=== PATIENT | male | born 1945 | race Caucasian/White ===

== ENCOUNTER 2023-11-08 20:55 | Inpatient (IN) | payer OTHER, SELFPAY ==
[2023-11-08] VITALS (55 sets, daily range): BP systolic 66–135; BP diastolic 33–59; BMI 20.5
[2023-11-08 15:42] LABS: Glucose - Point of Care 278 mg/dl (70-99)
--- NOTE | 2023-11-08 16:16 | ED.GENMED ---
History of Present Illness
General
Chief Complaint: Weakness
Source: patient and family
Exam Limitations: none
Time Seen by Provider: 11/08/23 15:56
Travel History
Have you had any contact with someone who has COVID-19?: No
Do you have any symptoms of coronavirus? Fever > 100 degrees, chills, cough, shortness of breath, sore throat, loss of taste or smell, muscle aches, or headache?: No
History of Present Illness
History of Present Illness:
See MDM
Past History
Past History
ED Past Medical History: CHF and HTN
ED Past Surgical History: None
Social History
Tobacco: Non-smoker
Alcohol: None
Phy Exam
Physical Exam
Physical Exam:
See MDM
Course
Orders/Labs/Results
Orders:
Orders
11/08/23 15:47
Electrocardiogram (*1) Urgent
Reason for Study: Other
Other Reason for Exam: Possible Sepsis
EKG- Treatment ONCE
IV Insert/Care/Rem.- Treatment PRN
11/08/23 15:54
CR Chest Portable - 1 View Urgent
Comment:
Reason For Exam: sob
Reason Study Needs to be Portable: Patient Unstable
11/08/23 16:11
0.9% Sodium Chloride 500 ml [Nss] 500 ml IV BOLUS
Piperacillin/Tazo 3.375 Gram [Zosyn] 3.375 gram in 50 ml IV NOW
Vancomycin [Vancocin] 1,250 mg 0.9% Sodium Chloride 250 ml [Nss] 250 ml IV NOW
11/08/23 16:37
Complete Blood Count/With Diff Urgent
Lactic Acid Q4H
Comment: ON ICE, CANCEL 2ND ORDER IF FIRST LACTIC ACID LEVEL <2
Blood Culture Q30M
BELLA Source: Blood/Venous
Specimen Description:
Comment: FROM 2 SEPARATE SITES
11/08/23 16:38
Blood Culture Q30M
BELLA Source: Blood/Venous
Specimen Description:
Comment: FROM 2 SEPARATE SITES
11/08/23 17:38
0.9% Sodium Chloride 1000 ml [Nss] 1,000 ml IV BOLUS
11/08/23 18:11
Comprehensive Metabolic Panel Urgent
11/08/23 20:00
Lactic Acid Q4H
Comment: ON ICE, CANCEL 2ND ORDER IF FIRST LACTIC ACID LEVEL <2
Abnormal Lab Results
11/08/23 11/08/23 11/08/23
15:40 16:37 18:11
WBC 18.1 H 10^3/uL
(4.8-10.8)
RBC 3.70 L 10^6/uL
(4.70-6.10)
Hgb 10.8 L g/dL
(13.0-18.0)
Hct 31.5 L %
(39.0-52.0)
RDW 16.0 H %
(11.5-14.5)
Abs Immat Gran (auto) 0.3 H 10^3/uL
(0-0.05)
Absolute Neuts (auto) 17.0 H 10^3/uL
(1.4-6.5)
Absolute Lymphs (auto) 0.4 L 10^3/uL
(1.2-3.4)
Immature Gran % 1.4 H %
(0-0.5)
Neutrophils % 94.0 H %
(42.2-75.2)
Lymphocytes % 1.9 L %
(20.5-51.1)
Sodium 125 L mmol/L
(135-145)
Chloride 97 L mmol/L
(98-107)
Carbon Dioxide 18 L mmol/L
(22-30)
BUN 86 H mg/dl
(9-20)
Creatinine 1.9 H mg/dL
(0.7-1.3)
Glucose 231 H mg/dl
(70-99)
Lactic Acid 2.6 H mmol/L
(0.7-2.0)
Calcium 7.5 L mg/dl
(8.4-10.2)
Total Protein 4.7 L g/dl
(6.3-8.2)
Albumin 2.0 L g/dl
(3.5-5.0)
POC Glucose 278 H mg/dl
(70-99)
11/08/23 16:37
11/08/23 18:11
Vital Signs
Initial and Last Documented VS:
Initial Vital Signs
BP
84/49
11/08/23 15:31
Last Documented Vital Signs
Temp Pulse Resp BP Pulse Ox
97.7 F 68 20 66/50 97
11/08/23 15:35 11/08/23 19:00 11/08/23 19:00 11/08/23 18:45 11/08/23 18:15
MDM/Problems Addressed
Differential Diagnosis Includes:
HPI and MDM Narrative:
78-year-old male presenting for evaluation of shortness of breath and cough. Per daughter, patient had out patient x-ray showing multifocal pneumonia. Patient was placed on 2 L nasal cannula by EMS. Patient planes of shortness of breath and
cough. Daughter states that he was placed on Mucinex a few days ago and symptoms have since worsened
On exam, patient scattered rhonchi. He is weak and frail. Will repeat x-ray and start antibiotic
Physical exam
General: Weak and frail
HEENT: protecting airway. Dry mucous membranes
Neck: appears supple
CV: No evidence of cyanosis
Resp: No accessory muscle use. Scattered rhonchi
Abd: Non-distended
Extremities: No deformities. No leg edema
Neuro: alert
Psych: Normal affect
Skin: Pale
Problems Addressed including Acute and Chronic Conditions affecting care:
1. Multifocal pneumonia
Acuity: acute
Prognosis: unstable
Details: Given the mild hypoxia with multifocal pneumonia, will start antibiotics and admit
Updates
X-ray consistent with right middle lobe pneumonia
Patient started on vancomycin and Zosyn
Given the persistent hypohypotension despite IV fluids, patient started on Levophed
Differential Diagnosis (but not limited to): COVID, multifocal pneumonia, CHF
Testing considered: Troponin and BNP
Drug therapy (if applicable): OTC meds, please see d/c instruction regarding Rx drugs
Amount and/or Complexity of Data Reviewed
Clinical info obtained from: Patient and daughter
External data reviewed: N/A
Labs I independently reviewed (but not limited to): Leukocytosis, elevated lactic acid
Radiology: x-ray independently reviewed: Right middle lobe pneumonia
Pulse Ox: hypoxic
EKG independently reviewed: Normal sinus rhythm, normal axis, no STEMI
Can Dragger: Sinus rhythm
Critical Care: The high probability of a clinically significant, sudden or life threatening deterioration of the cardiac/pulmonary system(s) required my full and direct attention, intervention and personal management. The aggregate critical care
time was 33 minutes. This time is in addition to time spent performing reported procedures but includes the following:
[x] Data Review and interpretation
[x] Patient assessment and monitoring of vital signs
[x] Documentation
[x] Medication orders and management
Risk of Complication:
Social Determinants of health: Good social support
Discussed with other providers: Hospitalist
Escalation of Care includes Admit/Obs: Given the pneumonia with low blood pressure, will admit
Occasional wrong word or 'sound a like' substitutions may have occurred due to the inherent limitations of voice recognition software. Read the chart carefully and recognize, using context, where substitutions have occurred.
*Critical Care Note
Total Time (30-74mins, 75-104mins- exclusive of procedures): 33 min
ED Attending Note
-
Portions of this chart may have been created with voice recognition software.� Occasional wrong word or��sound alike� substitutions may have occurred due to the inherent limitations of voice recognition software.
Discharge Plan
Departure
Patient Disposition: Admit
Date of Disposition: 11/08/23
Time of Disposition: 19:06
Admit to: IMU
Presentation/result/management discussed w/ accepting MD/DO: Hospitalist
Discharge Problem:
PNA (pneumonia)
Prescriptions:
No Action
metformin 500 mg Tablet
500 mg PO DAILY
doxepin 50 mg Capsule
50 mg PO DAILY
atorvastatin 80 mg Tablet
80 mg PO DAILY
acetaminophen [Tylenol] 325 mg Tablet
650 mg PO Q6H MDD 3000 mg PRN (Reason: mild pain/temp>100)
Triple Antibiotic 3.5mg-400 unit- 5,000 unit/gram Ointment
1 applic TOPICAL DAILY
carvedilol 12.5 mg Tablet
12.5 mg PO BID
Rx Instructions:
11/08/2023, hold for BP<100 or HR<50.
ipratropium-albuterol 0.5 mg-3 mg(2.5 mg base)/3 mL Solution For Nebulization
3 ml INHALATION R Q4HPRN PRN (Reason: sob)
amiodarone 200 mg Tablet
200 mg PO DAILY
ondansetron HCl [Zofran] 4 mg Tablet
4 mg PO Q6H PRN (Reason: nausea/vomiting)
isosorbide mononitrate 30 mg Tablet Extended Release 24 Hr
30 mg PO DAILY
Rx Instructions:
11/08/2023, hold for BP<100.
clopidogrel 75 mg Tablet
75 mg PO DAILY
omeprazole 40 mg Capsule,Delayed Release(Dr/Ec)
40 mg PO BID
spironolactone 25 mg Tablet
12.5 mg PO DAILY
magnesium hydroxide [Milk of Magnesia] 400 mg/5 mL Suspension
30 ml PO HSPRN PRN (Reason: if no BM in 3 days)
bisacodyl 10 mg Suppository
10 mg MN DAILY PRN (Reason: if MOM ineffective)
losartan 25 mg Tablet
25 mg PO DAILY
Rx Instructions:
11/08/2023, hold for BP<100.
gabapentin 100 mg Capsule
100 mg PO DAILY PRN (Reason: nerve pain)
Santyl 250 unit/gram Ointment
1 applic TOPICAL DAILY
Santyl 250 unit/gram Ointment
1 applic TOPICAL DAILY PRN (Reason: soilage/dislodgement)
loratadine 10 mg Tablet
10 mg PO HS
Rx Instructions:
11/08/2023, start date: 10/25/2023; end date: 11/24/2023.
Dakin's Solution 0.25 % Solution
1 applic TOPICAL Q12H
Referrals:
Sixto Madison MD [Family Provider] -
Interventions
Interventions:
*Risk Screen - Suicide Last Done: 11/08/23 15:35
*General Assessment Last Done: 11/08/23 15:35
*Neglect/Abuse Screening Last Done: 11/08/23 15:35
ED- Fall Risk Assessment Last Done: 11/08/23 15:35
*ED COVID-19 Vaccine History Last Done: 11/08/23 15:35
ED- Cardiac Assessment Last Done: 11/08/23 15:35
ED- Neurological Assessment Last Done: 11/08/23 15:35
ED- Pulmonary Assessment Last Done: 11/08/23 15:35
Discharge Date and Time
Print Language: WELSH
[2023-11-08] MEDS: NSS 500 IV (16:43)
[2023-11-08 16:46] LABS: % Basophils 0.1 % (0-2); % Eosinophils 0.2 % (0-6); % Immature Granulocytes 1.4 % (0-0.5); % Lymphocytes 1.9 % (20.5-51.1); % Monocytes 2.4 % (1.7-9.3); Absolute Immature Granulocytes 0.3 10^3/uL (0-0.05); Absolute Lymphocytes 0.4 10^3/uL (1.2-3.4); Absolute Monocytes 0.4 10^3/uL (0.1-0.6); Hematocrit 31.5 % (39.0-52.0); Hemoglobin 10.8 g/dL (13.0-18.0); Mean Corp Hgb Conc. 34.3 g/dL (33.0-37.0); Mean Corpuscular Hgb 29.2 pg (27.0-31.0); Mean Corpuscular Volume 85.1 fL (80.0-94.0); Mean Platelet Volume 9.6 fL (7.4-10.4); Nucleated Red Blood Cells % 0 % (-); Platelet Count 319 10^3/uL (130-400); White Blood Cell Count 18.1 10^3/uL (4.8-10.8)
[2023-11-08 16:59] LABS: Lactic Acid 2.6 mmol/L (0.7-2.0)
[2023-11-08] MEDS: ZOSYN 50 IV ×2 (17:00→23:19)
[2023-11-08] MEDS: VANCOCIN 275 MG IV (17:01)
[2023-11-08] MEDS: NSS 1000 IV (18:07)
[2023-11-08 18:36] LABS: ALT (SGPT) 15 U/L (0-50); AST (SGOT) 37 U/L (17-59); Alkaline Phosphatase 113 U/L (38-126); Blood Urea Nitrogen 86 mg/dl (9-20); Calcium 7.5 mg/dl (8.4-10.2); Carbon Dioxide 18 mmol/L (22-30); Chloride 97 mmol/L (98-107); Glucose 231 mg/dl (70-99); Potassium 4.4 mmol/L (3.5-5.1); Sodium 125 mmol/L (135-145); Total Bilirubin 0.7 mg/dl (0.2-1.3); Total Protein 4.7 g/dl (6.3-8.2)
[2023-11-08 18:43] LABS: Estimated Creatinine Clearance 28 ml/min; eGFR 35.66
[2023-11-08] MEDS: LEVOPHED 250 IV ×2 (19:10→22:41)
--- NOTE | 2023-11-08 20:04 | HPS.HSE ---
Family Physician
-
Family Physician: Sixto Madison
Chief Complaint
-
Cough / Weakness
History of Present Illness
Patient is a 78y M with PMH significant for paraplegia s/p spinal cord injury, CHF and HTN who presents to ED complaining of cough and general weakness / fatigue for the past 2-3 days. Patient spoke with his physician and had outpatient testing
done including a CXR. He was started on Mucinex with no improvement in his symptoms. He reports a hacking cough minimally productive of clear mucus. No blood. Pos SOB - mostly with exertion. No N/V/D. No urinary complaints. No other
associated complaints.
Patient is a resident at [facility].
In the ED today, he is noted to be hypotensive - which persists despite IV fluid resuscitation.
Medical History
Past Medical History
Past Medical History: Reports Other
Additional Past Medical History:
Hypertension
Chronic HFpEF
CKD III
Atrial Fibrillation
Paraplegia (Traumatic SCI)
DM-II
GERD
BPH
Past Surgical History: Reports Other
Additional Past Surgical History:
Thoracic Spine Fusion / Stabilization (2021)
Social History
Tobacco: Former Smoker (Quit smoking 30 years ago. Approx 30 pack years total use.)
Alcohol: None
Drug: None
Living: Assisted Living
Family History
Family History: Not pertinent
Allergies / Home Medications
Allergies reflects when Allergies were last updated in [facility].
Home Medications with original date entered in [facility]
Allergy/Medication List:
Allergies
Allergy/AdvReac Type Severity Reaction Status Date / Time
No Known Allergies Allergy Verified 11/08/23 16:41
Home Medications
acetaminophen 325 mg tablet (Tylenol) 650 mg PO Q6H PRN mild pain/temp>100 11/08/23
amiodarone 200 mg tablet 200 mg PO DAILY 11/08/23
atorvastatin 80 mg tablet 80 mg PO DAILY 11/08/23
bisacodyl 10 mg rectal suppository 10 mg DE DAILY PRN if MOM ineffective 11/08/23
carvedilol 12.5 mg tablet 12.5 mg PO BID 11/08/23
clopidogrel 75 mg tablet 75 mg PO DAILY 11/08/23
collagenase clostridium histo. 250 unit/gram topical ointment (Santyl) 1 applic topical DAILY PRN soilage/dislodgement 11/08/23
collagenase clostridium histo. 250 unit/gram topical ointment (Santyl) 1 applic topical DAILY mid back wound 11/08/23
doxepin 50 mg capsule 50 mg PO DAILY 11/08/23
gabapentin 100 mg capsule 100 mg PO DAILY PRN nerve pain 11/08/23
ipratropium 0.5 mg-albuterol 3 mg (2.5 mg base)/3 mL nebulization soln 3 ml inhalation R Q4HPRN PRN sob 11/08/23
isosorbide mononitrate 30 mg tablet,extended release 24 hr 30 mg PO DAILY 11/08/23
loratadine 10 mg tablet 10 mg PO HS 11/08/23
losartan 25 mg tablet 25 mg PO DAILY 11/08/23
magnesium hydroxide 400 mg/5 mL oral suspension (Milk of Magnesia) 30 ml PO HSPRN PRN if no BM in 3 days 11/08/23
metformin 500 mg tablet 500 mg PO DAILY 11/08/23
neomycin-bacitracn Zn-polymyx 3.5 mg-400 unit-5,000 unit/gram top oint (Triple Antibiotic) 1 applic topical DAILY forehead 11/08/23
omeprazole 40 mg capsule,delayed release 40 mg PO BID 11/08/23
ondansetron HCl 4 mg tablet 4 mg PO Q6H PRN nausea/vomiting 11/08/23
sodium hypochlorite 0.25 % solution (Dakin's Solution) 1 applic topical Q12H mid back wound 11/08/23
spironolactone 25 mg tablet 12.5 mg PO DAILY 11/08/23
Review of Systems
-
History Source: Patient
A 12 point ROS was completed and negative except as noted: Yes
Constitutional: Reports Fatigue; Denies Fever or Chills
EENT: Denies Sore Throat
Respiratory: Reports Cough and Trouble Breathing; Denies Hemoptysis
Cardiac: Denies Chest Pain or Palpitations
Abdomen/GI: Reports Anorexia; Denies Abdominal Pain, Nausea, Vomiting or Diarrhea
: Denies Dysuria, Frequency or Flank Pain
Musculoskeletal: Denies Joint Pain or Edema
Neurological: Reports Weakness and Numbness; Denies Dizzy or Headache
Psych: Denies Depression or Anxiety
Physical Exam
Vital Signs
Vital Signs
Temp Pulse Resp BP Pulse Ox
97.7 F 69 17 81/43 85
11/08/23 15:35 11/08/23 19:45 11/08/23 19:45 11/08/23 19:45 11/08/23 19:45
Physical Exam
General: Other (78y M ill-appearing and lethargic in the ED. Wakes to answer questions / follow commands appropriately.)
HEENT: PERRLA and Other (Dry MM.)
Respiratory: Other (Coarse breath sounds anteriorly and posteriorly on the R. No noted rales / wheeze.)
Cardiac: S1/S2 and Regular Rhythm; No Murmur
GI: Soft, Non Tender, Non Distended and Normal Bowel Sounds
Musculoskeletal: No Clubbing, No Cyanosis and No Edema
Neuro: AO x 3 and Other (LE weakness / paraplegia which is chronic. No new focal deficits.)
Laboratory Results
-
11/08/23 16:37
11/08/23 18:11
Laboratory Results
Lactic Acid 2.6 mmol/L (0.7-2.0) H 11/08/23 16:37
Total Bilirubin 0.7 mg/dl (0.2-1.3) 11/08/23 18:11
AST 37 U/L (17-59) 11/08/23 18:11
ALT 15 U/L (0-50) 11/08/23 18:11
Alkaline Phosphatase 113 U/L (38-126) 11/08/23 18:11
Impression/Plan
-
A/P: Patient is a 78y M with PMH significant for HTN, DM-II and paraplegia who presents to ED complaining of cough, fatigue and weakness.
RML / RLL Pneumonia
Septic Shock secondary to the above
Acute Hypoxemic Respiratory Insufficiency secondary to the above
- Admit to ICU for further evaluation and treatment.
- Patient with evidence of R sided pneumonia on CXR and clinically.
- Patient presents with pneumonia and evidence for life-threatening organ dysfunction in the form of hypoxemia +/- MAXX.
- Hypotensive despite supplemental IVFs given in the ED and now requiring pressor support.
- Continue IV abx with Vanco / Zosyn for now and follow-up culture data.
- Narrow abx as appropriate.
- Check COVID / Flu.
- Continue supportive care including supplemental O2, IVFs +/- pressors, mucolytics, nebs, etc.
- Follow serial lactate for evidence of improvement.
- Follow for clinical improvement.
- Golf Course Keeper consult.
Hyponatremia
MAXX v CKD
- Na = 125 with no prior labs for baseline.
- Received several liters of IVF in the ED due to sepsis / hypotension.
- Check urine studies.
- Holding diuretic / Aldactone acutely.
- SCr = 1.9 with history of CKD but no documented baseline SCr.
- Follow for changes in labs with treatment of septic shock.
- Small boluses of fluid as needed for hypotension / sepsis, but will avoid 'maintenance' fluids.
Atrial Fibrillation - Suspect Paroxysmal
- Stable. Currently in sinus rhythm.
- Hold most medications acutely - including amio, antihypertensive meds, etc.
- Monitor on telemetry.
- Patient is not chronically on OAC. Takes Plavix daily which we will continue.
Chronic HFpEF
- Does not appear to volume overloaded at present by exam.
- Bolus fluids given per sepsis protocols in the ED. Continue fluids as small boluses if needed to maintain BP, etc.
- Hold outpatient medications acutely including spironolactone, Imdur, etc.
- Follow I/Os, daily weights, etc.
Benign Hypertension
- On multidrug regimen. Currently hypotensive / septic shock as noted above.
- Hold all BP medications acutely and gradually reintroduce these as appropriate.
DM-II
- Stable. Hold PO metformin.
- Follow glucose and cover with SSI as needed.
- Update A1C.
Paraplegia
Spinal Cord Injury (2021)
- Patient is non-ambulatory at baseline and uses wheelchair for locomotion.
- PT / OT evaluations.
GERD
- Stable. Continue PPI daily.
BPH
- Stable. Bladder scan protocol.
DVT Prophylaxis: Lovenox
Code Status: Full
[2023-11-08 21:10] LABS: INR 1.39; PT 16.9 Sec (11.4-14.6)
[2023-11-08 21:17] LABS: COVID-19 Antigen Negative (Negative)
[2023-11-08] MEDS: DUONEB INH (22:24)
[2023-11-08] MEDS: MUCINEX PO (22:25)
[2023-11-08 22:32] LABS: Osmolality Urine 484 mOsm/kg (300-900)
--- NOTE | 2023-11-08 22:34 | PHA.VAN.IN ---
Assessment
- Assessment
Renal Function: Unknown baseline
Concomitant Antimicrobials: ZOSYN
- Previous Dosing Experience
Previous Regimen: NONE
Plan
- Plan
Initial / Loading Dose: 1250MG
Maintenance Regimen: DOSING BY RANDOM LEVELS
Monitoring: RANDOM VANCOMYCIN LEVEL 11/09/23 AM
Pharmacokinetics Vancomycin I
- -
Patient Age: 78
Patient Sex: Male
Vancomycin Day #: 1
Indication: Pulmonary/Respiratory (SEPTIC SHOCK)
Requesting Provider: CICI
Height / Weight:
Height 5 ft 8 in
Actual Weight 61.1 kg
- Vital Signs / Lab Results
Temp Pulse Resp BP Pulse Ox
97.5 F 70 20 104/49 98
11/08/23 22:23 11/08/23 21:35 11/08/23 21:35 11/08/23 21:35 11/08/23 22:23
Lab Results - Hematology
11/08/23
16:37
WBC 18.1 H
Lab Results - Chemistry
11/08/23 11/08/23
16:37 18:11
BUN Cancelled 86 H
Creatinine Cancelled 1.9 H
Estimated Creat Clear Cancelled 28
Albumin Cancelled 2.0 L
11/08/23 11/08/23
16:37 20:49
Lactic Acid 2.6 H 1.0
Microbiology Results
11/08/23 20:50 Influenza Types A & B (VALENITN) - Final
Nasal Swab Negative for Influenza A & B, NAAT
Negative results must be combined with clinical observations
and patient history.
Nucleic Acid Amplification test (NAAT)performed on the
[employer] platform.
[2023-11-08 22:36] LABS: APTT 32.7 Sec (23.4-35.0)
[2023-11-08 22:47] LABS: Blood Urea Nitrogen 85 mg/dl (9-20); Calcium 7.7 mg/dl (8.4-10.2); Carbon Dioxide 21 mmol/L (22-30); Chloride 98 mmol/L (98-107); Estimated Creatinine Clearance 26 ml/min; Glucose 216 mg/dl (70-99); Iron 29 ug/dl (49-181); Magnesium 1.5 mg/dl (1.6-2.3); Phosphorus 4.4 mg/dl (2.5-4.5); Potassium 4.9 mmol/L (3.5-5.1); Sodium 126 mmol/L (135-145); Urine Sodium < 5 mmol/L (30-90); eGFR 33.53
[2023-11-08] MEDS: CALCIUM CHLORIDE 10% SYRINGE 60 MG IV (22:48)
[2023-11-08 22:56] LABS: Percent Saturation 19 % (20-50); Total Iron Binding Capacity 149 ug/dl (261-462)
[2023-11-08] MEDS: PITRESSIN 100 IV (23:19)
[2023-11-08] MEDS: NOVOLOG FLEXPEN-LOW RESISTANCE 2 UNITS SC (23:19)
[2023-11-08] MEDS: MAGNESIUM SULFATE 50 IV (23:19)
[2023-11-08 23:25] LABS: Glucose - Point of Care 235 mg/dl (70-99)
[2023-11-09] VITALS (63 sets, daily range): BP systolic 77–142; BP diastolic 35–73; BMI 21.1
--- NOTE | 2023-11-09 00:22 | PTCARENOTE ---
2139- received patient from ER. oriented x3. slightly drowsy, arouses to voice. LE paralysis. SR on monitor. afebrile. on 6L NC, denies SOB, satting high 90s. breath sounds extremely diminished throughout. NPO. speech consulted - pt admits to
swallowing difficulty. increased amount of oral secretions, oral care and sxn provided. BS for 298ml, straight cath for 220ml. brief placed. wounds to sacrum and spine, WOC consulted. protective foams placed. R DL PICC in place, placement confirmed
by CXR. levo gtt received at 12mcg. MAP goal >65. repeat labs sent. pt repositioned off sacrum, CHG bath done.
0000- vaso gtt initiated, levo gtt titrated per MAP goal. mag and calcium repleted. on 2L NC. care ongoing.
[2023-11-09 03:08] LABS: TSH Reflex To Free T4 3.78 uIU/ml (0.47-4.68)
[2023-11-09 03:27] LABS: Vitamin B12 715 pg/ml (239-931)
[2023-11-09] MEDS: LEVOPHED 250 IV ×5 (04:14→20:30)
--- NOTE | 2023-11-09 04:30 | PTCARENOTE ---
patient reassessed. AM labs sent. pt repositioned off sacrum with pillow. SR on monitor. on 2L NC. levo/vaso gtts continue. care ongoing.
[2023-11-09 04:39] LABS: Hematocrit 28.3 % (39.0-52.0); Hemoglobin 9.7 g/dL (13.0-18.0); Mean Corp Hgb Conc. 34.3 g/dL (33.0-37.0); Mean Corpuscular Hgb 29.3 pg (27.0-31.0); Mean Corpuscular Volume 85.5 fL (80.0-94.0); Mean Platelet Volume 9.6 fL (7.4-10.4); Platelet Count 356 10^3/uL (130-400); Red Blood Cell Count 3.31 10^6/uL (4.70-6.10); Red Cell Dist. Width 16.2 % (11.5-14.5); White Blood Cell Count 19.5 10^3/uL (4.8-10.8)
[2023-11-09 05:02] LABS: Vancomycin Random 13.2 ug/ml
[2023-11-09 05:06] LABS: Blood Urea Nitrogen 82 mg/dl (9-20); Calcium 8.2 mg/dl (8.4-10.2); Carbon Dioxide 21 mmol/L (22-30); Chloride 97 mmol/L (98-107); Estimated Creatinine Clearance 23 ml/min; Glucose 230 mg/dl (70-99); Magnesium 2.2 mg/dl (1.6-2.3); Potassium 4.7 mmol/L (3.5-5.1); Sodium 125 mmol/L (135-145); Troponin I 0.045 ng/ml; eGFR 28.35
[2023-11-09] MEDS: ZOSYN 50 IV (05:18)
[2023-11-09] MEDS: NOVOLOG FLEXPEN-LOW RESISTANCE 2 UNITS SC (05:19)
[2023-11-09 05:36] LABS: Cortisol, Random 38.3 ug/dl
[2023-11-09] MEDS: DUONEB 3 ML INH ×4 (07:24→19:46)
[2023-11-09] MEDS: PLAVIX PO (07:29)
[2023-11-09] MEDS: MUCINEX PO ×2 (07:29→21:12)
--- NOTE | 2023-11-09 07:53 | PTCARENOTE ---
pt received from previous rn- aox2-3, pt unaware of place but knows date and name. follows commands. see neuro flowsheet. able to move feet- weak. levo, vaso continue. nsr on monitor with 1st degree heart block. map >65. turned and repositioned.
oral care provided. pt with weak, moist cough. right double lumen picc- flushes, good blood return. site c/d/i. pt with sacral and spine wounds- generalized scabbing.all safety precautions in place, call harrison within reach.
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
[2023-11-09] MEDS: NSS (PRESERVATIVE FREE) 10 ML IV (08:23)
[2023-11-09] MEDS: PROTONIX IV 40 MG IV (08:23)
[2023-11-09] MEDS: PITRESSIN 100 IV (08:28)
[2023-11-09 08:44] LABS: Glycohemoglobin (HgbA1c) 7.7 % (4.0-5.6)
[2023-11-09] MEDS: MUCINEX 600 MG PO (08:49)
[2023-11-09] MEDS: PLAVIX 75 MG PO (08:49)
--- NOTE | 2023-11-09 08:56 | PTOTSP ---
Dysphagia Evaluation
Patient presents with signs concerning for oral/pharyngeal dysphagia and aspiration with thin liquids. Given admission with RIGHT sided PNA and risk factors for dysphagia (i.e. of paraplegia s/p spinal cord injury, GERD), objective assessment of
swallowing warranted via swallow study to which patient consented.
Recommend:
1. NPO
2. Medications - essential medications crushed in puree
3. Oral care 3x daily with suctioning
4. Aspiration Risk Hydration Protocol - sparing ice chips after oral care with nursing supervision
5. Video swallow study
[2023-11-09] MEDS: DILAUDID 0.25 MG IV (09:35)
[2023-11-09] MEDS: NSS 500 IV ×2 (09:36→12:22)
--- NOTE | 2023-11-09 09:51 | CON.ID ---
Consultation
-
Date/Time Consultation Requested: November 09, 202307
Date/Time Consultation Performed: November 09, 2023 0945
Requesting Provider: Dr. Adelso Bey
Performing Provider: Dr. Berna Arnold
Reason for Consultation: Sepsis, bacteremia
Chief Complaint / Past History
Chief Complaint
Cough
History of Present Illness
78-year-old male with hx of spinal cord injury resulting in paraplegia, diabetes mellitus type 2, atrial fibrillation, heart failure, CKD 3 who presented to the hospital on November 08, 2023 due to 2-day history of worsening cough. He reports cough
nonproductive. No shortness of breath. No fevers or chills at home. He felt extremely weak. No ill contacts. He is up-to-date with his pneumonia vaccines. In the ER his white count was 18.1, lactic acid 2.6, hypotensive with blood pressure in
66 systolic, and MAXX. Chest x-ray shows right middle lobe opacity. He is currently on vancomycin and Zosyn. Today he reports no improvement. Otherwise no urinary symptoms. No nausea vomiting or diarrhea.
Past History
Additional Past Medical History:
Diabetes mellitus type 2
History of spinal cord injury with paraplegia
Atrial fibrillation
Hypertension
Heart failure with preserved EF
CKD 3
BPH
Thoracic spine surgery 2021
Allergy History:
No Known Allergies Allergy (Verified 11/08/23 16:41)
Medications Reviewed: Yes
Current Antibiotics:
Vancomycin
Zosyn
Social History
Tobacco: Former Smoker
Alcohol: None
Drug: None
Living: Assisted Living
Family History
Family History: Not Pertinent
Review of Systems
Review of Systems
General: Change in Appetite; Negative Fever or Chills
HEENT: Negative Sinus Problems, Headache or Pharyngitis
Cardiovascular: Negative Chest Pain or Edema
Respiratory: Cough; Negative Sputum Production
Gasteroenterology: Negative Nausea or Vomiting
Genital / Urological: Negative Dysuria or Flank Pain
Skin / Hair / Nails: Negative Rash
Neurological: Negative Headache or Dizziness
All systems: All other systems were reviewed and were negative
Vital Signs
Temp Pulse Resp BP Pulse Ox
97.7 F 59 16 121/46 98
11/09/23 07:48 11/09/23 08:30 11/09/23 08:30 11/09/23 08:00 11/09/23 08:30
Physical Exam
Physical Exam
Constitutional: Acutely Ill
Eyes: No Conjunctival Hemorrhage and Sclera Anicteric
Cardiovascular: Regular Rate and S1/S2
Pulmonary: Rales (right crackles)
Gastrointestinal: Soft, Non Tender, Non Distended and Normal Bowel Sounds
Genito-Urinary: Negative CVA Tenderness
Extremities: Negative Edema
Neurological: AO x 3
Lines: PICC (RUE intact)
Lab / Diagnostic Study Results
11/09/23 04:12
11/09/23 04:12
Abs Immat Gran (auto) 0.3 10^3/uL (0-0.05) H 11/08/23 16:37
Absolute Neuts (auto) 17.0 10^3/uL (1.4-6.5) H 11/08/23 16:37
Absolute Lymphs (auto) 0.4 10^3/uL (1.2-3.4) L 11/08/23 16:37
Absolute Monos (auto) 0.4 10^3/uL (0.1-0.6) 11/08/23 16:37
Absolute Basos (auto) 0.0 10^3/uL (0-0.2) 11/08/23 16:37
Immature Gran % 1.4 % (0-0.5) H 11/08/23 16:37
Neutrophils % 94.0 % (42.2-75.2) H 11/08/23 16:37
Lymphocytes % 1.9 % (20.5-51.1) L 11/08/23 16:37
Monocytes % 2.4 % (1.7-9.3) 11/08/23 16:37
Eosinophils % 0.2 % (0-6) 11/08/23 16:37
Basophils % 0.1 % (0-2) 11/08/23 16:37
PT 16.9 Sec (11.4-14.6) H 11/08/23 20:49
INR 1.39 11/08/23 20:49
Lactic Acid Cancelled 11/09/23 04:04
Microbiology Results
Micro:
11/08/23 22:18 Nasal Screen MRSA (PCR) - Pending
Nose
11/08/23 16:37 Blood Culture - Preliminary
Blood/Venous Positive culture in progress
Gram Stain - Final
11/08/23 16:38 Blood Culture - Preliminary
Blood/Venous Positive culture in progress
Gram Stain - Final
11/08/23 20:50 Influenza Types A & B (VALENTIN) - Final
Nasal Swab Negative for Influenza A & B, NAAT
Negative results must be combined with clinical observations
and patient history.
Nucleic Acid Amplification test (NAAT)performed on the
[employer] platform.
11/08/23 CXR: Right midlung pneumonia.
Assessment / Plan
# RML CAP
# GPC chains/pairs bacteremia - suspect Strep pneumo from lung source
# Septic shock on 2 pressors
# MAXX on CKD
-Repeat blood cultures.
-Narrow Zosyn to ceftriaxone.
-Continue Vancomycin for now pending identification of GPC.
Follow Vanco levels closely.
-Follow WBC, vitals.
--- NOTE | 2023-11-09 10:15 | PTCARENOTE ---
plan of care discussed in rounds with Dr. Ibarra. turner placed- draining yellow urine- pt tolerated and understood procedure. scds on. one time diluadid given for severe buttock pain. ivf bolus infused. maintenance fluids running. vaso on hold per
md. labs and ekg completed. frequent turning and repositoning with oral care. update provided to daughter Stormy. assessment further unchanged.
--- NOTE | 2023-11-09 10:23 | PHA.VAN.FU ---
Vancomycin Assessment / Plan
- Assessment
Renal Function: SCR Increasing
WBC's are: Trending Down
In the past 24 hrs, patient has been: Afebrile
Concomitant Antimicrobials: ceftriaxone
- Assessment - Therapeutic Drug Monitoring
Random Level: 13.2 - drawn ~11H after initial dose of 1250mg
- Dosing Plan
Dosing by Level: Re-dose today (Vanc 750mg)
Dosing Comments: patient likely will require prolonged dosing interval
- Monitoring Plan
Random Level: 11/09 06
- Follow Up
Pharmacy will continue to follow.
Vancomycin Follow UP
- -
Patient Age: 78
Patient Sex: Male
Vancomycin Day #: 2
Indication: Pulmonary/Respiratory
Requesting Provider: Dr. Lozano / [place]
Pertinent Antimicrobial Allergies:
NKDA
Height / Weight:
Height 5 ft 8 in
Actual Weight 62.8 kg
Pertinent Past Medical History: Paraplegia, DM2, CKD
- Vital Signs / Lab Results
Temp Pulse Resp BP Pulse Ox
97.7 F 70 19 93/73 97
11/09/23 07:48 11/09/23 10:00 11/09/23 10:00 11/09/23 10:00 11/09/23 10:00
Lab Results - Hematology
11/08/23 11/09/23
16:37 04:12
WBC 18.1 H 19.5 H
Lab Results - Chemistry
11/08/23 11/08/23 11/08/23
16:37 18:11 22:18
BUN Cancelled 86 H 85 H
Creatinine Cancelled 1.9 H 2.0 H
Estimated Creat Clear Cancelled 28 26
Albumin Cancelled 2.0 L
11/09/23
04:12
BUN 82 H
Creatinine 2.3 H
Estimated Creat Clear 23
Albumin
11/08/23 11/08/23 11/08/23
16:37 20:49 22:04
Lactic Acid 2.6 H 1.0 Cancelled
11/09/23
04:04
Lactic Acid Cancelled
Microbiology Results
11/08/23 16:37 Blood Culture - Preliminary
Blood/Venous Positive culture in progress
Gram Stain - Final
11/08/23 16:38 Blood Culture - Preliminary
Blood/Venous Positive culture in progress
Gram Stain - Final
11/08/23 20:50 Influenza Types A & B (VALENTIN) - Final
Nasal Swab Negative for Influenza A & B, NAAT
Negative results must be combined with clinical observations
and patient history.
Nucleic Acid Amplification test (NAAT)performed on the
[employer] platform.
Therapeutic Drug Monitoring
Random Vancomycin 13.2 ug/ml 11/09/23 04:12
[2023-11-09 10:27] LABS: Troponin I 0.036 ng/ml
[2023-11-09 11:23] LABS: Glucose - Point of Care 269 mg/dl (70-99)
[2023-11-09] MEDS: STERILE WATER FOR INJECTION 20 ML IV (11:23)
[2023-11-09] MEDS: VANCOCIN 150 IV (11:23)
[2023-11-09] MEDS: ROCEPHIN 2000 MG IV (11:23)
[2023-11-09] MEDS: LANTUS 0.100000000000000006 UNITS SC (11:23)
[2023-11-09] MEDS: NOVOLOG FLEXPEN-LOW RESISTANCE 3 UNITS SC (11:24)
[2023-11-09] MEDS: NSS 1000 IV ×2 (12:22→18:22)
[2023-11-09] MEDS: DILAUDID 0.5 MG IV (12:23)
--- NOTE | 2023-11-09 12:51 | CM ---
CM following re: discharge planning.
Discussed in Rounds, reviewed pt' chart, met with pt and spoke to pt's daughter Stormy over the phone.
Pt is a 78 year old male, admitted with primary dx of Acute hypoxic respiratory insufficiency, right lower pneumonia.
Per daughter Stormy, pt has been at [facility] for a short term rehab for about a month, on working comp pay source, mostly uses a wheelchair and uses a walker with PT. Pt's daughter stated she is the only daughter and she works as a
teacher. Pt's daughter stated that pt supposed to be moved to [facility] tomorrow for a short term rehab and possibly a fci care.
CM spoke to [facility] director of pulmonary unit Katarzyna and she confirmed that a plan was to admit the pt tomorrow from [facility] and pt will be accepted from when pt is medically stable. Requested pt's clinical faxed to [facility].
D/C plan: [facility] for a short term and possibly a fci care.
CM will follow with discharge plan updates as hospitalization progresses
--- NOTE | 2023-11-09 13:18 | W.PN.HOSP.TC ---
Today's Communication/Plan
-
Monitor vital signs
see plan
Wean pressors as tolerated
Monitor creatinine
Monitor urine output
Continue with antibiotics
Follow cultures
Assessment / Plan
Assessment / Plan
General: Other (78y M ill-appearing and lethargic in the ED. Wakes to answer questions / follow commands appropriately.)
HEENT: PERRLA and Other (Dry MM.)
Respiratory: Other (Coarse breath sounds anteriorly and posteriorly on the R. No noted rales / wheeze.)
Cardiac: S1/S2 and Regular Rhythm; No Murmur
GI: Soft, Non Tender, Non Distended and Normal Bowel Sounds
Musculoskeletal: No Clubbing, No Cyanosis and No Edema
Neuro: AO x 3 and Other (LE weakness / paraplegia which is chronic. No new focal deficits.)
RML / RLL Pneumonia
Septic Shock secondary to the above
Acute Hypoxemic Respiratory Insufficiency secondary to the above
Currently on Levophed and vasopressin, wean pressors as tolerated
- Patient with evidence of R sided pneumonia on CXR and clinically.
- Patient presents with pneumonia and evidence for life-threatening organ dysfunction in the form of hypoxemia +/- MAXX.
Continue with antibiotics per infectious disease
Blood culture positive with gram-positive cocci, repeat blood cultures 11/09. Urine strep positive
Lactic acidosis on admission, now improved
Speech following, recommended n.p.o. Need VSE once stable
Hyponatremia
MAXX v CKD
- Na = 125 with no prior labs for baseline.
- Holding diuretic / Aldactone acutely.
- SCr = 1.9 with history of CKD but no documented baseline SCr. monitor
If symptoms do not improve then will get nephrology evaluation
Atrial Fibrillation - Suspect Paroxysmal
- Stable. Currently in sinus rhythm.
- Hold most medications acutely - including amio, antihypertensive meds, etc.
- Monitor on telemetry.
- Patient is not chronically on OAC. Takes Plavix daily which we will continue.
Troponin elevation, likely secondary to nonischemic myocardial injury
Monitor
Chronic HFpEF
- Does not appear to volume overloaded at present by exam.
- Hold outpatient medications acutely including spironolactone, Imdur, etc.
- Follow I/Os, daily weights, etc.
Benign Hypertension
- On multidrug regimen. Currently hypotensive / septic shock as noted above.
- Hold all BP medications acutely and gradually reintroduce these as appropriate.
DM-II
- Stable. Hold PO metformin.
- Follow glucose and cover with SSI as needed.
- A1C 7 point
Paraplegia
Spinal Cord Injury (2021)
- Patient is non-ambulatory at baseline and uses wheelchair for locomotion.
- PT / OT evaluations.
GERD
- Stable. Continue PPI daily.
BPH
- Stable. Bladder scan protocol.
DVT Prophylaxis: Lovenox
Code Status: Full
I spent a total of 54 minutes with the patient or on the floor. More than 50% of this time involved counseling and coordination of care.
Anticipated Discharge: > 48 hours
Subjective/Interval History
-
Date of Service: November 09, 2023
Denies pain
Objective Data
-
Labs:
Laboratory Results
11/09/23 11/09/23
04:12 14:00
WBC 19.5 H
Hgb 9.7 L
Hct 28.3 L
Plt Count 356
Sodium 125 L
Potassium 4.7 Cancelled
Chloride 97 L
Carbon Dioxide 21 L
BUN 82 H
Creatinine 2.3 H
Glucose 230 H
Calcium 8.2 L
Vital Signs:
Vital Signs
Temp Pulse Resp BP Pulse Ox
97.1 F 62 14 77/35 94
11/09/23 11:30 11/09/23 11:30 11/09/23 11:30 11/09/23 11:00 11/09/23 11:30
I&O
11/08/23 11/09/23 11/10/23
06:59 06:59 06:59
Intake Total 578 / 632 1471.0 / 1471.0
Output Total 220 / 220 145 / 145
Balance 358 / 412 1326.0 / 1326.0
--- NOTE | 2023-11-09 13:49 | WOUNDNOTE ---
SACRUM AND COCCYX
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
--- NOTE | 2023-11-09 14:24 | PTCARENOTE ---
wound care completed by nuno rn- see documentation. pressure boots applied.
[2023-11-09] MEDS: HEPARIN 5000 UNITS SC ×2 (15:59→23:20)
--- NOTE | 2023-11-09 16:30 | W.PN.UPDATE ---
Update Note
Progress Note Update
Provided daughter update at bedside
Reviewed clinical course. She states patient saw wound physician in [place] 2 weeks ago and was told wound was 'okay'
Patient also was started on antibiotic at [facility] for possible infection, details unclear over the past week or so
Patient also has substance abuse disorder.
Daughter would like to minimize any narcotic therapy
Daughter also confirmed patient is DNR. Daughter is power of workers compensation defense attorney. Patient confirmed DNR status at bedside with me
Reviewed with critical care nursing
[2023-11-09] MEDS: NOVOLOG FLEXPEN-MODERATE RESISTANCE 1 UNITS SC ×2 (17:48→23:23)
[2023-11-09 17:58] LABS: Glucose - Point of Care 166 mg/dl (70-99)
--- NOTE | 2023-11-09 22:21 | PTCARENOTE ---
pt alert and oriented x2. pleasant and cooperative. daughter and pts friend were at the bedside earlier. weaning levo as tolerated.
[2023-11-09 23:34] LABS: Glucose - Point of Care 152 mg/dl (70-99)
[2023-11-10] VITALS (51 sets, daily range): BP systolic 84–132; BP diastolic 44–74; PULSE 84; O2SAT 96; BMI 22.1
[2023-11-10] MEDS: LEVOPHED 250 IV ×2 (00:28→09:35)
[2023-11-10 04:46] LABS: Hematocrit 28.3 % (39.0-52.0); Hemoglobin 9.7 g/dL (13.0-18.0); Mean Corp Hgb Conc. 34.3 g/dL (33.0-37.0); Mean Corpuscular Volume 84.5 fL (80.0-94.0); Mean Platelet Volume 9.5 fL (7.4-10.4); Platelet Count 320 10^3/uL (130-400); Red Blood Cell Count 3.35 10^6/uL (4.70-6.10); Red Cell Dist. Width 16.3 % (11.5-14.5); White Blood Cell Count 18.6 10^3/uL (4.8-10.8)
[2023-11-10 05:10] LABS: Blood Urea Nitrogen 67 mg/dl (9-20); Calcium 7.8 mg/dl (8.4-10.2); Carbon Dioxide 18 mmol/L (22-30); Chloride 101 mmol/L (98-107); Estimated Creatinine Clearance 30 ml/min; Glucose 153 mg/dl (70-99); Magnesium 1.8 mg/dl (1.6-2.3); Potassium 4.1 mmol/L (3.5-5.1); Sodium 126 mmol/L (135-145); eGFR 38.05
[2023-11-10 05:14] LABS: Vancomycin Random 13.5 ug/ml
[2023-11-10] MEDS: NOVOLOG FLEXPEN-MODERATE RESISTANCE 1 UNITS SC ×4 (05:14→23:27)
[2023-11-10] MEDS: NSS 1000 IV ×3 (05:14→23:28)
[2023-11-10 05:27] LABS: Glucose - Point of Care 155 mg/dl (70-99)
[2023-11-10] MEDS: DILAUDID 0.5 MG IV ×2 (05:33→20:03)
--- NOTE | 2023-11-10 05:54 | PTCARENOTE ---
am care completed. pt c/o his pressure wounds hurting. repositioned with the wedge and pain medication given.
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
[2023-11-10] MEDS: MUCINEX PO ×2 (07:41→19:53)
[2023-11-10] MEDS: DUONEB 3 ML INH ×4 (07:48→20:35)
[2023-11-10] MEDS: PROTONIX IV 40 MG IV (08:40)
[2023-11-10] MEDS: NSS (PRESERVATIVE FREE) 10 ML IV (08:40)
[2023-11-10] MEDS: PLAVIX 75 MG PO (08:40)
[2023-11-10] MEDS: HEPARIN 5000 UNITS SC ×3 (08:40→23:18)
[2023-11-10] MEDS: ROCEPHIN 2000 MG IV (11:13)
[2023-11-10] MEDS: STERILE WATER FOR INJECTION 20 ML IV (11:14)
--- NOTE | 2023-11-10 11:41 | W.PN.HOSP.TC ---
Today's Communication/Plan
-
Monitor vital signs and see plan
Continue monitor sodium and creatinine
Monitor urine output
Wean pressors as tolerated
Remains NPO, VSE noted; GI to evaluate
follow blood cx
Assessment / Plan
Assessment / Plan
General: no acute distress
HEENT: PERRLA
Respiratory: Other (Coarse breath sounds anteriorly and posteriorly on the R. No noted rales / wheeze.)
Cardiac: S1/S2 and Regular Rhythm; No Murmur
GI: Soft, Non Tender, Non Distended and Normal Bowel Sounds
Musculoskeletal: No Clubbing, No Cyanosis and No Edema
Neuro: AO x 3 and Other (LE weakness / paraplegia which is chronic. No new focal deficits.)
RML / RLL Pneumonia
Septic Shock secondary to the above
Acute Hypoxemic Respiratory Insufficiency secondary to the above
Currently on Levophed; now off vaso, wean pressors as tolerated
- Patient with evidence of R sided pneumonia on CXR and clinically.
Continue with antibiotics per infectious disease
Blood culture positive with strep pneumo, repeat blood cultures 11/09. Urine strep positive
Lactic acidosis on admission, now improved
Speech following, recommended n.p.o.; VSE noted 11/09; Decreased opening of upper esophagus. Significant retention t/o esophagus which did not clear - high risk for bottom up aspiration. GI consulted. Per speech therapy pur�ed diet with thin liquids
once cleared by GI
Hyponatremia
MAXX v CKD
- Na now 126
- Holding diuretic / Aldactone acutely.
history of CKD but no documented baseline SCr. monitor
If symptoms do not improve then will get nephrology evaluation
Atrial Fibrillation - Suspect Paroxysmal
- Stable. Currently in sinus rhythm.
- Hold most medications acutely - including amio, antihypertensive meds, etc.
- Monitor on telemetry.
- Patient is not chronically on OAC. Takes Plavix daily which we will continue.
Troponin elevation, likely secondary to nonischemic myocardial injury
Monitor
Chronic HFpEF
- Does not appear to volume overloaded at present by exam.
- Hold outpatient medications acutely including spironolactone, Imdur, etc.
- Follow I/Os, daily weights, etc.
Benign Hypertension
- On multidrug regimen. Currently hypotensive / septic shock as noted above.
- Hold all BP medications acutely and gradually reintroduce these as appropriate.
DM-II
- Stable. Hold PO metformin.
- Follow glucose and cover with SSI as needed.
- A1C 7 point
Paraplegia
Spinal Cord Injury (2021)
- Patient is non-ambulatory at baseline and uses wheelchair for locomotion.
- PT / OT evaluations.
Stage III coccyx pressure injury
monitor
wound care
GERD
- Stable. Continue PPI daily.
BPH
- Stable. Bladder scan protocol.
DVT Prophylaxis: Lovenox
Code Status: DNR
I spent a total of 52 minutes with the patient or on the floor. More than 50% of this time involved counseling and coordination of care.
Anticipated Discharge: > 48 hours
Subjective/Interval History
-
Date of Service: November 10, 2023
denies nausea
Objective Data
-
Labs:
Laboratory Results
11/10/23
04:27
WBC 18.6 H
Hgb 9.7 L
Hct 28.3 L
Plt Count 320
Sodium 126 L
Potassium 4.1
Chloride 101
Carbon Dioxide 18 L
BUN 67 H
Creatinine 1.8 H
Glucose 153 H
Calcium 7.8 L
Vital Signs:
Vital Signs
Temp Pulse Resp BP Pulse Ox
98.4 F 72 16 91/53 97
11/10/23 11:08 11/10/23 11:08 11/10/23 11:08 11/10/23 09:00 11/10/23 11:08
I&O
11/09/23 11/10/23 11/11/23
06:59 06:59 06:59
Intake Total 578 / 632 4185.9 / 4308.4 590.0 / 590.0
Output Total 220 / 220 1085 / 1085 140 / 140
Balance 358 / 412 3100.9 / 3223.4 450.0 / 450.0
[2023-11-10 11:56] LABS: Glucose - Point of Care 194 mg/dl (70-99)
--- NOTE | 2023-11-10 12:27 | CM ---
Addendum entered by Chuck Hoyt 11/10/23 13:19:
CM met with caseworker protective services Sunil Benavides from [email or web address] (cell: [phone]; office: [phone]) that overseeing the pt for worker compensation benefits. CM Bill confirmed that pt will not return back to [facility] and pt will go to
[facility] and per Bill, pt has been approved for skilled services at [facility] and [facility] hospital admissions clerk is aware.
Requested pt's clinical faxed to [email or web address] for a review [phone] .
D/C plan: [facility] when medically stable.
Original Note:
CM following re: discharge planning.
Discussed in Rounds, reviewed pt's chart, met with p[t. Per Rounds meeting, video swallowing today, continue supportive care.
D/C plan: [facility] for a short term and possibly a fpc care. Per [facility] hospital admissions clerk, pt will be under working comp pay source.
CM will follow with discharge plan updates as hospitalization progresses
[2023-11-10] MEDS: LANTUS 0.100000000000000006 UNITS SC (12:35)
[2023-11-10] MEDS: NSS 500 IV (12:39)
--- NOTE | 2023-11-10 12:55 | W.PN.ID1 ---
Date of Service
Date of Service: November 10, 2023
Today's Communication
Continue ceftriaxone.
Assessment / Plan
# Invasive pneumococcal CAP with bacteremia
# Septic shock
# MAXX on CKD, improving
-Follow repeat blood cultures.
-Continue ceftriaxone.
-Discontinue Vancomycin .
-Follow WBC, vitals.
#Additional Past Medical History:
Diabetes mellitus type 2
History of spinal cord injury with paraplegia
Atrial fibrillation
Hypertension
Heart failure with preserved EF
CKD 3
BPH
Thoracic spine surgery 2021
Chief Complaint
-: Pneumonia and Bacteremia
Subjective / Review of Systems
+ cough, not better
Vital Signs / Physical Exam
Vital Signs
Vital Signs
Temp Pulse Resp BP Pulse Ox
98.4 F 85 18 96/55 96
11/10/23 11:08 11/10/23 11:30 11/10/23 11:30 11/10/23 11:30 11/10/23 11:30
Physical Exam
Constitutional: No Acute Distress
Cardiovascular: Regular Rate
Pulmonary: Rales (crackles bilateral bases)
Gastrointestinal: Soft, Non Tender and Non Distended
Extremities: Negative Edema
Neurological: AO x 3
Objective Data
Lab Data
Lab Results
11/10/23 04:27
11/10/23 04:27
PT 16.9 Sec (11.4-14.6) H 11/08/23 20:49
INR 1.39 11/08/23 20:49
APTT 32.7 Sec (23.4-35.0) 11/08/23 22:18
Estimated Creat Clear 30 ml/min 11/10/23 04:27
Lactic Acid Cancelled 11/09/23 04:04
Total Bilirubin 0.7 mg/dl (0.2-1.3) 11/08/23 18:11
AST 37 U/L (17-59) 11/08/23 18:11
ALT 15 U/L (0-50) 11/08/23 18:11
Alkaline Phosphatase 113 U/L (38-126) 11/08/23 18:11
Most recent labs reviewed.
Micro Results:
11/08/23 16:38 Blood Culture - Preliminary
Blood/Venous Streptococcus pneumoniae
Gram Stain - Final
11/08/23 16:37 Blood Culture - Preliminary
Blood/Venous Streptococcus pneumoniae
Gram Stain - Final
11/10/23 04:27 Blood Culture - Pending
Blood/Venous
11/08/23 22:18 Nasal Screen MRSA (PCR) - Final
Nose Staph aureus MRSA
11/08/23 22:18 Legionella Urinary Antigen - Final
Urine Negative for Legionella pneumophila Serogroup 1 antigen.
A negative result does not rule out the possiblity of
Legionella infection due to other serogroups or species of
Legionella. Clinical correlation is recommended.
Streptococcus pneumoniae Antigen (M - Final
Streptococcus pneumoniae
11/08/23 20:50 Influenza Types A & B (VALENTIN) - Final
Nasal Swab Negative for Influenza A & B, NAAT
Negative results must be combined with clinical observations
and patient history.
Nucleic Acid Amplification test (NAAT)performed on the
[employer] platform.
11/08/23 CXR: Right midlung pneumonia.
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
--- NOTE | 2023-11-10 13:56 | PTOTSP ---
Video Swallow Study
Summary: Patient presents with moderate oral and mild-moderate pharyngeal dysphagia. There was upper laryngeal penetration with thin liquids via straw (transient with chin tuck) and mildly thick liquids via straw. Cued cough is weak. PES
duration of opening was reduced resulting pharyngeal residue greatest in the pyriforms. Possible CP bar. Esophageal sweep revealed significant retention throughout the esophagus which did not clear with a liquid wash. Risk for bottom up
aspiration is high. Risk for complications from aspiration is high (i.e., paraplegic, weak cough strength, poor oral health). Please see patient care note for full details of penetration/aspiration and swallowing physiology.
Recommend the following diet IF cleared by GI:
1. IDDSI Level 4 Puree, IDDSI Level 0 Thin Liquids
2. FULL supervision and assistance
3. Strategies: PO only when awake/alert, single sips/bites, slow rate, TUCK CHIN when swallowing liquids, small frequent meals, remain upright for AT LEAST 30 minutes after intake as a reflux precaution
4. Oral care 3x daily
5. Dysphagia therapy for patient/family education, instruction in compensations, therapeutic trials of advanced solids, and dysphagia exercises as appropriate.
6. GI consult to assess esophageal stage of swallowing
[2023-11-10 17:15] LABS: Glucose - Point of Care 187 mg/dl (70-99)
--- NOTE | 2023-11-10 18:02 | PTCARENOTE ---
Pt ate 25% of dinner. Feed by RN. Ate very slowly. No coughing noted between bites. Stated he was not hungry after 3 bites but ate more with encouragement. All other assessments unchanged.
[2023-11-10 23:32] LABS: Glucose - Point of Care 154 mg/dl (70-99)
[2023-11-11] VITALS (20 sets, daily range): BP systolic 74–128; BP diastolic 42–87; BMI 23.0
[2023-11-11 04:37] LABS: Hematocrit 26.2 % (39.0-52.0); Hemoglobin 8.9 g/dL (13.0-18.0); Mean Corpuscular Hgb 28.6 pg (27.0-31.0); Mean Corpuscular Volume 84.2 fL (80.0-94.0); Mean Platelet Volume 9.6 fL (7.4-10.4); Platelet Count 269 10^3/uL (130-400); Red Blood Cell Count 3.11 10^6/uL (4.70-6.10); Red Cell Dist. Width 16.7 % (11.5-14.5); White Blood Cell Count 12.4 10^3/uL (4.8-10.8)
[2023-11-11 05:02] LABS: Blood Urea Nitrogen 55 mg/dl (9-20); Carbon Dioxide 16 mmol/L (22-30); Chloride 104 mmol/L (98-107); Estimated Creatinine Clearance 44 ml/min; Glucose 121 mg/dl (70-99); Potassium 3.7 mmol/L (3.5-5.1); Sodium 130 mmol/L (135-145); eGFR 56.23
[2023-11-11] MEDS: NOVOLOG FLEXPEN-MODERATE RESISTANCE SC ×2 (05:30→12:34)
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
[2023-11-11] MEDS: DUONEB 3 ML INH ×4 (07:31→20:50)
--- NOTE | 2023-11-11 07:43 | PTCARENOTE ---
0700 patient received in bed . Awake and alert, able to let his needs known. SR 81. BP via left upper arm 113/63 MAP 72; RR 19; 94%2L of oxygen. on levophed 2mcg. on 2L via nasal cannula. Denies pain. Denies nausea. levophed on hold. Oxygen off pt
on RA.
[2023-11-11 07:58] LABS: Glucose - Point of Care 134 mg/dl (70-99)
[2023-11-11] MEDS: MUCINEX 600 MG PO (08:18)
[2023-11-11] MEDS: PROTONIX IV 40 MG IV (08:18)
[2023-11-11] MEDS: NSS (PRESERVATIVE FREE) 10 ML IV (08:18)
[2023-11-11] MEDS: PLAVIX 75 MG PO (08:19)
[2023-11-11] MEDS: DILAUDID 0.5 MG IV (08:19)
[2023-11-11] MEDS: HEPARIN 5000 UNITS SC ×2 (08:20→17:38)
--- NOTE | 2023-11-11 09:12 | W.PN.ID1 ---
Date of Service
Date of Service: November 11, 2023
Today's Communication
Continue ceftriaxone.
Assessment / Plan
# Invasive pneumococcal CAP with bacteremia
# s/p Septic shock
# Leukocytosis trending down
# MAXX on CKD, improving
# Dysphagia
-repeat blood cultures neg to date.
-Continue ceftriaxone.
-Follow WBC, vitals.
-Aspiration precaution.
#Additional Past Medical History:
Diabetes mellitus type 2
History of spinal cord injury with paraplegia
Atrial fibrillation
Hypertension
Heart failure with preserved EF
CKD 3
BPH
Thoracic spine surgery 2021
Chief Complaint
-: Pneumonia and Bacteremia
Subjective / Review of Systems
Feels better. Now off oxygen.
Vital Signs / Physical Exam
Vital Signs
Vital Signs
Temp Pulse Resp BP Pulse Ox
98.4 F 81 18 125/87 94
11/11/23 08:08 11/11/23 07:33 11/11/23 07:33 11/11/23 06:00 11/11/23 07:33
Physical Exam
Constitutional: No Acute Distress and Comfortable
Cardiovascular: Regular Rate and S1/S2
Pulmonary: Rales (right crackles)
Gastrointestinal: Soft, Non Tender, Non Distended and Normal Bowel Sounds
Extremities: Negative Edema
Objective Data
Lab Data
Lab Results
11/11/23 04:15
11/11/23 04:15
PT 16.9 Sec (11.4-14.6) H 11/08/23 20:49
INR 1.39 11/08/23 20:49
APTT 32.7 Sec (23.4-35.0) 11/08/23 22:18
Estimated Creat Clear 44 ml/min 11/11/23 04:15
Lactic Acid Cancelled 11/09/23 04:04
Total Bilirubin 0.7 mg/dl (0.2-1.3) 11/08/23 18:11
AST 37 U/L (17-59) 11/08/23 18:11
ALT 15 U/L (0-50) 11/08/23 18:11
Alkaline Phosphatase 113 U/L (38-126) 11/08/23 18:11
Most recent labs reviewed.
Micro Results:
11/08/23 16:37 Blood Culture - Preliminary
Blood/Venous Streptococcus pneumoniae
Gram Stain - Final
11/11/23 04:15 Blood Culture - Pending
Blood/Venous
11/10/23 04:27 Blood Culture - Preliminary
Blood/Venous No Growth in 24 hours- Final report to follow
11/08/23 16:38 Blood Culture - Preliminary
Blood/Venous Streptococcus pneumoniae
Gram Stain - Final
11/08/23 22:18 Nasal Screen MRSA (PCR) - Final
Nose Staph aureus MRSA
11/08/23 22:18 Legionella Urinary Antigen - Final
Urine Negative for Legionella pneumophila Serogroup 1 antigen.
A negative result does not rule out the possiblity of
Legionella infection due to other serogroups or species of
Legionella. Clinical correlation is recommended.
Streptococcus pneumoniae Antigen (M - Final
Streptococcus pneumoniae
11/08/23 20:50 Influenza Types A & B (VALENTIN) - Final
Nasal Swab Negative for Influenza A & B, NAAT
Negative results must be combined with clinical observations
and patient history.
Nucleic Acid Amplification test (NAAT)performed on the
[email or web address] platform.
11/08/23 CXR: Right midlung pneumonia.
[2023-11-11] MEDS: NSS 1000 IV ×2 (09:18→19:07)
[2023-11-11] MEDS: ROCEPHIN 2000 MG IV (09:29)
[2023-11-11] MEDS: STERILE WATER FOR INJECTION 20 ML IV (09:30)
--- NOTE | 2023-11-11 11:41 | CM ---
CM following re: discharge planning.
Discussed in Rounds, reviewed pt's chart, met with pt. Per Rounds meeting, GOC discussion with daughter, continue supportive care.
D/C plan: [facility] for a short term and a custodial care.
CM will follow with discharge plan updates as hospitalization progresses
[2023-11-11 11:55] LABS: Glucose - Point of Care 133 mg/dl (70-99)
--- NOTE | 2023-11-11 12:51 | W.PN.HOSP.TC ---
Addendum entered and electronically signed by Adelso Bey MD 11/11/23 14:23:
Daughter updated over the phone
Now off pressors, will transfer out of ICU
Original Note:
Today's Communication/Plan
-
Monitor vital signs see plan
Still on levo, wean pressors as tolerated
Monitor renal function
Monitor sodium
Continue antibiotics
Assessment / Plan
Assessment / Plan
General: no acute distress
HEENT: PERRLA
Respiratory: Other (Coarse breath sounds anteriorly and posteriorly on the R. No noted rales / wheeze.)
Cardiac: S1/S2 and Regular Rhythm; No Murmur
GI: Soft, Non Tender, Non Distended and Normal Bowel Sounds
Musculoskeletal: No Clubbing, No Cyanosis and No Edema
Neuro: AO x 3 and Other (LE weakness / paraplegia which is chronic. No new focal deficits.)
RML / RLL Pneumonia
Septic Shock secondary to the above
Acute Hypoxemic Respiratory Insufficiency secondary to the above
Currently on Levophed; now off vaso, wean pressors as tolerated
- Patient with evidence of R sided pneumonia on CXR and clinically.
Continue with antibiotics per infectious disease
Blood culture positive with strep pneumo, repeat blood cultures 11/09 [facility]D. Urine strep positive
Lactic acidosis on admission, now improved
Speech following, recommended n.p.o.; VSE noted 11/09; Decreased opening of upper esophagus. Significant retention t/o esophagus which did not clear - high risk for bottom up aspiration. Seen by GI. Patient and POA both dont want any feeding tube.
Per speech therapy pur�ed diet with thin liquids
Hyponatremia
MAXX v CKD
- Na now 130
- Holding diuretic / Aldactone acutely.
history of CKD but no documented baseline SCr. monitor
If symptoms do not improve then will get nephrology evaluation
Atrial Fibrillation - Suspect Paroxysmal
- Stable. Currently in sinus rhythm.
- Hold most medications acutely - including amio, antihypertensive meds, etc.
- Monitor on telemetry.
- Patient is not chronically on OAC. Takes Plavix daily which we will continue.
Troponin elevation, likely secondary to nonischemic myocardial injury
Monitor
Chronic HFpEF
- Does not appear to volume overloaded at present by exam.
- Hold outpatient medications acutely including spironolactone, Imdur, etc.
- Follow I/Os, daily weights, etc.
Benign Hypertension
- On multidrug regimen. Currently hypotensive / septic shock as noted above.
- Hold all BP medications acutely and gradually reintroduce these as appropriate.
DM-II
- Stable. Hold PO metformin.
- Follow glucose and cover with SSI as needed.
Paraplegia
Spinal Cord Injury (2021)
- Patient is non-ambulatory at baseline and uses wheelchair for locomotion.
- PT / OT evaluations.
Stage III coccyx pressure injury
monitor
wound care
GERD
- Stable. Continue PPI daily.
BPH
- Stable. Bladder scan protocol.
DVT Prophylaxis: Lovenox
Code Status: DNR
I spent a total of 53 minutes with the patient or on the floor. More than 50% of this time involved counseling and coordination of care.
Anticipated Discharge: > 48 hours
Subjective/Interval History
-
Date of Service: November 11, 2023
denies pain
Objective Data
-
Labs:
Laboratory Results
11/11/23
04:15
WBC 12.4 H
Hgb 8.9 L
Hct 26.2 L
Plt Count 269
Sodium 130 L
Potassium 3.7
Chloride 104
Carbon Dioxide 16 L
BUN 55 H
Creatinine 1.3
Glucose 121 H
Calcium 8.0 L
Vital Signs:
Vital Signs
Temp Pulse Resp BP Pulse Ox
98.6 F 83 12 105/59 95
11/11/23 12:03 11/11/23 11:37 11/11/23 11:37 11/11/23 11:00 11/11/23 11:37
I&O
11/10/23 11/11/23 11/12/23
06:59 06:59 06:59
Intake Total 4185.9 / 4308.4 3366.8 / 3466.8 600 / 600
Output Total 1085 / 1085 835 / 895 210 / 210
Balance 3100.9 / 3223.4 2531.8 / 2571.8 390 / 390
--- NOTE | 2023-11-11 13:23 | PTCARENOTE ---
patient in bed. awake, alert, confused and forgetful ; BP 120/74 SR 86 ; RR 15; POX 95RA. Sacrum wound Stage III and DTI dressing changed per current order. Left heel DTI foam dressing changed heels in heel boots. Nayak removed. Condom catheter
applied and draining yellow clear dressing.
--- NOTE | 2023-11-11 16:23 | PN.CDI ---
CDI
- -
CDI:
Physician Documentation Request
Admit Date: 11/08/23 20:55
Dear Doctor Sotero,
Clinical Indicators:
Patient admitted with sepsis with stage 3 coccyx pressure injury; Additional pressure injuries documented:
11/08 [facility] RN skin/wound assessment: Left Lateral Heel Deep Tissue injury, POA
Spine Pressure Injury Stage 3, POA
Sacrum Deep Tissue Injury
Physician documentation of the type and location of wounds is required for compliant documentation. Based on the above clinical findings and your assessment, please provide the following in your progress note:
1. Location of the ulcer/wound, including laterality.
2. Type (etiology) of ulcer/wound:
- Pressure (decubitus) ulcer
- Other
- Unable to determine
3. If a pressure ulcer, please also include the stage* of the ulcer:
- Stage 1 - Skin intact, non-blanchable redness
- Stage 2 - Partial thickness loss of dermis, includes intact or open blister
- Stage 3 - Full thickness tissue not including bone, tendon or muscle
- Stage 4 - Full thickness tissue loss, including exposed bone, tendon or muscle
- Unstageable - Full thickness loss in which the base of the ulcer is covered by slough (yellow, fall, cheema, green or brown) and/or eschar (fall, brown or black) in the wound bed.
- Unable to determine
Use of terms such as suspected, likely, concern for, or probable (associated with a specific diagnosis that is being evaluated, monitored, or treated as if it exists) are acceptable and can be coded in the inpatient setting, when documented at the
time of discharge.
Thank you,
DENNY Banerjee RN
CDI Specialist
available via tiger text
Please use your independent medical judgment in providing your response.
*Source: National Pressure Ulcer Advisory Panel (NPUAP)
[2023-11-11] MEDS: COLACE LIQUID 100 MG PO (17:37)
[2023-11-11] MEDS: SENNA SYRUP 8.80000000000000071 MG PO (17:37)
[2023-11-11] MEDS: NOVOLOG FLEXPEN-MODERATE RESISTANCE 1 UNITS SC (17:43)
[2023-11-11] MEDS: ROBITUSSIN 200 MG PO (17:49)
--- NOTE | 2023-11-11 17:53 | PTCARENOTE ---
patient transfer to room 328 telemetry level of care. VSS. Condom catheter changed prior to transfer #30. pt on RA. transfer via bed. daughter Stormy made aware regarding transfer. Report given prior to transfer
[2023-11-11 18:03] LABS: Glucose - Point of Care 170 mg/dl (70-99)
[2023-11-11] MEDS: COLACE LIQUID PO (19:01)
[2023-11-11] MEDS: SENNA SYRUP PO (19:02)
[2023-11-11] MEDS: ROBITUSSIN PO (19:03)
[2023-11-11 21:32] LABS: Glucose - Point of Care 144 mg/dl (70-99)
[2023-11-11] MEDS: LANTUS 0.100000000000000006 UNITS SC (22:23)
[2023-11-12] MEDS: ROBITUSSIN 200 MG PO ×5 (01:32→22:14)
[2023-11-12] MEDS: HEPARIN 5000 UNITS SC ×4 (01:32→22:39)
[2023-11-12] MEDS: ROBITUSSIN PO ×2 (03:20→23:08)
[2023-11-12 03:37] VITALS: BP 126/66
[2023-11-12] MEDS: NSS 1000 IV (05:31)
[2023-11-12 06:00] VITALS: BMI 23.8
[2023-11-12] MEDS: DUONEB 3 ML INH ×4 (07:14→19:27)
[2023-11-12 07:44] LABS: Glucose - Point of Care 125 mg/dl (70-99)
[2023-11-12] MEDS: NSS (PRESERVATIVE FREE) 10 ML IV (07:45)
[2023-11-12] MEDS: PROTONIX IV 40 MG IV (07:46)
[2023-11-12] MEDS: PLAVIX 75 MG PO (07:46)
[2023-11-12] MEDS: SENNA SYRUP 8.80000000000000071 MG PO ×2 (07:47→22:14)
[2023-11-12] MEDS: COLACE LIQUID 100 MG PO ×2 (07:47→22:15)
[2023-11-12] MEDS: NOVOLOG FLEXPEN-MODERATE RESISTANCE SC ×3 (07:48→17:10)
[2023-11-12 09:38] LABS: % Basophils 0.4 % (0-2); % Eosinophils 0.4 % (0-6); % Immature Granulocytes 4.7 % (0-0.5); % Lymphocytes 4.5 % (20.5-51.1); % Monocytes 5.6 % (1.7-9.3); % Neutrophils 84.4 % (42.2-75.2); Absolute Immature Granulocytes 0.5 10^3/uL (0-0.05); Absolute Lymphocytes 0.4 10^3/uL (1.2-3.4); Absolute Monocytes 0.5 10^3/uL (0.1-0.6); Hematocrit 28.1 % (39.0-52.0); Hemoglobin 9.5 g/dL (13.0-18.0); Mean Corp Hgb Conc. 33.8 g/dL (33.0-37.0); Mean Corpuscular Hgb 28.9 pg (27.0-31.0); Mean Corpuscular Volume 85.4 fL (80.0-94.0); Mean Platelet Volume 9.6 fL (7.4-10.4); Nucleated Red Blood Cells % 0 % (-); Platelet Count 206 10^3/uL (130-400); Red Blood Cell Count 3.29 10^6/uL (4.70-6.10); Red Cell Dist. Width 16.9 % (11.5-14.5); White Blood Cell Count 9.5 10^3/uL (4.8-10.8)
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
[2023-11-12 11:00] VITALS: BP 126/67
[2023-11-12] MEDS: STERILE WATER FOR INJECTION 20 ML IV (11:01)
[2023-11-12] MEDS: ROCEPHIN 2000 MG IV (11:01)
--- NOTE | 2023-11-12 11:10 | W.PN.HOSP.TC ---
Today's Communication/Plan
-
Monitor vital signs and see plan
Follow blood cultures
Continue with antibiotics
PT/OT
Blood pressure not high and so we will hold medications
daughter updated over the phone
Assessment / Plan
Assessment / Plan
General: no acute distress
HEENT: PERRLA
Respiratory: Other (Coarse breath sounds anteriorly and posteriorly on the R. No noted rales / wheeze.)
Cardiac: S1/S2 and Regular Rhythm; No Murmur
GI: Soft, Non Tender, Non Distended and Normal Bowel Sounds
Musculoskeletal: No Clubbing, No Cyanosis and No Edema
Neuro: AO x 3 and Other (LE weakness / paraplegia which is chronic. No new focal deficits.)
RML / RLL Pneumonia
Septic Shock secondary to the above
Acute Hypoxemic Respiratory Insufficiency secondary to the above
Currently on Levophed; now off vaso, wean pressors as tolerated
- Patient with evidence of R sided pneumonia on CXR and clinically.
Continue with antibiotics per infectious disease
Blood culture positive with strep pneumo, repeat blood cultures 11/09 NGTD. Urine strep positive
Lactic acidosis on admission, now improved
Speech following, recommended n.p.o.; VSE noted 11/09; Decreased opening of upper esophagus. Significant retention t/o esophagus which did not clear - high risk for bottom up aspiration. Seen by GI. Patient and POA both dont want any feeding tube.
Per speech therapy pur�ed diet with thin liquids
Hyponatremia
MAXX v CKD
- Na now 130
- Holding diuretic / Aldactone acutely.
history of CKD but no documented baseline SCr. monitor
If symptoms do not improve then will get nephrology evaluation
Atrial Fibrillation - Suspect Paroxysmal
- Stable. Currently in sinus rhythm.
- Hold most medications acutely - including amio, antihypertensive meds, etc.
- Monitor on telemetry.
- Patient is not chronically on OAC. Takes Plavix daily which we will continue.
Troponin elevation, likely secondary to nonischemic myocardial injury
Monitor
Chronic HFpEF
- Does not appear to volume overloaded at present by exam.
- Hold outpatient medications acutely including spironolactone, Imdur, etc.
- Follow I/Os, daily weights, etc.
Benign Hypertension
- On multidrug regimen. Currently hypotensive / septic shock as noted above.
- Hold all BP medications acutely and gradually reintroduce these as appropriate.
DM-II
- Stable. Hold PO metformin.
- Follow glucose and cover with SSI as needed.
Paraplegia
Spinal Cord Injury (2021)
- Patient is non-ambulatory at baseline and uses wheelchair for locomotion.
- PT / OT evaluations.
Suspect cognitive impairment
Stage III coccyx pressure injury
monitor
wound care
GERD
- Stable. Continue PPI daily.
BPH
- Stable. Bladder scan protocol.
DVT Prophylaxis: Lovenox
Code Status: DNR
I spent a total of 52 minutes with the patient or on the floor. More than 50% of this time involved counseling and coordination of care.
Anticipated Discharge: 24 - 48 hours
Subjective/Interval History
-
Date of Service: November 12, 2023
denies pain
Objective Data
-
Labs:
Laboratory Results
11/12/23
09:02
WBC 9.5
Hgb 9.5 L
Hct 28.1 L
Plt Count 206 D
Vital Signs:
Vital Signs
Temp Pulse Resp BP Pulse Ox
98.5 F 85 16 126/66 99
11/12/23 03:37 11/12/23 07:15 11/12/23 07:15 11/12/23 03:37 11/12/23 07:15
I&O
11/11/23 11/12/23 11/13/23
06:59 06:59 06:59
Intake Total 3366.8 / 3466.8 700 / 700
Output Total 835 / 895 585 / 585
Balance 2531.8 / 2571.8 115 / 115
--- NOTE | 2023-11-12 12:05 | W.PN.ID1 ---
Date of Service
Date of Service: November 12, 2023
Today's Communication
Continue ceftriaxone.
Resume Vancomycin.
Assessment / Plan
# Staph aureus bacteremia
-MRSA nasal screen positive
-?contaminant. 1 of 4 bottles turned positive on day 4
-11/08 TTE no vegetation
- repeat blood cx neg to date
-Resume IV Vancomycin. pending susceptibility data.
# Invasive pneumococcal CAP with bacteremia
- s/p Septic shock
-repeat blood cultures neg to date.
-Continue ceftriaxone (d4), then po abx
#Additional Past Medical History:
Diabetes mellitus type 2
History of spinal cord injury with paraplegia
Atrial fibrillation
Hypertension
Heart failure with preserved EF
CKD 3
BPH
Thoracic spine surgery 2021
Chief Complaint
-: Pneumonia and Bacteremia
Subjective / Review of Systems
+ cough
Vital Signs / Physical Exam
Vital Signs
Vital Signs
Temp Pulse Resp BP Pulse Ox
98.5 F 84 16 126/66 99
11/12/23 03:37 11/12/23 11:24 11/12/23 11:24 11/12/23 03:37 11/12/23 07:15
Physical Exam
Constitutional: No Acute Distress
Cardiovascular: Regular Rate and S1/S2
Pulmonary: Rales (Right lung)
Gastrointestinal: Soft and Non Tender
Extremities: Edema (BLE, UE)
Lines: PICC (RUE)
Objective Data
Lab Data
Lab Results
11/12/23 09:02
11/11/23 04:15
PT 16.9 Sec (11.4-14.6) H 11/08/23 20:49
INR 1.39 11/08/23 20:49
APTT 32.7 Sec (23.4-35.0) 11/08/23 22:18
Estimated Creat Clear 44 ml/min 11/11/23 04:15
Lactic Acid Cancelled 11/09/23 04:04
Total Bilirubin 0.7 mg/dl (0.2-1.3) 11/08/23 18:11
AST 37 U/L (17-59) 11/08/23 18:11
ALT 15 U/L (0-50) 11/08/23 18:11
Alkaline Phosphatase 113 U/L (38-126) 11/08/23 18:11
Most recent labs reviewed.
Micro Results:
11/08/23 16:38 Blood Culture - Final
Blood/Venous Streptococcus pneumoniae
Gram Stain - Final
11/08/23 16:37 Blood Culture - Preliminary
Blood/Venous Streptococcus pneumoniae
Staphylococcus aureus
Gram Stain - Final
11/11/23 04:15 Blood Culture - Preliminary
Blood/Venous No Growth in 24 hours- Final report to follow
11/10/23 04:27 Blood Culture - Preliminary
Blood/Venous No Growth in 48 hours- Final report to follow
11/08/23 22:18 Nasal Screen MRSA (PCR) - Final
Nose Staph aureus MRSA
11/08/23 22:18 Legionella Urinary Antigen - Final
Urine Negative for Legionella pneumophila Serogroup 1 antigen.
A negative result does not rule out the possiblity of
Legionella infection due to other serogroups or species of
Legionella. Clinical correlation is recommended.
Streptococcus pneumoniae Antigen (M - Final
Streptococcus pneumoniae
11/08/23 20:50 Influenza Types A & B (VALENTIN) - Final
Nasal Swab Negative for Influenza A & B, NAAT
Negative results must be combined with clinical observations
and patient history.
Nucleic Acid Amplification test (NAAT)performed on the
[employer] platform.
11/08/23 CXR: Right midlung pneumonia.
[2023-11-12 12:13] LABS: Glucose - Point of Care 132 mg/dl (70-99)
--- NOTE | 2023-11-12 12:24 | PHA.VAN.FU ---
Vancomycin Assessment / Plan
- Assessment
Renal Function: SCR Decreasing (MAXX, trending down)
WBC's are: Trending Down
In the past 24 hrs, patient has been: Afebrile
Concomitant Antimicrobials: ceftriaxone
- Dosing Plan
Continue: to dose by level
Dosing by Level: Re-dose today (1250 mg 19 mg/kg)
- Monitoring Plan
Random Level: 11/12 am
- Follow Up
Pharmacy will continue to follow.
Vancomycin Follow UP
- -
Patient Age: 78
Patient Sex: Male
Vancomycin Day #: 1 (received doses 11/07-)
Indication: Pulmonary/Respiratory
Requesting Provider: Dr. Arnold
Pertinent Antimicrobial Allergies:
NKDA
Height / Weight:
Height 5 ft 8 in
Actual Weight 70.874 kg
Pertinent Past Medical History: Paraplegia, DM2, CKD
- Vital Signs / Lab Results
Temp Pulse Resp BP Pulse Ox
97.5 F 84 16 126/67 96
11/12/23 11:00 11/12/23 11:24 11/12/23 11:24 11/12/23 11:00 11/12/23 11:38
Lab Results - Hematology
11/10/23 11/11/23 11/12/23
04:27 04:15 09:02
WBC 18.6 H 12.4 H 9.5
Lab Results - Chemistry
11/10/23 11/11/23
04:27 04:15
BUN 67 H 55 H
Creatinine 1.8 H 1.3
Estimated Creat Clear 30 44
Microbiology Results
11/08/23 16:38 Blood Culture - Final
Blood/Venous Streptococcus pneumoniae
Gram Stain - Final
11/08/23 16:37 Blood Culture - Preliminary
Blood/Venous Streptococcus pneumoniae
Staphylococcus aureus
Gram Stain - Final
11/11/23 04:15 Blood Culture - Preliminary
Blood/Venous No Growth in 24 hours- Final report to follow
11/10/23 04:27 Blood Culture - Preliminary
Blood/Venous No Growth in 48 hours- Final report to follow
Therapeutic Drug Monitoring
Random Vancomycin 13.5 ug/ml 11/10/23 04:27
[2023-11-12] MEDS: VANCOCIN 275 MG IV (12:45)
--- NOTE | 2023-11-12 15:11 | CM ---
Case management following for d/c planning
Chart reviewed
Following blood cultures, remains on antibiotics antibiotics
Plan - [facility] for SNF/LTC when medically stable
--- NOTE | 2023-11-12 15:33 | WOUNDNOTE ---
[facility] RN note: Patient now on 3W. t/c spoke with RN Maru who will switch patient's bed to [facility] bed ([facility] or [facility] air, red sign bed). t/c Spoke with travel information center supervisor Sherif who will bring up a bed with red sign at
footboard (air bed).
[2023-11-12 15:44] VITALS: BP 138/63
[2023-11-12 17:04] LABS: Glucose - Point of Care 118 mg/dl (70-99)
[2023-11-12 19:15] VITALS: BP 120/60
[2023-11-12 21:28] LABS: Glucose - Point of Care 105 mg/dl (70-99)
[2023-11-12] MEDS: LANTUS 0.100000000000000006 UNITS SC (22:25)
[2023-11-12 23:45] VITALS: BP 128/62
[2023-11-13 03:30] VITALS: BP 113/63
[2023-11-13 04:46] LABS: % Basophils 0.2 % (0-2); % Eosinophils 0.8 % (0-6); % Immature Granulocytes 5.5 % (0-0.5); % Lymphocytes 6.9 % (20.5-51.1); % Monocytes 7.9 % (1.7-9.3); % Neutrophils 78.7 % (42.2-75.2); Absolute Eosinophils 0.1 10^3/uL (0-0.7); Absolute Immature Granulocytes 0.5 10^3/uL (0-0.05); Absolute Lymphocytes 0.6 10^3/uL (1.2-3.4); Absolute Monocytes 0.7 10^3/uL (0.1-0.6); Absolute Neutrophils 7.1 10^3/uL (1.4-6.5); Hematocrit 26.2 % (39.0-52.0); Mean Corp Hgb Conc. 34.4 g/dL (33.0-37.0); Mean Corpuscular Hgb 28.5 pg (27.0-31.0); Mean Corpuscular Volume 82.9 fL (80.0-94.0); Mean Platelet Volume 9.7 fL (7.4-10.4); Nucleated Red Blood Cells % 0 % (-); Platelet Count 199 10^3/uL (130-400); Red Blood Cell Count 3.16 10^6/uL (4.70-6.10); Red Cell Dist. Width 16.6 % (11.5-14.5); White Blood Cell Count 9.1 10^3/uL (4.8-10.8)
[2023-11-13] MEDS: ROBITUSSIN PO ×4 (05:14→21:22)
[2023-11-13 05:18] LABS: Vancomycin Random 13.3 ug/ml
[2023-11-13 05:31] LABS: Blood Urea Nitrogen 32 mg/dl (9-20); Calcium 7.8 mg/dl (8.4-10.2); Carbon Dioxide 17 mmol/L (22-30); Chloride 112 mmol/L (98-107); Estimated Creatinine Clearance 74 ml/min; Glucose 89 mg/dl (70-99); Potassium 3.5 mmol/L (3.5-5.1); Sodium 134 mmol/L (135-145); eGFR > 60.00
[2023-11-13 06:00] VITALS: BMI 23.8
[2023-11-13 07:00] VITALS: BP 113/74
[2023-11-13] MEDS: DUONEB 3 ML INH ×4 (08:05→19:47)
[2023-11-13 08:28] LABS: Glucose - Point of Care 101 mg/dl (70-99)
--- NOTE | 2023-11-13 08:29 | PHA.VAN.FU ---
Vancomycin Assessment / Plan
- Assessment
Renal Function: SCR Decreasing (1.3>0.8)
WBC's are: Trending Down (9.5>9.1)
In the past 24 hrs, patient has been: Afebrile
Concomitant Antimicrobials: Ceftriaxone
- Assessment - Therapeutic Drug Monitoring
Random Level: 13.3 drawn ~16 hrs after vancomycin 1250mg IV given
- Dosing Plan
Dosing by Level: Re-dose today (Vancomycin 1000mg x 1 dose (~14mg/kg))
Dosing Comments: watching improvement of renal function before scheduling dosing
- Monitoring Plan
Random Level: Ordered for 11/14/23 at 06:00
- Follow Up
Pharmacy will continue to follow.
Vancomycin Follow UP
- -
Patient Age: 78
Patient Sex: Male
Vancomycin Day #: 2 (received doses 11/07-)
Indication: Pulmonary/Respiratory
Requesting Provider: Dr. Arnold
Pertinent Antimicrobial Allergies:
NKDA
Height / Weight:
Height 5 ft 8 in
Actual Weight 70.959 kg
Pertinent Past Medical History: Paraplegia, DM2, CKD
- Vital Signs / Lab Results
Temp Pulse Resp BP Pulse Ox
97.7 F 78 18 113/63 99
11/13/23 03:30 11/13/23 03:30 11/13/23 03:30 11/13/23 03:30 11/13/23 03:30
Lab Results - Hematology
11/11/23 11/12/23 11/13/23
04:15 09:02 04:31
WBC 12.4 H 9.5 9.1
Lab Results - Chemistry
11/11/23 11/13/23
04:15 04:31
BUN 55 H 32 H
Creatinine 1.3 0.8
Estimated Creat Clear 44 74
Microbiology Results
11/11/23 04:15 Blood Culture - Preliminary
Blood/Venous No Growth in 48 hours- Final report to follow
11/08/23 16:37 Blood Culture - Preliminary
Blood/Venous Streptococcus pneumoniae
Staphylococcus aureus
Gram Stain - Final
11/10/23 04:27 Blood Culture - Preliminary
Blood/Venous No Growth in 72 hours- Final report to follow
11/08/23 16:38 Blood Culture - Final
Blood/Venous Streptococcus pneumoniae
Gram Stain - Final
Therapeutic Drug Monitoring
Random Vancomycin 13.3 ug/ml 11/13/23 04:31
[2023-11-13] MEDS: NOVOLOG FLEXPEN-MODERATE RESISTANCE SC ×3 (08:38→16:12)
[2023-11-13] MEDS: PLAVIX 75 MG PO (09:52)
[2023-11-13] MEDS: HEPARIN 5000 UNITS SC ×2 (09:52→23:30)
[2023-11-13] MEDS: NSS (PRESERVATIVE FREE) IV (09:53)
[2023-11-13] MEDS: SENNA SYRUP 8.80000000000000071 MG PO (09:53)
[2023-11-13] MEDS: ROBITUSSIN 200 MG PO (09:53)
[2023-11-13] MEDS: COLACE LIQUID 100 MG PO (09:53)
[2023-11-13] MEDS: PROTONIX IV IV (09:53)
[2023-11-13] MEDS: PROTONIX 40 MG PO (09:56)
[2023-11-13] MEDS: ROCEPHIN 2000 MG IV (09:56)
[2023-11-13] MEDS: STERILE WATER FOR INJECTION 20 ML IV (09:56)
[2023-11-13] MEDS: VANCOCIN 200 IV (10:54)
[2023-11-13 11:00] VITALS: BP 139/63
--- NOTE | 2023-11-13 11:04 | W.PN.HOSP.TC ---
Addendum entered and electronically signed by Adelso Bey MD 11/13/23 11:14:
Daughter updated over the phone
Addendum entered and electronically signed by Adelso Bey MD 11/13/23 11:13:
Left Lateral Heel Deep Tissue injury, POA
Spine Pressure Injury Stage 3, POA
Sacrum Deep Tissue Injury
Original Note:
Today's Communication/Plan
-
Monitor vital signs see plan
Continue with IV antibiotics per infectious disease
Restart Coreg, Amio
Assessment / Plan
Assessment / Plan
General: no acute distress
HEENT: PERRLA
Respiratory: Other (Coarse breath sounds anteriorly and posteriorly on the R. No noted rales / wheeze.)
Cardiac: S1/S2 and Regular Rhythm; No Murmur
GI: Soft, Non Tender, Non Distended and Normal Bowel Sounds
Musculoskeletal: No Clubbing, No Cyanosis and No Edema
Neuro: AO x 3 and Other (LE weakness / paraplegia which is chronic. No new focal deficits.)
RML / RLL Pneumonia
Septic Shock secondary to the above
Acute Hypoxemic Respiratory Insufficiency secondary to the above
Currently on Levophed; now off vaso, wean pressors as tolerated
- Patient with evidence of R sided pneumonia on CXR and clinically.
Continue with antibiotics per infectious disease
Blood culture positive with strep pneumo, later on blood culture also grew Staph aureus, repeat blood cultures 11/09 NGTD. Urine strep positive
Lactic acidosis on admission, now improved
Speech following, recommended n.p.o.; VSE noted 11/09; Decreased opening of upper esophagus. Significant retention t/o esophagus which did not clear - high risk for bottom up aspiration. Seen by GI. Patient and POA both dont want any feeding tube.
Per speech therapy pur�ed diet with thin liquids
Hyponatremia
Renal insufficiency
Na now 134
- Holding diuretic / Aldactone acutely.
history of CKD but no documented baseline SCr. monitor
If symptoms do not improve then will get nephrology evaluation
Atrial Fibrillation - Suspect Paroxysmal
- Stable. Currently in sinus rhythm.
- Hold most medications acutely - including amio, antihypertensive meds, etc.
- Monitor on telemetry.
- Patient is not chronically on OAC. Takes Plavix daily which we will continue.
Troponin elevation, likely secondary to nonischemic myocardial injury
Monitor
Chronic HFpEF
- Does not appear to volume overloaded at present by exam.
- Hold outpatient medications acutely including spironolactone, Imdur, etc.
- Follow I/Os, daily weights, etc.
Benign Hypertension
Restart Coreg however at lower dose of 3.5 mg twice daily,restart amio
Hold Aldactone, losartan, Imdur
DM-II
- Stable. Hold PO metformin.
- Follow glucose and cover with SSI as needed.
Paraplegia
Spinal Cord Injury (2021)
- Patient is non-ambulatory at baseline and uses wheelchair for locomotion.
- PT / OT evaluations.
Suspect cognitive impairment
Stage III coccyx pressure injury
monitor
wound care
GERD
- Stable. Continue PPI daily.
BPH
- Stable. Bladder scan protocol.
DVT Prophylaxis: Lovenox
Code Status: DNR
I spent a total of 52 minutes with the patient or on the floor. More than 50% of this time involved counseling and coordination of care.
Anticipated Discharge: 24 - 48 hours
Subjective/Interval History
-
Date of Service: November 13, 2023
denies pain
Objective Data
-
Labs:
Laboratory Results
11/13/23
04:31
WBC 9.1
Hgb 9.0 L
Hct 26.2 L
Plt Count 199
Sodium 134 L
Potassium 3.5
Chloride 112 H
Carbon Dioxide 17 L
BUN 32 H
Creatinine 0.8
Glucose 89
Calcium 7.8 L
Vital Signs:
Vital Signs
Temp Pulse Resp BP Pulse Ox
97.4 F 103 16 113/74 96
11/13/23 07:00 11/13/23 08:10 11/13/23 08:10 11/13/23 07:00 11/13/23 08:10
I&O
11/12/23 11/13/23 11/14/23
06:59 06:59 06:59
Intake Total 700 / 700 480 / 480
Output Total 585 / 585 200 / 200 500 / 500
Balance 115 / 115 -200 / -200 -20 / -20
--- NOTE | 2023-11-13 11:08 | W.PN.ID1 ---
Date of Service
Date of Service: November 13, 2023
Today's Communication
Continue ceftriaxone. Discontinue further vancomycin.
Assessment / Plan
# Invasive pneumococcal CAP with bacteremia
- s/p Septic shock
-repeat blood cultures neg to date.
-Continue ceftriaxone (d#5), then po abx
# Staph aureus (MSSA) bacteremia
- MRSA nasal screen positive
- Suspect contaminant given that only 1 of 4 bottles turned positive on day #4 of incubation
- 11/08 TTE no vegetation
- repeat blood cx neg to date
- D/C further vanco
#Additional Past Medical History:
Diabetes mellitus type 2
History of spinal cord injury with paraplegia
Atrial fibrillation
Hypertension
Heart failure with preserved EF
CKD 3
BPH
Thoracic spine surgery 2021
Chief Complaint
-: Pneumonia and Bacteremia
Subjective / Review of Systems
Review of Systems: No Fever and No Chills
Vital Signs / Physical Exam
Vital Signs
Vital Signs
Temp Pulse Resp BP Pulse Ox
97.4 F 103 16 113/74 96
11/13/23 07:00 11/13/23 08:10 11/13/23 08:10 11/13/23 07:00 11/13/23 08:10
Physical Exam
Constitutional: No Acute Distress, Comfortable, Chronically Ill and Non-toxic
Eyes: No Conjunctival Hemorrhage and Sclera Anicteric
Cardiovascular: S1/S2; Negative S3/S4 or Murmur
Pulmonary: Coarse and Non Labored
Gastrointestinal: Soft and Non Tender
Skin: Negative Rash or Jaundice
Neurological: Awake and Alert
Psychological: Calm
Objective Data
Lab Data
Lab Results
11/13/23 04:31
11/13/23 04:31
PT 16.9 Sec (11.4-14.6) H 11/08/23 20:49
INR 1.39 11/08/23 20:49
APTT 32.7 Sec (23.4-35.0) 11/08/23 22:18
Estimated Creat Clear 74 ml/min 11/13/23 04:31
Lactic Acid Cancelled 11/09/23 04:04
Total Bilirubin 0.7 mg/dl (0.2-1.3) 11/08/23 18:11
AST 37 U/L (17-59) 11/08/23 18:11
ALT 15 U/L (0-50) 11/08/23 18:11
Alkaline Phosphatase 113 U/L (38-126) 11/08/23 18:11
Most recent labs reviewed.
Micro Results:
11/08/23 16:37 Blood Culture - Final
Blood/Venous Streptococcus pneumoniae
S aureus-Methicillin Sensitive
Gram Stain - Final
11/11/23 04:15 Blood Culture - Preliminary
Blood/Venous No Growth in 48 hours- Final report to follow
11/10/23 04:27 Blood Culture - Preliminary
Blood/Venous No Growth in 72 hours- Final report to follow
11/08/23 16:38 Blood Culture - Final
Blood/Venous Streptococcus pneumoniae
Gram Stain - Final
11/08/23 22:18 Nasal Screen MRSA (PCR) - Final
Nose Staph aureus MRSA
11/08/23 22:18 Legionella Urinary Antigen - Final
Urine Negative for Legionella pneumophila Serogroup 1 antigen.
A negative result does not rule out the possiblity of
Legionella infection due to other serogroups or species of
Legionella. Clinical correlation is recommended.
Streptococcus pneumoniae Antigen (M - Final
Streptococcus pneumoniae
11/08/23 20:50 Influenza Types A & B (VALENTIN) - Final
Nasal Swab Negative for Influenza A & B, NAAT
Negative results must be combined with clinical observations
and patient history.
Nucleic Acid Amplification test (NAAT)performed on the
[employer] platform.
11/08/23 CXR: Right midlung pneumonia.
[2023-11-13 12:58] LABS: Glucose - Point of Care 143 mg/dl (70-99)
[2023-11-13] MEDS: COREG 3.125 MG PO ×2 (14:00→21:32)
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
[2023-11-13 15:00] VITALS: BP 144/68
[2023-11-13 16:05] LABS: Glucose - Point of Care 115 mg/dl (70-99)
[2023-11-13] MEDS: HEPARIN SC ×2 (16:34→17:34)
[2023-11-13 16:52] LABS: Glucose - Point of Care 107 mg/dl (70-99)
[2023-11-13 19:15] VITALS: BP 131/66
[2023-11-13] MEDS: COLACE LIQUID PO (21:22)
[2023-11-13] MEDS: SENNA SYRUP PO (21:22)
[2023-11-13 21:39] LABS: Glucose - Point of Care 95 mg/dl (70-99)
[2023-11-13 23:25] VITALS: BP 119/52
[2023-11-13] MEDS: LANTUS 0.0500000000000000028 UNITS SC (23:30)
[2023-11-14] MEDS: ROBITUSSIN PO ×3 (00:15→10:56)
[2023-11-14 03:41] VITALS: BP 119/57
[2023-11-14 04:33] LABS: Hematocrit 26.6 % (39.0-52.0); Hemoglobin 8.9 g/dL (13.0-18.0); Mean Corp Hgb Conc. 33.5 g/dL (33.0-37.0); Mean Corpuscular Hgb 28.3 pg (27.0-31.0); Mean Corpuscular Volume 84.7 fL (80.0-94.0); Mean Platelet Volume 9.5 fL (7.4-10.4); Platelet Count 198 10^3/uL (130-400); Red Blood Cell Count 3.14 10^6/uL (4.70-6.10); White Blood Cell Count 8.5 10^3/uL (4.8-10.8)
[2023-11-14 04:57] LABS: Blood Urea Nitrogen 27 mg/dl (9-20); Calcium 7.8 mg/dl (8.4-10.2); Carbon Dioxide 19 mmol/L (22-30); Chloride 110 mmol/L (98-107); Estimated Creatinine Clearance 84 ml/min; Glucose 82 mg/dl (70-99); Potassium 3.5 mmol/L (3.5-5.1); Sodium 132 mmol/L (135-145); eGFR > 60.00
[2023-11-14 05:43] LABS: Absolute Neutrophils -Man Diff 7.3 10^3/uL (1.4-6.5); Band Neutrophils 1 % (0-3); Lymphocytes 6 % (20-51); Metamyelocytes 2 % (-); Monocytes 5 % (2-9); Myelocytes 1 % (-); Segmented Neutrophils 85 % (42-75)
[2023-11-14 05:44] LABS: Normal RBC Morphology Yes; Nucleated Red Blood Cells 3 (-); Platelets Checked Yes
[2023-11-14 05:45] LABS: Total Cells Counted 100
[2023-11-14 07:00] VITALS: BP 130/60
[2023-11-14] MEDS: DUONEB 3 ML INH ×4 (07:44→18:06)
[2023-11-14 08:10] LABS: Glucose - Point of Care 75 mg/dl (70-99)
[2023-11-14] MEDS: COLACE LIQUID PO (08:12)
[2023-11-14] MEDS: NOVOLOG FLEXPEN-MODERATE RESISTANCE SC ×3 (08:12→17:49)
[2023-11-14] MEDS: COREG 3.125 MG PO ×2 (08:12→21:10)
[2023-11-14] MEDS: HEPARIN 5000 UNITS SC ×3 (08:13→23:02)
[2023-11-14] MEDS: PACERONE 200 MG PO (08:13)
[2023-11-14] MEDS: ROBITUSSIN 200 MG PO ×4 (08:13→23:02)
[2023-11-14] MEDS: SENNA SYRUP PO (08:13)
[2023-11-14] MEDS: PROTONIX 40 MG PO (08:13)
[2023-11-14] MEDS: PLAVIX 75 MG PO (08:13)
[2023-11-14] MEDS: ROCEPHIN 2000 MG IV (10:55)
[2023-11-14] MEDS: STERILE WATER FOR INJECTION 20 ML IV (10:56)
[2023-11-14 11:00] VITALS: BP 119/60
--- NOTE | 2023-11-14 11:13 | W.PN.HOSP.TC ---
Today's Communication/Plan
-
Monitor vital signs see plan
Continue with IV antibiotic per infectious disease
PT/OT
cw coreg,amio
dispo planning
Assessment / Plan
Assessment / Plan
General: no acute distress
HEENT: PERRLA
Respiratory: Other (Coarse breath sounds anteriorly and posteriorly on the R. No noted rales / wheeze.)
Cardiac: S1/S2 and Regular Rhythm; No Murmur
GI: Soft, Non Tender, Non Distended and Normal Bowel Sounds
Musculoskeletal: No Clubbing, No Cyanosis and No Edema
Neuro: AO x 3 and Other (LE weakness / paraplegia which is chronic. No new focal deficits.)
RML / RLL Pneumonia
Septic Shock secondary to the above
Acute Hypoxemic Respiratory Insufficiency secondary to the above
Currently on Levophed; now off vaso, wean pressors as tolerated
- Patient with evidence of R sided pneumonia on CXR and clinically.
Continue with antibiotics per infectious disease
Blood culture positive with strep pneumo, later on blood culture also grew Staph aureus (MSSA), repeat blood cultures 11/09 NGTD. Urine strep positive
Lactic acidosis on admission, now improved
Speech following, recommended n.p.o.; VSE noted 11/09; Decreased opening of upper esophagus. Significant retention t/o esophagus which did not clear - high risk for bottom up aspiration. Seen by GI. Patient and POA both dont want any feeding tube.
Per speech therapy pur�ed diet with thin liquids
Hyponatremia
Renal insufficiency
Na now 132
- Holding diuretic / Aldactone acutely.
history of CKD but no documented baseline SCr. monitor
If symptoms do not improve then will get nephrology evaluation
Atrial Fibrillation - Suspect Paroxysmal
- Stable. Currently in sinus rhythm.
- Hold most medications acutely - including amio, antihypertensive meds, etc.
- Monitor on telemetry.
- Patient is not chronically on OAC. Takes Plavix daily which we will continue.
Troponin elevation, likely secondary to nonischemic myocardial injury
Monitor
Chronic HFpEF
- Does not appear to volume overloaded at present by exam.
- Hold outpatient medications acutely including spironolactone, Imdur, etc.
- Follow I/Os, daily weights, etc.
Benign Hypertension
Restart Coreg however at lower dose of 3.5 mg twice daily,restart amio
Hold Aldactone, losartan, Imdur
DM-II
- Stable. Hold PO metformin.
- Follow glucose and cover with SSI as needed.
Paraplegia
Spinal Cord Injury (2021)
- Patient is non-ambulatory at baseline and uses wheelchair for locomotion.
- PT / OT evaluations.
Suspect cognitive impairment
Stage III coccyx pressure injury
monitor
wound care
GERD
- Stable. Continue PPI daily.
BPH
- Stable. Bladder scan protocol.
Left Lateral Heel Deep Tissue injury, POA
Spine Pressure Injury Stage 3, POA
Sacrum Deep Tissue Injury
DVT Prophylaxis: Lovenox
Code Status: DNR
I spent a total of 53 minutes with the patient or on the floor. More than 50% of this time involved counseling and coordination of care.
Anticipated Discharge: Within 24 hours
Subjective/Interval History
-
Date of Service: November 14, 2023
denies pain
Objective Data
-
Labs:
Laboratory Results
11/14/23
04:20
WBC 8.5
Hgb 8.9 L
Hct 26.6 L
Plt Count 198
Sodium 132 L
Potassium 3.5
Chloride 110 H
Carbon Dioxide 19 L
BUN 27 H
Creatinine 0.7
Glucose 82
Calcium 7.8 L
Vital Signs:
Vital Signs
Temp Pulse Resp BP Pulse Ox
98.1 F 75 16 130/60 95
11/14/23 07:00 11/14/23 07:46 11/14/23 07:46 11/14/23 07:00 11/14/23 07:46
I&O
11/13/23 11/14/23 11/15/23
06:59 06:59 06:59
Intake Total 840 / 840
Output Total 200 / 200 700 / 700
Balance -200 / -200 140 / 140
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
[2023-11-14 12:23] LABS: Glucose - Point of Care 116 mg/dl (70-99)
--- NOTE | 2023-11-14 14:49 | W.PN.ID1 ---
Date of Service
Date of Service: November 14, 2023
Today's Communication
Continue abx
Assessment / Plan
# Invasive pneumococcal CAP with bacteremia
- s/p Septic shock
- repeat blood cultures neg to date.
- Continue ceftriaxone (d#6), then po abx
# Staph aureus (MSSA) bacteremia
- MRSA nasal screen positive
- Suspect contaminant given that only 1 of 4 bottles turned positive on day #4 of incubation
- 11/08 TTE no vegetation
- repeat blood cx neg to date
- Vancomycin previously D/C'ed
#Additional Past Medical History:
Diabetes mellitus type 2
History of spinal cord injury with paraplegia
Atrial fibrillation
Hypertension
Heart failure with preserved EF
CKD 3
BPH
Thoracic spine surgery 2021
Chief Complaint
-: Pneumonia and Bacteremia
Subjective / Review of Systems
Review of Systems: No Fever, No Chills and Cough
Vital Signs / Physical Exam
Vital Signs
Vital Signs
Temp Pulse Resp BP Pulse Ox
98.1 F 73 16 119/60 97
11/14/23 07:00 11/14/23 11:54 11/14/23 11:54 11/14/23 11:00 11/14/23 11:54
Physical Exam
Constitutional: No Acute Distress, Comfortable, Chronically Ill and Non-toxic
Eyes: Sclera Anicteric
Pulmonary: Coarse and Non Labored
Gastrointestinal: Soft and Non Distended
Skin: Negative Rash or Jaundice
Neurological: Awake and Alert
Psychological: Calm
Objective Data
Lab Data
Lab Results
11/14/23 04:20
11/14/23 04:20
PT 16.9 Sec (11.4-14.6) H 11/08/23 20:49
INR 1.39 11/08/23 20:49
APTT 32.7 Sec (23.4-35.0) 11/08/23 22:18
Estimated Creat Clear 84 ml/min 11/14/23 04:20
Lactic Acid Cancelled 11/09/23 04:04
Total Bilirubin 0.7 mg/dl (0.2-1.3) 11/08/23 18:11
AST 37 U/L (17-59) 11/08/23 18:11
ALT 15 U/L (0-50) 11/08/23 18:11
Alkaline Phosphatase 113 U/L (38-126) 11/08/23 18:11
Most recent labs reviewed.
Micro Results:
11/11/23 04:15 Blood Culture - Preliminary
Blood/Venous No Growth in 72 hours- Final report to follow
11/10/23 04:27 Blood Culture - Preliminary
Blood/Venous No Growth in 4 days- Final report to follow
11/08/23 16:37 Blood Culture - Final
Blood/Venous Streptococcus pneumoniae
S aureus-Methicillin Sensitive
Gram Stain - Final
11/08/23 16:38 Blood Culture - Final
Blood/Venous Streptococcus pneumoniae
Gram Stain - Final
11/08/23 22:18 Nasal Screen MRSA (PCR) - Final
Nose Staph aureus MRSA
11/08/23 22:18 Legionella Urinary Antigen - Final
Urine Negative for Legionella pneumophila Serogroup 1 antigen.
A negative result does not rule out the possiblity of
Legionella infection due to other serogroups or species of
Legionella. Clinical correlation is recommended.
Streptococcus pneumoniae Antigen (M - Final
Streptococcus pneumoniae
11/08/23 20:50 Influenza Types A & B (VALENTIN) - Final
Nasal Swab Negative for Influenza A & B, NAAT
Negative results must be combined with clinical observations
and patient history.
Nucleic Acid Amplification test (NAAT)performed on the
[employer] platform.
11/08/23 CXR: Right midlung pneumonia.
[2023-11-14 17:48] LABS: Glucose - Point of Care 104 mg/dl (70-99)
[2023-11-14] MEDS: COLACE LIQUID 100 MG PO (21:10)
[2023-11-14] MEDS: SENNA SYRUP 8.80000000000000071 MG PO (21:10)
[2023-11-14 21:34] LABS: Glucose - Point of Care 107 mg/dl (70-99)
[2023-11-14] MEDS: LANTUS 0.100000000000000006 UNITS SC (22:54)
[2023-11-14 23:02] VITALS: BP 121/59
[2023-11-15] MEDS: ROBITUSSIN 200 MG PO ×5 (05:03→21:52)
[2023-11-15 05:15] LABS: % Basophils 0.3 % (0-2); % Eosinophils 1.3 % (0-6); % Immature Granulocytes 3.9 % (0-0.5); % Lymphocytes 8.2 % (20.5-51.1); % Neutrophils 75.3 % (42.2-75.2); Absolute Eosinophils 0.1 10^3/uL (0-0.7); Absolute Immature Granulocytes 0.3 10^3/uL (0-0.05); Absolute Lymphocytes 0.6 10^3/uL (1.2-3.4); Absolute Monocytes 0.8 10^3/uL (0.1-0.6); Absolute Neutrophils 5.6 10^3/uL (1.4-6.5); Hematocrit 26.6 % (39.0-52.0); Mean Corp Hgb Conc. 33.8 g/dL (33.0-37.0); Mean Corpuscular Hgb 28.8 pg (27.0-31.0); Mean Platelet Volume 10.2 fL (7.4-10.4); Nucleated Red Blood Cells % 0.3 % (-); Platelet Count 213 10^3/uL (130-400); Red Blood Cell Count 3.13 10^6/uL (4.70-6.10); White Blood Cell Count 7.5 10^3/uL (4.8-10.8)
[2023-11-15 05:38] VITALS: BMI 23.8
[2023-11-15 05:41] LABS: Blood Urea Nitrogen 19 mg/dl (9-20); Calcium 7.7 mg/dl (8.4-10.2); Carbon Dioxide 21 mmol/L (22-30); Chloride 109 mmol/L (98-107); Estimated Creatinine Clearance 84 ml/min; Glucose 105 mg/dl (70-99); Potassium 3.5 mmol/L (3.5-5.1); Sodium 134 mmol/L (135-145); eGFR > 60.00
[2023-11-15 06:00] VITALS: BMI 23.8
[2023-11-15 07:00] VITALS: BP 142/69
[2023-11-15] MEDS: PLAVIX 75 MG PO (07:19)
[2023-11-15] MEDS: PACERONE 200 MG PO (07:19)
[2023-11-15] MEDS: PROTONIX 40 MG PO (07:19)
[2023-11-15] MEDS: SENNA SYRUP 8.80000000000000071 MG PO ×2 (07:19→21:53)
[2023-11-15] MEDS: COLACE LIQUID 100 MG PO ×2 (07:19→21:53)
[2023-11-15] MEDS: HEPARIN 5000 UNITS SC ×3 (07:20→23:25)
[2023-11-15] MEDS: COREG 3.125 MG PO ×2 (07:40→21:53)
[2023-11-15] MEDS: NOVOLOG FLEXPEN-MODERATE RESISTANCE SC ×2 (07:46→16:38)
[2023-11-15 07:48] LABS: Glucose - Point of Care 121 mg/dl (70-99)
[2023-11-15] MEDS: DUONEB 3 ML INH ×4 (08:09→18:30)
--- NOTE | 2023-11-15 10:19 | PTOTSP ---
ST Follow-Up
Pt continues to present with oral parameters and pharyngeal parameters that are within functional limits for safe tolerance of the pureed diet with thin liquids that were recommended due to esophageal dysfunction noted on VFSS completed last week.
Recommendations:
- Continue with PUREED SOLIDS, THIN LIQUIDS, and meds crushed in pureed solids.
- Aspiration/reflux precautions: HOB fully upright for all PO intake and for at least 60 minutes after PO intake; small bites/sips; cyclical ingestion (after every bite, take a sip); chin tuck with all PO intake; 1:1 supervision/assistance for ALL
PO intake to encourage/remind pt to utilize these aforementioned compensatory strategies.
- NURSING RESIDENT services upon discharge at the SNF level of care.
- Consider consultation to clinical nutrition/registered dietitian given poor PO intake; consider PEG placement for supplemental nutrition given poor PO intake (if in line with goals of care).
- NURSING RESIDENT will continue to follow while pt is inhouse.
--- NOTE | 2023-11-15 10:41 | W.PN.HOSP.TC ---
Today's Communication/Plan
-
Monitor vitals
See plan
Advance diet to soft and bite-size as comfort feeding
Daughter does not want any feeding tube
Continue with antibiotics
Discharge planning
Assessment / Plan
Assessment / Plan
General: no acute distress
HEENT: PERRLA
Respiratory: Other (Coarse breath sounds anteriorly and posteriorly on the R. No noted rales / wheeze.)
Cardiac: S1/S2 and Regular Rhythm; No Murmur
GI: Soft, Non Tender, Non Distended and Normal Bowel Sounds
Musculoskeletal: No Clubbing, No Cyanosis and No Edema
Neuro: AO x 3 and Other (LE weakness / paraplegia which is chronic. No new focal deficits.)
RML / RLL Pneumonia
Septic Shock secondary to the above
Acute Hypoxemic Respiratory Insufficiency secondary to the above
Currently on Levophed; now off vaso, wean pressors as tolerated
- Patient with evidence of R sided pneumonia on CXR and clinically.
Continue with antibiotics per infectious disease
Blood culture positive with strep pneumo, later on blood culture also grew Staph aureus (MSSA), repeat blood cultures 11/09 NGTD. Urine strep positive
Lactic acidosis on admission, now improved
Speech following, recommended n.p.o.; VSE noted 11/09; Decreased opening of upper esophagus. Significant retention t/o esophagus which did not clear - high risk for bottom up aspiration. Seen by GI. Patient and POA both dont want any feeding tube.
Per speech therapy pur�ed diet with thin liquids. not meeting nutritional demands with pur�ed diet. Spoke with daughter 11/14 and discussed options. Daughter does not want any feeding tube and wants the diet to be upgraded to soft and bite-size.
She does understand this increases his risk of aspiration/choking. Update diet to soft and bite size as comfort feeding
Hyponatremia
Renal insufficiency
Na now 134
- Holding diuretic / Aldactone acutely.
history of CKD but no documented baseline SCr. monitor
If symptoms do not improve then will get nephrology evaluation
Atrial Fibrillation - Suspect Paroxysmal
- Stable. Currently in sinus rhythm.
cw amio,cored
- Monitor on telemetry.
- Patient is not chronically on OAC. Takes Plavix daily which we will continue.
Troponin elevation, likely secondary to nonischemic myocardial injury
Monitor
Chronic HFpEF
- Does not appear to volume overloaded at present by exam.
- Hold outpatient medications acutely including spironolactone, Imdur, etc.
- Follow I/Os, daily weights, etc.
Benign Hypertension
Restart Coreg however at lower dose of 3.5 mg twice daily,restart amio
Hold Aldactone, losartan, Imdur
DM-II
- Stable. Hold PO metformin.
- Follow glucose and cover with SSI as needed.
Paraplegia
Spinal Cord Injury (2021)
- Patient is non-ambulatory at baseline and uses wheelchair for locomotion.
- PT / OT evaluations.
Suspect cognitive impairment
Stage III coccyx pressure injury
monitor
wound care
GERD
- Stable. Continue PPI daily.
BPH
- Stable. Bladder scan protocol.
Left Lateral Heel Deep Tissue injury, POA
Spine Pressure Injury Stage 3, POA
Sacrum Deep Tissue Injury
DVT Prophylaxis: Lovenox
Code Status: DNR
I spent a total of 52 minutes with the patient or on the floor. More than 50% of this time involved counseling and coordination of care.
Anticipated Discharge: Within 24 hours
Subjective/Interval History
-
Date of Service: November 15, 2023
denies pain
Objective Data
-
Labs:
Laboratory Results
11/15/23
05:03
WBC 7.5
Hgb 9.0 L
Hct 26.6 L
Plt Count 213
Sodium 134 L
Potassium 3.5
Chloride 109 H
Carbon Dioxide 21 L
BUN 19
Creatinine 0.7
Glucose 105 H
Calcium 7.7 L
Vital Signs:
Vital Signs
Temp Pulse Resp BP Pulse Ox
97.8 F 78 16 142/69 96
11/15/23 07:00 11/15/23 08:11 11/15/23 08:11 11/15/23 07:00 11/15/23 08:11
I&O
11/14/23 11/15/23 11/16/23
06:59 06:59 06:59
Intake Total 840 / 840 150 / 150
Output Total 700 / 700 200 / 200
Balance 140 / 140 -50 / -50
[2023-11-15] MEDS: STERILE WATER FOR INJECTION 20 ML IV (10:46)
[2023-11-15] MEDS: ROCEPHIN 2000 MG IV (10:46)
--- NOTE | 2023-11-15 11:16 | W.PN.ID1 ---
Date of Service
Date of Service: November 15, 2023
Today's Communication
Transition to cephalexin 1000mg po tid through 11/22/23.
Assessment / Plan
# Invasive pneumococcal CAP with bacteremia
- s/p Septic shock
- repeat blood cultures neg to date.
- Transition ceftriaxone to cephalexin 1000mg po tid through 11/22/23
# Staph aureus (MSSA) bacteremia
- MRSA nasal screen positive
- Suspect contaminant given that only 1 of 4 bottles turned positive on day #4 of incubation
- 11/08 TTE no vegetation
- repeat blood cx neg to date
- Vancomycin dc'd
- Transition to cephalexin 1000mg po tid through 11/22/23.
#Additional Past Medical History:
Diabetes mellitus type 2
History of spinal cord injury with paraplegia
Atrial fibrillation
Hypertension
Heart failure with preserved EF
CKD 3
BPH
Thoracic spine surgery 2021
Chief Complaint
-: Pneumonia and Bacteremia
Subjective / Review of Systems
Feels OK.
Vital Signs / Physical Exam
Vital Signs
Vital Signs
Temp Pulse Resp BP Pulse Ox
97.8 F 78 16 142/69 96
11/15/23 07:00 11/15/23 08:11 11/15/23 08:11 11/15/23 07:00 11/15/23 08:11
Physical Exam
Constitutional: No Acute Distress and Comfortable
Pulmonary: Coarse (right base)
Gastrointestinal: Soft, Non Tender and Non Distended
Neurological: Awake and Alert
Objective Data
Lab Data
Lab Results
11/15/23 05:03
11/15/23 05:03
PT 16.9 Sec (11.4-14.6) H 11/08/23 20:49
INR 1.39 11/08/23 20:49
APTT 32.7 Sec (23.4-35.0) 11/08/23 22:18
Estimated Creat Clear 84 ml/min 11/15/23 05:03
Lactic Acid Cancelled 11/09/23 04:04
Total Bilirubin 0.7 mg/dl (0.2-1.3) 11/08/23 18:11
AST 37 U/L (17-59) 11/08/23 18:11
ALT 15 U/L (0-50) 11/08/23 18:11
Alkaline Phosphatase 113 U/L (38-126) 11/08/23 18:11
Most recent labs reviewed.
Micro Results:
11/11/23 04:15 Blood Culture - Preliminary
Blood/Venous No Growth in 4 days- Final report to follow
11/10/23 04:27 Blood Culture - Final
Blood/Venous No Growth - Final Report
11/08/23 16:37 Blood Culture - Final
Blood/Venous Streptococcus pneumoniae
S aureus-Methicillin Sensitive
Gram Stain - Final
11/08/23 16:38 Blood Culture - Final
Blood/Venous Streptococcus pneumoniae
Gram Stain - Final
11/08/23 22:18 Nasal Screen MRSA (PCR) - Final
Nose Staph aureus MRSA
11/08/23 22:18 Legionella Urinary Antigen - Final
Urine Negative for Legionella pneumophila Serogroup 1 antigen.
A negative result does not rule out the possiblity of
Legionella infection due to other serogroups or species of
Legionella. Clinical correlation is recommended.
Streptococcus pneumoniae Antigen (M - Final
Streptococcus pneumoniae
11/08/23 20:50 Influenza Types A & B (VALENTIN) - Final
Nasal Swab Negative for Influenza A & B, NAAT
Negative results must be combined with clinical observations
and patient history.
Nucleic Acid Amplification test (NAAT)performed on the
[employer] platform.
11/08/23 CXR: Right midlung pneumonia.
Care Review
Plan reviewed with: Physician (Dr. Bey)
[2023-11-15 11:43] LABS: Glucose - Point of Care 162 mg/dl (70-99)
[2023-11-15] MEDS: NOVOLOG FLEXPEN-MODERATE RESISTANCE 1 UNITS SC (11:48)
--- NOTE | 2023-11-15 14:34 | CM ---
Case management following for discharge planning
Chart reviewed
Speech following. Advancing diet as tolerated
Pt for d/c to [facility] when ready for d/c - updates sent in [facility]
[employer] case making machine operator is Sunil Koo - following
Plan - transfer to [facility] when medically ready
[2023-11-15 15:00] VITALS: BP 137/65
[2023-11-15] MEDS: KEFLEX 1000 MG PO ×2 (15:28→21:53)
[2023-11-15 16:36] LABS: Glucose - Point of Care 108 mg/dl (70-99)
[2023-11-15] MEDS: TYLENOL 650 MG PO ×2 (17:26→22:04)
[2023-11-15 21:28] LABS: Glucose - Point of Care 120 mg/dl (70-99)
[2023-11-15] MEDS: LANTUS 0.100000000000000006 UNITS SC (21:53)
[2023-11-15 23:10] VITALS: BP 121/56
[2023-11-15] MEDS: ROBITUSSIN PO (23:25)
[2023-11-16] MEDS: KEFLEX 1000 MG PO ×2 (05:20→15:07)
[2023-11-16] MEDS: ROBITUSSIN PO ×6 (05:20→15:08)
--- NOTE | 2023-11-16 05:27 | PTCARENOTE ---
Right upper extremity +3 pitting edema, slightly cool to touch, cap refill less than 3 seconds, elevated on pillow. No complaints of pain. FISHING WORKER made aware, new order for RUE provided. Will inform daysselene RN.
--- NOTE | 2023-11-16 05:29 | VATNOTE ---
Patient noted during lab draw this morning to have swelling to his right arm. Spoke with Danna downey PCN who will contact the PUMPER GAGER about the swelling.
[2023-11-16 05:34] LABS: % Basophils 0.4 % (0-2); % Eosinophils 1.9 % (0-6); % Immature Granulocytes 3.2 % (0-0.5); % Lymphocytes 9.5 % (20.5-51.1); % Monocytes 10.5 % (1.7-9.3); % Neutrophils 74.5 % (42.2-75.2); Absolute Eosinophils 0.1 10^3/uL (0-0.7); Absolute Immature Granulocytes 0.2 10^3/uL (0-0.05); Absolute Lymphocytes 0.7 10^3/uL (1.2-3.4); Absolute Monocytes 0.7 10^3/uL (0.1-0.6); Absolute Neutrophils 5.1 10^3/uL (1.4-6.5); Hematocrit 25.9 % (39.0-52.0); Mean Corp Hgb Conc. 34.7 g/dL (33.0-37.0); Mean Corpuscular Hgb 28.8 pg (27.0-31.0); Mean Corpuscular Volume 82.7 fL (80.0-94.0); Mean Platelet Volume 9.5 fL (7.4-10.4); Nucleated Red Blood Cells % 0.3 % (-); Platelet Count 204 10^3/uL (130-400); Red Blood Cell Count 3.13 10^6/uL (4.70-6.10); Red Cell Dist. Width 17.1 % (11.5-14.5); White Blood Cell Count 6.8 10^3/uL (4.8-10.8)
--- NOTE | 2023-11-16 05:40 | W.PN.UPDATE ---
Update Note
Progress Note Update
Notified by RN that RUE with +2-3 edema (has picc line in that arm)
Will check US RUE
Elevate arm
[2023-11-16 06:00] VITALS: BMI 23.2
[2023-11-16 06:02] LABS: Blood Urea Nitrogen 15 mg/dl (9-20); Calcium 7.8 mg/dl (8.4-10.2); Carbon Dioxide 19 mmol/L (22-30); Chloride 108 mmol/L (98-107); Estimated Creatinine Clearance 84 ml/min; Glucose 81 mg/dl (70-99); Potassium 3.5 mmol/L (3.5-5.1); Sodium 134 mmol/L (135-145); eGFR > 60.00
[2023-11-16 07:00] VITALS: BP 133/66
[2023-11-16 07:42] LABS: Glucose - Point of Care 91 mg/dl (70-99)
[2023-11-16] MEDS: DUONEB 3 ML INH ×3 (07:47→19:13)
[2023-11-16] MEDS: NOVOLOG FLEXPEN-MODERATE RESISTANCE SC ×3 (07:57→17:17)
[2023-11-16] MEDS: PLAVIX 75 MG PO (08:24)
[2023-11-16] MEDS: COLACE LIQUID 100 MG PO (08:24)
[2023-11-16] MEDS: PROTONIX 40 MG PO (08:24)
[2023-11-16] MEDS: SENNA SYRUP 8.80000000000000071 MG PO (08:24)
[2023-11-16] MEDS: HEPARIN 5000 UNITS SC ×2 (08:24→15:07)
[2023-11-16] MEDS: PACERONE 200 MG PO (08:29)
[2023-11-16] MEDS: ALDACTONE 12.5 MG PO (08:29)
[2023-11-16] MEDS: COREG 3.125 MG PO (08:29)
[2023-11-16] MEDS: TYLENOL 650 MG PO (09:46)
--- NOTE | 2023-11-16 10:10 | W.PN.HOSP.TC ---
Addendum entered and electronically signed by Adelso Bey MD 11/16/23 14:02:
Called daughter, left voicemail
Time of discharge 38 minutes
Original Note:
Today's Communication/Plan
-
Monitor vital signs and see plan
Check right upper extremity ultrasound
Continue with antibiotics
Possible discharge later today if facility can accept
Resume Aldactone
Assessment / Plan
Assessment / Plan
General: no acute distress
HEENT: PERRLA
Respiratory: Other (Coarse breath sounds anteriorly and posteriorly on the R. No noted rales / wheeze.)
Cardiac: S1/S2 and Regular Rhythm; No Murmur
GI: Soft, Non Tender, Non Distended and Normal Bowel Sounds
Musculoskeletal: No Clubbing, No Cyanosis and No Edema
Neuro: AO x 3 and Other (LE weakness / paraplegia which is chronic. No new focal deficits.)
RML / RLL Pneumonia
Septic Shock secondary to the above
Acute Hypoxemic Respiratory Insufficiency secondary to the above
Currently on Levophed; now off vaso, wean pressors as tolerated
- Patient with evidence of R sided pneumonia on CXR and clinically.
Continue with antibiotics per infectious disease; cephalexin 1000mg po tid through 11/22/23
Blood culture positive with strep pneumo, later on blood culture also grew Staph aureus (MSSA), repeat blood cultures 11/09 NGTD. Urine strep positive
Lactic acidosis on admission, now improved
Speech following, recommended n.p.o.; VSE noted 11/09; Decreased opening of upper esophagus. Significant retention t/o esophagus which did not clear - high risk for bottom up aspiration. Seen by GI. Patient and POA both dont want any feeding tube.
Per speech therapy pur�ed diet with thin liquids. not meeting nutritional demands with pur�ed diet. Spoke with daughter 11/14 and discussed options. Daughter does not want any feeding tube and wants the diet to be upgraded to soft and bite-size.
She does understand this increases his risk of aspiration/choking. Update diet to soft and bite size as comfort feeding
Hyponatremia
Renal insufficiency
Na now 134
RUE swelling
has picc line there; US RUE
Atrial Fibrillation - Suspect Paroxysmal
- Stable. Currently in sinus rhythm.
cw amio,coreg; restart aldactone
- Monitor on telemetry.
- Patient is not chronically on OAC. Takes Plavix daily which we will continue.
Troponin elevation, likely secondary to nonischemic myocardial injury
Monitor
Chronic HFpEF
- Does not appear to volume overloaded at present by exam.
restart home dose aldactone
Benign Hypertension
Restarted Coreg however at lower dose of 3.5 mg twice daily,cw amio,restart aldactone
Hold losartan, Imdur
DM-II
- Stable. Hold PO metformin.
- Follow glucose and cover with SSI as needed.
Paraplegia
Spinal Cord Injury (2021)
- Patient is non-ambulatory at baseline and uses wheelchair for locomotion.
- PT / OT evaluations.
Suspect cognitive impairment
Stage III coccyx pressure injury
monitor
wound care
GERD
- Stable. Continue PPI daily.
BPH
- Stable. Bladder scan protocol.
Left Lateral Heel Deep Tissue injury, POA
Spine Pressure Injury Stage 3, POA
Sacrum Deep Tissue Injury
DVT Prophylaxis: Lovenox
Code Status: DNR
Anticipated Discharge: Today
Subjective/Interval History
-
Date of Service: November 16, 2023
denies pain
Objective Data
-
Labs:
Laboratory Results
11/16/23
05:17
WBC 6.8
Hgb 9.0 L
Hct 25.9 L
Plt Count 204
Sodium 134 L
Potassium 3.5
Chloride 108 H
Carbon Dioxide 19 L
BUN 15
Creatinine 0.7
Glucose 81
Calcium 7.8 L
Vital Signs:
Vital Signs
Temp Pulse Resp BP Pulse Ox
97.7 F 77 16 133/66 94
11/16/23 07:00 11/16/23 08:29 11/16/23 07:50 11/16/23 08:29 11/16/23 07:50
I&O
11/15/23 11/16/23 11/17/23
06:59 06:59 06:59
Intake Total 150 / 150 170 / 170
Output Total 200 / 200 550 / 550
Balance -50 / -50 -380 / -380
--- NOTE | 2023-11-16 11:11 | W.PN.ID1 ---
Date of Service
Date of Service: November 16, 2023
Today's Communication
Continue cephalexin 1000mg po tid through 11/22/23
DC picc
Assessment / Plan
# Invasive pneumococcal CAP with bacteremia
- s/p Septic shock
- repeat blood cultures neg
- Transitioned ceftriaxone to cephalexin 1000mg po tid through 11/22/23
- DC PICC. For peripheral US of RUE edema.
# Staph aureus (MSSA) bacteremia
- MRSA nasal screen positive
- Suspect contaminant given that only 1 of 4 bottles turned positive on day #4 of incubation
- 11/08 TTE no vegetation
- repeat blood cx neg to date
- Vancomycin dc'd
- Transitioned to cephalexin 1000mg po tid through 11/22/23.
#Additional Past Medical History:
Diabetes mellitus type 2
History of spinal cord injury with paraplegia
Atrial fibrillation
Hypertension
Heart failure with preserved EF
CKD 3
BPH
Thoracic spine surgery 2021
Chief Complaint
-: Pneumonia and Bacteremia
Subjective / Review of Systems
Cough better
Vital Signs / Physical Exam
Vital Signs
Vital Signs
Temp Pulse Resp BP Pulse Ox
97.7 F 77 16 133/66 94
11/16/23 07:00 11/16/23 08:29 11/16/23 07:50 11/16/23 08:29 11/16/23 07:50
Physical Exam
Constitutional: No Acute Distress
Pulmonary: Clear (anteriorly)
Extremities: Edema (RUE)
Lines: PICC (RUE no erythema)
Objective Data
Lab Data
Lab Results
11/16/23 05:17
11/16/23 05:17
PT 16.9 Sec (11.4-14.6) H 11/08/23 20:49
INR 1.39 11/08/23 20:49
APTT 32.7 Sec (23.4-35.0) 11/08/23 22:18
Estimated Creat Clear 84 ml/min 11/16/23 05:17
Lactic Acid Cancelled 11/09/23 04:04
Total Bilirubin 0.7 mg/dl (0.2-1.3) 11/08/23 18:11
AST 37 U/L (17-59) 11/08/23 18:11
ALT 15 U/L (0-50) 11/08/23 18:11
Alkaline Phosphatase 113 U/L (38-126) 11/08/23 18:11
Most recent labs reviewed.
Micro Results:
11/11/23 04:15 Blood Culture - Final
Blood/Venous No Growth - Final Report
11/10/23 04:27 Blood Culture - Final
Blood/Venous No Growth - Final Report
11/08/23 16:37 Blood Culture - Final
Blood/Venous Streptococcus pneumoniae
S aureus-Methicillin Sensitive
Gram Stain - Final
11/08/23 16:38 Blood Culture - Final
Blood/Venous Streptococcus pneumoniae
Gram Stain - Final
11/08/23 22:18 Nasal Screen MRSA (PCR) - Final
Nose Staph aureus MRSA
11/08/23 22:18 Legionella Urinary Antigen - Final
Urine Negative for Legionella pneumophila Serogroup 1 antigen.
A negative result does not rule out the possiblity of
Legionella infection due to other serogroups or species of
Legionella. Clinical correlation is recommended.
Streptococcus pneumoniae Antigen (M - Final
Streptococcus pneumoniae
11/08/23 20:50 Influenza Types A & B (VALENTIN) - Final
Nasal Swab Negative for Influenza A & B, NAAT
Negative results must be combined with clinical observations
and patient history.
Nucleic Acid Amplification test (NAAT)performed on the
[employer] platform.
11/08/23 CXR: Right midlung pneumonia.
--- NOTE | 2023-11-16 11:11 | CM ---
Addendum entered by Sofie Arnett 11/16/23 15:20:
Transport for 6:30PM
Facility notified
Pt aware
LM for pts daughter - Stormy [phone]
Addendum entered by Sofie Arnett 11/16/23 14:31:
Pt for d/c
Spoke with Katarzyna at [facility] - can accept
Plan - Transfer to [facility]
R - [phone]
F - [phone]
Original Note:
Case management following for d/c planning
Received call from Sunil Powell CM at [employer] (cell: [phone]; office: [phone]) that overseeing the pt for worker compensation benefits. Requested updated clinicals - sent via fax
Spoke with Katarzyna at [facility] [phone] - pt nearing d/c
Will send updates in Care Port - will review
Confirmed with Katarzyna - workmans comp case - no auth needed
Plan - [facility] when medically stable
[2023-11-16] MEDS: DUONEB INH (11:21)
--- NOTE | 2023-11-16 11:27 | WOUNDNOTE ---
L ISCHIUM PIMPLE VS BLISTER
--- NOTE | 2023-11-16 11:30 | WOUNDNOTE ---
WON RN NOTE: Followed up regarding wounds, PCT Parmjit assisted with turning. Sacrum and spine wounds evolving. Sacrum unstageable, suspect stage 3 vs deeper. Spine now with undermined area/tunnel at 12 O'clock for 6cm, unstageable PI. L heel remains
unchanged. L ischium with what appears to be a pimple vs evolving stage 2 PI, silicone foam in use. Very Poor appetite, patient confirmed. Re dressed wounds using same foam since wound care completed by nurse recently. Prevalon boots in use and on
air mattress. Assisted staff move patient to stretcher for testing. Will update wound care to include 1/2' iodoform packing strips to spine undermined area then gauze and dry dressing daily. Continue same dressings to remainder of wounds. Dr. Bey
approved of changes to wound care and aware of evolving wounds, family wants conservative treatment. Called [facility] for supplies and nurse Allison made aware.
[2023-11-16 13:14] LABS: Glucose - Point of Care 92 mg/dl (70-99)
--- NOTE | 2023-11-16 14:02 | W.DCSUMMARY ---
Discharge Summary
Discharge Data
Date of Admission: 11/08/23
Date of Discharge: 11/16/23
-
Pending Results: No
Hospital Course
78-year-old male with past medical history of diabetes mellitus, essential hypertension, stage III coccyx pressure injury, GERD, BPH, atrial fibrillation came to the hospital with septic shock and acute hypoxemic respiratory insufficiency secondary
to pneumonia. Patient blood cultures were positive for Streptococcus and methicillin sensitive Staph aureus. Patient was seen by infectious disease throughout hospitalization and was initially started on IV antibiotics. Over time once patient
symptoms were improving his antibiotics was changed to oral to complete the course. Patient was also seen by speech therapy and had a video swallow study which showed decreased opening of the upper esophagus. GI was consulted however patient and
his daughter both refused to have any feeding tube. Patient was initially put on pur�ed diet with thin liquids per speech recommendation however daughter accepted the risk of aspiration and wanted it to be upgraded to soft and bite-size as comfort
feeding. Patient was also evaluated by physical therapy and was recommended SNF. Once patient symptoms were improving, he was then discharged with instructions to follow-up with all his physicians outpatient.
Discharge Plan
-
Patient Disposition: Detention/SNF
Discharge Diagnosis/Procedures: Pneumonia
Septic shock secondary to pneumonia
Staphylococcus and Streptococcus bacteremia
Acute hypoxemic respiratory insufficiency
Hyponatremia
Dysphagia with high risk of aspiration
Cognitive impairment
Diet: Other diet
Additional Diets: Soft and bite-size as comfort feeds. Risk of aspiration
Activity: As tolerated
Driving Restrictions: No driving
Bathing Restrictions: None
Activity Restrictions/Additional Instructions:
Wound Care Instructions
Spine: clean with saline, 1/2' iodoform packing strips to spine undermined area at 12 O clock (about 6cm) then gauze and dry dressing daily.
Sacrum: Silicone foam Coccyx: clean with saline, Xeroform to open areas (* Can add alginate on top for increased drainage) then silicone foam change q other day and prn drainage.
L lateral heel: silicone foam change q 3 days and prn soilage.
Air mattress with frequent turning
ROHO cushion for wheelchair or equivalent
Increase protein in diet
Follow up at wound care center call for an appointment.
Or Resume care at previous wound care center.
Please follow-up with the spinal surgeon outpatient
Continue cephalexin 1000mg po tid through 11/22/23
Referrals:
Sixto Madison MD [Family Provider] - in less than 1 week
Prescriptions:
New
docusate sodium 50 mg/5 mL Liquid
100 mg PO BID Qty: 0 0RF
guaifenesin [Siltussin SA] 100 mg/5 mL Liquid
200 mg PO Q4HWA Qty: 0 0RF
carvedilol 3.125 mg Tablet
3.125 mg PO BID Qty: 0 0RF
cephalexin 500 mg Capsule
1,000 mg PO Q8H Qty: 0 0RF
sennosides 8.8 mg/5 mL Syrup
8.8 mg PO BID Qty: 0 0RF
Continued
metformin 500 mg Tablet
500 mg PO DAILY
doxepin 50 mg Capsule
50 mg PO DAILY
atorvastatin 80 mg Tablet
80 mg PO DAILY
acetaminophen [Tylenol] 325 mg Tablet
650 mg PO Q6H MDD 3000 mg PRN (Reason: mild pain/temp>100)
Triple Antibiotic 3.5mg-400 unit- 5,000 unit/gram Ointment
1 applic TOPICAL DAILY
ipratropium-albuterol 0.5 mg-3 mg(2.5 mg base)/3 mL Solution For Nebulization
3 ml INHALATION R Q4HPRN PRN (Reason: sob)
amiodarone 200 mg Tablet
200 mg PO DAILY
ondansetron HCl 4 mg Tablet
4 mg PO Q6H PRN (Reason: nausea/vomiting)
clopidogrel 75 mg Tablet
75 mg PO DAILY
omeprazole 40 mg Capsule,Delayed Release(Dr/Ec)
40 mg PO BID
spironolactone 25 mg Tablet
12.5 mg PO DAILY
magnesium hydroxide [Milk of Magnesia] 400 mg/5 mL Suspension
30 ml PO HSPRN PRN (Reason: if no BM in 3 days)
bisacodyl 10 mg Suppository
10 mg NM DAILY PRN (Reason: if MOM ineffective)
gabapentin 100 mg Capsule
100 mg PO DAILY PRN (Reason: nerve pain)
Santyl 250 unit/gram Ointment
1 applic TOPICAL DAILY
Santyl 250 unit/gram Ointment
1 applic TOPICAL DAILY PRN (Reason: soilage/dislodgement)
loratadine 10 mg Tablet
10 mg PO HS
Rx Instructions:
11/08/2023, start date: 10/25/2023; end date: 11/24/2023.
Dakin's Solution 0.25 % Solution
1 applic TOPICAL Q12H
Held
isosorbide mononitrate 30 mg Tablet Extended Release 24 Hr
30 mg PO DAILY
Hold Instructions: Restart when blood pressure is greater than 140/90
Rx Instructions:
11/08/2023, hold for BP<100.
losartan 25 mg Tablet
25 mg PO DAILY
Hold Instructions: Restart when blood pressure is greater than 140/90
Rx Instructions:
11/08/2023, hold for BP<100.
Discontinued
carvedilol 12.5 mg Tablet
12.5 mg PO BID
Rx Instructions:
11/08/2023, hold for BP<100 or HR<50.
Discharge Orders:
Discharge Patient (As Directed); Ordered 11/16/23
Ordered By: Adelso Bey
Discharge Date and Time
Print Language: KINYARWANDA
[2023-11-16 15:00] VITALS: BP 127/58
[2023-11-16 16:59] LABS: Glucose - Point of Care 96 mg/dl (70-99)
== END 2023-11-16 19:30 | DRG 871 ==
LOC: 3 WEST ACU 20:55
PROVIDERS: Nurse Practitioner Family; Nurse Practitioner Primary Care; ADMITTING PHYSICIAN Hospitalist; ATTENDING PHYSICIAN Internal Medicine; CONSULT PHYSICIAN Internal Medicine Critical Care Medicine; CONSULT PHYSICIAN Internal Medicine Infectious Disease; EMERGENCY PHYSICIAN Student in an Organized Health Care Education/Training Program; FAMILY PHYSICIAN Internal Medicine; OTHER PHYSICIAN Internal Medicine Gastroenterology
DX: A41.9 Sepsis, unspecified organism (principal); J18.9 Pneumonia, unspecified organism; L89.113 Pressure ulcer of right upper back, stage 3; L89.153 Pressure ulcer of sacral region, stage 3; R65.21 Severe sepsis with septic shock; N17.9 Acute kidney failure, unspecified; E87.20 Acidosis, unspecified; E87.1 Hypo-osmolality and hyponatremia; I5A Non-ischemic myocardial injury (non-traumatic); I13.0 Hypertensive heart and chronic kidney disease with heart failure and stage 1 through stage 4 chronic kidney disease, or unspecified chronic kidney disease; I50.32 Chronic diastolic (congestive) heart failure; G82.20 Paraplegia, unspecified; Z87.891 Personal history of nicotine dependence; R09.02 Hypoxemia; R06.89 Other abnormalities of breathing; N18.30 Chronic kidney disease, stage 3 unspecified; I48.91 Unspecified atrial fibrillation; K21.9 Gastro-esophageal reflux disease without esophagitis; L89.159 Pressure ulcer of sacral region, unspecified stage; Z79.02 Long term (current) use of antithrombotics/antiplatelets; L89.626 Pressure-induced deep tissue damage of left heel; L89.156 Pressure-induced deep tissue damage of sacral region; I48.0 Paroxysmal atrial fibrillation; Z11.52 Encounter for screening for COVID-19
CPT/HCPCS: 71045; 74230; 80048; 80053; 80202; 82533; 82607; 82962; 83036; 83540; 83550; 83605; 83735; 83935; 84100; 84300; 84443; 84484; 85025; 85027; 85610; 85730; 87040; 87070; 87077; 87147; 87186; 87205; 87449; 87502; 87641; 87811; 87899; 92526; 92610; 92611; 93005; 93306; 93970; 93971; 94640; 96365; 96367; 96375; 97163; 97167; 99291

== ENCOUNTER 2024-01-21 15:01 | Emergency (ER) | payer OTHER, SELFPAY ==
[2024-01-21] VITALS (7 sets, daily range): BP systolic 102–116; BP diastolic 51–55; BMI 21.5
[2024-01-21 15:23] LABS: % Basophils 0.4 % (0-2); % Eosinophils 0.6 % (0-6); % Immature Granulocytes 0.2 % (0-0.5); % Lymphocytes 10.2 % (20.5-51.1); % Monocytes 12.6 % (1.7-9.3); Absolute Eosinophils 0.1 10^3/uL (0-0.7); Absolute Lymphocytes 0.9 10^3/uL (1.2-3.4); Absolute Monocytes 1.1 10^3/uL (0.1-0.6); Absolute Neutrophils 6.9 10^3/uL (1.4-6.5); Hematocrit 30.5 % (39.0-52.0); Hemoglobin 10.4 g/dL (13.0-18.0); Mean Corp Hgb Conc. 34.1 g/dL (33.0-37.0); Mean Corpuscular Hgb 29.1 pg (27.0-31.0); Mean Corpuscular Volume 85.2 fL (80.0-94.0); Mean Platelet Volume 8.5 fL (7.4-10.4); Nucleated Red Blood Cells % 0 % (-); Platelet Count 279 10^3/uL (130-400); Red Blood Cell Count 3.58 10^6/uL (4.70-6.10); Red Cell Dist. Width 17.1 % (11.5-14.5)
--- NOTE | 2024-01-21 15:28 | ED.GENMED ---
History of Present Illness
General
Chief Complaint: Cough
Source: patient, records and ambulance crew
Exam Limitations: none
Time Seen by Provider: 01/21/24 15:09
Nursing documentation reviewed up to this point in time: agreed with
History of Present Illness
History of Present Illness:
78-year-old male with a past medical history of COPD, hypertension, diabetes, atrial fibrillation, CHF who presents to the emergency room from his halfway facility for evaluation of cough and shortness of breath. Of note: Patient was just
admitted to this hospital in November for pneumonia and sepsis/bacteremia. During that time he was having some swallowing dysfunction and there were discussions about feeding tube or dietary adjustments to prevent aspiration; ultimately opted to
continue with normal diet and comfort feeds. Patient reports that over the past 24 hours he has had worsening shortness of breath and cough. He says that the cough is productive of whitish sputum. He reports that he does feel his swallowing has
worsened since leaving the hospital although he continues with normal diet. Denies any chest pain. He denies any fevers or chills. He denies any swelling or pain in the legs. He denies any GI issues. Denies any other complaints on review of
systems. Per EMS report they did find him to be mildly hypotensive on their arrival with systolic blood pressure of 86. He was given approximately 600 cc of IV fluid with improvement in his blood pressure; he also received a DuoNeb on the way to
the hospital.
Past History
Past History
ED Past Medical History: CHF and HTN
ED Past Surgical History: None
Social History
Tobacco: Non-smoker
Alcohol: None
Review of Systems
Review of Systems
All Other Systems: ROS reviewed and negative except as documented in HPI and ROS
Constitutional: Denies fever or chills
Respiratory: Reports cough and trouble breathing
Cardiac: Denies chest pain or palpitations
ABD/GI: Denies abdominal pain, nausea, vomiting or diarrhea
: Denies flank pain
Musculoskeletal: Denies neck pain or back pain
Neurological: Denies dizzy or headache
Phy Exam
Physical Exam
Physical Exam:
General: Awake, alert, oriented x3; no acute distress
Head: Normocephalic, atraumatic
Eyes: Conjunctiva normal
Throat: Airway intact, handling secretions
Neck: Trachea midline, no JVD
Lungs: Acceptable pulse ox and respiratory rate, frequent coughing throughout lung auscultation; he has rales at the lung bases bilaterally, no wheezing appreciated
Heart: Regular rate and rhythm, no murmurs, gallops, or rubs appreciated
Abd: Soft, non distended, nontender
Neuro: Awake and alert with no gross deficits
Extremities: No edema in extremities lower extremity edema, equal pulses in all extremities
Scores
Heart Failure Risk
Heart Failure Risk Score: Not Applicable
Heart Score for Chest Pain Patients
STEMI patient?: Not applicable
Withdrawal Assessment of Alcohol
Withdrawal Assessment Completed?: Not applicable
Course
Orders/Labs/Results
Orders:
Orders
01/21/24 15:10
CR Chest - 2 Views Urgent
Comment:
Reason For Exam: cough
01/21/24 15:11
Electrocardiogram (*1) Urgent
Reason for Study: Heart Failure, Left
EKG- Treatment ONCE
01/21/24 15:15
Complete Blood Count/With Diff Urgent
Comprehensive Metabolic Panel Urgent
NT-proBNP Urgent
01/21/24 16:35
Ipratropium/Albuterol Sulfate [Duoneb] 3 ml INH R NOW STA
MethylPREDNISolone PF [Solu-Medrol Pf] 125 mg IV NOW STA
01/21/24 17:22
LevoFLOXacin [Levaquin] 750 mg PO NOW STA
Abnormal Lab Results
01/21/24
15:15
RBC 3.58 L 10^6/uL
(4.70-6.10)
Hgb 10.4 L g/dL
(13.0-18.0)
Hct 30.5 L %
(39.0-52.0)
RDW 17.1 H %
(11.5-14.5)
Absolute Neuts (auto) 6.9 H 10^3/uL
(1.4-6.5)
Absolute Lymphs (auto) 0.9 L 10^3/uL
(1.2-3.4)
Absolute Monos (auto) 1.1 H 10^3/uL
(0.1-0.6)
Neutrophils % 76.0 H %
(42.2-75.2)
Lymphocytes % 10.2 L %
(20.5-51.1)
Monocytes % 12.6 H %
(1.7-9.3)
Sodium 130 L mmol/L
(135-145)
BUN 21 H mg/dl
(9-20)
Glucose 130 H mg/dl
(70-99)
Calcium 8.3 L mg/dl
(8.4-10.2)
Total Protein 5.6 L g/dl
(6.3-8.2)
Albumin 2.5 L g/dl
(3.5-5.0)
01/21/24 15:15
01/21/24 15:15
Vital Signs
Resp Rate: 17
Initial and Last Documented VS:
Initial Vital Signs
Temp Pulse Resp BP Pulse Ox
37.1 C 87 18 116/55 92
01/21/24 15:03 01/21/24 15:03 01/21/24 15:03 01/21/24 15:03 01/21/24 15:03
Last Documented Vital Signs
Temp Pulse Resp BP Pulse Ox
36.8 C 90 24 112/51 93
01/21/24 18:20 01/21/24 18:30 01/21/24 18:30 01/21/24 18:20 01/21/24 18:20
MDM/Problems Addressed
Differential Diagnosis Includes:
COPD exacerbation, pneumonia, CHF exacerbation, bronchitis
MDM/Problems Addressed:
78-year-old male with history as documented, recent hospitalization for pneumonia with concerns for aspiration at the time presents to the emergency room for worsening cough and shortness of breath of the past 24 hours. His vital signs are normal
here. Physical exam as above. Will check labs including CBC and CMP, proBNP. Check chest x-ray and EKG. Will monitor closely reassess after the above.
Labs reviewed: CBC shows stable anemia, CMP shows mild hyponatremia with no other significant abnormalities. proBNP was slightly elevated but he has nothing else on exam or chest x-ray to suggest acute CHF; on review of his chest x-ray he appears
to have residual scarring from prior episode of pneumonia but no clear acute pathology. Suspect this might be a mild bronchitis +/- acute COPD exacerbation�on discussion with [facility] staff there has been viral illness going through nursing
home. Cannot rule out a developing early mild pneumonia especially with his productive cough and so although we will treat with steroids and nebs for bronchitis will also cover with antibiotics. He did have some transient borderline hypoxia in the
high 80s and was placed on nasal cannula shortly after arrival but pulse ox 100% on 2 L nasal cannula after DuoNeb here. Will monitor off of oxygen. Patient strong preference is to be discharged back to his nursing facility.
On monitoring of the patient off oxygen and his pulse ox has been 90 to 96% on room air with normal respiratory rate and work of breathing. I spoke to him again his preference is to be discharged to trial outpatient medications. Spoke directly
with his daughter on the phone and with vitals remaining stable. She feels comfortable with this plan although I did stress specifically with both his daughter and him that if his symptoms are worsening or they are not improving over the next 24 to
48 hours he needs to return to the emergency room. I also spoke with the [facility] staff directly to go over plan with them and explained to them that they should have a very low threshold to send patient back to the ER. Everyone feels
comfortable with this plan so using shared decision making we will discharge for trial of outpatient treatment of likely acute bronchitis and acute COPD exacerbation versus early developing pneumonia.
Chronic conditions affecting care:
COPD, CHF
*Radiology
Radiology exam reviewed: preliminary read by ED provider and radiology read reviewed
*Pulse Oximetry
Patient hypoxic: no
*EKG
Interpreted by ED Provider?: Yes
Heart Rate: 86
Rate: normal
Rhythm: sinus
[place]: normal axis
Interval: first degree heart block
QRS Pattern: normal QRS
Ischemia: no ischemia
*Critical Care Note
Total Time (30-74mins, 75-104mins- exclusive of procedures): Not Applicable
Data Reviewed
Review of Other/Old Records Reveals: Labs and Records
Source: patient, records, family (daughter), ambulance crew and [facility]
Patient Management
Social determinants of health affecting care: Living situation (He lives in a monitored care setting and is therefore able to be closely monitored with strict return precautions)
Discussion with other providers: retirement staff (Spoke directly with nursing staff)
Escalation/DeEscalation of care consider admission/obs:
Offered admission but patient prefers discharge and using shared decision making with patient, daughter will opt for discharge with strict return precautions
ED Attending Note
-
Portions of this chart may have been created with voice recognition software.� Occasional wrong word or��sound alike� substitutions may have occurred due to the inherent limitations of voice recognition software.
Discharge Plan
Departure
Patient Disposition: Home (Routine Discharge)
Date of Disposition: 01/21/24
Time of Disposition: 18:55
Patient with high blood pressure during this ER visit?: No
Discharge Problem:
Bronchitis, COPD exacerbation
Instructions: Acute Bronchitis, Adult (DC)
Prescriptions:
New
prednisone 50 mg tablet
50 mg PO DAILY Qty: 5 0RF
levofloxacin 750 mg tablet
750 mg PO DAILY Qty: 6 0RF
No Action
metformin 500 mg Tablet
500 mg PO DAILY
doxepin 50 mg Capsule
50 mg PO DAILY
atorvastatin 80 mg Tablet
80 mg PO DAILY
acetaminophen [Tylenol] 325 mg Tablet
650 mg PO Q6H MDD 3000 mg PRN (Reason: mild pain/temp>100)
Triple Antibiotic 3.5mg-400 unit- 5,000 unit/gram Ointment
1 applic TOPICAL DAILY
ipratropium-albuterol 0.5 mg-3 mg(2.5 mg base)/3 mL Solution For Nebulization
3 ml INHALATION R Q4HPRN PRN (Reason: sob)
amiodarone 200 mg Tablet
200 mg PO DAILY
ondansetron HCl 4 mg Tablet
4 mg PO Q6H PRN (Reason: nausea/vomiting)
isosorbide mononitrate 30 mg Tablet Extended Release 24 Hr
30 mg PO DAILY
Rx Instructions:
11/08/2023, hold for BP<100.
clopidogrel 75 mg Tablet
75 mg PO DAILY
omeprazole 40 mg Capsule,Delayed Release(Dr/Ec)
40 mg PO BID
spironolactone 25 mg Tablet
12.5 mg PO DAILY
magnesium hydroxide [Milk of Magnesia] 400 mg/5 mL Suspension
30 ml PO HSPRN PRN (Reason: if no BM in 3 days)
bisacodyl 10 mg Suppository
10 mg MI DAILY PRN (Reason: if MOM ineffective)
losartan 25 mg Tablet
25 mg PO DAILY
Rx Instructions:
11/08/2023, hold for BP<100.
gabapentin 100 mg Capsule
100 mg PO DAILY PRN (Reason: nerve pain)
Santyl 250 unit/gram Ointment
1 applic TOPICAL DAILY
Santyl 250 unit/gram Ointment
1 applic TOPICAL DAILY PRN (Reason: soilage/dislodgement)
loratadine 10 mg Tablet
10 mg PO HS
Rx Instructions:
11/08/2023, start date: 10/25/2023; end date: 11/24/2023.
Dakin's Solution 0.25 % Solution
1 applic TOPICAL Q12H
docusate sodium 50 mg/5 mL Liquid
100 mg PO BID Qty: 0 0RF
guaifenesin [Siltussin SA] 100 mg/5 mL Liquid
200 mg PO Q4HWA Qty: 0 0RF
carvedilol 3.125 mg Tablet
3.125 mg PO BID Qty: 0 0RF
cephalexin 500 mg Capsule
1,000 mg PO Q8H Qty: 0 0RF
sennosides 8.8 mg/5 mL Syrup
8.8 mg PO BID Qty: 0 0RF
Activity Restrictions/Additional Instructions:
Patient should be seen by his primary provider within the next 2 to 3 days. He should be given medications as prescribed in addition to nebulizer treatments (should receive DuoNeb treatment every 4 hours standing over the next 48 hours at which
point he can return to as needed treatments). If symptoms are worsening at any point or if they are not improving in the next 48 hours he should be sent back to the emergency room for reassessment.
Thank you for visiting the Emergency Department at [facility].
1. Please schedule a follow up appointment as directed. Call first thing tomorrow morning to make an appointment.
2. If indicated, please take your medications as instructed and indicated on discharge paperwork.
3. If any of your symptoms do not improve, or persist, or become more severe within 6-12 hours, please return to the emergency department for further care.
4. Please return to the emergency department if you develop a headache, neck pain/stiffness, fever greater than 100.4F, chest pain, shortness of breath, persistent nausea, vomiting, slurred speech, difficulty walking, numbness/tingling, weakness,
signs of infection or any other symptoms that are worrisome to you.
Please call [phone] if you have any questions.
Interventions
Interventions:
*Risk Screen - Suicide Last Done: 01/21/24 15:03
*General Assessment Last Done: 01/21/24 15:03
*Neglect/Abuse Screening Last Done: 01/21/24 15:03
*ED COVID-19 Vaccine History Last Done: 01/21/24 15:03
ED- Pulmonary Assessment Last Done: 01/21/24 17:00
Discharge Date and Time
Print Language: UKRAINIAN
[2024-01-21 15:46] LABS: NT-proBNP 3450 pg/ml
[2024-01-21 16:01] LABS: ALT (SGPT) 18 U/L (0-50); AST (SGOT) 31 U/L (17-59); Albumin 2.5 g/dl (3.5-5.0); Alkaline Phosphatase 100 U/L (38-126); Blood Urea Nitrogen 21 mg/dl (9-20); Carbon Dioxide 26 mmol/L (22-30); Chloride 99 mmol/L (98-107); Estimated Creatinine Clearance 69 ml/min; Glucose 130 mg/dl (70-99); Total Bilirubin 0.5 mg/dl (0.2-1.3); Total Protein 5.6 g/dl (6.3-8.2); eGFR > 60.00
[2024-01-21 16:20] LABS: Calcium 8.3 mg/dl (8.4-10.2); Potassium 4.6 mmol/L (3.5-5.1); Sodium 130 mmol/L (135-145)
[2024-01-21] MEDS: DUONEB 3 ML INH ×2 (17:16→20:24)
[2024-01-21] MEDS: SOLU-MEDROL PF 125 MG IV (17:17)
[2024-01-21] MEDS: LEVAQUIN 750 MG PO (18:22)
== END 2024-01-21 21:20 | disposition home or self-care (01) ==
LOC: EMR 15:01
PROVIDERS: EMERGENCY PHYSICIAN Emergency Medicine; FAMILY PHYSICIAN Family Medicine
DX: J20.9 Acute bronchitis, unspecified (principal); J44.0 Chronic obstructive pulmonary disease with (acute) lower respiratory infection; I44.0 Atrioventricular block, first degree; E87.1 Hypo-osmolality and hyponatremia; I11.0 Hypertensive heart disease with heart failure; I50.9 Heart failure, unspecified; E11.9 Type 2 diabetes mellitus without complications; I48.91 Unspecified atrial fibrillation; K21.9 Gastro-esophageal reflux disease without esophagitis; F32.A Depression, unspecified; Z87.01 Personal history of pneumonia (recurrent); Z88.5 Allergy status to narcotic agent; Z88.0 Allergy status to penicillin; Z88.7 Allergy status to serum and vaccine; Z88.8 Allergy status to other drugs, medicaments and biological substances
CPT/HCPCS: 99284; 96374; 94640 ×2; 71046; 80053; 83880; 85025; 93005

== ENCOUNTER 2024-04-26 19:10 | Inpatient (IN) | payer OTHER, SELFPAY ==
[2024-04-26] VITALS (7 sets, daily range): BP systolic 95–127; BP diastolic 46–79; BMI 22.2; BMI 21.1
[2024-04-26] MEDS: NSS 1000 IV (15:42)
--- NOTE | 2024-04-26 15:43 | ED.GENMED ---
History of Present Illness
General
Chief Complaint: Change in Mental Status
Source: patient
Exam Limitations: none
Time Seen by Provider: 04/26/24 15:24
Nursing documentation reviewed up to this point in time: agreed with
History of Present Illness
History of Present Illness:
78 y/o M with h/o previous spinal surgery, afib on eliquis, chf, NIDDM
copd
paraplegia, incomplete
here from [place] after being lethargic, hypoxic on RA and weak today
pt has been coughing some
he has a chronic wound to thoracic spine from previous surgery that has bene treatd with wound vac but more recnetly it appears worse according to facility staff per ems
pt andrae meier sacral decub
Past History
Past History
ED Past Medical History: CHF and HTN
ED Past Surgical History: None
Social History
Tobacco: Non-smoker
Alcohol: None
Review of Systems
Review of Systems
Allergies reviewed?: Yes
All Other Systems: Not applicable
Phy Exam
Physical Exam
Physical Exam:
GENERAL: Alert ,no distress; generally weak
HEAD: NCAT
EYE: pupils equal and reactive, no nystagmus, photophobia
NECK: Supple,full rom, nontender
ENT: o/p clr, mmm.
CARDIAC: Regular rate and rhythm . no edema
LUNGS: diminished, + cough, no acute respiratory distress, no wheezes/rales/rhonchi
ABDOMEN: Soft, without focal tenderness, no r/g, no cvat
NEUROLOGICAL: Alert and orientedx 2-3, cn intact, no facial asymmetry; seems confused globally; answering some quetsinos andnot others paraplegia
SKIN: Warm and dry,
pt has sstage III-IV thoracic back wound ulceration with a necrotic edge; slightly bloody drainage in the gauze; no active bleeding
minimal erythema around it
no significant cellulitis
sacral decub stage II larger, slightly redder
MUSCULOSKELETAL: contracted; minimal movmeent of LE
PSYCH: Normal and appropriate interaction.
Course
Orders/Labs/Results
Orders:
Orders
04/26/24 15:31
Electrocardiogram (*1) Stat
Reason for Study: Other
Other Reason for Exam: neuro symptoms
Cardiac Monitoring- Treatment ONCE
0.9% Sodium Chloride 1000 ml [Nss] 1,000 ml IV BOLUS
Acetaminophen [Tylenol] 650 mg PO NOW STA
04/26/24 15:39
COVID-19 Antigen Urgent
Source: Nasal Swab
Complete Blood Count/With Diff Urgent
Lactic Acid Q4H
Comment: CANCEL 2nd LACTIC ACID IF 1st LACTIC ACID IS LESS THAN 2
NT-proBNP Urgent
Troponin I Urgent
Blood Culture Urgent
BELLA Source: Blood/Venous
Specimen Description:
Influenza A+B Rapid Molecular Urgent
BELLA Source: Nasal Swab
Specimen Description:
04/26/24 15:58
CR Chest - 2 Views Urgent
Comment:
Reason For Exam: COUGH/CONGESTION, HYPOXIA
04/26/24 16:58
ABG [Arterial Blood Gas] Urgent
%Oxygen/Room Air: 24
Comprehensive Metabolic Panel Urgent
04/26/24 17:13
Cefepime HCl [Maxipime] 2,000 mg IV NOW STA
04/26/24 17:18
Vancomycin [Vancocin] 2,000 mg 0.9% Sodium Chloride 500 ml [Nss] 500 ml IV NOW
04/26/24 18:44
Admit/Transfer Patient As Directed
Co-Sign Provider:
Level of Care: Inpatient admission
Assign to:: Telemetry
Physician / Group: Maya Degroot
Diagnosis: Pneumonia
Reason for Telemetry: Arrhythmia
Date to Stop Telemetry: 04/29/24
Time to Stop Telemetry: 11:00
Reason for Hospitalization: Pneumonia
Expected length of stay greater than two midnights?: Yes
ELOS- Estimated Length of Stay in days: 3
I certify the patient meets the requirements for IP care: Yes
04/26/24 18:45
PRN Pain Medication Management As Directed
May give lesser potent ordered pain med per pt: Yes
preference::
Protocol:: Medication orders for pain may be administered in a
manner that supports deferring to patient preference
when the pt is:
- Requesting an ordered lesser potent pain medication.
Least to most potent pain medications are defined
as: acetaminophen < NSAID < tramadol < opioids
(morphine, oxycodone, hydromorphone).
- Requesting a lesser dose of the same medication IF
ORDERED.
- Requesting a less intrusive route of administration
if both routes are prescribed by the provider (PO <
IV).
04/26/24 19:00
Vancomycin [Vancocin] 1,500 mg 0.9% Sodium Chloride [Nss] 20 ml 0.9% Sodium Chloride 250 ml [Nss] 250 ml IV NOW
04/26/24 19:45
Lactic Acid Q4H
Comment: CANCEL 2nd LACTIC ACID IF 1st LACTIC ACID IS LESS THAN 2
04/26/24 20:06
Apixaban [Eliquis] 5 mg PO BID
Carvedilol [Coreg] 3.125 mg PO BID
Dextrose 50%-Water [Dextrose 50% Syringe] 12.5 grams IV [id number] PRN
Docusate Sodium [Colace] 100 mg PO BID
Glucagon [GlucaGen] 1 mg IM PRN PRN
Ipratropium/Albuterol Sulfate [Duoneb] 3 ml INH R Q4HPRN PRN
Ondansetron HCl [Zofran] 4 mg PO Q6HPRN PRN
04/26/24 20:06
WOUND/OSTOMY CONSULT Routine
Reason for Consult: sacral, thoracic, left lateral heel
Bedside Glucose Monitoring As Directed
Frequency: AC&HS
Additional Instructions:: Change to q6h if pt on TPN, tube feeding or not eating
04/26/24 21:00
Pantoprazole [Protonix] 40 mg PO BID
04/26/24 22:00
Gabapentin [Neurontin] 600 mg PO TID
Sennosides [Senokot] 8.6 mg PO HS
04/27/24 06:00
Glycohemoglobin (HgbA1c) IN AM
Cefepime HCl [Maxipime] 2,000 mg IV Q12H
04/27/24 07:30
Insulin Aspart Corrective Low [Novolog Flexpen-Low Resistance] See Protocol SC AC
04/27/24 08:00
Amiodarone [Pacerone] 200 mg PO DAILY
Atorvastatin [Lipitor] 80 mg PO DAILY
Cholecalciferol (Vitamin D3) [VITAMIN D3 (cholecalciferol)] 25 mcg PO DAILY
Clopidogrel Bisulfate [Plavix] 75 mg PO DAILY
Doxepin [Sinequan] 50 mg PO DAILY
04/29/24 11:00
DC Protocol for Telemetry ONCE
Abnormal Lab Results
04/26/24 04/26/24
15:39 16:58
RBC 3.85 L 10^6/uL
(4.70-6.10)
Hgb 10.6 L g/dL
(13.0-18.0)
Hct 31.0 L %
(39.0-52.0)
RDW 19.4 H %
(11.5-14.5)
Abs Immat Gran (auto) 0.1 H 10^3/uL
(0-0.05)
Absolute Neuts (auto) 8.7 H 10^3/uL
(1.4-6.5)
Absolute Lymphs (auto) 0.6 L 10^3/uL
(1.2-3.4)
Absolute Monos (auto) 1.2 H 10^3/uL
(0.1-0.6)
Immature Gran % 0.7 H %
(0-0.5)
Neutrophils % 81.3 H %
(42.2-75.2)
Lymphocytes % 5.5 L %
(20.5-51.1)
Monocytes % 11.3 H %
(1.7-9.3)
pCO2 33 L mmHg
(35-48)
pO2 156 H mmHg
(83-108)
HCO3 20.9 L mmol/L
(21-28)
ABG O2 Sat (Measured) 100.0 H %
(94-98)
Sodium 134 L mmol/L
(135-145)
BUN 40 H mg/dl
(9-20)
Glucose 136 H mg/dl
(70-99)
Calcium 7.7 L mg/dl
(8.4-10.2)
Total Protein 5.2 L g/dl
(6.3-8.2)
Albumin 2.2 L g/dl
(3.5-5.0)
04/26/24 15:39
04/26/24 16:58
Vital Signs
Initial and Last Documented VS:
Initial Vital Signs
Pulse Resp BP Pulse Ox
87 33 96/49 99
04/26/24 15:25 04/26/24 15:25 04/26/24 15:25 04/26/24 15:25
Last Documented Vital Signs
Temp Pulse Resp BP Pulse Ox
98.4 F 85 16 123/51 94
04/26/24 20:15 04/26/24 20:15 04/26/24 20:15 04/26/24 20:15 04/26/24 20:15
MDM/Problems Addressed
Differential Diagnosis Includes:
wound infection, pneumonia, covid
MDM/Problems Addressed:
78 y/o M wit h/o nonhealing thoracic back wound from previous surgery from [place]; incomplete paraplegia
usually is more orietned, talkative; today was lethargic, hypoxic room air, borderline febrile, coughing
on 2L here, temp 100, bp 90s--100s, occ cough; wounds on back (upper is clean to base with some necrosis skin around and had some bleeding today from the center; i cannot see bone, i think it's stage III, minimal surrounding erythema) and sacrum
(stage 2, larger, red and a little ulcer inhe center
cxr shows LLL pna; covid flu neg; abg is ok; admitted in november for septic shock due to staph and strep bacteremia/pna;
cefepime/vanc
*Critical Care Note
Total Time (30-74mins, 75-104mins- exclusive of procedures): Not Applicable
ED Attending Note
-
Portions of this chart may have been created with voice recognition software.� Occasional wrong word or��sound alike� substitutions may have occurred due to the inherent limitations of voice recognition software.
Discharge Plan
Departure
Patient Disposition: Admit
Date of Disposition: 04/26/24
Time of Disposition: 17:12
Admit to: IMU
Presentation/result/management discussed w/ accepting MD/DO: Hospitalist
Condition: Fair
Covid-19: Not Applicable
Discharge Problem:
Pneumonia
Interventions
Interventions:
*Risk Screen - Suicide Last Done: 04/26/24 15:35
*General Assessment Last Done: 04/26/24 15:34
*Neglect/Abuse Screening Last Done: 04/26/24 15:35
ED- Fall Risk Assessment Last Done: 04/26/24 16:52
*ED COVID-19 Vaccine History Last Done: 04/26/24 15:34
*Nursing Disposition Last Done: 04/26/24 20:08
ED- Cardiac Assessment Last Done: 04/26/24 16:52
ED- Neurological Assessment Last Done: 04/26/24 16:52
ED- Pulmonary Assessment Last Done: 04/26/24 16:52
ED-Skin Assessment Last Done: 04/26/24 16:52
Discharge Date and Time
Discharge Date/Time: 04/26/24 20:09
[2024-04-26] MEDS: TYLENOL 650 MG PO (15:48)
[2024-04-26 15:51] LABS: % Basophils 0.5 % (0-2); % Eosinophils 0.7 % (0-6); % Immature Granulocytes 0.7 % (0-0.5); % Lymphocytes 5.5 % (20.5-51.1); % Monocytes 11.3 % (1.7-9.3); % Neutrophils 81.3 % (42.2-75.2); Absolute Basophils 0.1 10^3/uL (0-0.2); Absolute Eosinophils 0.1 10^3/uL (0-0.7); Absolute Immature Granulocytes 0.1 10^3/uL (0-0.05); Absolute Lymphocytes 0.6 10^3/uL (1.2-3.4); Absolute Monocytes 1.2 10^3/uL (0.1-0.6); Absolute Neutrophils 8.7 10^3/uL (1.4-6.5); Hemoglobin 10.6 g/dL (13.0-18.0); Mean Corp Hgb Conc. 34.2 g/dL (33.0-37.0); Mean Corpuscular Hgb 27.5 pg (27.0-31.0); Mean Corpuscular Volume 80.5 fL (80.0-94.0); Mean Platelet Volume 9.1 fL (7.4-10.4); Nucleated Red Blood Cells % 0 % (-); Platelet Count 373 10^3/uL (130-400); Red Blood Cell Count 3.85 10^6/uL (4.70-6.10); Red Cell Dist. Width 19.4 % (11.5-14.5); White Blood Cell Count 10.7 10^3/uL (4.8-10.8)
[2024-04-26 16:03] LABS: Lactic Acid 1.8 mmol/L (0.7-2.0)
[2024-04-26 16:15] LABS: NT-proBNP 2430 pg/ml; Troponin I 0.013 ng/ml
[2024-04-26 16:16] LABS: COVID-19 Antigen Negative (Negative)
[2024-04-26 17:13] LABS: B.E. -3.2 mmol/L; HCO3 20.9 mmol/L (21-28); PCO2 33 mmHg (35-48); PO2 156 mmHg (83-108); pH 7.41 (7.35-7.45)
--- NOTE | 2024-04-26 17:25 | HPS.HSE ---
Family Physician
-
Family Physician: Jessica Ramos MD
Chief Complaint
-
Hypoxic/change in mental status
History of Present Illness
Patient is a 78-year-old male with PMH significant for paraplegia s/p spinal cord injury, CHF and HTN who presented to ED for evaluation following lethargy and hypoxia on RA at SNF. Patient poor historian, is oriented with confusion, he was unable
to describe anything that happened prior to coming to ED. Documentation shows that patient was transported to ED for evaluation following noted lethargy, weakness and hypoxia on RA. Patient with hospitalization this past January for PNA, during that
time it was noted he was having dysphagia and artificial nutrition was declined and regular diet for comfort feedings was elected. SNF paperwork shows patient with DNR status.
Medical History
Past Medical History
Past Medical History: Reports Other
Additional Past Medical History:
Hypertension
Chronic HFpEF
CKD III
Atrial Fibrillation
Paraplegia (Traumatic SCI)
DM-II
GERD
BPH
stage III coccyx pressure injury
Past Surgical History: Reports Other
Additional Past Surgical History:
Thoracic Spine Fusion / Stabilization (2021)
Social History
Tobacco: Former Smoker (quit over 30 years ago, unable to get history of use)
Alcohol: None
Drug: None
Living: Prison
Family History
Family History: Not pertinent
Allergies / Home Medications
Allergies reflects when Allergies were last updated in [facility].
Home Medications with original date entered in [facility]
Allergy/Medication List:
Allergies
Allergy/AdvReac Type Severity Reaction Status Date / Time
JEFFERSON Inhibitors Allergy Unknown Verified 01/21/24 15:15
codeine Allergy Unknown Verified 01/21/24 15:15
diphth,pert(acell),tetan,polio Allergy Unknown Verified 01/21/24 15:15
vacc,component 1of2
[From Pentacel DTaP-IPV
Compnt (PF)]
Penicillins Allergy Unknown Verified 01/21/24 15:15
Home Medications
amiodarone 200 mg tablet 200 mg PO DAILY Arrhythmia 11/08/23
atorvastatin 80 mg tablet 80 mg PO DAILY High Cholesterol 11/08/23
bisacodyl 10 mg rectal suppository 10 mg RI DAILY PRN if MOM ineffective 11/08/23
clopidogrel 75 mg tablet 75 mg PO DAILY Blood Clot Prevention/Tx 11/08/23
doxepin 50 mg capsule 50 mg PO DAILY Mental Health/Anxiety 11/08/23
ipratropium 0.5 mg-albuterol 3 mg (2.5 mg base)/3 mL nebulization soln 3 ml inhalation R Q4HPRN PRN sob 11/08/23
isosorbide mononitrate 30 mg tablet,extended release 24 hr 30 mg PO DAILY Heart Disease/Condition 11/08/23
losartan 25 mg tablet 25 mg PO DAILY Blood Pressure 11/08/23
magnesium hydroxide 400 mg/5 mL oral suspension (Milk of Magnesia) 30 ml PO HSPRN PRN if no BM in 3 days 11/08/23
metformin 500 mg tablet 500 mg PO DAILY Diabetes 11/08/23
omeprazole 40 mg capsule,delayed release 40 mg PO BID Gastrointestinal Issue 11/08/23
ondansetron HCl 4 mg tablet 4 mg PO Q6H PRN nausea/vomiting 11/08/23
spironolactone 25 mg tablet 12.5 mg PO DAILY Fluid Retention/Swelling 11/08/23
carvedilol 3.125 mg tablet 3.125 mg PO BID #0 tabs 11/15/23
apixaban 5 mg tablet 5 mg PO BID 04/26/24
cholecalciferol (vitamin D3) 25 mcg (1,000 unit) tablet 25 mcg PO DAILY 04/26/24
docusate sodium 100 mg capsule 100 mg PO BID 04/26/24
gabapentin 600 mg tablet 600 mg PO TID 04/26/24
sennosides 8.6 mg tablet (senna) 8.6 mg PO HS 04/26/24
Review of Systems
-
Constitutional: Reports Fever and Fatigue
EENT: Reports No Symptoms
Respiratory: Reports Cough
Cardiac: Reports No Symptoms
Abdomen/GI: Reports No Symptoms
: Reports No Symptoms
Musculoskeletal: Reports No Symptoms
Skin: Reports No Symptoms
Neurological: Reports No Symptoms
Endocrine: Reports No Symptoms
Hematologic/Lymphatic: Reports No Symptoms
Psych: Reports No Symptoms
Physical Exam
Vital Signs
Vital Signs
Temp Pulse Resp BP Pulse Ox
100.0 F 84 19 95/71 100
04/26/24 15:26 04/26/24 16:15 04/26/24 16:15 04/26/24 16:00 04/26/24 16:15
Physical Exam
General: Well Developed, No Apparent Distress, Comfortable, Conversant and Fever
HEENT: NormoCephalic, Moist mucous membranes, Atraumatic, PERRLA, [place] Conjunctivae, Nose Appears Normal and Ears Appear Normal
Respiratory: Clear (right lung), Rhonchi (Left lower lobe), Non Labored Respirations and Decreased Breath Sounds (left lung)
Cardiac: S1/S2 and Regular Rhythm; No Murmur or Rub
GI: Soft, Non Tender, Non Distended and Normal Bowel Sounds; No Organomegaly
Rectal: Deferred by Provider
Genito-urinary: Deferred by me
Musculoskeletal: No Clubbing, No Cyanosis and No Edema
Skin: Warm, Ulcers (thoracic spine wound, nonhealing from a prior surgery, left lateral foot DTI), Decubitus Ulcers (Noted sacral ulcer) and IV/Catheter Site; No Rash
Neuro: Nonfocal/grossly intact
Hematologic/Lymphatic: No Lymphadenopathy
Psych: Calm
Laboratory Results
-
04/26/24 15:39
Laboratory Results
pH 7.41 (7.35-7.45) 10/23/24 16:58
pCO2 33 mmHg (35-48) L 04/26/24 16:58
pO2 156 mmHg (83-108) H 04/26/24 16:58
HCO3 20.9 mmol/L (21-28) L 04/26/24 16:58
Lactic Acid 1.8 mmol/L (0.7-2.0) 04/26/24 15:39
Total Bilirubin Cancelled 04/26/24 15:39
AST Cancelled 04/26/24 15:39
ALT Cancelled 04/26/24 15:39
Alkaline Phosphatase Cancelled 04/26/24 15:39
Troponin I 0.013 ng/ml 04/26/24 15:39
Data Reviewed
-
Diagnostic Radiology: Report Reviewed by me (CXR: Low lung volumes with left lower lobe pneumonia. Recommend follow-up imaging to ensure resolution.)
Medical Tests (Nuc Med, Echo, EKG etc): Report Reviewed by me (EKG : NORMAL SINUS RHYTHM)
Lab Data: Labs Reviewed by me
Impression/Plan
-
IMPRESSION/PLAN:
#Left Lower Lobe Pneumonia
#Acute hypoxic respiratory insufficiency secondary to pneumonia
- Admit to telemetry
- CXR: Low lung volumes with left lower lobe pneumonia. Recommend follow-up imaging to ensure resolution.
- reported hypoxemia on room air prior to ED arrival
- hypotensive, improving with IVF
- negative for Covid and Flu
- Start Vanco and Cefe
- blood cultures pending
#Hypertension
- hold home medications and resume as BP improves
#Chronic HFpEF
- patient does not present fluid overloaded
- hold spironolactone
#Atrial Fibrillation
- continue amiodarone, Eliquis, carvedilol, clopidogrel
#DM-II
- hold metformin
- accuchecks with SSI
#GERD
- continue omeprazole
#Multiple wounds
#Thoracic spine wound s/p surgery non-healing
#Sacral wound documented as stage 3
#DTI to left lateral heel
- wound consult
#BPH
#stage III coccyx pressure injury
#Paraplegia (Traumatic SCI)
DNR
DVT Px: Lovenox Sq
[2024-04-26 17:51] LABS: ALT (SGPT) 14 U/L (0-50); AST (SGOT) 30 U/L (17-59); Albumin 2.2 g/dl (3.5-5.0); Alkaline Phosphatase 116 U/L (38-126); Blood Urea Nitrogen 40 mg/dl (9-20); Calcium 7.7 mg/dl (8.4-10.2); Carbon Dioxide 22 mmol/L (22-30); Chloride 102 mmol/L (98-107); Estimated Creatinine Clearance 47 ml/min; Glucose 136 mg/dl (70-99); Potassium 4.5 mmol/L (3.5-5.1); Sodium 134 mmol/L (135-145); Total Bilirubin 0.5 mg/dl (0.2-1.3); Total Protein 5.2 g/dl (6.3-8.2); eGFR > 60.00
[2024-04-26] MEDS: MAXIPIME 2000 MG IV (17:51)
--- NOTE | 2024-04-26 18:27 | W.PN.UPDATE ---
Update Note
Progress Note Update
This is an addendum to the H&P written by Juli Evans on 04/26/2024.� Patient seen and examined independently with PA.
78-year-old male past medical history of spinal cord injury with paraplegia, diabetes, hypertension, stage III coccyx pressure injury, GERD, BPH, chronic HFpEF, likely paroxysmal atrial fibrillation on Eliquis, prior Streptococcus/MSSA bacteremia
with MRSA in sputum culture, suspect of cognitive impairment, left lateral heel deep tissue injury, spinal pressure injury stage II, sacral 3, presenting from [facility] for [facility]y, hypoxia and weakness and cough.
Patient also has a chronic wound of the thoracic spine that appeared worse but Stage 3.�Wound care consulted.�
Sepsis secondary to left lower lobe pneumonia likely aspiration related.� Blood pressure 90s systolic.� COVID, influenza negative.� IV fluids, check sputum,�blood culture, vancomycin/cefepime.� Hold hypertensive�medication due to hypotension
initially. He elected for comfort feeding last time.
[2024-04-26] MEDS: VANCOCIN 300 ML IV (19:23)
[2024-04-26] MEDS: VANCOCIN 300 MG IV (19:23)
--- NOTE | 2024-04-26 20:39 | PHA.VAN.IN ---
Assessment
- Assessment
Renal Function: Appears elevated from baseline (11/16/23 BASELINE SCR: 0.7)
Concomitant Antimicrobials: CEFEPIME
- Previous Dosing Experience
Previous Regimen: NONE
Plan
- Plan
Initial / Loading Dose: 1500MG
Maintenance Regimen: DOSING BY RANDOM LEVEL
Monitoring: RANDOM VANCOMYCIN LEVEL 04/27/24 AM
Pharmacokinetics Vancomycin I
- -
Patient Age: 78
Patient Sex: Male
Vancomycin Day #: 1
Indication: Pulmonary/Respiratory
Requesting Provider: LANETTE
Pertinent Antimicrobial Allergies:
Allergies
Penicillins Allergy (Verified 01/21/24 15:15)
Unknown
Height / Weight:
Height 5 ft 8 in
Actual Weight 62.823 kg
Pertinent Past Medical History: ADMIT FOR PNA 01/25
- Vital Signs / Lab Results
Temp Pulse Resp BP Pulse Ox
98.4 F 85 16 123/51 94
04/26/24 20:15 04/26/24 20:15 04/26/24 20:15 04/26/24 20:15 04/26/24 20:15
Lab Results - Hematology
04/26/24
15:39
WBC 10.7
Lab Results - Chemistry
04/26/24 04/26/24
15:39 16:58
BUN Cancelled 40 H
Creatinine Cancelled 1.2
Estimated Creat Clear Cancelled 47
Albumin Cancelled 2.2 L
04/26/24
15:39
Lactic Acid 1.8
Microbiology Results
04/26/24 15:39 Influenza Types A & B (VALENTIN) - Final
Nasal Swab Negative for Influenza A & B, NAAT
Negative results must be combined with clinical observations
and patient history.
Nucleic Acid Amplification test (NAAT)performed on the
[employer] platform.
[2024-04-26] MEDS: ELIQUIS 5 MG PO (21:51)
[2024-04-26] MEDS: COREG 3.125 MG PO (21:51)
[2024-04-26] MEDS: SENOKOT 8.6 MG PO (21:51)
[2024-04-26] MEDS: NEURONTIN 600 MG PO (21:51)
[2024-04-26] MEDS: PROTONIX 40 MG PO (21:51)
[2024-04-26] MEDS: COLACE 100 MG PO (21:51)
[2024-04-26 22:23] LABS: Glucose - Point of Care 155 mg/dl (70-99)
[2024-04-27] VITALS (8 sets, daily range): BP systolic 109–147; BP diastolic 47–70; O2SAT 96; BMI 21.2
[2024-04-27] MEDS: STERILE WATER FOR INJECTION 10 ML IV ×2 (05:35→17:21)
[2024-04-27] MEDS: MAXIPIME 2000 MG IV ×2 (05:35→17:20)
[2024-04-27 07:44] LABS: Vancomycin Random 10.1 ug/ml
--- NOTE | 2024-04-27 08:49 | W.PN.HOSP.TC ---
Today's Communication/Plan
-
IV antibiotics. Sputum culture. Tylenol. PT OT
Assessment / Plan
Assessment / Plan
Physical exam:
General: Acute on chronically ill
HEENT: Normocephalic, Atraumatic and Moist Mucous Membranes
Respiratory: Left crackles; Negative Wheezes, Rales or Rhonchi
Cardiac: Regular Rhythm and S1/S2
GI: Soft, Nontender and Nondistended
Musculoskeletal: No Clubbing, No Cyanosis and No Edema
Neuro: Awake, Alert and Oriented, lower extremity weakness chronic.
Psych: Calm
A/P:
Acute hypoxic respiratory insufficiency:
Oxygen supplementation
Bronchodilators as needed
Antibiotics
Aspiration pneumonia, left lower lobe pneumonia:
Continue IV antibiotics, cefepime and vancomycin
Check MRSA swab
Will streamline antibiotics over the next 24 hours
COVID and flu negative
Blood cultures pending
Speech therapy eval pending
He had a history of recent invasive pneumococcal pneumonia with bacteremia back in November this year-reviewed hospitalization.
Sacral decubitus ulcer, stage III and deep tissue injury left heel and thoracic nonhealing wound, POA:
Wound care consulted
Paroxysmal atrial fibrillation:
Continue rate control agents, V-Vaqcdhym-Vqtws 3.125 mg twice a day
Continue antiarrhythmic agents, amiodarone 200 mg p.o. daily
Continue anticoagulation, DOAC-Eliquis 5 mg twice a day
? Also appears to be on Plavix
Continue cardiac monitoring
Chronic HFpEF:
Appears euvolemic
Continue beta-blockers
Hypertension:
Hold home antihypertensives except beta-willard.
Monitor blood pressure and adjust medications accordingly.
Hyperlipidemia:
Continue home statins, atorvastatin 80 mg p.o. daily
Diabetes mellitus type 2:
Insulin sliding scale
Holding metformin in the setting of acute infection
BPH:
Bladder protocol as appropriate
Depression:
Continue doxepin
Peripheral neuropathy:
On gabapentin
History of spinal cord injury with vertebral fractures and thoracic spine surgery 2021 with lower extremity weakness/paraplegia:
Nonambulatory at baseline
Hyponatremia:
Mild
Continue to monitor
GERD:
Continue PPI
DVT prophylaxis:
Lovenox SQ
CODE STATUS:
DNR
Total time spent on today's encounter was 52 minutes which included time spent in counseling the patient/family regarding diagnosis and treatment plan as listed above, goals of care, and symptom management. Case was discussed with nursing staff,
specialists, and care coordinators/case management. All labs and imaging personally reviewed by me. Remainder the time spent in detailed review of previous records, lab data, imaging, and other medical provider documentation.
Anticipated Discharge: 24 - 48 hours
Subjective/Interval History
-
Date of Service: April 27, 2024
Patient has some cough with white sputum production. Complains of some leg and arm discomfort but cannot elaborate further. Afebrile
Objective Data
-
Vital Signs:
Vital Signs
Temp Pulse Resp BP Pulse Ox
98.0 F 84 17 131/57 95
04/27/24 07:56 04/27/24 07:56 04/27/24 07:56 04/27/24 07:56 04/27/24 07:56
I&O
04/26/24 04/27/24 04/28/24
06:59 06:59 06:59
Intake Total 80 / 80
Output Total 200 / 200
Balance -120 / -120
[2024-04-27 08:52] LABS: Glycohemoglobin (HgbA1c) 7.4 % (4.0-5.6)
[2024-04-27] MEDS: PROTONIX 40 MG PO ×2 (09:10→21:16)
[2024-04-27] MEDS: NEURONTIN 600 MG PO ×3 (09:10→21:16)
[2024-04-27] MEDS: VITAMIN D3 (cholecalciferol) 25 MCG PO (09:11)
[2024-04-27] MEDS: COREG 3.125 MG PO ×2 (09:11→21:17)
[2024-04-27] MEDS: LIPITOR 80 MG PO (09:11)
[2024-04-27] MEDS: ELIQUIS 5 MG PO ×2 (09:11→21:17)
[2024-04-27] MEDS: PLAVIX 75 MG PO (09:11)
[2024-04-27] MEDS: SINEQUAN 50 MG PO (09:11)
[2024-04-27] MEDS: PACERONE 200 MG PO (09:11)
[2024-04-27] MEDS: COLACE 100 MG PO (09:11)
[2024-04-27 09:16] LABS: Glucose - Point of Care 127 mg/dl (70-99)
[2024-04-27] MEDS: NOVOLOG FLEXPEN-LOW RESISTANCE SC ×3 (09:16→17:29)
--- NOTE | 2024-04-27 09:20 | WOUNDNOTE ---
WO RN note: Patient admitted with PNA, lethargy
See H&P for complete history.
PMH: HTN, HF, Afib, Paraplegia, DM, GERD , BPH, s/p spinal fusion surgery
Wound Location and type/assessment: Patient admitted with unstageable PI to sacrum. The center of the wound is covered with soft brownish black slough and the surrounding area appears to be a deep dermal stage 3. Patient reports his mid back wound
was from a spinal surgery within the past 6 months that has not healed. There was a moderate amount of drainage in the wound, but no odor was noted. The wound undermines 2 cm at 12 oclock and metal can be visualized in the wound. Patient c/o pain in
the left heel. There is a non-blanchable area on the left heel that is a DTI vs stage 1 wound. Right heel with stage 1 wound. Patient said he lives at [facility] and has an air mattress. He recently began wearing off-loading boots in bed. He needs
assistance turning secondary to paraplegia.
Appetite: Reports fair to poor , on puree diet.
Pressure redistribution devices in place: Versa Care Accumax, patient placed on right semi-side lying position. Fiber filled boots ordered.
Plan: Plan is to try Honey gel for sacral wound to help remove slough. Continue packing back wound with saline gauze. Adhesive foam applied to heels and fiber filled boots ordered. Dietary consult recommended to assist in wound healing. Patient
said he was getting Ensure in the past. BASIM Bauman updated on plan. Will confirm orders with hospitalist. Care plan updated and will follow as needed.
Note to case management of equipment requested for discharge:
--- NOTE | 2024-04-27 09:58 | PTOTSP ---
Speech Therapy Evaluation:
Pt presents with mild oral stage dysphagia and suspected mid - moderate pharyngeal stage dysphagia. Pt completed VSE in November of 2023, in which it was recommended pt consume pureed solids and thin liquids with a chin tuck. Additionally, VSE revealed
significant retention in the esophagus. Pt with no s/sx of aspiration on evaluation with thin liquids or pureed solids, however required MAX cueing to utilize chin tuck. Pt remains at an increased risk of aspiration due to paraplegic state, weak
cough strength, and history of mild-moderate dysphagia. Pt with current left lower lobe PNA.
Recommend:
1. IDDSI Level 4 (puree) and thin liquids
2. Medications whole in puree
3. supervision/assistance with PO intake to encourage pt to follow recommended swallowing strategies
4. HOB fully upright for all PO intake and for at least 30 minutes after PO intake; small bites/sips; liquid wash; chin tuck with liquids
5. Continued ST at acute care level
--- NOTE | 2024-04-27 10:11 | PHA.VAN.FU ---
Vancomycin Assessment / Plan
- Assessment
Renal Function: No New Labs Today
Concomitant Antimicrobials: cefepime
- Assessment - Therapeutic Drug Monitoring
Random Level: 10.1 - drawn ~11.5H after 1500mg loading dose
- Dosing Plan
Dosing by Level: Re-dose today (Vanc 1000mg)
- Monitoring Plan
Random Level: 04/28 0600
- Follow Up
Pharmacy will continue to follow.
Vancomycin Follow UP
- -
Patient Age: 78
Patient Sex: Male
Vancomycin Day #: 2
Indication: Pulmonary/Respiratory
Requesting Provider: Michelle Evans
Pertinent Antimicrobial Allergies:
Penicillins - Unknown
Height / Weight:
Height 5 ft 8 in
Actual Weight 63.163 kg
Pertinent Past Medical History: CKD, DM II
- Vital Signs / Lab Results
Temp Pulse Resp BP Pulse Ox
98.0 F 82 17 112/52 95
04/27/24 07:56 04/27/24 09:11 04/27/24 07:56 04/27/24 09:11 04/27/24 07:56
Lab Results - Hematology
04/26/24
15:39
WBC 10.7
Lab Results - Chemistry
04/26/24 04/26/24
15:39 16:58
BUN Cancelled 40 H
Creatinine Cancelled 1.2
Estimated Creat Clear Cancelled 47
Albumin Cancelled 2.2 L
04/26/24 04/26/24
15:39 19:45
Lactic Acid 1.8 Cancelled
Microbiology Results
04/26/24 15:39 Influenza Types A & B (VALENTIN) - Final
Nasal Swab Negative for Influenza A & B, NAAT
Negative results must be combined with clinical observations
and patient history.
Nucleic Acid Amplification test (NAAT)performed on the
[employer] platform.
Therapeutic Drug Monitoring
Random Vancomycin 10.1 ug/ml 04/27/24 07:06
[2024-04-27 12:06] LABS: Glucose - Point of Care 148 mg/dl (70-99)
[2024-04-27] MEDS: VANCOCIN 200 IV (12:51)
--- NOTE | 2024-04-27 14:15 | CM ---
Patient from [facility]; admitted via ED w/Aspiration Pneumonia
PLOF: Paraplegia, spinal cord injury
PT/OT/Speech evaluations pending
[2024-04-27 17:27] LABS: Glucose - Point of Care 138 mg/dl (70-99)
[2024-04-27] MEDS: TYLENOL 650 MG PO (21:16)
[2024-04-27] MEDS: SENOKOT PO (21:17)
[2024-04-27] MEDS: COLACE PO (21:17)
[2024-04-27 21:34] LABS: Glucose - Point of Care 149 mg/dl (70-99)
[2024-04-28 03:10] VITALS: BP 110/48
[2024-04-28] MEDS: STERILE WATER FOR INJECTION 10 ML IV ×2 (05:25→16:39)
[2024-04-28] MEDS: MAXIPIME 2000 MG IV ×2 (05:25→16:40)
[2024-04-28 06:00] VITALS: BMI 20.8
[2024-04-28 06:39] LABS: % Basophils 0.5 % (0-2); % Eosinophils 1.3 % (0-6); % Immature Granulocytes 0.7 % (0-0.5); % Lymphocytes 9.1 % (20.5-51.1); % Monocytes 12.2 % (1.7-9.3); % Neutrophils 76.2 % (42.2-75.2); Absolute Eosinophils 0.1 10^3/uL (0-0.7); Absolute Lymphocytes 0.6 10^3/uL (1.2-3.4); Absolute Monocytes 0.7 10^3/uL (0.1-0.6); Absolute Neutrophils 4.6 10^3/uL (1.4-6.5); Hematocrit 32.6 % (39.0-52.0); Hemoglobin 11.3 g/dL (13.0-18.0); Mean Corp Hgb Conc. 34.7 g/dL (33.0-37.0); Mean Corpuscular Hgb 28.8 pg (27.0-31.0); Mean Corpuscular Volume 83.2 fL (80.0-94.0); Mean Platelet Volume 9.3 fL (7.4-10.4); Nucleated Red Blood Cells % 0 % (-); Platelet Count 251 10^3/uL (130-400); Red Blood Cell Count 3.92 10^6/uL (4.70-6.10); Red Cell Dist. Width 19.8 % (11.5-14.5); White Blood Cell Count 6.1 10^3/uL (4.8-10.8)
[2024-04-28 06:52] LABS: Vancomycin Random 14.8 ug/ml
[2024-04-28 07:08] LABS: Blood Urea Nitrogen 39 mg/dl (9-20); Calcium 8.3 mg/dl (8.4-10.2); Carbon Dioxide 17 mmol/L (22-30); Chloride 104 mmol/L (98-107); Estimated Creatinine Clearance 54 ml/min; Glucose 118 mg/dl (70-99); Potassium 4.4 mmol/L (3.5-5.1); Sodium 136 mmol/L (135-145); eGFR > 60.00
[2024-04-28 07:48] VITALS: BP 132/53
--- NOTE | 2024-04-28 08:04 | PN.CDI ---
CDI
- -
CDI:
Physician Documentation Request
Admit Date: 04/26/24 19:10
Dear Doctor Thomas,
Please review the following and provide your response in the progress notes.
Clinical Indicators:
04/27/24 09:20 - Wound Note
Wound Location and type/assessment:
#...non-blanchable area on the left heel that is a DTI vs stage 1 wound.
#...Right heel with stage 1 wound.
Physician documentation of the type and location of wounds is required for compliant documentation. Based on the above clinical findings and your assessment, please provide the following in your progress note:
Yes, stage 1 right heel and stage 1 vs. DTI left heel, POA
No, stage 1 right heel and stage 1 vs. DTI left heel
Other(please specify)
1. Location of the ulcer/wound, including laterality.
2. Type (etiology) of ulcer/wound:
- Diabetic ulcer
- Arterial (ischemic) ulcer
- Traumatic wound
- Venous stasis ulcer
- Pressure (decubitus) ulcer
- Non-healing surgical wound
3. If a pressure ulcer, please also include the stage* of the ulcer:
- Stage 1 - Skin intact, non-blanchable redness
- Stage 2 - Partial thickness loss of dermis, includes intact or open blister
- Stage 3 - Full thickness tissue not including bone, tendon or muscle
- Stage 4 - Full thickness tissue loss, including exposed bone, tendon or muscle
- Unstageable - Full thickness loss in which the base of the ulcer is covered by slough (yellow, fall, cheema, green or brown) and/or eschar (fall, brown or black) in the wound bed.
Use of terms such as suspected, likely, concern for, or probable (associated with a specific diagnosis that is being evaluated, monitored, or treated as if it exists) are acceptable and can be coded in the inpatient setting, when documented at the
time of discharge.
Thank you,
Tina Restrepo RN BSN CCDS
CDI Specialist
please contact via tiger text
Please use your independent medical judgment in providing your response.
*Source: National Pressure Ulcer Advisory Panel (NPUAP)
[2024-04-28 08:17] LABS: Glucose - Point of Care 118 mg/dl (70-99)
[2024-04-28] MEDS: NOVOLOG FLEXPEN-LOW RESISTANCE SC ×2 (08:20→16:40)
--- NOTE | 2024-04-28 08:35 | PHA.VAN.FU ---
Vancomycin Assessment / Plan
- Assessment
Renal Function: SCR Decreasing
WBC's are: WNL
In the past 24 hrs, patient has been: Afebrile
Concomitant Antimicrobials: cefepime
- Assessment - Therapeutic Drug Monitoring
Random Level: 14.8 - drawn ~17.5H after previous dose of 1000mg
- Dosing Plan
Dosing by Level: Re-dose today (Vanc 750mg)
Dosing Comments: reduce dose today based on accumulation
- Monitoring Plan
Random Level: 04/29 600
- Follow Up
Pharmacy will continue to follow.
Vancomycin Follow UP
- -
Patient Age: 78
Patient Sex: Male
Vancomycin Day #: 3
Indication: Pulmonary/Respiratory
Requesting Provider: Michelle Evans
Pertinent Antimicrobial Allergies:
Penicillins - Unknown
Height / Weight:
Height 5 ft 8 in
Actual Weight 62.142 kg
Pertinent Past Medical History: CKD, DM II
- Vital Signs / Lab Results
Temp Pulse Resp BP Pulse Ox
97.5 F 70 18 132/53 96
04/28/24 07:48 04/28/24 07:48 04/28/24 07:48 04/28/24 07:48 04/28/24 07:48
Lab Results - Hematology
04/26/24 04/28/24
15:39 06:18
WBC 10.7 6.1
Lab Results - Chemistry
04/26/24 04/26/24 04/28/24
15:39 16:58 06:18
BUN Cancelled 40 H 39 H
Creatinine Cancelled 1.2 1.0
Estimated Creat Clear Cancelled 47 54
Albumin Cancelled 2.2 L
04/26/24 04/26/24
15:39 19:45
Lactic Acid 1.8 Cancelled
Microbiology Results
04/26/24 15:39 Blood Culture - Preliminary
Blood/Venous No Growth in 24 hours- Final report to follow
04/26/24 15:39 Influenza Types A & B (VALENTIN) - Final
Nasal Swab Negative for Influenza A & B, NAAT
Negative results must be combined with clinical observations
and patient history.
Nucleic Acid Amplification test (NAAT)performed on the
[employer] platform.
Therapeutic Drug Monitoring
Random Vancomycin 14.8 ug/ml 04/28/24 06:18
--- NOTE | 2024-04-28 09:02 | W.PN.HOSP.TC ---
Addendum entered and electronically signed by Nacho Thomas MD 04/28/24 13:21:
Yes, stage 1 right heel and stage 1 vs. DTI left heel, POA
Original Note:
Today's Communication/Plan
-
Antibiotics.
Assessment / Plan
Assessment / Plan
Physical exam:
General: Acute on chronically ill
HEENT: Normocephalic, Atraumatic and Moist Mucous Membranes
Respiratory: Left crackles; Negative Wheezes, Rales or Rhonchi
Cardiac: Regular Rhythm and S1/S2
GI: Soft, Nontender and Nondistended
Musculoskeletal: No Clubbing, No Cyanosis and No Edema
Neuro: Awake, Alert and Oriented, lower extremity weakness chronic.
Psych: Calm
A/P:
Acute hypoxic respiratory insufficiency:
Oxygen supplementation
Bronchodilators as needed
Antibiotics
Aspiration pneumonia, left lower lobe pneumonia:
Continue IV antibiotics, cefepime and vancomycin
Check MRSA swab
Will streamline antibiotics over the next 24 hours
COVID and flu negative
Blood cultures pending
Speech therapy eval pending
He had a history of recent invasive pneumococcal pneumonia with bacteremia back in November this year-reviewed hospitalization.
Sacral decubitus ulcer, stage III and deep tissue injury left heel and thoracic nonhealing wound, POA:
Wound care consulted
Paroxysmal atrial fibrillation:
Continue rate control agents, N-Gutnxman-Ghymk 3.125 mg twice a day
Continue antiarrhythmic agents, amiodarone 200 mg p.o. daily
Continue anticoagulation, DOAC-Eliquis 5 mg twice a day
? Also appears to be on Plavix
Continue cardiac monitoring
Chronic HFpEF:
Appears euvolemic
Continue beta-blockers
Hypertension:
Hold home antihypertensives except beta-willard.
Monitor blood pressure and adjust medications accordingly.
Hyperlipidemia:
Continue home statins, atorvastatin 80 mg p.o. daily
Diabetes mellitus type 2:
Insulin sliding scale
Holding metformin in the setting of acute infection
BPH:
Bladder protocol as appropriate
Depression:
Continue doxepin
Peripheral neuropathy:
On gabapentin
History of spinal cord injury with vertebral fractures and thoracic spine surgery 2021 with lower extremity weakness/paraplegia:
Nonambulatory at baseline
Hyponatremia:
Mild
Continue to monitor
GERD:
Continue PPI
DVT prophylaxis:
Lovenox SQ
CODE STATUS:
DNR
Anticipated Discharge: 24 - 48 hours
Subjective/Interval History
-
Date of Service: April 28, 2024
Less cough and shortness of breath. Afebrile
Objective Data
-
Labs:
Laboratory Results
04/28/24
06:18
WBC 6.1
Hgb 11.3 L
Hct 32.6 L
Plt Count 251 D
Sodium 136
Potassium 4.4
Chloride 104
Carbon Dioxide 17 L
BUN 39 H
Creatinine 1.0
Glucose 118 H
Calcium 8.3 L
Vital Signs:
Vital Signs
Temp Pulse Resp BP Pulse Ox
97.5 F 70 18 132/53 96
04/28/24 07:48 04/28/24 07:48 04/28/24 07:48 04/28/24 07:48 04/28/24 07:48
I&O
04/27/24 04/28/24 04/29/24
06:59 06:59 06:59
Intake Total 80 / 80 120 / 120
Output Total 200 / 200 710 / 710
Balance -120 / -120 -590 / -590
--- NOTE | 2024-04-28 09:43 | CM ---
CM spoke with patient's daughter via phone this morning
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 Per his daughter he is alert and oriented at baseline and was able to communicate his needs
Patient is a paraplegic; wheelchair bound and requires total care at the long-term
Pharmacy: [facility] @ [address] [place] [address]
Plan: Bed on Hold at facility and per his daughter, patient will return to [facility] when medically stable. Will need ambulance transport
[2024-04-28] MEDS: NEURONTIN 600 MG PO ×3 (09:58→22:40)
[2024-04-28] MEDS: PROTONIX 40 MG PO ×2 (09:58→22:41)
[2024-04-28] MEDS: VITAMIN D3 (cholecalciferol) 25 MCG PO (09:59)
[2024-04-28] MEDS: COLACE 100 MG PO ×2 (09:59→22:44)
[2024-04-28] MEDS: PLAVIX 75 MG PO (09:59)
[2024-04-28] MEDS: ELIQUIS 5 MG PO ×2 (09:59→22:41)
[2024-04-28] MEDS: COREG 3.125 MG PO ×2 (09:59→22:41)
[2024-04-28] MEDS: SINEQUAN 50 MG PO (09:59)
[2024-04-28] MEDS: PACERONE 200 MG PO (09:59)
[2024-04-28] MEDS: LIPITOR 80 MG PO (09:59)
[2024-04-28] MEDS: VANCOCIN 150 IV (10:00)
[2024-04-28 11:00] VITALS: BP 113/53
[2024-04-28 12:17] LABS: Glucose - Point of Care 176 mg/dl (70-99)
[2024-04-28] MEDS: NOVOLOG FLEXPEN-LOW RESISTANCE 1 UNITS SC (13:03)
[2024-04-28 15:31] VITALS: BP 122/54
[2024-04-28 16:35] LABS: Glucose - Point of Care 124 mg/dl (70-99)
[2024-04-28 19:55] VITALS: BP 116/54
[2024-04-28 20:58] LABS: Glucose - Point of Care 129 mg/dl (70-99)
[2024-04-28 22:38] VITALS: BP 114/49
[2024-04-28] MEDS: SENOKOT 8.6 MG PO (22:41)
[2024-04-29 03:40] VITALS: BP 116/49
[2024-04-29 05:45] VITALS: BMI 20.3
[2024-04-29 06:00] VITALS: BMI 20.3
[2024-04-29] MEDS: MAXIPIME 2000 MG IV ×2 (06:02→17:58)
[2024-04-29] MEDS: STERILE WATER FOR INJECTION 10 ML IV ×2 (06:03→17:58)
[2024-04-29 06:59] LABS: % Basophils 0.5 % (0-2); % Eosinophils 1.2 % (0-6); % Immature Granulocytes 0.7 % (0-0.5); % Lymphocytes 7.5 % (20.5-51.1); % Monocytes 13.9 % (1.7-9.3); % Neutrophils 76.2 % (42.2-75.2); Absolute Eosinophils 0.1 10^3/uL (0-0.7); Absolute Lymphocytes 0.4 10^3/uL (1.2-3.4); Absolute Monocytes 0.8 10^3/uL (0.1-0.6); Absolute Neutrophils 4.5 10^3/uL (1.4-6.5); Hematocrit 29.8 % (39.0-52.0); Hemoglobin 10.3 g/dL (13.0-18.0); Mean Corp Hgb Conc. 34.6 g/dL (33.0-37.0); Mean Corpuscular Hgb 28.6 pg (27.0-31.0); Mean Corpuscular Volume 82.8 fL (80.0-94.0); Mean Platelet Volume 9.3 fL (7.4-10.4); Nucleated Red Blood Cells % 0 % (-); Platelet Count 258 10^3/uL (130-400); Red Cell Dist. Width 19.5 % (11.5-14.5); White Blood Cell Count 5.9 10^3/uL (4.8-10.8)
[2024-04-29 07:00] VITALS: BP 113/55
[2024-04-29 07:21] LABS: Blood Urea Nitrogen 33 mg/dl (9-20); Calcium 8.5 mg/dl (8.4-10.2); Carbon Dioxide 21 mmol/L (22-30); Chloride 103 mmol/L (98-107); Estimated Creatinine Clearance 52 ml/min; Glucose 147 mg/dl (70-99); Potassium 4.2 mmol/L (3.5-5.1); Sodium 133 mmol/L (135-145); eGFR > 60.00
[2024-04-29 07:32] LABS: Vancomycin Random 14.9 ug/ml
[2024-04-29 08:01] LABS: Glucose - Point of Care 190 mg/dl (70-99)
[2024-04-29] MEDS: PLAVIX 75 MG PO (08:11)
[2024-04-29] MEDS: VITAMIN D3 (cholecalciferol) 25 MCG PO (08:11)
[2024-04-29] MEDS: COREG 3.125 MG PO ×2 (08:11→22:03)
[2024-04-29] MEDS: COLACE 100 MG PO ×2 (08:11→21:55)
[2024-04-29] MEDS: PACERONE 200 MG PO (08:12)
[2024-04-29] MEDS: ELIQUIS 5 MG PO ×2 (08:12→21:55)
[2024-04-29] MEDS: LIPITOR 80 MG PO (08:12)
[2024-04-29] MEDS: PROTONIX 40 MG PO ×2 (08:12→21:56)
[2024-04-29] MEDS: NEURONTIN 600 MG PO ×3 (08:12→22:02)
[2024-04-29] MEDS: SINEQUAN 50 MG PO (08:12)
[2024-04-29] MEDS: NOVOLOG FLEXPEN-LOW RESISTANCE 1 UNITS SC ×2 (08:12→18:04)
[2024-04-29] MEDS: TYLENOL 650 MG PO ×2 (08:14→21:56)
--- NOTE | 2024-04-29 08:55 | W.PN.HOSP.TC ---
Today's Communication/Plan
-
IV antibiotics
Assessment / Plan
Assessment / Plan
Physical exam:
General: Acute on chronically ill
HEENT: Normocephalic, Atraumatic and Moist Mucous Membranes
Respiratory: Left crackles; Negative Wheezes, Rales or Rhonchi
Cardiac: Regular Rhythm and S1/S2
GI: Soft, Nontender and Nondistended
Musculoskeletal: No Clubbing, No Cyanosis and No Edema
Neuro: Awake, Alert and Oriented, lower extremity weakness chronic.
Psych: Calm
A/P:
Acute hypoxic respiratory insufficiency:
Oxygen supplementation
Bronchodilators as needed
Antibiotics
Aspiration pneumonia, left lower lobe pneumonia:
Continue IV antibiotics, cefepime and vancomycin
Check MRSA swab and it is positive
Will streamline antibiotics over the next 24 hours
COVID and flu negative
Blood cultures pending but no growth
Speech therapy eval appreciated
He had a history of recent invasive pneumococcal pneumonia with bacteremia back in November this year-reviewed hospitalization.
Sacral decubitus ulcer, stage III and deep tissue injury left heel and thoracic nonhealing wound, POA:
Wound care consulted
Paroxysmal atrial fibrillation:
Continue rate control agents, X-Imzywgwi-Deirn 3.125 mg twice a day
Continue antiarrhythmic agents, amiodarone 200 mg p.o. daily
Continue anticoagulation, DOAC-Eliquis 5 mg twice a day
? Also appears to be on Plavix
Continue cardiac monitoring
Chronic HFpEF:
Appears euvolemic
Continue beta-blockers
Hypertension:
Hold home antihypertensives except beta-willard.
Monitor blood pressure and adjust medications accordingly.
Hyperlipidemia:
Continue home statins, atorvastatin 80 mg p.o. daily
Diabetes mellitus type 2:
Insulin sliding scale
Holding metformin in the setting of acute infection
BPH:
Bladder protocol as appropriate
Depression:
Continue doxepin
Peripheral neuropathy:
On gabapentin
History of spinal cord injury with vertebral fractures and thoracic spine surgery 2021 with lower extremity weakness/paraplegia:
Nonambulatory at baseline
Hyponatremia:
Mild
Continue to monitor
GERD:
Continue PPI
DVT prophylaxis:
Lovenox SQ
CODE STATUS:
DNR
Anticipated Discharge: Within 24 hours
Subjective/Interval History
-
Date of Service: April 29, 2024
Patient feels better overall. Afebrile
Objective Data
-
Labs:
Laboratory Results
04/29/24
06:05
WBC 5.9
Hgb 10.3 L
Hct 29.8 L
Plt Count 258
Sodium 133 L
Potassium 4.2
Chloride 103
Carbon Dioxide 21 L
BUN 33 H
Creatinine 1.0
Glucose 147 H
Calcium 8.5
Vital Signs:
Vital Signs
Temp Pulse Resp BP Pulse Ox
97.5 F 80 16 113/55 92
04/29/24 07:00 04/29/24 07:00 04/29/24 07:00 04/29/24 07:00 04/29/24 07:00
I&O
04/28/24 04/29/24 04/30/24
06:59 06:59 06:59
Intake Total 120 / 120 420 / 420
Output Total 710 / 710 400 / 400
Balance -590 / -590
[2024-04-29 11:00] VITALS: BP 103/51
--- NOTE | 2024-04-29 11:21 | PHA.VAN.FU ---
Vancomycin Assessment / Plan
- Assessment
Renal Function: Stable (1.0>1.0)
WBC's are: Trending Down (6.1>5.9)
In the past 24 hrs, patient has been: Afebrile
Concomitant Antimicrobials: Cefepime
- Assessment - Therapeutic Drug Monitoring
Random Level: 14.9 drawn ~20 hrs after 750mg dose given
- Dosing Plan
Dosing by Level: Re-dose today (Vancomycin 500mg IV once)
Dosing Comments: reduced dose due to accumulation
- Monitoring Plan
Random Level: Ordered for 04/30/24 at 06:00
- Follow Up
Pharmacy will continue to follow.
Vancomycin Follow UP
- -
Patient Age: 78
Patient Sex: Male
Vancomycin Day #: 4
Indication: Pulmonary/Respiratory (MRSA nares +)
Requesting Provider: Michelle Evans
Pertinent Antimicrobial Allergies:
Penicillins - Unknown
Height / Weight:
Height 5 ft 8 in
Actual Weight 60.441 kg
Pertinent Past Medical History: CKD, DM II
- Vital Signs / Lab Results
Temp Pulse Resp BP Pulse Ox
97.5 F 80 16 113/55 92
04/29/24 07:00 04/29/24 07:00 04/29/24 07:00 04/29/24 07:00 04/29/24 07:00
Lab Results - Hematology
04/26/24 04/28/24 04/29/24
15:39 06:18 06:05
WBC 10.7 6.1 5.9
Lab Results - Chemistry
04/26/24 04/26/24 04/28/24
15:39 16:58 06:18
BUN Cancelled 40 H 39 H
Creatinine Cancelled 1.2 1.0
Estimated Creat Clear Cancelled 47 54
Albumin Cancelled 2.2 L
04/29/24
06:05
BUN 33 H
Creatinine 1.0
Estimated Creat Clear 52
Albumin
04/26/24 04/26/24
15:39 19:45
Lactic Acid 1.8 Cancelled
Microbiology Results
04/27/24 12:35 MRSA Screen - Final
Nose Staph aureus MRSA
04/26/24 15:39 Blood Culture - Preliminary
Blood/Venous No Growth in 48 hours- Final report to follow
Therapeutic Drug Monitoring
Random Vancomycin 14.9 ug/ml 04/29/24 06:05
[2024-04-29 12:55] LABS: Glucose - Point of Care 220 mg/dl (70-99)
[2024-04-29] MEDS: NOVOLOG FLEXPEN-LOW RESISTANCE 2 UNITS SC (13:14)
[2024-04-29] MEDS: VANCOCIN HCL 500 MG 100 IV (13:17)
[2024-04-29 15:00] VITALS: BP 111/53
[2024-04-29 18:04] LABS: Glucose - Point of Care 157 mg/dl (70-99)
[2024-04-29 21:34] LABS: Glucose - Point of Care 170 mg/dl (70-99)
[2024-04-29] MEDS: SENOKOT 8.6 MG PO (21:56)
[2024-04-29 22:00] VITALS: BP 114/53
[2024-04-30] MEDS: STERILE WATER FOR INJECTION 10 ML IV ×2 (05:39→16:46)
[2024-04-30] MEDS: MAXIPIME 2000 MG IV ×2 (05:39→16:46)
[2024-04-30 06:00] VITALS: BMI 20.2
[2024-04-30 07:00] VITALS: BP 117/54
[2024-04-30] MEDS: ELIQUIS 5 MG PO ×2 (07:41→21:53)
[2024-04-30] MEDS: PACERONE 200 MG PO (07:41)
[2024-04-30] MEDS: PROTONIX 40 MG PO ×2 (07:41→21:52)
[2024-04-30] MEDS: PLAVIX 75 MG PO (07:41)
[2024-04-30] MEDS: SINEQUAN 50 MG PO (07:41)
[2024-04-30] MEDS: COREG 3.125 MG PO ×2 (07:41→21:53)
[2024-04-30] MEDS: LIPITOR 80 MG PO (07:41)
[2024-04-30] MEDS: NEURONTIN 600 MG PO ×3 (07:41→21:52)
[2024-04-30] MEDS: COLACE 100 MG PO ×2 (07:41→21:53)
[2024-04-30] MEDS: VITAMIN D3 (cholecalciferol) 25 MCG PO (07:42)
[2024-04-30] MEDS: TYLENOL 650 MG PO ×2 (07:44→21:53)
[2024-04-30 08:36] LABS: % Basophils 0.7 % (0-2); % Eosinophils 1.7 % (0-6); % Immature Granulocytes 1.1 % (0-0.5); % Lymphocytes 13.9 % (20.5-51.1); % Monocytes 14.7 % (1.7-9.3); % Neutrophils 67.9 % (42.2-75.2); Absolute Eosinophils 0.1 10^3/uL (0-0.7); Absolute Immature Granulocytes 0.1 10^3/uL (0-0.05); Absolute Lymphocytes 0.8 10^3/uL (1.2-3.4); Absolute Monocytes 0.8 10^3/uL (0.1-0.6); Absolute Neutrophils 3.7 10^3/uL (1.4-6.5); Hematocrit 29.7 % (39.0-52.0); Hemoglobin 10.1 g/dL (13.0-18.0); Mean Corpuscular Hgb 27.9 pg (27.0-31.0); Mean Platelet Volume 9.4 fL (7.4-10.4); Nucleated Red Blood Cells % 0 % (-); Platelet Count 255 10^3/uL (130-400); Red Blood Cell Count 3.62 10^6/uL (4.70-6.10); White Blood Cell Count 5.4 10^3/uL (4.8-10.8)
[2024-04-30 08:37] LABS: Vancomycin Random 14.8 ug/ml
[2024-04-30 08:47] LABS: Blood Urea Nitrogen 31 mg/dl (9-20); Calcium 8.4 mg/dl (8.4-10.2); Carbon Dioxide 22 mmol/L (22-30); Chloride 103 mmol/L (98-107); Estimated Creatinine Clearance 52 ml/min; Glucose 126 mg/dl (70-99); Potassium 4.4 mmol/L (3.5-5.1); Sodium 134 mmol/L (135-145); eGFR > 60.00
[2024-04-30 08:55] LABS: Glucose - Point of Care 196 mg/dl (70-99)
[2024-04-30] MEDS: NOVOLOG FLEXPEN-LOW RESISTANCE 1 UNITS SC ×2 (09:00→13:01)
--- NOTE | 2024-04-30 09:18 | W.PN.HOSP.TC ---
Addendum entered and electronically signed by Nacho Thomas MD 04/30/24 13:43:
Follow-up chest x-ray shows improvement today.
Original Note:
Today's Communication/Plan
-
Continue antibiotics
Assessment / Plan
Assessment / Plan
Physical exam:
General: Acute on chronically ill
HEENT: Normocephalic, Atraumatic and Moist Mucous Membranes
Respiratory: Left crackles; Negative Wheezes, Rales or Rhonchi
Cardiac: Regular Rhythm and S1/S2
GI: Soft, Nontender and Nondistended
Musculoskeletal: No Clubbing, No Cyanosis and No Edema. Sacral wound.
Neuro: Awake, Alert and Oriented, lower extremity weakness chronic.
Psych: Calm
A/P:
Acute hypoxic respiratory insufficiency:
Oxygen supplementation
Bronchodilators as needed
Antibiotics
Aspiration pneumonia, left lower lobe pneumonia:
Continue IV antibiotics, cefepime and vancomycin and can switch to oral probably by tomorrow
Check MRSA swab and it is positive
Will streamline antibiotics over the next 24 hours
COVID and flu negative
Blood cultures pending but no growth
Speech therapy eval appreciated
He had a history of recent invasive pneumococcal pneumonia with bacteremia back in November this year-reviewed hospitalization.
Discussed with daughter over the phone today, Stormy
Sacral decubitus ulcer, stage III and deep tissue injury left heel and thoracic nonhealing wound, POA:
Wound care consulted
Daughter would like wound care to see him again-I put a new consult for them to see him again tomorrow.
Paroxysmal atrial fibrillation:
Continue rate control agents, D-Vwmqzuwd-Fyiux 3.125 mg twice a day
Continue antiarrhythmic agents, amiodarone 200 mg p.o. daily
Continue anticoagulation, DOAC-Eliquis 5 mg twice a day
? Also appears to be on Plavix
Continue cardiac monitoring
Chronic HFpEF:
Appears euvolemic
Continue beta-blockers
Hypertension:
Hold home antihypertensives except beta-willard.
Monitor blood pressure and adjust medications accordingly.
Hyperlipidemia:
Continue home statins, atorvastatin 80 mg p.o. daily
Diabetes mellitus type 2:
Insulin sliding scale
Holding metformin in the setting of acute infection
BPH:
Bladder protocol as appropriate
Depression:
Continue doxepin
Peripheral neuropathy:
On gabapentin
History of spinal cord injury with vertebral fractures and thoracic spine surgery 2021 with lower extremity weakness/paraplegia:
Nonambulatory at baseline
Hyponatremia:
Mild
Continue to monitor
GERD:
Continue PPI
DVT prophylaxis:
Lovenox SQ
CODE STATUS:
DNR
Anticipated Discharge: 24 - 48 hours
Subjective/Interval History
-
Date of Service: April 30, 2024
Patient doing better overall. On room air. Afebrile. Less cough and shortness of breath.
Objective Data
-
Labs:
Laboratory Results
04/30/24
07:56
WBC 5.4
Hgb 10.1 L
Hct 29.7 L
Plt Count 255
Sodium 134 L
Potassium 4.4
Chloride 103
Carbon Dioxide 22
BUN 31 H
Creatinine 1.0
Glucose 126 H
Calcium 8.4
Vital Signs:
Vital Signs
Temp Pulse Resp BP Pulse Ox
97.6 F 78 12 117/54 93
04/30/24 07:00 04/30/24 07:00 04/30/24 07:00 04/30/24 07:00 04/30/24 07:00
I&O
04/29/24 04/30/24 05/01/24
06:59 06:59 06:59
Intake Total 420 / 420 490 / 490
Output Total 400 / 400
Balance 20 / 20 490 / 490
--- NOTE | 2024-04-30 10:00 | PHA.VAN.FU ---
Vancomycin Assessment / Plan
- Assessment
Renal Function: Stable (1.0>1.0)
WBC's are: Trending Down (5.9>5.4)
In the past 24 hrs, patient has been: Afebrile
Concomitant Antimicrobials: Cefepime
- Assessment - Therapeutic Drug Monitoring
Random Level: 14.8 drawn ~19 hrs after vancomycin 500mg dose given
- Dosing Plan
Dosing by Level: Re-dose today (Vancomycin 500mg IV x 1 dose)
- Monitoring Plan
Random Level: Ordered for 05/01/24 at 06:00
- Follow Up
Pharmacy will continue to follow.
Vancomycin Follow UP
- -
Patient Age: 78
Patient Sex: Male
Vancomycin Day #: 5
Indication: Pulmonary/Respiratory (MRSA nares +)
Requesting Provider: Michelle Evans
Pertinent Antimicrobial Allergies:
Penicillins - Unknown
Height / Weight:
Height 5 ft 8 in
Actual Weight 60.384 kg
Pertinent Past Medical History: CKD, DM II
- Vital Signs / Lab Results
Temp Pulse Resp BP Pulse Ox
97.6 F 78 12 117/54 93
04/30/24 07:00 04/30/24 07:00 04/30/24 07:00 04/30/24 07:00 04/30/24 07:00
Lab Results - Hematology
04/28/24 04/29/24 04/30/24
06:18 06:05 07:56
WBC 6.1 5.9 5.4
Lab Results - Chemistry
04/28/24 04/29/24 04/30/24
06:18 06:05 07:56
BUN 39 H 33 H 31 H
Creatinine 1.0 1.0 1.0
Estimated Creat Clear 54 52 52
Microbiology Results
04/26/24 15:39 Blood Culture - Preliminary
Blood/Venous No Growth in 72 hours- Final report to follow
04/27/24 12:35 MRSA Screen - Final
Nose Staph aureus MRSA
Therapeutic Drug Monitoring
Random Vancomycin 14.8 ug/ml 04/30/24 07:56
[2024-04-30] MEDS: VANCOCIN HCL 500 MG 100 IV (11:03)
--- NOTE | 2024-04-30 11:36 | CM ---
Addendum entered by Kayla Fry RN 04/30/24 17:06:
DC cancelled Katarzyna notified.
Original Note:
MD indicated pt ready for dc.
Spoke with Katarzyna at [facility] . Referral placed in care port.Katarzyna accepted him back .
Pt Paraplegic Medical nec form completed.
Spoke with dgt Stormy she agrees with transfer back to [facility] via ambulance. she requested call from MD.Information forwarded to MD via TT.
[facility]
report [phone]
fax [phone]
PLAN Return to [facility] .
[2024-04-30 12:56] LABS: Glucose - Point of Care 181 mg/dl (70-99)
[2024-04-30 15:00] VITALS: BP 122/54
[2024-04-30 16:45] LABS: Glucose - Point of Care 148 mg/dl (70-99)
[2024-04-30] MEDS: NOVOLOG FLEXPEN-LOW RESISTANCE SC (16:45)
[2024-04-30 21:43] LABS: Glucose - Point of Care 183 mg/dl (70-99)
[2024-04-30] MEDS: SENOKOT 8.6 MG PO (21:53)
[2024-04-30 22:30] VITALS: BP 124/79
[2024-05-01] MEDS: MAXIPIME 2000 MG IV ×2 (05:44→17:20)
[2024-05-01] MEDS: STERILE WATER FOR INJECTION 10 ML IV ×2 (05:45→17:20)
[2024-05-01 06:00] VITALS: BMI 20.6
[2024-05-01 07:28] VITALS: BP 145/55
[2024-05-01] MEDS: PROTONIX 40 MG PO ×2 (07:44→21:15)
[2024-05-01] MEDS: ELIQUIS 5 MG PO ×2 (07:44→21:15)
[2024-05-01] MEDS: NEURONTIN 600 MG PO ×3 (07:44→21:15)
[2024-05-01] MEDS: LIPITOR 80 MG PO (07:44)
[2024-05-01] MEDS: SINEQUAN 50 MG PO (07:44)
[2024-05-01] MEDS: COREG 3.125 MG PO ×2 (07:44→21:15)
[2024-05-01] MEDS: PLAVIX 75 MG PO (07:45)
[2024-05-01] MEDS: COLACE 100 MG PO ×2 (07:45→21:15)
[2024-05-01] MEDS: PACERONE 200 MG PO (07:45)
[2024-05-01] MEDS: VITAMIN D3 (cholecalciferol) 25 MCG PO (07:45)
[2024-05-01 07:53] LABS: Glucose - Point of Care 129 mg/dl (70-99)
[2024-05-01] MEDS: NOVOLOG FLEXPEN-LOW RESISTANCE SC ×2 (07:53→17:17)
[2024-05-01 08:03] LABS: % Basophils 0.7 % (0-2); % Eosinophils 1.3 % (0-6); % Immature Granulocytes 1.2 % (0-0.5); % Lymphocytes 11.7 % (20.5-51.1); % Neutrophils 71.1 % (42.2-75.2); Absolute Basophils 0.1 10^3/uL (0-0.2); Absolute Eosinophils 0.1 10^3/uL (0-0.7); Absolute Immature Granulocytes 0.1 10^3/uL (0-0.05); Absolute Lymphocytes 0.9 10^3/uL (1.2-3.4); Absolute Monocytes 1.1 10^3/uL (0.1-0.6); Absolute Neutrophils 5.4 10^3/uL (1.4-6.5); Hematocrit 34.4 % (39.0-52.0); Hemoglobin 11.8 g/dL (13.0-18.0); Mean Corp Hgb Conc. 34.3 g/dL (33.0-37.0); Mean Corpuscular Hgb 27.8 pg (27.0-31.0); Mean Corpuscular Volume 80.9 fL (80.0-94.0); Mean Platelet Volume 9.3 fL (7.4-10.4); Nucleated Red Blood Cells % 0 % (-); Platelet Count 232 10^3/uL (130-400); Red Blood Cell Count 4.25 10^6/uL (4.70-6.10); Red Cell Dist. Width 20.4 % (11.5-14.5); White Blood Cell Count 7.5 10^3/uL (4.8-10.8)
[2024-05-01 08:44] LABS: Blood Urea Nitrogen 30 mg/dl (9-20); Calcium 8.7 mg/dl (8.4-10.2); Carbon Dioxide 21 mmol/L (22-30); Chloride 104 mmol/L (98-107); Estimated Creatinine Clearance 53 ml/min; Glucose 130 mg/dl (70-99); Potassium 4.4 mmol/L (3.5-5.1); Sodium 135 mmol/L (135-145); eGFR > 60.00
[2024-05-01 08:55] LABS: Vancomycin Random 13.9 ug/ml
--- NOTE | 2024-05-01 09:22 | PHA.VAN.FU ---
Vancomycin Assessment / Plan
- Assessment
Renal Function: Stable
WBC's are: WNL
In the past 24 hrs, patient has been: Afebrile
Concomitant Antimicrobials: cefepime
- Assessment - Therapeutic Drug Monitoring
Random Level: 13.9 - drawn ~ 20.5H after previous dose of 500mg
- Dosing Plan
Adjust Regimen to: Vanc 500mg Q24H - first dose now then 0600 based on level trend
Dosing Comments: BUN slowly trending down - may eventually require dose adjustment
- Monitoring Plan
No level(s) ordered at this time: consider repeat trough every 2-3 days initially
- Follow Up
Pharmacy will continue to follow.
Vancomycin Follow UP
- -
Patient Age: 78
Patient Sex: Male
Vancomycin Day #: 6
Indication: Pulmonary/Respiratory
Requesting Provider: Michelle Evans
Pertinent Antimicrobial Allergies:
Penicillins - Unknown
Height / Weight:
Height 5 ft 8 in
Actual Weight 61.462 kg
Pertinent Past Medical History: CKD, DM II
- Vital Signs / Lab Results
Temp Pulse Resp BP Pulse Ox
97.7 F 77 17 145/55 97
05/01/24 07:28 05/01/24 07:28 05/01/24 07:28 05/01/24 07:28 05/01/24 07:28
Lab Results - Hematology
04/29/24 04/30/24 05/01/24
06:05 07:56 07:37
WBC 5.9 5.4 7.5
Lab Results - Chemistry
04/29/24 04/30/24 05/01/24
06:05 07:56 07:37
BUN 33 H 31 H 30 H
Creatinine 1.0 1.0 1.0
Estimated Creat Clear 52 52 53
Microbiology Results
04/30/24 22:51 Gram Stain - Preliminary
Sputum
04/26/24 15:39 Blood Culture - Preliminary
Blood/Venous No Growth in 4 days- Final report to follow
04/27/24 12:35 MRSA Screen - Final
Nose Staph aureus MRSA
Therapeutic Drug Monitoring
Random Vancomycin 13.9 ug/ml 05/01/24 07:37
[2024-05-01] MEDS: VANCOCIN HCL 500 MG 100 IV (09:37)
--- NOTE | 2024-05-01 10:22 | W.PN.HOSP.TC ---
Today's Communication/Plan
-
F/w wound care
IV Lasix today
Monitor for urinary retention, add bladder scan
Assessment / Plan
Assessment / Plan
Physical exam:
General: Acute on chronically ill
HEENT: Normocephalic, Atraumatic and Moist Mucous Membranes
Respiratory: Left crackles; Negative Wheezes, Rales or Rhonchi
Cardiac: Regular Rhythm and S1/S2
GI: Soft, Nontender and Nondistended
Musculoskeletal: No Clubbing, No Cyanosis and No Edema. Sacral wound.
Neuro: Awake, Alert and Oriented, lower extremity weakness chronic.
Psych: Calm
A/P:
#Acute hypoxic respiratory insufficiency:, presented with low oxygen at [facility] and was placed on oxygen in [facility]
Oxygen supplementation is not needed in hospital
Bronchodilators as needed
Antibiotics
#Aspiration pneumonia, left lower lobe pneumonia:
Continue IV antibiotics, cefepime and vancomycin and can switch to oral probably by tomorrow
Check MRSA swab and it is positive
Will streamline antibiotics over the next 24 hours
COVID and flu negative
Blood cultures pending but no growth
Speech therapy eval appreciated
He had a history of recent invasive pneumococcal pneumonia with bacteremia back in November this year-reviewed hospitalization.
Discussed with daughter over the phone today, Stormy
#Sacral decubitus ulcer, stage III and deep tissue injury left heel and thoracic nonhealing wound, POA:
Daughter would like wound care to see him again- consulted wound care
Paroxysmal atrial fibrillation:
Continue rate control agents, A-Zsfnkyom-Xnxzb 3.125 mg twice a day
Continue antiarrhythmic agents, amiodarone 200 mg p.o. daily
Continue anticoagulation, DOAC-Eliquis 5 mg twice a day
Also appears to be on Plavix
Continue cardiac monitoring
# Acute on Chronic HFpEF:
chest x ray is c/w pulmonary congestion
will do IV Lasix
Continue beta-blockers
#Essential Hypertension:
Hold home antihypertensives except beta-willard.
Monitor blood pressure and adjust medications accordingly.
Hyperlipidemia:
Continue home statins, atorvastatin 80 mg p.o. daily
Diabetes mellitus type 2:
Insulin sliding scale
Holding metformin in the setting of acute infection
BPH:
Bladder protocol as appropriate
Depression:
Continue doxepin
Peripheral neuropathy:
On gabapentin
History of spinal cord injury with vertebral fractures and thoracic spine surgery 2021 with lower extremity weakness/paraplegia:
Nonambulatory at baseline
Hyponatremia:
Mild
Continue to monitor
GERD:
Continue PPI
DVT prophylaxis:
Lovenox SQ
CODE STATUS:
DNR
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
Anticipated Discharge: Within 24 hours
Subjective/Interval History
-
Date of Service: May 01, 2024
He complains of fluid in his lungs, he feels congested
Objective Data
-
Labs:
Laboratory Results
05/01/24
07:37
WBC 7.5
Hgb 11.8 L
Hct 34.4 L
Plt Count 232
Sodium 135
Potassium 4.4
Chloride 104
Carbon Dioxide 21 L
BUN 30 H
Creatinine 1.0
Glucose 130 H
Calcium 8.7
Vital Signs:
Vital Signs
Temp Pulse Resp BP Pulse Ox
97.7 F 77 17 145/55 97
05/01/24 07:28 05/01/24 07:28 05/01/24 07:28 05/01/24 07:28 05/01/24 07:28
I&O
10/27/24 10/28/24 10/29/24
06:59 06:59 06:59
Intake Total 490 / 490 730 / 730
Balance 490 / 490 730 / 730
[2024-05-01] MEDS: LASIX 20 MG IV ×2 (10:36→17:21)
--- NOTE | 2024-05-01 11:31 | WOUNDNOTE ---
[employer]
[2024-05-01 11:33] LABS: Glucose - Point of Care 240 mg/dl (70-99)
--- NOTE | 2024-05-01 11:33 | WOUNDNOTE ---
WON RN NOTE: Followed up today as requested by daughter for wound care. Nursing students assisted with care, turned patient to sides. Patient remains on [facility] air bed with turning schedule. Patient has poor appetite, only had few bites of
breakfast. Sacrum area cleaner with honey gel and spine wound area cleaner, easier to see exposed hardware. L lateral heel with healing PI, non blanchable red. R heel blanchable red. All dressings changed and no changes in wound care recommended. Despite
preventative measures, suspect wounds not to heal due to patient's co morbidities, exposed hardware and poor nutrition. Recommend increased protein in diet with supplements btw meals. Patient reports he has an air mattress at [facility] and
offloading cushion for wheelchair. Updated nurse Negar and discharge instructions.
[2024-05-01] MEDS: NOVOLOG FLEXPEN-LOW RESISTANCE 2 UNITS SC (12:40)
[2024-05-01 15:11] VITALS: BP 110/54
[2024-05-01 17:10] LABS: Glucose - Point of Care 135 mg/dl (70-99)
[2024-05-01] MEDS: SENOKOT 8.6 MG PO (21:15)
[2024-05-01 21:45] LABS: Glucose - Point of Care 191 mg/dl (70-99)
[2024-05-01 23:30] VITALS: BP 115/51
[2024-05-02] MEDS: VANCOCIN HCL 500 MG 100 IV (05:13)
[2024-05-02] MEDS: STERILE WATER FOR INJECTION 10 ML IV (05:14)
[2024-05-02] MEDS: MAXIPIME 2000 MG IV (05:14)
[2024-05-02 06:00] VITALS: BMI 20.5
[2024-05-02 06:37] LABS: Blood Urea Nitrogen 34 mg/dl (9-20); Calcium 8.2 mg/dl (8.4-10.2); Carbon Dioxide 22 mmol/L (22-30); Chloride 103 mmol/L (98-107); Estimated Creatinine Clearance 44 ml/min; Glucose 157 mg/dl (70-99); Potassium 3.7 mmol/L (3.5-5.1); Sodium 134 mmol/L (135-145); eGFR > 60.00
[2024-05-02 07:10] VITALS: BP 106/50
[2024-05-02 07:11] LABS: Glucose - Point of Care 156 mg/dl (70-99)
[2024-05-02] MEDS: ELIQUIS 5 MG PO (07:47)
[2024-05-02] MEDS: LIPITOR 80 MG PO (07:47)
[2024-05-02] MEDS: PACERONE 200 MG PO (07:47)
[2024-05-02] MEDS: PROTONIX 40 MG PO (07:49)
[2024-05-02] MEDS: NEURONTIN 600 MG PO (07:49)
[2024-05-02] MEDS: SINEQUAN 50 MG PO (07:49)
[2024-05-02] MEDS: VITAMIN D3 (cholecalciferol) 25 MCG PO (07:49)
[2024-05-02] MEDS: PLAVIX 75 MG PO (07:49)
[2024-05-02] MEDS: COREG 3.125 MG PO (07:50)
[2024-05-02] MEDS: COLACE 100 MG PO (07:50)
--- NOTE | 2024-05-02 08:33 | PHA.VAN.FU ---
Vancomycin Assessment / Plan
- Assessment
Renal Function: SCR Increasing
WBC's are: WNL
In the past 24 hrs, patient has been: Afebrile
Concomitant Antimicrobials: cefepime
- Dosing Plan
Adjust Regimen to: dosing by level
Dosing Comments: SCR slightly increased - will adjust back to dose by level
received 500mg 05/02 05:13
- Monitoring Plan
Random Level: 05/03 0600
- Follow Up
Pharmacy will continue to follow.
Vancomycin Follow UP
- -
Patient Age: 78
Patient Sex: Male
Vancomycin Day #: 7
Indication: Pulmonary/Respiratory
Requesting Provider: Michelle Evans
Pertinent Antimicrobial Allergies:
Penicillins - Unknown
Height / Weight:
Height 5 ft 8 in
Actual Weight 61.008 kg
Pertinent Past Medical History: CKD, DM II
- Vital Signs / Lab Results
Temp Pulse Resp BP Pulse Ox
98.6 F 83 16 106/50 93
05/02/24 07:10 05/02/24 07:50 05/02/24 07:10 05/02/24 07:50 05/02/24 07:10
Lab Results - Hematology
04/30/24 05/01/24
07:56 07:37
WBC 5.4 7.5
Lab Results - Chemistry
04/30/24 05/01/24 05/02/24
07:56 07:37 05:49
BUN 31 H 30 H 34 H
Creatinine 1.0 1.0 1.2
Estimated Creat Clear 52 53 44
Microbiology Results
04/26/24 15:39 Blood Culture - Final
Blood/Venous No Growth - Final Report
04/30/24 22:51 Gram Stain - Preliminary
Sputum
Therapeutic Drug Monitoring
Random Vancomycin 13.9 ug/ml 05/01/24 07:37
--- NOTE | 2024-05-02 11:07 | W.PN.HOSP.TC ---
Today's Communication/Plan
-
Discharge today, pt feels ready
will call daughter
Assessment / Plan
Assessment / Plan
Physical exam:
General: Acute on chronically ill
HEENT: Normocephalic, Atraumatic and Moist Mucous Membranes
Respiratory: Left crackles; Negative Wheezes, Rales or Rhonchi
Cardiac: Regular Rhythm and S1/S2
GI: Soft, Nontender and Nondistended
Musculoskeletal: No Clubbing, No Cyanosis and No Edema. Sacral wound.
Neuro: Awake, Alert and Oriented, lower extremity weakness chronic.
Psych: Calm
A/P:
#Acute hypoxic respiratory insufficiency:, presented with low oxygen at [place] and was placed on oxygen in [place]
Oxygen supplementation is not needed in hospital
Bronchodilators as needed
Antibiotics
#Aspiration pneumonia, left lower lobe pneumonia:
Doing well
Not on O2, denies cough
s/p IV antibiotics, cefepime and vancomycin.
Check MRSA swab and it is positive
Finished ABx ( 5 days total)
COVID and flu negative
Blood cultures no growth
Speech therapy eval appreciated
He had a history of recent invasive pneumococcal pneumonia with bacteremia back in November this year-reviewed hospitalization.
Discussed with daughter over the phone today, Stormy
#Sacral decubitus ulcer, stage III and deep tissue injury left heel and thoracic nonhealing wound, POA:consulted wound care
#Paroxysmal atrial fibrillation:
Continue rate control agents, J-Ykqljjfq-Bylqe 3.125 mg twice a day
Continue antiarrhythmic agents, amiodarone 200 mg p.o. daily
Continue anticoagulation, DOAC-Eliquis 5 mg twice a day
Also appears to be on Plavix
Continue cardiac monitoring
# Acute on Chronic HFpEF:
he feels better, less congested.
chest x ray is c/w pulmonary congestion
s/p IV Lasix
Continue beta-blockers
#Essential Hypertension:
ok to c/w Coreg
Monitored blood pressure and adjust medications accordingly.
Hyperlipidemia:
Continue home statins, atorvastatin 80 mg p.o. daily
Diabetes mellitus type 2:
Insulin sliding scale
Holding metformin in the setting of acute infection
BPH:
Bladder protocol as appropriate
Depression:
Continue doxepin
Peripheral neuropathy:
On gabapentin
History of spinal cord injury with vertebral fractures and thoracic spine surgery 2021 with lower extremity weakness/paraplegia:
Nonambulatory at baseline
Hyponatremia:
Mild
Continue to monitor
GERD:
Continue PPI
DVT prophylaxis:
Lovenox SQ
CODE STATUS:
DNR
Total discharge time spent to see the patient, examine the patient, review data and lab results, discuss discharge plan with patient, his daughter, dependency case manager, nursing staff around 67 minutes
Anticipated Discharge: Today
Subjective/Interval History
-
Date of Service: May 02, 2024
Doing well
No complaints, feels ready to leave hospital
Objective Data
-
Labs:
Laboratory Results
05/02/24
05:49
Sodium 134 L
Potassium 3.7
Chloride 103
Carbon Dioxide 22
BUN 34 H
Creatinine 1.2
Glucose 157 H
Calcium 8.2 L
Vital Signs:
Vital Signs
Temp Pulse Resp BP Pulse Ox
98.6 F 83 16 106/50 93
05/02/24 07:10 05/02/24 07:50 05/02/24 07:10 05/02/24 07:50 05/02/24 07:10
I&O
05/01/24 05/02/24 05/03/24
06:59 06:59 06:59
Intake Total 730 / 730 120 / 120 100 / 100
Balance 730 / 730 120 / 120 100 / 100
[2024-05-02 11:30] LABS: Glucose - Point of Care 160 mg/dl (70-99)
--- NOTE | 2024-05-02 11:31 | CM ---
Addendum entered by Sushila Parikh 05/02/24 14:00:
Call to dtr with update
CM received call from [employer] ([employer]) [phone] (p)
He noted they are a payment source for services for pt and requested clinicals
Clinicals faxed to [phone] with dtr's permission
Original Note:
CM reviewed chart and noted dc order
Pt accepted back for readmission per Katarzyna/[facility]
Bedside update to pt
IMM verbally reviewed- copy provided
Transport forms on chart
Discharge Disposition- return [facility] via BLS
Phone- [phone] Fax- [phone]
[2024-05-02] MEDS: NOVOLOG FLEXPEN-LOW RESISTANCE SC ×2 (14:24)
--- NOTE | 2024-05-02 15:10 | W.DCSUMMARY ---
Discharge Summary
Discharge Data
Date of Admission: 04/26/24
Date of Discharge: 05/02/24
-
Pending Results: No
Hospital Course
78-year-old male presented to the emergency room for evaluation of lethargy and hypoxia at the [facility]. He was noted ot have confusion, unable to provide detailed history. Patient has history of dysphagia and decision was made to continue with
comfort feeding. Patient was diagnosed with acute hypoxic respiratory insufficiency and aspiration pneumonia. He did not have fever or leukocytosis, he was started on antibiotics. Blood culture did not show any growth. He was evaluated by speech
therapist who recommended modified for diet. Patient had chronic sacral decubital ulcer with left heel and thoracic nonhealing wounds. He was evaluated by wound care nurse. Patient was complaining of pulmonary congestion and chest radiograph
showed mild pulmonary edema. Patient was given short course of intravenous Lasix with good improvement. Patient did not need supplemental oxygenation anymore. He finished course of antibiotic in the hospital. Patient was on chronic gabapentin.
Dose of gabapentin was reduced due to combination of generalized weakness, advanced age and weight loss. Discharge instructions were discussed with his daughter ( Stormy). Patient remained hemodynamically stable and was discharged back to nursing
home in a stable condition.
Discharge Plan
-
Patient Disposition: Halfway/SNF
Discharge Diagnosis/Procedures: Aspiration pneumonia, left lower lobe pneumonia. status post IV Abx, finished course.
Sacral decubitus ulcer, stage III and deep tissue injury left heel and thoracic nonhealing wound
Acute on Chronic HFpEF status post IV Lasix.
Failure to thrive, weakness, we reduced dose of Gabapentin.
Diet: As tolerated
Additional Diets: Aspiration precautions
Activity Restrictions/Additional Instructions:
Wound Care Instructions Sacral Wound- Clean with normal saline or soap and water. Apply Honey Gel and cover with adaptic and silicone foam or dry dressing. Change daily and PRN if loose or soiled.
Back Wound- Clean with normal saline or soap and water. Pack with saline moistened gauze, dry gauze and cover with silicone border foam. Change daily and PRN if loose or soiled
Bilateral Heels- Apply no-sting barrier and adhesive foam. Change Q 3 days and PRN if loose or soiled
Offloading cushion for wheelchair.
Air bed
Turning schedule
Fiber filled boots
Encourage good protein PO intake. Supplements btw meals
Referrals:
Jessica Ramos MD [Family Provider] -
Prescriptions:
New
gabapentin 400 mg Capsule
400 mg PO TID Qty: 90 0RF
Continued
metformin 500 mg Tablet
500 mg PO DAILY
doxepin 50 mg Capsule
50 mg PO DAILY
atorvastatin 80 mg Tablet
80 mg PO DAILY
ipratropium-albuterol 0.5 mg-3 mg(2.5 mg base)/3 mL Solution For Nebulization
3 ml INHALATION R Q4HPRN PRN (Reason: sob)
amiodarone 200 mg Tablet
200 mg PO DAILY
ondansetron HCl 4 mg Tablet
4 mg PO Q6H PRN (Reason: nausea/vomiting)
isosorbide mononitrate 30 mg Tablet Extended Release 24 Hr
30 mg PO DAILY
Rx Instructions:
11/08/2023, hold for BP<100.
clopidogrel 75 mg Tablet
75 mg PO DAILY
omeprazole 40 mg Capsule,Delayed Release(Dr/Ec)
40 mg PO BID
spironolactone 25 mg Tablet
12.5 mg PO DAILY
magnesium hydroxide [Milk of Magnesia] 400 mg/5 mL Suspension
30 ml PO HSPRN PRN (Reason: if no BM in 3 days)
bisacodyl 10 mg Suppository
10 mg OR DAILY PRN (Reason: if MOM ineffective)
losartan 25 mg Tablet
25 mg PO DAILY
Rx Instructions:
11/08/2023, hold for BP<100.
carvedilol 3.125 mg Tablet
3.125 mg PO BID Qty: 0 0RF
sennosides [senna] 8.6 mg Tablet
8.6 mg PO HS
docusate sodium 100 mg Capsule
100 mg PO BID
cholecalciferol (vitamin D3) 25 mcg (1,000 unit) Tablet
25 mcg PO DAILY
apixaban 5 mg Tablet
5 mg PO BID
Discontinued
gabapentin 600 mg Tablet
600 mg PO TID
Discharge Orders:
Discharge Patient (As Directed); Ordered 05/02/24
Ordered By: Khanh Barney
Discharge Date and Time
Discharge Date/Time: 05/02/24 14:13
Print Language: UKRAINIAN
== END 2024-05-02 14:13 | DRG 177 ==
LOC: 3 WEST ACU 19:10
PROVIDERS: Hospitalist; Nurse Practitioner Family; Physician Assistant; ADMITTING PHYSICIAN Hospitalist; ATTENDING PHYSICIAN Internal Medicine; EMERGENCY PHYSICIAN Emergency Medicine; FAMILY PHYSICIAN Family Medicine
DX: J69.0 Pneumonitis due to inhalation of food and vomit (principal); I50.33 Acute on chronic diastolic (congestive) heart failure; L89.123 Pressure ulcer of left upper back, stage 3; L89.153 Pressure ulcer of sacral region, stage 3; G82.22 Paraplegia, incomplete; I13.0 Hypertensive heart and chronic kidney disease with heart failure and stage 1 through stage 4 chronic kidney disease, or unspecified chronic kidney disease; J44.0 Chronic obstructive pulmonary disease with (acute) lower respiratory infection; E87.1 Hypo-osmolality and hyponatremia; E11.42 Type 2 diabetes mellitus with diabetic polyneuropathy; Z66 Do not resuscitate; J18.9 Pneumonia, unspecified organism; E11.22 Type 2 diabetes mellitus with diabetic chronic kidney disease; N18.30 Chronic kidney disease, stage 3 unspecified; R62.7 Adult failure to thrive; L89.621 Pressure ulcer of left heel, stage 1; L89.611 Pressure ulcer of right heel, stage 1; I48.0 Paroxysmal atrial fibrillation; I95.9 Hypotension, unspecified; K21.9 Gastro-esophageal reflux disease without esophagitis; N40.0 Benign prostatic hyperplasia without lower urinary tract symptoms; R13.10 Dysphagia, unspecified; R09.02 Hypoxemia; R06.89 Other abnormalities of breathing; Z79.01 Long term (current) use of anticoagulants; Z79.02 Long term (current) use of antithrombotics/antiplatelets; Z79.84 Long term (current) use of oral hypoglycemic drugs; Z79.899 Other long term (current) drug therapy; Z87.891 Personal history of nicotine dependence; Z98.1 Arthrodesis status
CPT/HCPCS: 71045; 71046; 80048; 80053; 80202; 82805; 82962; 83036; 83605; 83880; 84484; 85025; 87040; 87070; 87077; 87147; 87205; 87502; 87811; 92526; 92610; 93005; 96361; 96374; 96375; 96376; 97163; 97166; 99285

== ENCOUNTER 2024-06-07 12:43 | Inpatient (IN) | payer OTHER, SELFPAY ==
[2024-06-07] VITALS (48 sets, daily range): BP systolic 63–146; BP diastolic 38–77; BMI 22.2; BMI 22.6
--- NOTE | 2024-06-07 10:14 | EDRN ---
IV team currently at the pts bedside obtaining a PIV, Dr. Wise is currently on the phone with the pts family
[2024-06-07 10:19] LABS: Hematocrit 29.5 % (39.0-52.0); Hemoglobin 9.7 g/dL (13.0-18.0); Mean Corp Hgb Conc. 32.9 g/dL (33.0-37.0); Mean Corpuscular Volume 88.3 fL (80.0-94.0); Mean Platelet Volume 8.7 fL (7.4-10.4); Platelet Count 207 10^3/uL (130-400); Red Blood Cell Count 3.34 10^6/uL (4.70-6.10); Red Cell Dist. Width 20.8 % (11.5-14.5); White Blood Cell Count 15.4 10^3/uL (4.8-10.8)
--- NOTE | 2024-06-07 10:27 | ED.GENMED ---
History of Present Illness
General
Chief Complaint: Breathing Problem
Time Seen by Provider: 06/07/24 10:02
History of Present Illness
History of Present Illness:
Patient is a 78-year-old man with history of A-fib on Eliquis, CHF, hypertension, diabetes on hospice presenting to the emergency department with difficulty breathing. Per chart review patient was recently admitted at the end of April for
aspiration pneumonia. Per medics they were called today to his nursing facility as there was concern for aspiration. He is supposed to be getting pureed foods however patient is not adherent to this diet. This morning the doctor noticed that his
lung sounds were diminished. Medics arrived he was 79% on room air so they placed him on 15 L. His heart rate was anywhere in the 30s to the 60s and his blood pressure was in the 70s over 40s. Medics did give him a milligram of atropine as well
as 800 cc of fluid. His heart rate did improve and his blood pressure did slightly improved to the 80s. His mental status was his baseline the entire time. Patient at this time denies any complaints though history is limited from him
Past History
Past History
ED Past Medical History: CHF and HTN
ED Past Surgical History: None
Social History
Tobacco: Non-smoker
Alcohol: None
Phy Exam
Physical Exam
Physical Exam:
GENERAL: in no acute distress
HEENT: normocephalic, extraocular movements intact, dry oral mucosa
NECK: normal inspection
RESPIRATORY: no respiratory distress, diminished in all lung brunson with crackle R>L
CARDIOVASCULAR: regular rhythm tachycardic rate
ABDOMEN/: soft, non-distended, non-tender to palpation, no rebound or guarding
EXTREMITIES: non-tender, no edema/swelling
NEUROLOGIC: awake and alert oriented x2, moves all extremities
SKIN: warm
Scores
Heart Failure Risk
Heart Failure Risk Score: Not Applicable
Sepsis
Sepsis Screening
Sepsis Assessment: Septic Shock
Sepsis Screening: Lactate >2mmol/L, Hypotension, Worsening O2 Saturation and Sustained Hypotension-SBP <90,MAP<65, or SBP decrease 40mmHg or more
Sepsis Screen
Sepsis Screen: Septic Shock
Date: 06/07/24
Time: 11:46
Course
Orders/Labs/Results
Orders:
Orders
06/07/24 09:54
Electrocardiogram (*1) Urgent
Reason for Study: Shortness of Breath
EKG- Treatment ONCE
06/07/24 09:58
Complete Blood Count/With Diff Urgent
Manual Differential Urgent
06/07/24 10:22
Case Management Consult ONCE
Case Management Consult: Hospice
Hospice: Evaluation and treat
06/07/24 10:26
Piperacillin/Tazo 4.5 Gram [Zosyn] 4.5 gram in 100 ml IV NOW
Vancomycin [Vancocin] 1,500 mg 0.9% Sodium Chloride 500 ml [Nss] 500 ml IV NOW
06/07/24 10:30
Acetaminophen [Tylenol] 650 mg PO NOW STA
06/07/24 10:38
Comprehensive Metabolic Panel Urgent
Lactic Acid Urgent
Urinalysis Reflex To Culture Urgent
Date Specimen was Collected: 06/07/24
Time Specimen was Collected: 10:14
Urine Microscopic Reflex Cult Urgent
Blood Culture Urgent
BELLA Source: Blood/Venous
Specimen Description:
Date Specimen was Collected: 06/07/24
Time Specimen was Collected: 10:14
Urine Culture Urgent
BELLA Source: U
Specimen Description:
Date Specimen was Collected: 06/07/24
Time Specimen was Collected: 10:14
06/07/24 10:44
Acetaminophen [Tylenol/Feverall] 650 mg .ROUTE .STK-MED ONE
06/07/24 10:48
Acetaminophen [Tylenol/Feverall] 650 mg RECTAL NOW STA
06/07/24 11:18
Vancomycin [Vancocin] 2,000 mg 0.9% Sodium Chloride 500 ml [Nss] 500 ml IV NOW
CR Chest Portable - 1 View Urgent
Comment:
Reason For Exam: sob
Reason Study Needs to be Portable: Patient Unstable
06/07/24 11:19
0.9% Sodium Chloride 250 ml [Nss] 250 ml IV BOLUS
Abnormal Lab Results
06/07/24 06/07/24
09:58 10:38
WBC 15.4 H 10^3/uL
(4.8-10.8)
RBC 3.34 L 10^6/uL
(4.70-6.10)
Hgb 9.7 L g/dL
(13.0-18.0)
Hct 29.5 L %
(39.0-52.0)
MCHC 32.9 L g/dL
(33.0-37.0)
RDW 20.8 H %
(11.5-14.5)
Abs Neuts (Manual) 14.6 H 10^3/uL
(1.4-6.5)
Band Neutrophils 26 H %
(0-3)
Lymphocytes (Manual) 4 L %
(20-51)
Monocytes (Manual) 1 L %
(2-9)
Sodium 130 L mmol/L
(135-145)
BUN 28 H mg/dl
(9-20)
Glucose 117 H mg/dl
(70-99)
Lactic Acid 2.2 H mmol/L
(0.7-2.0)
Calcium 7.4 L mg/dl
(8.4-10.2)
Total Protein 4.9 L g/dl
(6.3-8.2)
Albumin 1.9 L g/dl
(3.5-5.0)
Leukocyte Esterase Rfl 2+ A
(Negative)
Urine WBC (Reflex) 80-90 A /HPF
(0-5)
Urine Bacteria (Reflex) Many A
(Negative)
06/07/24 09:58
06/07/24 10:38
Vital Signs
Initial and Last Documented VS:
Initial Vital Signs
Pulse Resp Pulse Ox
120 18 71
06/07/24 09:51 06/07/24 09:51 06/07/24 09:51
Last Documented Vital Signs
Temp Pulse Resp BP Pulse Ox
100.5 F H 115 18 71/49 96
06/07/24 11:39 06/07/24 11:00 06/07/24 11:00 06/07/24 11:00 06/07/24 11:00
MDM/Problems Addressed
Differential Diagnosis Includes:
Patient is a 78-year-old man presenting to the emergency department with shortness of breath and concern for aspiration. Vitals here notable for requiring 4 L nasal cannula. His heart rate is in the 1 teens. Blood pressure is 89/48. On exam he
does have significant dry oral mucosa. He does not seem volume overloaded. Concern for septic shock versus component of cardiogenic shock. Source could be pulmonary given his recurrent aspirations or the wound. He is also febrile here. Will
give empiric antibiotics. I did have a goals of care discussion with patient's daughter who is his power of helper teacher. He is a DNR/DNI. She does want limitations in his care. She is amenable to antibiotics and a workup to figure out the source
however would prefer no vasopressors. Will obtain chest x-ray as well.
*Critical Care Note
Total Time (30-74mins, 75-104mins- exclusive of procedures): 35
comment:
Critical care statement: A total of 35 minutes of critical care time was provided for this patient. This includes management of unstable vital signs, evaluation of the patient at bedside, reviewing the patient's pertinent medical records, ordering
and reviewing studies, arranging urgent treatment with development of a management plan, evaluating patient's response to treatment, frequent reassessment, and discussion with consultants. This time was separate from time utilized to perform the
aforementioned documented procedures.
Update Note
Update Note:
On reevaluation patient blood pressure has slightly improved. We did give an additional 250 cc bolus. He has received a total of a liter. Given his heart failure will give him small boluses. Blood work is notable for leukocytosis. His sodium is
at 130. His lactate is elevated at 2.2. Urine does appear infected. Chest x-ray per my interpretation consistent with pneumonia. He did receive antibiotics. I did have another goals of care discussion with patient's daughter who is power of
helper teacher. We discussed vasopressors in depth at this time she would like to avoid it. Will continue with gentle fluid resuscitation as well as IV antibiotics. Of note patient and case management did clarify that patient is not on hospice.
Discussed with hospitalist who accepted patient for admission
ED Attending Note
-
Portions of this chart may have been created with voice recognition software.� Occasional wrong word or��sound alike� substitutions may have occurred due to the inherent limitations of voice recognition software.
Discharge Plan
Departure
Patient Disposition: Admit
Date of Disposition: 06/07/24
Time of Disposition: 11:45
Presentation/result/management discussed w/ accepting MD/DO: Hospitalist
Discharge Problem:
Septic shock, Pneumonia, Acute UTI
Prescriptions:
No Action
metformin 500 mg Tablet
500 mg PO DAILY
doxepin 50 mg Capsule
50 mg PO DAILY
atorvastatin 80 mg Tablet
80 mg PO DAILY
ipratropium-albuterol 0.5 mg-3 mg(2.5 mg base)/3 mL Solution For Nebulization
3 ml INHALATION R Q4HPRN PRN (Reason: sob)
amiodarone 200 mg Tablet
200 mg PO DAILY
ondansetron HCl 4 mg Tablet
4 mg PO Q6HPRN PRN (Reason: nausea/vomiting)
isosorbide mononitrate 30 mg Tablet Extended Release 24 Hr
30 mg PO DAILY
clopidogrel 75 mg Tablet
75 mg PO DAILY
spironolactone 25 mg Tablet
12.5 mg PO DAILY
magnesium hydroxide [Milk of Magnesia] 400 mg/5 mL Suspension
30 ml PO HSPRN PRN (Reason: if no BM in 3 days)
bisacodyl 10 mg Suppository
10 mg NE DAILYPRN PRN (Reason: if MOM ineffective)
losartan 25 mg Tablet
25 mg PO DAILY
carvedilol 3.125 mg Tablet
3.125 mg PO BID Qty: 0 0RF
sennosides [senna] 8.6 mg Tablet
8.6 mg PO HS
docusate sodium 100 mg Capsule
100 mg PO BID
cholecalciferol (vitamin D3) 25 mcg (1,000 unit) Tablet
25 mcg PO DAILY
apixaban 5 mg Tablet
5 mg PO BID
gabapentin 600 mg Tablet
600 mg PO TID
Theragen Tablet
1 tab PO DAILY
acetaminophen 500 mg Tablet
1,000 mg PO HS
Referrals:
Jessica Ramos MD [Family Provider] -
Interventions
Interventions:
*Risk Screen - Suicide Last Done: 06/07/24 10:14
*General Assessment Last Done: 06/07/24 10:14
*Neglect/Abuse Screening Last Done: 06/07/24 10:14
ED- Fall Risk Assessment Last Done: 06/07/24 10:14
*ED COVID-19 Vaccine History Last Done: 06/07/24 10:14
ED- Cardiac Assessment Last Done: 06/07/24 10:14
ED- Pulmonary Assessment Last Done: 06/07/24 10:14
Discharge Date and Time
Print Language: FRISIAN
--- NOTE | 2024-06-07 10:42 | CM ---
CM reviewed medical records. CM spoke with Katarzyna admission coordinator regarding patient's hospice status. Patient is NOT currently on hospice. CM updated beside RN and ED physician.
[2024-06-07] MEDS: ZOSYN 100 IV (10:45)
[2024-06-07 10:47] LABS: Urine Albumin Trace (Neg - Trace); Urine Bilirubin Negative (Negative); Urine Color Yellow; Urine Glucose Negative (Negative); Urine Ketone Negative (Negative); Urine Leukocyte 2+ (Negative); Urine Nitrite Negative (Negative); Urine Occult Blood Negative (Negative); Urine Urobilinogen Negative (Neg - 1+)
[2024-06-07] MEDS: TYLENOL/FEVERALL 650 MG RECTAL (10:49)
[2024-06-07 10:51] LABS: Urine Character Slightly Cloudy (Clear)
[2024-06-07 11:02] LABS: Lactic Acid 2.2 mmol/L (0.7-2.0)
[2024-06-07 11:07] LABS: ALT (SGPT) 19 U/L (0-50); AST (SGOT) 34 U/L (17-59); Albumin 1.9 g/dl (3.5-5.0); Alkaline Phosphatase 116 U/L (38-126); Blood Urea Nitrogen 28 mg/dl (9-20); Calcium 7.4 mg/dl (8.4-10.2); Carbon Dioxide 22 mmol/L (22-30); Chloride 100 mmol/L (98-107); Estimated Creatinine Clearance 47 ml/min; Glucose 117 mg/dl (70-99); Potassium 4.5 mmol/L (3.5-5.1); Sodium 130 mmol/L (135-145); Total Bilirubin 0.4 mg/dl (0.2-1.3); Total Protein 4.9 g/dl (6.3-8.2); eGFR > 60.00
[2024-06-07 11:08] LABS: Urine Mucus Moderate; Urine Squamous Cell >30 /LPF (Few)
[2024-06-07 11:19] LABS: Urine Amorphous Seen
[2024-06-07 11:21] LABS: Urine Bacteria Many (Negative); Urine Red Blood Cell 0-2 /HPF (0-2); Urine White Cell 80-90 /HPF (0-5)
[2024-06-07] MEDS: NSS 250 IV (11:25)
[2024-06-07] MEDS: VANCOCIN 540 MG IV (11:30)
[2024-06-07 11:38] LABS: Absolute Neutrophils -Man Diff 14.6 10^3/uL (1.4-6.5); Band Neutrophils 26 % (0-3); Lymphocytes 4 % (20-51); Monocytes 1 % (2-9); Normal RBC Morphology Yes; Platelets Checked Yes; Segmented Neutrophils 69 % (42-75)
[2024-06-07 11:39] LABS: Total Cells Counted 100; Vacuolated Segs 2+
--- NOTE | 2024-06-07 12:30 | HPS.HSE ---
Family Physician
-
Family Physician: Jessica Ramos MD
Chief Complaint
-
hypoxemia
History of Present Illness
78-year-old male past medical history of paroxysmal atrial fibrillation, HFpEF, aspiration pneumonia, hypertension, hyperlipidemia, diabetes, BPH, depression, peripheral neuropathy, spinal cord injury with vertebral fracture/thoracic spine surgery
in 2021, hyponatremia, GERD, sacral decubitus ulcer stage III presenting with hypoxemia at [facility]. He has been coughing with productive sputum. Denies significant shortness of breath. Denies chest pain. Denies nausea or vomiting. Denies
diarrhea. Denies abdominal pain. No chills.
Patient was admitted a month ago for aspiration pneumonia and was instructed to eat pur�ed diet but has been refusing pur�ed food at the detention they have been giving him normal food.
Patient has thoracic wounds for which wound VAC is being applied at the detention. No wound VAC currently.
Denies smoking or alcohol use.
Medical History
Past Medical History
Past Medical History: Reports Other (paroxysmal atrial fibrillation, HFpEF, aspiration pneumonia, hypertension, hyperlipidemia, diabetes, BPH, depression, peripheral neuropathy, spinal cord injury with vertebral fracture/thoracic spine surgery in
2021, hyponatremia, GERD, sacral decubitus ulcer stage III)
Past Surgical History: Reports Other (Thoracic Spine Fusion / Stabilization (2021))
Social History
Tobacco: Non-smoker
Alcohol: None
Drug: None
Family History
Family History: Not pertinent
Allergies / Home Medications
Allergies reflects when Allergies were last updated in [facility].
Home Medications with original date entered in [facility]
Allergy/Medication List:
Allergies
Allergy/AdvReac Type Severity Reaction Status Date / Time
JEFFERSON Inhibitors Allergy Unknown Verified 01/21/24 15:15
codeine Allergy Unknown Verified 01/21/24 15:15
diphth,pert(acell),tetan,polio Allergy Unknown Verified 01/21/24 15:15
vacc,component 1of2
[From Pentacel DTaP-IPV
Compnt (PF)]
Penicillins Allergy Unknown Verified 01/21/24 15:15
Home Medications
amiodarone 200 mg tablet 200 mg PO DAILY Arrhythmia 11/08/23
atorvastatin 80 mg tablet 80 mg PO DAILY High Cholesterol 11/08/23
bisacodyl 10 mg rectal suppository 10 mg [place] DAILYPRN PRN if MOM ineffective 11/08/23
clopidogrel 75 mg tablet 75 mg PO DAILY Blood Clot Prevention/Tx 11/08/23
doxepin 50 mg capsule 50 mg PO DAILY Mental Health/Anxiety 11/08/23
ipratropium 0.5 mg-albuterol 3 mg (2.5 mg base)/3 mL nebulization soln 3 ml inhalation R Q4HPRN PRN sob 11/08/23
isosorbide mononitrate 30 mg tablet,extended release 24 hr 30 mg PO DAILY Heart Disease/Condition 11/08/23
losartan 25 mg tablet 25 mg PO DAILY Blood Pressure 11/08/23
magnesium hydroxide 400 mg/5 mL oral suspension (Milk of Magnesia) 30 ml PO HSPRN PRN if no BM in 3 days 11/08/23
metformin 500 mg tablet 500 mg PO DAILY Diabetes 11/08/23
ondansetron HCl 4 mg tablet 4 mg PO Q6HPRN PRN nausea/vomiting 11/08/23
spironolactone 25 mg tablet 12.5 mg PO DAILY Fluid Retention/Swelling 11/08/23
carvedilol 3.125 mg tablet 3.125 mg PO BID #0 tabs 11/15/23
apixaban 5 mg tablet 5 mg PO BID 04/26/24
cholecalciferol (vitamin D3) 25 mcg (1,000 unit) tablet 25 mcg PO DAILY 04/26/24
docusate sodium 100 mg capsule 100 mg PO BID 04/26/24
sennosides 8.6 mg tablet (senna) 8.6 mg PO HS 04/26/24
acetaminophen 500 mg tablet 1,000 mg PO HS 06/07/24
gabapentin 600 mg tablet 600 mg PO TID 06/07/24
therapeutic multivitamin 1 tab PO DAILY 06/07/24
Review of Systems
-
History Source: Patient
A 12 point ROS was completed and negative except as noted: Yes
Constitutional: Reports No Symptoms
EENT: Reports No Symptoms
Respiratory: Reports See HPI
Cardiac: Reports No Symptoms
Abdomen/GI: Reports No Symptoms
: Reports No Symptoms
Musculoskeletal: Reports No Symptoms
Skin: Reports No Symptoms
Neurological: Reports No Symptoms
Endocrine: Reports No Symptoms
Hematologic/Lymphatic: Reports No Symptoms
Psych: Reports No Symptoms
Physical Exam
Vital Signs
Vital Signs
Temp Pulse Resp BP Pulse Ox
100.5 F H 108 16 75/47 100
06/07/24 11:39 06/07/24 12:00 06/07/24 12:00 06/07/24 12:00 06/07/24 12:00
Physical Exam
General: Well Developed, Well Nourished and No Apparent Distress
HEENT: NormoCephalic, Moist mucous membranes and Atraumatic
Respiratory: Clear
Cardiac: S1/S2 and Regular Rhythm; No Murmur or Rub
GI: Soft, Non Tender, Non Distended and Normal Bowel Sounds; No Organomegaly
Rectal: Deferred by Provider
Musculoskeletal: No Clubbing, No Cyanosis and No Edema
Skin: No Rash
Neuro: Nonfocal/grossly intact
Laboratory Results
-
06/07/24 09:58
06/07/24 10:38
Laboratory Results
Lactic Acid 2.2 mmol/L (0.7-2.0) H 06/07/24 10:38
Total Bilirubin 0.4 mg/dl (0.2-1.3) 06/07/24 10:38
AST 34 U/L (17-59) 06/07/24 10:38
ALT 19 U/L (0-50) 06/07/24 10:38
Alkaline Phosphatase 116 U/L (38-126) 06/07/24 10:38
Data Reviewed
-
Lab Data: Labs Reviewed by me
Old Records: Reviewed
Impression/Plan
-
IMPRESSION:
PLAN:
# Septic shock (fever, tachycardia, leukocytosis, hypotension )/acute hypoxemic respiratory failure secondary to aspiration pneumonia/UTI
# History of aspiration/dysphagia with pur�ed diet noncompliant
-On 4 L oxygen
-Chest x-ray shows large patchy airspace opacities in the bilateral lung bases
-Urinalysis suggesting infection
-Check sputum culture
-Check blood cultures
-Check COVID and influenza
-Check strep and Legionella antigen, MRSA
-IV fluids
-Vancomycin/cefepime
-Recommended pur�ed diet last admission
# Stage III decubitus ulcer/thoracic wounds
-Have been draining but stable
-Wound care consulted
Spinal cord injury with vertebral fracture/thoracic spine surgery
-Nonambulatory at baseline
Paroxysmal atrial fibrillation
-Continue Eliquis
-Continue amiodarone
-Continue Plavix although unclear why on Eliquis and Plavix
Chronic HFpEF
Chronic anemia
-Hemoglobin 9.7
Essential hypertension
-Hold spironolactone
-Hold losartan
-Hold isosorbide mononitrate
-Hold Coreg
Hyperlipidemia
Type 2 diabetes
-Hold metformin
-Insulin sliding scale
BPH
Anxiety/depression
-Continue doxepin
Peripheral neuropathy
-Continue gabapentin
GERD
Hyponatremia
-Stable
DNR/DNI
DVT prophylaxis�Eliquis
Pur�ed diet
[2024-06-07] MEDS: NSS 500 IV (13:08)
[2024-06-07] MEDS: LEVOPHED 250 IV (14:23)
[2024-06-07] MEDS: NSS 750 IV (15:13)
[2024-06-07] MEDS: NSS 1000 IV (16:20)
[2024-06-07 16:24] LABS: Glucose - Point of Care 138 mg/dl (70-99)
[2024-06-07] MEDS: NOVOLOG FLEXPEN-LOW RESISTANCE SC (16:24)
--- NOTE | 2024-06-07 16:58 | PHA.VAN.IN ---
Assessment
- Assessment
Renal Function: Appears elevated from baseline (05/01/24 BASELINE SCR: 1.0)
Concomitant Antimicrobials: CEFEPIME
- Previous Dosing Experience
Previous Regimen: DOSING BY RANDOM LEVELS
Date of Regimen: 04/26/24
Provided Trough of: UNKNOWN
Provided AUC of: UNKNOWN
Patient's SCR is: Similar to previous dosing experience (04/26/24 SCR: 1.2)
Patient's weight is: Elevated compared to previous dosing experience (04/26/24 WT = 62.8 KG)
AUC Dosing Plan
- Dosing Variables
Dosing Weight (kg): 66.1
Dosing CrCl (ml/min): 47
Vd coefficient (L/kg): 0.7
- Empiric Dosing
Initial / Loading Dose: 2GM
Maintenance Regimen: 1GM IV Q24H
Estimated AUC (mcg*h/mL): 509
Estimated Peak (mcg*h/mL): 33.4
Estimated Trough (mcg/ml): 12.3
Estimated Half Life (H): 16
Pharmacokinetics Vancomycin I
- -
Patient Age: 78
Patient Sex: Male
Vancomycin Day #: 1
Indication: Pulmonary/Respiratory (SEPTIC SHOCK)
Requesting Provider: SAMEERA
Pertinent Antimicrobial Allergies:
Allergies
Penicillins Allergy (Verified 01/21/24 15:15)
Unknown
Height / Weight:
Height 5 ft 8 in
Actual Weight 66.1 kg
Pertinent Past Medical History: DM; 04/26/24 ADMIT FOR ASPIRATION PNA
- Vital Signs / Lab Results
Temp Pulse Resp BP Pulse Ox
99.5 F 90 8 89/51 100
06/07/24 13:02 06/07/24 16:45 06/07/24 16:45 06/07/24 16:45 06/07/24 16:45
Lab Results - Hematology
06/07/24
09:58
WBC 15.4 H
Band Neutrophils 26 H
Lab Results - Chemistry
06/07/24 06/07/24
09:58 10:38
BUN Cancelled 28 H
Creatinine Cancelled 1.2
Estimated Creat Clear Cancelled 47
Albumin Cancelled 1.9 L
06/07/24
10:38
Lactic Acid 2.2 H
Lab Results - Urine
06/07/24
10:38
Urine Nitrite (Reflex) Negative
Leukocyte Esterase Rfl 2+ A
Urine WBC (Reflex) 80-90 A
Ur Squamous Epith Cells >30
Urine Bacteria (Reflex) Many A
--- NOTE | 2024-06-07 19:20 | PTCARENOTE ---
Received pt from ED. He is [place] and responses are slow but appropriate. He is rigid and needs 2 Assist for turning. Levophed infusing at 6mcg into rt forearm. NSR on monitor MAP is >65. Lungs diminished bilateral o2 2 L NC. Skin is poor turgor and
multiple wounds. Back wound are with purulent drainage and odor. UPPER mid back wound is open along an old surgical scar and there is visible metal hardware seen. elbows and heels are boggy, foams applied.
[2024-06-07] MEDS: MAXIPIME 2000 MG IV (19:32)
[2024-06-07] MEDS: ELIQUIS 5 MG PO (19:33)
[2024-06-07] MEDS: COLACE 100 MG PO (19:33)
[2024-06-07] MEDS: STERILE WATER FOR INJECTION 10 ML IV (19:33)
[2024-06-07] MEDS: NEURONTIN 300 MG PO (19:33)
[2024-06-07 22:06] LABS: Glucose - Point of Care 174 mg/dl (70-99)
[2024-06-07] MEDS: SENOKOT 8.6 MG PO (22:14)
[2024-06-07] MEDS: TYLENOL 1000 MG PO (22:15)
[2024-06-08] VITALS (91 sets, daily range): BP systolic 76–147; BP diastolic 52–83; BMI 22.6
[2024-06-08] MEDS: NEURONTIN PO (00:20)
[2024-06-08] MEDS: NSS 500 IV (00:42)
[2024-06-08 01:16] LABS: % Basophils 0.3 % (0-2); % Eosinophils 0.6 % (0-6); % Immature Granulocytes 0.3 % (0-0.5); % Lymphocytes 7.6 % (20.5-51.1); % Neutrophils 81.2 % (42.2-75.2); Absolute Eosinophils 0.1 10^3/uL (0-0.7); Absolute Lymphocytes 1.1 10^3/uL (1.2-3.4); Absolute Monocytes 1.4 10^3/uL (0.1-0.6); Absolute Neutrophils 11.3 10^3/uL (1.4-6.5); Hematocrit 28.6 % (39.0-52.0); Hemoglobin 9.5 g/dL (13.0-18.0); Mean Corp Hgb Conc. 33.2 g/dL (33.0-37.0); Mean Corpuscular Hgb 28.8 pg (27.0-31.0); Mean Corpuscular Volume 86.7 fL (80.0-94.0); Mean Platelet Volume 8.7 fL (7.4-10.4); Nucleated Red Blood Cells % 0 % (-); Platelet Count 234 10^3/uL (130-400); Red Cell Dist. Width 20.9 % (11.5-14.5)
[2024-06-08 01:30] LABS: ALT (SGPT) 18 U/L (0-50); AST (SGOT) 31 U/L (17-59); Albumin 1.8 g/dl (3.5-5.0); Alkaline Phosphatase 96 U/L (38-126); Blood Urea Nitrogen 29 mg/dl (9-20); Calcium 7.1 mg/dl (8.4-10.2); Carbon Dioxide 19 mmol/L (22-30); Chloride 103 mmol/L (98-107); Estimated Creatinine Clearance 64 ml/min; Glucose 153 mg/dl (70-99); Magnesium 1.5 mg/dl (1.6-2.3); Potassium 4.2 mmol/L (3.5-5.1); Sodium 132 mmol/L (135-145); Total Bilirubin 0.4 mg/dl (0.2-1.3); Total Protein 4.8 g/dl (6.3-8.2); eGFR > 60.00
[2024-06-08] MEDS: NSS 1000 IV (02:27)
[2024-06-08] MEDS: CALCIUM GLUCONATE 100 IV (02:40)
--- NOTE | 2024-06-08 02:55 | PTCARENOTE ---
received patient from previous RN. Patient heart went into 140s and sustained. EKG performed. Levophed running at 4. SHAFTING CLEANER aware and came to bedside. Ordered 500 ml fluid bolus, and calcium and magnesium repletion. Bladder scan was 57 ml. Patient
states he feels fine. care ongoing.
[2024-06-08] MEDS: LEVOPHED 250 IV ×2 (03:03→15:55)
[2024-06-08] MEDS: MAGNESIUM SULFATE 50 IV (03:22)
--- NOTE | 2024-06-08 03:33 | W.PN.UPDATE ---
Update Note
Progress Note Update
Reported by the nursing staff that the patient`s hr is up to 140s, hypotensive currently on Levophed. Patient sleeping in bed looking comfortable, he denies pain or SOB. Patient is afebrile. CBC, BMP, mag ordered.
-another bolus of NSS 500cc was given.
-Calcium and mag repleted as needed
[2024-06-08] MEDS: MAXIPIME 2000 MG IV (05:12)
[2024-06-08] MEDS: STERILE WATER FOR INJECTION 10 ML IV ×2 (05:12→17:55)
[2024-06-08] MEDS: VANCOCIN 200 IV (05:24)
[2024-06-08] MEDS: TYLENOL 1000 MG PO ×2 (05:53→20:20)
[2024-06-08 08:08] LABS: Glucose - Point of Care 142 mg/dl (70-99)
[2024-06-08 08:38] LABS: Glycohemoglobin (HgbA1c) 6.7 % (4.0-5.6)
[2024-06-08] MEDS: PACERONE 200 MG PO (09:04)
[2024-06-08] MEDS: NEURONTIN 300 MG PO ×3 (09:04→20:20)
[2024-06-08] MEDS: PLAVIX 75 MG PO (09:04)
[2024-06-08] MEDS: COLACE 100 MG PO ×2 (09:04→20:20)
[2024-06-08] MEDS: VITAMIN D3 (cholecalciferol) 25 MCG PO (09:04)
[2024-06-08] MEDS: ELIQUIS 5 MG PO ×2 (09:04→20:20)
[2024-06-08] MEDS: THERAGRAN 1 TABLET PO (09:04)
[2024-06-08] MEDS: LIPITOR 80 MG PO (09:04)
[2024-06-08] MEDS: NOVOLOG FLEXPEN-LOW RESISTANCE 1 UNITS SC ×2 (09:07→13:30)
--- NOTE | 2024-06-08 09:07 | WOUNDNOTE ---
SPINE; hardware exposed in 2 places, wound base and around 4 o'clock under skin (cannot see in photo)
--- NOTE | 2024-06-08 09:11 | WOUNDNOTE ---
R ANKLE (LATERAL UPPER)
--- NOTE | 2024-06-08 09:17 | WOUNDNOTE ---
[facility] RN note: Patient admitted with aspiration pneumonia. Patient admitted from [facility].
See H&P for complete history.
PMH: paraplegia from spinal cord injury, a fib, CHF, aspiration pneumonia, HTN, DM, BPH, depression, spinal surgery 2021, thoracic back wound with hardware exposure, sacral pressure injury.
Wound Location and type/assessment: Patient admitted with: full thickness thoracic spine wound down to hardware (not new), wound mostly clean with small ecchymotic area along L lateral edge, no granulation tissue. Patient is followed by
neurosurgeon and he has a specialty mattress as per RN Janie at [facility]. She nor patient could tell me the name of the surgeon. L back unstageable pressure injury with a stage 2 pink section and small unstageable brown necrotic section. L
lower back with stage 2 pressure injury. R hand and R lateral elbow skin tears. R lateral upper ankle with red ecchymotic stage 1 vs evolving DTI. L lateral heel stage 2 scabbed pressure injury. L lateral posterior lower calf with multiple
discolored areas suspect from previous wounds. R heel blanchable red, boggy.
Appetite: poor. Patient on a pureed diet. History of non compliance with pureed diet as per nursing.
Pressure redistribution devices in place: Centrella Max air bed. Patient immobile. Air chair cushions off loading heels.
Plan: Hospitalist resident in during visit who evaluated spine wound with hardware exposed. Resident confirmed not to apply a wound vac. She plans to consult ID. Obtained local wound care orders. Patient turned to L semi side lying position using
pillows and air chair cushion with help from BASIM Oropeza. Heels off bed with air chair cushions. t/c SPD and ordered a bariatric air chair cushion and Foot Waffle boots. Instructed patient pressure injury prevention measures and importance of nutrition
and following pureed diet for wound healing. Patient high risk for wound deterioration and additional pressure injuries despite preventative measures in place d/t overall medical condition, poor nutrition, hardware exposure. Discussed with BASIM Oropeza.
Care plan to be updated and will follow as needed. Patient to follow up with his surgeon and wound career orientation teacher.
[2024-06-08 09:18] LABS: Glucose - Point of Care 166 mg/dl (70-99)
--- NOTE | 2024-06-08 09:56 | PHA.VAN.FU ---
Vancomycin Assessment / Plan
- Assessment
Renal Function: SCR Decreasing
WBC's are: Trending Down
In the past 24 hrs, patient has been: Afebrile
Concomitant Antimicrobials: cefepime
- Dosing Plan
Adjust Regimen to: dosing by level
During prior dosing experience, patient was maintaining levels 13-14 with 500mg once daily dosing
SCR ranged from 1-1.2 during that time
- Monitoring Plan
Random Level: 06/09 06
- Follow Up
Pharmacy will continue to follow.
Vancomycin Follow UP
- -
Patient Age: 78
Patient Sex: Male
Vancomycin Day #: 2
Indication: Pulmonary/Respiratory
Requesting Provider: Dr. Degroot
Pertinent Antimicrobial Allergies:
Penicillins - Unknown
Height / Weight:
Height 5 ft 8 in
Actual Weight 67.4 kg
Pertinent Past Medical History: DM; 04/26/24 ADMIT FOR ASPIRATION PNA
- Vital Signs / Lab Results
Temp Pulse Resp BP Pulse Ox
97 F 137 12 104/83 98
06/08/24 07:40 06/08/24 09:04 06/08/24 05:40 06/08/24 09:04 06/08/24 05:40
Lab Results - Hematology
06/07/24 06/08/24
09:58 01:01
WBC 15.4 H 14.0 H
Band Neutrophils 26 H
Lab Results - Chemistry
06/07/24 06/07/24 06/08/24
09:58 10:38 01:01
BUN Cancelled 28 H 29 H
Creatinine Cancelled 1.2 0.9
Estimated Creat Clear Cancelled 47 64
Albumin Cancelled 1.9 L 1.8 L
06/08/24
01:02
BUN Cancelled
Creatinine Cancelled
Estimated Creat Clear Cancelled
Albumin Cancelled
06/07/24
10:38
Lactic Acid 2.2 H
Lab Results - Urine
06/07/24
10:38
Urine Nitrite (Reflex) Negative
Leukocyte Esterase Rfl 2+ A
Ur Squamous Epith Cells >30
Microbiology Results
06/07/24 10:38 Legionella Urinary Antigen - Final
Urine Negative for Legionella pneumophila Serogroup 1 antigen.
A negative result does not rule out the possiblity of
Legionella infection due to other serogroups or species of
Legionella. Clinical correlation is recommended.
Streptococcus pneumoniae Antigen (M - Final
Negative for Streptococcus pneumoniae antigen.
A negative result does not exclude infection with
Streptococcus pneumoniae. Clinical correlation is
recommended.
--- NOTE | 2024-06-08 10:10 | WOUNDNOTE ---
[facility] RN note: Received a t/c from Atif, nurse hospice case manager from [facility] who stated patient's neurosurgeon is Dr. Barrios and that patient goes to a Swathi Gee NP from [facility] wound [facility]. Atif stated they have been using a wound vac
for months. No healing appears to be happening comparing today's photo from April's photo. Spoke with Dr. David Mahan who stated he has consulted spine surgeon. Dr. Mahan's resident Dr. Guaman given phone numbers of patient's
neurosurgeon and wound care center.
--- NOTE | 2024-06-08 10:10 | WOUNDNOTE ---
[facility] RN note: Received a t/c from Atif, nurse marketing operations manager from [facility] who stated patient's neurosurgeon is Dr. Barrios and that patient goes to a Swathi Gee NP from [facility]. Atif stated they have been using a wound vac
ever since patient came to [facility] back in November and had the wound vac prior to that. No healing appears to be happening comparing today's photo from s photo. Spoke with Dr. David Mahan who stated he has consulted spine surgeon.
--- NOTE | 2024-06-08 10:41 | CON.PUL ---
Consultation
Consultation Request
Date/Time Consultation Requested: 06/08/2024-10 45 AM
Date/Time Consultation Performed: 06/08/2020 4-10 40 5 AM
Requesting Provider: Hospitalist
Performing Provider: Dr. Horta
Reason for Consultation: Sepsis and aspiration pneumonia
Medical History
-
Chief Complaint: Aspiration pneumonia
History of Present Illness:
78-year-old male former smoker with a history of paroxysmal atrial fibrillation, heart failure preserved EF, aspiration pneumonia, hypertension, hyperlipidemia, sacral decubitus presented with cough, sputum, sepsis and probable aspiration
pneumonia-pulmonary consulted for sepsis/pressor management/pneumonia 06/08/2024. The patient is alert, on a couple liters of oxygen and denies any chest pain, chest congestion, productive cough, aspiration signs or symptoms, abdominal pain, nausea,
focal weakness or increased lower extremity swelling.
Past Medical History
Past Medical History: None (Hypertension. Hyperlipidemia. Diabetes. BPH. Depression. Peripheral neuropathy. PAF. HF preserved EF. Aspiration pneumonia. Spinal cord injury with vertebral fracture/thoracic spine 2021. GERD. Sacral decub
stage III.)
Social History
Tobacco: Former Smoker ([id number] smoker quit 32 years ago)
Alcohol: None
Drug: None
Living: Group Home
Occupational Exposures: No known asbestos exposure
Environmental Exposures: No known tuberculosis exposure
Family History
Family History: Reviewed & Not Pertinent
Allergies / Home Medications
Allergies
Allergy/AdvReac Type Severity Reaction Status Date / Time
JEFFERSON Inhibitors Allergy Unknown Verified 01/21/24 15:15
codeine Allergy Unknown Verified 01/21/24 15:15
diphth,pert(acell),tetan,polio Allergy Unknown Verified 01/21/24 15:15
vacc,component 1of2
[From Pentacel DTaP-IPV
Compnt (PF)]
Penicillins Allergy Unknown Verified 01/21/24 15:15
Home Medications
�Medication �Instructions �Recorded �Confirmed �Last Taken �Type
amiodarone 200 mg tablet 200 mg PO DAILY Arrhythmia 11/08/23 06/07/24 Unknown History
atorvastatin 80 mg tablet 80 mg PO DAILY High Cholesterol 11/08/23 06/07/24 Unknown History
bisacodyl 10 mg rectal suppository 10 mg [place] DAILYPRN PRN if MOM 11/08/23 06/07/24 Unknown History
ineffective
clopidogrel 75 mg tablet 75 mg PO DAILY Blood Clot 11/08/23 06/07/24 Unknown History
Prevention/Tx
doxepin 50 mg capsule 50 mg PO DAILY Mental 11/08/23 06/07/24 Unknown History
Health/Anxiety
ipratropium 0.5 mg-albuterol 3 mg 3 ml inhalation R Q4HPRN PRN sob 11/08/23 06/07/24 Unknown History
(2.5 mg base)/3 mL nebulization
soln
isosorbide mononitrate 30 mg 30 mg PO DAILY Heart 11/08/23 06/07/24 Unknown History
tablet,extended release 24 hr Disease/Condition
losartan 25 mg tablet 25 mg PO DAILY Blood Pressure 11/08/23 06/07/24 Unknown History
magnesium hydroxide 400 mg/5 mL 30 ml PO HSPRN PRN if no BM in 3 11/08/23 06/07/24 Unknown History
oral suspension (Milk of Magnesia) days
metformin 500 mg tablet 500 mg PO DAILY Diabetes 11/08/23 06/07/24 Unknown History
ondansetron HCl 4 mg tablet 4 mg PO Q6HPRN PRN nausea/vomiting 11/08/23 06/07/24 Unknown History
spironolactone 25 mg tablet 12.5 mg PO DAILY Fluid 11/08/23 06/07/24 Unknown History
Retention/Swelling
apixaban 5 mg tablet 5 mg PO BID Blood Clot 04/26/24 06/07/24 Unknown History
Prevention/Tx
cholecalciferol (vitamin D3) 25 25 mcg PO DAILY Supplement 04/26/24 06/07/24 Unknown History
mcg (1,000 unit) tablet
docusate sodium 100 mg capsule 100 mg PO BID Constipation 04/26/24 06/07/24 Unknown History
sennosides 8.6 mg tablet (senna) 8.6 mg PO HS Constipation 04/26/24 06/07/24 Unknown History
acetaminophen 500 mg tablet 1,000 mg PO HS Pain 06/07/24 06/07/24 Unknown History
gabapentin 600 mg tablet 600 mg PO TID Pain 06/07/24 06/07/24 Unknown History
therapeutic multivitamin 1 tab PO DAILY Supplement 06/07/24 06/07/24 Unknown History
carvedilol 3.125 mg tablet 3.125 mg PO BID Blood Pressure 06/08/24 06/07/24 Unknown History
Review of Systems
-
Unable to Obtain full review of systems at this time due to: Other (Per HPI)
Vitals / Labs / Diagnostic Testing
Vital Signs
Temp Pulse Resp BP Pulse Ox
97 F 91 15 147/74 99
06/08/24 07:40 06/08/24 09:45 06/08/24 09:45 06/08/24 09:30 06/08/24 09:45
Lab Data
06/08/24 01:01
Microbiology
06/07/24 10:38 Urine Urine Culture - Preliminary
Escherichia coli
06/07/24 10:38 Urine Legionella Urinary Antigen - Final
Negative for Legionella pneumophila Serogroup 1 antigen.
A negative result does not rule out the possiblity of
Legionella infection due to other serogroups or species of
Legionella. Clinical correlation is recommended.
06/07/24 10:38 Urine Streptococcus pneumoniae Antigen (M - Final
Negative for Streptococcus pneumoniae antigen.
A negative result does not exclude infection with
Streptococcus pneumoniae. Clinical correlation is
recommended.
Diagnostic Testing:
Physical Exam
-
Exam:
Well-nourished and well-developed in no apparent distress
HEENT-atraumatic, normocephalic
Neck-supple, no JVD, no bruit
Heart-regular rate and rhythm-no murmurs, rubs or gallops
Chest-clear to auscultation, no wheezes, crackles at the bases
Back-no tenderness
Abdomen-soft, nontender, nondistended, no hepatosplenomegaly
Extremities-no cyanosis, clubbing, trace edema and good peripheral pulses
Integument-intact, no rashes, lesions or ecchymosis
Neurology-alert and oriented, lower extremity weakness
Assessment
-
78-year-old male former smoker with a history of paroxysmal atrial fibrillation, heart failure preserved EF, aspiration pneumonia, hypertension, hyperlipidemia, sacral decubitus presented with cough, sputum, sepsis and probable aspiration
pneumonia-pulmonary consulted for sepsis/pressor management/pneumonia 06/08/2024.
Septic shock unresponsive to fluids requiring pressors
Aspiration pneumonia
UTI
Stage III decubitus ulcer
Leukocytosis
[id number] 9.5
Mild hyponatremia
Hyperglycemia
Hypoalbuminemia
Conditions present prior to admission:
Hypertension.
Hyperlipidemia.
Diabetes.
BPH.
Depression.
Peripheral neuropathy.
PAF-not on anticoagulation
HF preserved EF.
Aspiration pneumonia.
Spinal cord injury with vertebral fracture/thoracic spine 2021.
GERD.
Sacral decub stage III.
Plan
Admit patient to IMU for persistent hypotension despite fluid resuscitation requiring pressors
Supplement oxygen as needed
High flow oxygen if needed
NIV if necessary
Patient is a DNI and not to be intubated
Aspiration precautions
Speech therapy evaluation
Nebulizers if needed
Follow radiographically
Obtain cultures
Empiric antibiotics
Consider Infectious disease consultation
Monitor leukocytosis
Wound care
Fluid resuscitation with 30 mL/kg crystalloid-preferably lactated ringer-(less MAXX) with subsequent boluses as needed
Monitor lactate
If persistently hypotensive then consider checking random cortisol-hydrocortisone if random less than 3, if 3-15 then consider ACTH stimulation test
Monitor blood sugar
Insulin supplementation as needed
Monitor hemoglobin
Transfuse as needed
DVT prophylaxis
Early nutrition if possible
Early mobilization/bedside range of motion
Reviewed with nursing
Critical care statement: A total of 55 minutes of critical care time was provided for this patient today. This includes management of unstable vital signs, evaluation of the patient at bedside, reviewing the patient's pertinent medical records
including radiographs, pressor management, microbiology, laboratory evaluations, and discussion with primary team, consultants, pharmacy, nutrition, physical therapy, case management, charge nurse, critical care nursing, and respiratory therapy.
Diagnostic data:
Chest x-ray 11/11/2023-opacification of the right chest
Chest x-ray 06/07/2024-pneumonia bilateral bases
Echocardiogram 11/09/2023-EF 60-65%, moderate mitral regurgitation, mild aortic stenosis, PA systolic 66
Data Reviewed
-
EKG: Report reviewed by me
Radiology: Image personally visualized and interpreted and Report reviewed by me
Medical Tests (Nuc Med, Echo etc): Report reviewed by me
Labs: Labs reviewed by me
Old Records: Reviewed
Critical Care Time (in minutes): 55
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
--- NOTE | 2024-06-08 12:54 | W.PN.HOSP.TC ---
Addendum entered and electronically signed by David Mahan MD 06/08/24 14:51:
septic shock secondary to suspected aspiration pna vs suspected chronically infected hardware
-ivf
-iv pressor support
-central line
-map >65
-iv atb
-sptum cx
-bcx
-id consult
ARF-Hypoxia related to aspiration
-wean o2 as tolerated
-ivatb
-sputum culture
-incentive go
Spinal hardware with equipment operator intermodal yard wound vac on for 2yr
-neurosurgeon out of [place]
-consult nsgy as this could be potential source of infection
PAfib
-Continue amio
-Continue eliquis
HTN
-Continue antihypertesives
Original Note:
Today's Communication/Plan
-
Obtain chest x-ray.
Trend labs
IV fluids-lactated Ringer
Continue antibiotics.
Assessment / Plan
Assessment / Plan
Assessment-
78-year-old male with PMHx significant for paroxysmal A-fib, HFpEF, aspiration pneumonia, multiple decubitus ulcers in the back, diabetes, hypertension presents to the hospital from [facility] for evaluation of hypotension. Diagnosed with
septic shock.
Plan -
Septic shock -
Fever and tachycardia resolved. Continues to remain hypotensive on Levophed at 6.
Elevated lactic acid levels at 2.2, follow lactic acid levels.
Patient is mildly acidotic, CO2 at 19.
History of aspiration pneumonia, recent admission to the hospital in April 2024.
Patient noncompliant with pur�ed diet.
Urine sample-squamous epithelial cells greater than 30. Not consistent with UTI
Blood cultures obtained once pending
Chest x-ray evidence for pneumonia. Previously E. coli positive on cultures
Repeat sputum cultures pending ID consulted.
Stable appearing chronic spinal decubitus ulcer with exposed hardware, no purulent discharge relatively clean.
Suspect hardware infection, consulted ID and neurosurgery. ID and neurosurgery on board.
PICC line for Levophed. Wean off Levophed as possible.
Strep, Legionella antigen, MRSA pending
COVID and influenza negative
Continue vancomycin and cefepime. If MRSA cultures negative, discontinue vancomycin.
Multiple decubitus ulcers-
Stage III sacral decubitus ulcer.
Stable thoracic spine ulcer with undermined edges and exposed hardware, stage undetermined, probe test positive up to 3.5 cm posteriorly into the thoracic spine.
2 more stage II ulcers noted on the thoracic spine
All ulcers with continues to drain, but have been stable
Per patient patient is on wound VAC for thoracic spine ulcer for questionable 2 years.
Records requested from patient's primary neurosurgeon, pending records.
Primary neurosurgeon-Dr. Jcarlos rogers, [place], phone #[phone].
Acute hypoxic respiratory failure -
Currently on 4 L nasal cannula flow.
Secondary to aspiration pneumonia, chest x-ray showed large patchy airspace opacities in both lung bases.
Check sputum cultures.
Advised patient to be compliant with pur�ed diet.
Continue vancomycin and cefepime.
IV fluids changed to lactated Ringer in the setting of septic shock.
Spinal cord injury with vertebral fracture-
Patient has been bedbound for 2 years.
Paroxysmal A-fib
Continue amiodarone.
[id number] score 5 points.
Continue Eliquis.
Chronic HFpEF -
Patient gained 1kg overnight.
With IV fluids for septic shock, continue to monitor I's and O's
Continue to monitor weight
Sodium and fluid restriction.
Trend renal function
Normocytic anemia-
Anemia of chronic disease, hemoglobin at 9.5.
Essential hypertension-
His spironolactone, losartan, Coreg were on hold given his hypotension secondary to septic shock
Carefully monitor patient for heart failure symptoms and wean off Levophed as soon as possible
Discontinue IV fluids once patient's blood pressure stabilizes
Will consider resuming blood pressure medications once her blood pressure stabilizes.
Type 2 diabetes mellitus-
Hold metformin
Currently on insulin sliding scale
Low insulin requirement overnight
Hyponatremia-
serum sodium at 132.
Likely hypovolemic.
Continue to monitor renal function.
Hypomagnesemia
Magnesium repleted.
Obtain repeat magnesium levels
Anxiety/depression-
Continue doxepin
Hyperlipidemia
Continue atorvastatin
Peripheral neuropathy -
Secondary to spinal injury and diabetes
Continue gabapentin.
DVT prophylaxis-on Eliquis.
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
BPH
GERD
CODE STATUS-DNR/DNI
Anticipated Discharge: Within 24 hours
Subjective/Interval History
-
Date of Service: June 08, 2024
Overnight patient's Levophed requirement went up to 6 mcg. Saw the patient with wound care on bedside exposed hardware with 3 and half centimeters of posterior communication of the thoracic spine wound.
Objective Data
-
Labs:
Laboratory Results
06/08/24 06/08/24 06/08/24
01:01 01:02 12:00
WBC 14.0 H
Hgb 9.5 L
Hct 28.6 L
Plt Count 234
Sodium 132 L Cancelled Pending
Potassium 4.2 Cancelled Pending
Chloride 103 Cancelled Pending
Carbon Dioxide 19 L Cancelled Pending
BUN 29 H Cancelled Pending
Creatinine 0.9 Cancelled Pending
Glucose 153 H Cancelled Pending
Calcium 7.1 L Cancelled Pending
Total Bilirubin 0.4 Cancelled
AST 31 Cancelled
ALT 18 Cancelled
Alkaline Phosphatase 96 Cancelled
Vital Signs:
Vital Signs
Temp Pulse Resp BP Pulse Ox
97 F 95 14 112/61 97
06/08/24 07:40 12/05/24 12:30 06/08/24 12:45 06/08/24 12:30 06/08/24 12:45
I&O
06/07/24 06/08/24 06/09/24
06:59 06:59 06:59
Intake Total 1080 / 1080
Output Total 450 / 450
Balance 630 / 630
Review of Systems
-
History Source: Family
All other systems: Reviewed and negative
Constitutional: Reports Fatigue; Denies Fever, Night Sweats or Chills
EENT: Reports Sore Throat
Respiratory: Reports No Symptoms
Cardiac: Reports No Symptoms
Abdomen/GI: Reports No Symptoms
Breast: Reports No Symptoms
Genitourinary: Reports No Symptoms
Musculoskeletal: Reports No Symptoms
Skin: Reports No Symptoms
Neuro: Reports No Symptoms
Endocrine: Reports No Symptoms
Hematologic / Lymphatic: Reports No Symptoms
Allergy / Immunology: Reports No Symptoms
Physical Exam
-
General: Comfortable
HEENT: Moist Mucous Membranes
Respiratory: Wheezes and Crackles; Negative Rales or Rhonchi
Cardiac: S1/S2 and Murmur (systolic mumur 2/6, non radiating. ); Negative Rub or Gallop
GI: Soft, Nontender, Nondistended and Normal Bowel Sounds
Genito-urinary: No Costovertebral Tender
Musculoskeletal: No Clubbing, No Cyanosis and Other (b/l pitting edema lower extremities, 1+, upto ankles)
Skin: Ulcers (Multiple sacral decubitus Ulcers)
Neuro: No Motor Deficits and Nonfocal/Grossly Intact
Psych: Calm
Data Reviewed
-
Diagnostic Radiology: Image personally visualized and interpreted and Report Reviewed by me
Ultrasound: Image personally visualized and interpreted and Report Reviewed by me
Labs: Labs Reviewed by me and Discussed with Physician
[2024-06-08] MEDS: NSS IV (13:23)
[2024-06-08] MEDS: LR 1000 IV (13:27)
[2024-06-08 13:40] LABS: Glucose - Point of Care 180 mg/dl (70-99)
--- NOTE | 2024-06-08 14:35 | CM ---
Patient from [facility] with Hx Spinal cord injury with vertebral fracture, paraplegia, multiple decubitus ulcers. O2 2L. Dysphagia diet. Receiving IVF, Levophed gtt, IV Abx. Seen by wound care nurse.
Spoke with Ina, [facility];
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
He is not on a bed hold however he can return without an insurance auth under [employer].
The patient is confused at baseline, w/c bound, assisted with ADLs, assisted with eating/pureed diet, incontinent urine.
He was issued a [place] airbed and high-back w/c has been ordered.
The patient was not on chronic O2.
He was receiving PT/OT.
Pharmacy confirmed as [facility].
The phone for report [phone] wing [phone], fax [phone].
Patient may benefit from ongoing PT/OT.
Plan contact family prior to return to SNF.
Plan return to [facility] when medically ready.
[2024-06-08 14:47] LABS: Blood Urea Nitrogen 26 mg/dl (9-20); Calcium 7.3 mg/dl (8.4-10.2); Carbon Dioxide 18 mmol/L (22-30); Chloride 103 mmol/L (98-107); Estimated Creatinine Clearance 73 ml/min; Glucose 177 mg/dl (70-99); Potassium 3.8 mmol/L (3.5-5.1); Sodium 130 mmol/L (135-145); eGFR > 60.00
[2024-06-08] MEDS: NOVOLOG FLEXPEN-LOW RESISTANCE 2 UNITS SC (16:40)
[2024-06-08 16:49] LABS: Glucose - Point of Care 204 mg/dl (70-99)
[2024-06-08] MEDS: MAXIPIME 1000 MG IV (17:55)
[2024-06-08] MEDS: SENOKOT 8.6 MG PO (20:20)
[2024-06-08 22:22] LABS: Glucose - Point of Care 147 mg/dl (70-99)
[2024-06-09] VITALS (46 sets, daily range): BP systolic 73–127; BP diastolic 32–77
[2024-06-09] MEDS: STERILE WATER FOR INJECTION 10 ML IV ×4 (00:07→18:31)
[2024-06-09] MEDS: MAXIPIME 1000 MG IV ×4 (00:08→18:31)
--- NOTE | 2024-06-09 01:43 | PTCARENOTE ---
Patient has right double lumen picc, upon assessment right arm was swollen which was new from night prior. Notified IV team and CARDROOM ATTENDANT. CARDROOM ATTENDANT at bedside and US ordered of right arm.
[2024-06-09 04:28] LABS: Blood Urea Nitrogen 25 mg/dl (9-20); Calcium 7.4 mg/dl (8.4-10.2); Carbon Dioxide 21 mmol/L (22-30); Chloride 104 mmol/L (98-107); Estimated Creatinine Clearance 73 ml/min; Glucose 120 mg/dl (70-99); Potassium 3.4 mmol/L (3.5-5.1); Sodium 131 mmol/L (135-145); eGFR > 60.00
[2024-06-09 04:32] LABS: Vancomycin Random 15.4 ug/ml
[2024-06-09 04:44] LABS: % Basophils 0.2 % (0-2); % Eosinophils 1.8 % (0-6); % Immature Granulocytes 0.7 % (0-0.5); % Neutrophils 82.3 % (42.2-75.2); Absolute Eosinophils 0.2 10^3/uL (0-0.7); Absolute Immature Granulocytes 0.1 10^3/uL (0-0.05); Absolute Lymphocytes 0.7 10^3/uL (1.2-3.4); Absolute Monocytes 0.8 10^3/uL (0.1-0.6); Hematocrit 26.4 % (39.0-52.0); Hemoglobin 8.8 g/dL (13.0-18.0); Mean Corp Hgb Conc. 33.3 g/dL (33.0-37.0); Mean Corpuscular Hgb 28.3 pg (27.0-31.0); Mean Corpuscular Volume 84.9 fL (80.0-94.0); Mean Platelet Volume 8.7 fL (7.4-10.4); Nucleated Red Blood Cells % 0 % (-); Platelet Count 167 10^3/uL (130-400); Red Blood Cell Count 3.11 10^6/uL (4.70-6.10); Red Cell Dist. Width 20.5 % (11.5-14.5); White Blood Cell Count 9.8 10^3/uL (4.8-10.8)
[2024-06-09] MEDS: LR 1000 IV ×2 (05:38→22:12)
--- NOTE | 2024-06-09 07:45 | W.PN.HOSP.TC ---
Addendum entered and electronically signed by Loreto Guaman MD, Resident 06/09/24 18:11:
List of decubitus ulcers-
Sacral decubitus ulcer-stage III
Full-thickness thoracic spine wound unstageable, exposed to hardware, probe test positive for 3 and half centimeters tunneling.
Left lower back stage II pressure ulcer
Left lateral back unstageable pressure injury injury, and this changed to pink section.
Right lateral ankle-stage I ulcer versus evolving DTI.
Left lateral heel-stage II scabbed pressure injury.
Addendum entered and electronically signed by David Mahan MD 06/09/24 16:38:
left UE DVT +
-start hep gtt
-IR consult For Left IJ CVC
Addendum entered and electronically signed by David Mahan MD 06/09/24 15:07:
septic shock secondary to suspected aspiration pna
-ivf
-iv pressor support, wean as toelrated
-map >65
-iv atb - vanc and cefepime
-sptum cx ordered not collected though
-ucx - esbl ecoli
-legionella/strep neg
-bcx ngtd
-id following
ARF-Hypoxia related to aspiration
-wean o2 as tolerated
-goal spo2 >90%
-ivatb
-sputum culture
-incentive go
superficial venuos thrombosis
-cephalic and basilic
-due to how extensive and the close proximity to the deep system, at this time I would favor 48hours of heparinaztion with gtt and then will consider shelter AC needs marie as he has multiple wounds and wound vac.
Spinal hardware with shelter wound vac on for 2yr
-neurosurgeon out of [place]
-consult nsgy as this could be potential source of infection
--does not believe back wound/spinal hardware is the source of infection, continue vac and outpatient follow up with primary neurosurgeon
PAfib
-Continue amio
-Continue eliquis
HTN
-Continue antihypertesives
Original Note:
Today's Communication/Plan
-
Continue vancomycin and cefepime.
Wean off Levophed as tolerated.
Potassium supplementation, if no correction, recheck potassium and magnesium in the a.m. tomorrow.
Start the patient on heparin drip and obtain PTT per protocol.
Hematology consult, GI consult pending.
Continued with dietary recommendations per speech therapy.
Assessment / Plan
Assessment / Plan
Assessment-
78-year-old male with PMHx significant for paroxysmal A-fib, HFpEF, aspiration pneumonia, multiple decubitus ulcers in the back, diabetes, hypertension presents to the hospital from [facility] for evaluation of hypotension. Diagnosed with
septic shock.
Plan -
Septic shock -
Fever. Continues to remain hypotensive on Levophed at 1mcg.
Elevated lactic acid levels at 2.2, follow lactic acid levels.
Patient is mildly acidotic, CO2 at 21
History of aspiration pneumonia, recent admission to the hospital in April 2024.
Patient noncompliant with pur�ed diet.
Urine sample-squamous epithelial cells greater than 30. Not consistent with UTI
Blood cultures obtained once-no growth in 48 hours.
MRSA positive.
Chest x-ray evidence for pneumonia. Previously E. coli positive on cultures
Repeat sputum cultures pending ID consulted.
Stable appearing chronic spinal decubitus ulcer with exposed hardware, no purulent discharge relatively clean.
Suspect hardware infection, consulted ID and neurosurgery. ID and neurosurgery on board.
PICC line for Levophed. Wean off Levophed as possible.
COVID and influenza negative
Continue vancomycin and cefepime.
Acute hypoxic respiratory failure -
Currently weaned off of oxygen.
Secondary to aspiration pneumonia, chest x-ray showed large patchy airspace opacities in both lung bases.
Check sputum cultures.
Advised patient to be compliant with pur�ed diet.
Continue vancomycin and cefepime. Speech therapy consulted for evaluation.
Speech therapy findings-evidence for retrograde reflux while eating pur�ed food. Recommended gastroenterology evaluation. GI consulted.
IV fluids changed to lactated Ringer in the setting of septic shock.
DVT in the right upper extremity-
Patient is compliant with Eliquis, insist that he has not missed any doses.
Considered treatment failure at this point of time. Discontinue Eliquis. Heme-onc consulted.
Patient is started on heparin drip.
Multiple decubitus ulcers-
Stage III sacral decubitus ulcer.
Stable thoracic spine ulcer with undermined edges and exposed hardware, stage undetermined, probe test positive up to 3.5 cm posteriorly into the thoracic spine.
2 more stage II ulcers noted on the thoracic spine
All ulcers with continues to drain, but have been stable
Per patient patient is on wound VAC for thoracic spine ulcer for questionable 2 years.
Records requested from patient's primary neurosurgeon, pending records.
Primary neurosurgeon-Dr. Jcarlos rogers, [place], phone #[phone].
Spinal cord injury with vertebral fracture-
Patient has been bedbound for 2 years.
Paroxysmal A-fib
Continue amiodarone.
[id number] score 5 points.
Continue Eliquis.
Chronic HFpEF -
Patient gained 1kg overnight.
With IV fluids for septic shock, continue to monitor I's and O's
Continue to monitor weight
Sodium and fluid restriction.
Trend renal function
Normocytic anemia-
Anemia of chronic disease, hemoglobin at 9.5.
Essential hypertension-
His spironolactone, losartan, Coreg were on hold given his hypotension secondary to septic shock
Carefully monitor patient for heart failure symptoms and wean off Levophed as soon as possible
Discontinue IV fluids once patient's blood pressure stabilizes
Will consider resuming blood pressure medications once her blood pressure stabilizes.
Type 2 diabetes mellitus-
Hold metformin
Currently on insulin sliding scale
Low insulin requirement overnight
Hyponatremia-
serum sodium at 132.
Likely hypovolemic.
Continue to monitor renal function.
Hypomagnesemia
Magnesium repleted.
Obtain repeat magnesium levels
Anxiety/depression-
Continue doxepin
Hyperlipidemia
Continue atorvastatin
Peripheral neuropathy -
Secondary to spinal injury and diabetes
Continue gabapentin.
DVT prophylaxis-on Eliquis.
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
BPH
GERD
CODE STATUS-DNR/DNI
Anticipated Discharge: > 48 hours
Subjective/Interval History
-
Date of Service: June 09, 2024
Patient reports to be feeling better today, continues to remain on Levophed at 1 mcg with MAP at 68-70,
Objective Data
-
Labs:
Laboratory Results
06/09/24
03:55
WBC 9.8
Hgb 8.8 L
Hct 26.4 L
Plt Count 167 D
Sodium 131 L
Potassium 3.4 L
Chloride 104
Carbon Dioxide 21 L
BUN 25 H
Creatinine 0.8
Glucose 120 H
Calcium 7.4 L
Vital Signs:
Vital Signs
Temp Pulse Resp BP Pulse Ox
97.8 F 92 13 105/66 99
06/09/24 05:38 06/09/24 06:00 06/09/24 06:00 06/09/24 06:00 06/09/24 06:00
I&O
06/08/24 06/09/24 06/10/24
06:59 06:59 06:59
Intake Total 1080 / 1080
Output Total 450 / 450 500 / 500
Balance 630 / 630 -500 / -500
Review of Systems
-
History Source: Patient
Constitutional: Reports Fatigue; Denies Fever, No Appetite or Chills
EENT: Reports No Symptoms Reported
Respiratory: Reports No Symptoms
Cardiac: Reports No Symptoms
Abdomen/GI: Reports No Symptoms
Genitourinary: Reports Difficulty Voiding
Musculoskeletal: Denies No Symptoms
Skin: Denies No Symptoms
Neuro: Denies No Symptoms
Endocrine: Denies No Symptoms
Hematologic / Lymphatic: Denies No Symptoms
Allergy / Immunology: Denies No Symptoms
Physical Exam
-
General: No Apparent Distress, Comfortable and Other (Satting 92% on room air.)
Respiratory: Wheezes (Mild wheezes in upper and lower lobes, bilaterally.) and Crackles; Negative Clear to Auscultation, Rales or Rhonchi
Cardiac: Regular Rhythm, S1/S2, Murmur (Diastolic murmur present), Rub and Gallop
GI: Soft, Nontender, Nondistended and Normal Bowel Sounds
Musculoskeletal: No Clubbing, No Cyanosis and Other (1+ pitting edema in bilateral lower extremities up to ankles.)
Skin: Warm
Neuro: AO x 3
Psych: Calm
Data Reviewed
-
Diagnostic Radiology: Image personally visualized and interpreted and Report Reviewed by me
Medical Tests (Nuc Med, Echo etc): Image personally visualized and interpreted, Report Reviewed by me and Discussed with Physician
Labs: Labs Reviewed by me, Discussed with Physician and Discussed with Nurse
Old Records: Reviewed
[2024-06-09 07:46] LABS: Glucose - Point of Care 120 mg/dl (70-99)
[2024-06-09] MEDS: PLAVIX 75 MG PO (08:20)
[2024-06-09] MEDS: NOVOLOG FLEXPEN-LOW RESISTANCE SC ×3 (08:20→18:37)
[2024-06-09] MEDS: NEURONTIN 300 MG PO ×3 (08:20→21:18)
[2024-06-09] MEDS: LIPITOR 80 MG PO (08:20)
[2024-06-09] MEDS: PACERONE 200 MG PO (08:20)
[2024-06-09] MEDS: ELIQUIS 5 MG PO (08:20)
[2024-06-09] MEDS: THERAGRAN 1 TABLET PO (08:20)
[2024-06-09] MEDS: COLACE 100 MG PO ×2 (08:20→21:18)
[2024-06-09] MEDS: VITAMIN D3 (cholecalciferol) 25 MCG PO (08:21)
--- NOTE | 2024-06-09 08:53 | PHA.VAN.FU ---
Vancomycin Assessment / Plan
- Assessment
Renal Function: SCR Decreasing (1.2->0.9->0.8)
WBC's are: WNL
In the past 24 hrs, patient has been: Afebrile
Concomitant Antimicrobials: cefepime
- Assessment - Therapeutic Drug Monitoring
Random Level: 15.4 ~ 23 hours post 1000 mg dose
- Dosing Plan
Continue: dose by random level for now
Dosing by Level: Re-dose today (1000 mg ( ~15 mg/kg))
based on current renal function PK predicts that 750 mg q12h should yield AUC 505; P 29.4; T 14.4 T1/2 10.7 h)
- Monitoring Plan
Random Level: repeat random level AM 06/10/24
- Follow Up
Pharmacy will continue to follow.
Vancomycin Follow UP
- -
Patient Age: 78
Patient Sex: Male
Vancomycin Day #: 3
Indication: Pulmonary/Respiratory
Requesting Provider: Dr. Degroot
Pertinent Antimicrobial Allergies:
Penicillins - Unknown
Height / Weight:
Height 5 ft 8 in
Actual Weight 67.4 kg
Pertinent Past Medical History: DM; 04/26/24 ADMIT FOR ASPIRATION PNA
- Vital Signs / Lab Results
Temp Pulse Resp BP Pulse Ox
97.8 F 92 13 105/66 99
06/09/24 05:38 06/09/24 06:00 06/09/24 06:00 06/09/24 06:00 06/09/24 06:00
Lab Results - Hematology
06/07/24 06/08/24 06/09/24
09:58 01:01 03:55
WBC 15.4 H 14.0 H 9.8
Band Neutrophils 26 H
Lab Results - Chemistry
06/07/24 06/07/24 06/08/24
09:58 10:38 01:01
BUN Cancelled 28 H 29 H
Creatinine Cancelled 1.2 0.9
Estimated Creat Clear Cancelled 47 64
Albumin Cancelled 1.9 L 1.8 L
06/08/24 06/08/24 06/09/24
01:02 13:52 03:55
BUN Cancelled 26 H 25 H
Creatinine Cancelled 0.8 0.8
Estimated Creat Clear Cancelled 73 73
Albumin Cancelled
06/07/24
10:38
Lactic Acid 2.2 H
Microbiology Results
06/07/24 10:38 Urine Culture - Final
Urine Escherichia coli - ESBL
06/07/24 15:53 MRSA Screen - Final
Nose Staph aureus MRSA
06/07/24 10:38 Blood Culture - Preliminary
Blood/Venous No Growth in 24 hours- Final report to follow
06/07/24 10:38 Legionella Urinary Antigen - Final
Urine Negative for Legionella pneumophila Serogroup 1 antigen.
A negative result does not rule out the possiblity of
Legionella infection due to other serogroups or species of
Legionella. Clinical correlation is recommended.
Streptococcus pneumoniae Antigen (M - Final
Negative for Streptococcus pneumoniae antigen.
A negative result does not exclude infection with
Streptococcus pneumoniae. Clinical correlation is
recommended.
Therapeutic Drug Monitoring
Random Vancomycin 15.4 ug/ml 06/09/24 03:55
--- NOTE | 2024-06-09 09:35 | CM ---
Patient from [facility] with Hx Spinal cord injury with vertebral fracture, thoracic back wound with exposed hardware, paraplegia, multiple decubitus ulcers. PICC line. Receiving IV Abx. Dysphagia diet. Neurosurgery Consult pending.
Seen by wound care nurse- patient apparently had a Wound VAC at [facility] that was not disclosed to CM on Initial Assessment.
[facility]; The phone for report [phone] B wing x [phone], fax [phone].
He is not on a bed hold however he can return without an insurance auth under Workers Comp.
Plan return to [facility] when medically ready.
--- NOTE | 2024-06-09 09:56 | W.PN.PUL.V3 ---
Today's Communication / Plan
-
Antibiotics.
Aspiration precautions.
Wean pressors.
Could be transferred out of IMU if off pressors-pulmonary will sign off-please call with questions
Assessment
-
78-year-old male former smoker with a history of paroxysmal atrial fibrillation, heart failure preserved EF, aspiration pneumonia, hypertension, hyperlipidemia, sacral decubitus presented with cough, sputum, sepsis and probable aspiration
pneumonia-pulmonary consulted for sepsis/pressor management/pneumonia 06/08/2024.
Septic shock unresponsive to fluids requiring pressors
Aspiration pneumonia
UTI
Stage III decubitus ulcer
Leukocytosis
Wfumfk-ihsrgfusfa-upzrlnebms 9.5
Mild hyponatremia
Hyperglycemia
Hypoalbuminemia
Conditions present prior to admission:
Hypertension.
Hyperlipidemia.
Diabetes.
BPH.
Depression.
Peripheral neuropathy.
PAF-not on anticoagulation
HF preserved EF.
Aspiration pneumonia.
Spinal cord injury with vertebral fracture/thoracic spine 2021.
GERD.
Sacral decub stage III.
Plan
Admit patient to IMU for persistent hypotension despite fluid resuscitation requiring pressors
Supplement oxygen as needed
High flow oxygenNot needed
NIV . Also not necessary at this point
Patient is a DNI and not to be intubated
Aspiration precautions
Speech therapy evaluation noted-correspondence reviewed-level for cure,, thin liquid diet
Nebulizers if needed
Follow radiographically
Cultures reviewed.
MRSA screen negative.
Legionella and streptococcal pneumonia antigen negative.
Urine culture-Escherichia coli-ESBL
Empiric antibiotics per infectious disease.
Infectious disease following-correspondence reviewed
Monitor leukocytosis
Wound care
Decrease IV fluids.
Wean the norepinephrine.
Monitor blood sugar
Insulin supplementation as needed
Monitor hemoglobin
Transfuse as needed
DVT prophylaxis
Early nutrition if possible
Early mobilization/bedside range of motion
Reviewed with nursing
If able to be weaned off norepinephrine could be transferred out of IMU-pulmonary. We'll sign off-. Please call with questions
Diagnostic data:
Chest x-ray 11/11/2023-opacification of the right chest
Chest x-ray 06/07/2024-pneumonia bilateral bases
Echocardiogram 11/09/2023-EF 60-65%, moderate mitral regurgitation, mild aortic stenosis, PA systolic 66
Subjective Data
-
Date of Service:
Date of Service: June 09, 2024
Chief Complaint: Pulmonary Follow Up and Dyspnea Follow Up
Subjective:
denies any shortness of breath, chest congestion, productive cough, abdominal pain
Review of Systems
General: Other (per HPI)
Objective Data
Data Reviewed
Vital Signs / I&O:
Vital Signs
Temp Pulse Resp BP Pulse Ox
97.9 F 92 13 105/66 99
06/09/24 07:04 06/09/24 06:00 06/09/24 06:00 06/09/24 06:00 06/09/24 06:00
Intake and Output
06/08/24 06/09/24 06/10/24
06:59 06:59 06:59
Intake Total 1080 / 1080
Output Total 450 / 450 500 / 500
Balance 630 / 630 -500 / -500
SaO2: 99
Nasal Cannula flow liters per minute: 2
Physical Exam
General: Respiratory Distress (n) and Comfortable
HEENT: Normocephalic and Anicteric
Cardiovascular: Regular Rhythm
Respiratory: Wheeze (n), Crackles, Rhonchi, Non-Labored Respirations, Accessory Resp Muscle Use (n) and Stridor
GI: Soft, Non Distended and Non Tender
Neurology: Awake, Oriented and No Motor Deficits
Skin: Warm, Good Color, Cyanosis (n) and Jaundice (n)
Labs/Micro/Reports
Lab Data
06/09/24 03:55
06/09/24 03:55
Microbiology
06/07/24 10:38 Urine Urine Culture - Final
Escherichia coli - ESBL
06/07/24 15:53 Nose MRSA Screen - Final
Staph aureus MRSA
06/07/24 10:38 Blood/Venous Blood Culture - Preliminary
No Growth in 24 hours- Final report to follow
06/07/24 10:38 Urine Legionella Urinary Antigen - Final
Negative for Legionella pneumophila Serogroup 1 antigen.
A negative result does not rule out the possiblity of
Legionella infection due to other serogroups or species of
Legionella. Clinical correlation is recommended.
06/07/24 10:38 Urine Streptococcus pneumoniae Antigen (M - Final
Negative for Streptococcus pneumoniae antigen.
A negative result does not exclude infection with
Streptococcus pneumoniae. Clinical correlation is
recommended.
--- NOTE | 2024-06-09 10:15 | PTCARENOTE ---
Addendum entered by Jenniffer Cope RN 06/09/24 10:22:
Cannot verify accuracy of vital signs prior to 0700.
Addendum entered by Jenniffer Cope RN 06/09/24 10:21:
Await US results prior to administering K+ rider and Vanco.
Original Note:
Assumed care of patient at beginning of this shift from previous RN with levophed infusing at 1mcg/min and LR infusing at 80ml/hr. +1-2 edema noted to R arm that had dual PICC. VAT RN Min made aware that IVF continue to infused and US ordered. US
ordered on previous shift but not completed. This RN spoke with dept and bedside US done; results pending. Patient coughing occasionally with coffee intake, but was able to take po meds with water without difficulty. Physician contact for speech
therapy consult; [facility] made aware of new order. Lungs diminished with some scattered rhonchi posteriorly; O2 2l n/c maintained with POx 95%. Levophed off at 08:28; will continue with frequent BPs to assess if needing restart. See worklist for
full assessment and vital signs; see MAR for med administration.
--- NOTE | 2024-06-09 11:18 | W.PN.ID1 ---
Date of Service
Date of Service: June 09, 2024
Today's Communication
Continue antibiotics.
Assessment / Plan
Leukocytosis
Suspected aspiration pneumonia
Fever
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
Hypertension
Chronic HFpEF
CKD III
Atrial Fibrillation
Paraplegia (Traumatic SCI; 2021)
DM-II
GERD
BPH
Recommendations:
MRSA screen positive. Urine culture with ESBL E. coli.
White count noted to be normalized today.
Continue with empiric vancomycin and cefepime for the present.
Check sputum culture (ordered, but not collected yet).
Follow white count and temperature curve.
Monitor pending cultures.
At present, little to do regarding the chronic back wound. The area appears clear, but clinically the hardware is infected given its exposure to the outside environment.
Would not replace VAC therapy over this area.
Follow-up with patient's neurosurgeon/spinal surgeon is imperative, but can be performed on an outpatient basis.
Chief Complaint
-: Leukocytosis
Subjective / Review of Systems
Review of Systems: No Fever and No Chills
Vital Signs / Physical Exam
Vital Signs
Vital Signs
Temp Pulse Resp BP Pulse Ox
97.9 F 100 16 96/53 90
06/09/24 07:04 06/09/24 10:00 06/09/24 10:00 06/09/24 10:00 06/09/24 10:00
Physical Exam
Constitutional: No Acute Distress, Comfortable, Chronically Ill and Non-toxic
Cardiovascular: S1/S2; Negative S3/S4
Pulmonary: Clear (anteriorly) and Non Labored
Gastrointestinal: Soft and Non Tender
Extremities: Edema (RUE)
Wound: Other (Thoracic wound dressed. No periwound erythema.)
Psychological: Calm
Lines: PICC (RUE no erythema)
Objective Data
Lab Data
Lab Results
06/09/24 03:55
06/09/24 03:55
Estimated Creat Clear 73 ml/min 06/09/24 03:55
Lactic Acid 2.2 mmol/L (0.7-2.0) H 06/07/24 10:38
Total Bilirubin Cancelled 06/08/24 01:02
AST Cancelled 06/08/24 01:02
ALT Cancelled 06/08/24 01:02
Alkaline Phosphatase Cancelled 06/08/24 01:02
Most recent labs reviewed.
Micro Results:
06/07/24 10:38 Blood Culture - Preliminary
Blood/Venous No Growth in 48 hours- Final report to follow
06/07/24 10:38 Urine Culture - Final
Urine Escherichia coli - ESBL
06/07/24 15:53 MRSA Screen - Final
Nose Staph aureus MRSA
06/07/24 10:38 Legionella Urinary Antigen - Final
Urine Negative for Legionella pneumophila Serogroup 1 antigen.
A negative result does not rule out the possiblity of
Legionella infection due to other serogroups or species of
Legionella. Clinical correlation is recommended.
Streptococcus pneumoniae Antigen (M - Final
Negative for Streptococcus pneumoniae antigen.
A negative result does not exclude infection with
Streptococcus pneumoniae. Clinical correlation is
recommended.
Imaging:
CXR (portable): Large patchy airspace opacities in the bilateral lung bases most concerning for pneumonia. Low lung volumes are noted. No large pleural effusion or pneumothorax seen. Chronic degenerative changes of the spine are noted. Bilateral
posterior paraspinal rods and pedicle screws in the thoracic spine. Please see full dictation for additional detail. Film personally viewed.
--- NOTE | 2024-06-09 11:21 | PTOTSP ---
Dysphagia Evaluation
Patient admitted with concern for aspiration PNA. Patient with history of dysphagia based on video swallow study 11/10/2023 (moderate oral and mild-moderate pharyngeal dysphagia, concern for esophageal dysphagia; puree and thin liquids recommended).
Today, no overt signs of oral/pharyngeal dysphagia or aspiration with puree or thin liquids. Patient c/o retrograde flow with puree through solids. Bottom up aspiration risk elevated. GI consult warranted.
Recommend:
1. IDDSI Level 4 Puree, IDDSI Level 0 Thin Liquids
2. Strategies: single sips/bites, slow rate, TUCK CHIN when swallowing liquids, alternate sips/bites, small frequent meals, remain upright for AT LEAST 30 minutes after intake as a reflux precaution
3. Oral care 3x daily
4. GI consult to assess esophageal stage of swallowing
5. Brief APPOINTMENT SCHEDULER f/u to assess with advanced solids if cleared by GI
--- NOTE | 2024-06-09 11:54 | VATNOTE ---
Called to assess right arm +3 edema. us ordered resulting +thrombus. Right picc dc'd . Noted left arm +2 edema recommended us to r/o thrombus. Will follow up closely.
[2024-06-09 12:03] LABS: Glucose - Point of Care 142 mg/dl (70-99)
[2024-06-09] MEDS: KCL 260 MEQ IV (12:07)
[2024-06-09] MEDS: VANCOCIN 200 IV (12:26)
--- NOTE | 2024-06-09 13:35 | CON.NS ---
Consultation
-
Date/Time Consultation Performed: 06/09/2024; 13:40
Performing Provider: Valente
Chief Complaint
History of Present Illness
This is a neurosurgical consultation on a 78-year-old gentleman with current medical issues including atrial fibrillation, congestive heart failure, hypertension, diabetes, peripheral neuropathy, spinal cord injury with vertebral fracture/thoracic
surgery 2021, who presents with hypoxemia on 06/07/2024. He has had known thoracic wounds for which wound VAC is being applied at the residential. He did not presents with a wound VAC to the emergency room during this presentation. He also has
stage III decubitus ulcer/thoracic wounds that been draining but been stable. He is not ambulatory at baseline. He is on Eliquis, and Plavix for reported paroxysmal atrial fibrillation. He was treated for septic shock primarily secondary to
likely aspiration pneumonia/UTI. Patient was seen by infectious disease, and infectious disease advised little to do regarding the chronic back wound, but likely that the patient has hardware infection. Per chart review, patient's primary
neurosurgeon is Dr. Barrios.
Patient seen and examined. Daughter is at bedside. Daughter provides much of history. Daughter reports that the patient is being treated at his nursing facility with wound care consult, and wound VAC. The patient did not present with his wound
VAC here to the hospital, because it is the facility's policy to leave the wound VAC at the facility and not to send the patient with the wound VAC.
The daughter reports that the patient has had close follow-up with the primary neurosurgeon, and last office visit was in April. Recommendations were made to continue with the wound VAC and dressing changes.
According to the daughter, the patient has had 2 prior wound revisions with the assistance of a plastic surgeon for this wound.
Review of Systems
-
10 point review of systems was performed including constitutional, ENT, cardiovascular, respiratory, GI, , neurologic, endocrinologic, hematologic and was negative, except for stated in HPI.
Medication and Allergies
Home Medications
Home Medications
�Medication �Instructions �Recorded
amiodarone 200 mg tablet 200 mg PO DAILY Arrhythmia 11/08/23
atorvastatin 80 mg tablet 80 mg PO DAILY High Cholesterol 11/08/23
bisacodyl 10 mg rectal suppository 10 mg NC DAILYPRN PRN if MOM 11/08/23
ineffective
clopidogrel 75 mg tablet 75 mg PO DAILY Blood Clot 11/08/23
Prevention/Tx
doxepin 50 mg capsule 50 mg PO DAILY Mental 11/08/23
Health/Anxiety
ipratropium 0.5 mg-albuterol 3 mg 3 ml inhalation R Q4HPRN PRN sob 11/08/23
(2.5 mg base)/3 mL nebulization
soln
isosorbide mononitrate 30 mg 30 mg PO DAILY Heart 11/08/23
tablet,extended release 24 hr Disease/Condition
losartan 25 mg tablet 25 mg PO DAILY Blood Pressure 11/08/23
magnesium hydroxide 400 mg/5 mL 30 ml PO HSPRN PRN if no BM in 3 11/08/23
oral suspension (Milk of MagnPrePay) days
metformin 500 mg tablet 500 mg PO DAILY Diabetes 11/08/23
ondansetron HCl 4 mg tablet 4 mg PO Q6HPRN PRN nausea/vomiting 11/08/23
spironolactone 25 mg tablet 12.5 mg PO DAILY Fluid 11/08/23
Retention/Swelling
apixaban 5 mg tablet 5 mg PO BID Blood Clot 04/26/24
Prevention/Tx
cholecalciferol (vitamin D3) 25 25 mcg PO DAILY Supplement 04/26/24
mcg (1,000 unit) tablet
docusate sodium 100 mg capsule 100 mg PO BID Constipation 04/26/24
sennosides 8.6 mg tablet (senna) 8.6 mg PO HS Constipation 04/26/24
acetaminophen 500 mg tablet 1,000 mg PO HS Pain 06/07/24
gabapentin 600 mg tablet 600 mg PO TID Pain 06/07/24
therapeutic multivitamin 1 tab PO DAILY Supplement 06/07/24
carvedilol 3.125 mg tablet 3.125 mg PO BID Blood Pressure 06/08/24
Allergies
Allergies
Allergy/AdvReac Type Severity Reaction Status Date / Time
JEFFERSON Inhibitors Allergy Unknown Verified 01/21/24 15:15
codeine Allergy Unknown Verified 01/21/24 15:15
diphth,pert(acell),tetan,polio Allergy Unknown Verified 01/21/24 15:15
vacc,component 1of2
[From Pentacel DTaP-IPV
Compnt (PF)]
Penicillins Allergy Unknown Verified 01/21/24 15:15
Physical Exam
-
Exam:
Awake, alert, no apparent distress.
Cranial nerves II to XII grossly intact
Motor: 5/5 strength bilaterally in upper extremities.
Lower extremities: 0/5 strength
Mid thoracic wound: Mepilex dressing is applied, dressing removed, there are areas of packing and 2 separate paraspinal regions. These were not removed. No obvious evidence of purulent drainage or foul-smelling drainage is noted. Skin edges are
not noted to be indurated or erythematous.
Chest x-ray performed on 06/08/2024 demonstrates that there is evidence of 7 level thoracic stabilization/fusion with evidence of bone cement noted at multiple vertebral levels.
Problems
-
Problem Status Onset Code
Acute UTI N39.0
Pneumonia J18.9
Septic shock A41.9, R65.21
Assessment / Plan
-
This is a 78-year-old gentleman that presents with septic shock, likely secondary to aspiration pneumonia. Patient also has several nonhealing wounds, including dehiscence/skin breakdown over thoracic hardware/wound, as well as sacral decubitus
ulcers.
Patient has established neurosurgeon at [place]. Dr. Barrios, per chart review, and per the daughter, who is at bedside, the patient follows up regularly with this neurosurgeon.
Patient's chronic nonhealing wounds are not the cause of the patient's current admission symptomatology.
Recommend follow-up with primary neurosurgeon regarding wound management. Continue with wound VAC at the facility as originally planned.
No urgent neurosurgical intervention indicated at present time.
--- NOTE | 2024-06-09 14:04 | PTCARENOTE ---
Estela just completed via L wrist/hand area; K+ rider currently infusing. Still await US of GREG. Dr Guaman made aware. Await PTT and CBC results prior to starting heparin infusion.
[2024-06-09 14:08] LABS: Hematocrit 30.9 % (39.0-52.0); Hemoglobin 10.2 g/dL (13.0-18.0); Mean Corpuscular Hgb 29.1 pg (27.0-31.0); Mean Corpuscular Volume 88.3 fL (80.0-94.0); Mean Platelet Volume 8.7 fL (7.4-10.4); Platelet Count 169 10^3/uL (130-400); Red Cell Dist. Width 21.1 % (11.5-14.5); White Blood Cell Count 11.2 10^3/uL (4.8-10.8)
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
[2024-06-09 14:21] LABS: APTT 55.1 Sec (23.4-35.0)
[2024-06-09] MEDS: HEPARIN 25000 UNITS/250 ML IV (15:09)
--- NOTE | 2024-06-09 15:39 | PN.CDI ---
CDI
- -
CDI:
Physician Documentation Request
Admit Date: 06/07/24 12:43
Dear Doctor Deniz,
Hospitalist progress notes state 'Stage III sacral decubitus ulcer....2 more stage II ulcers noted on the thoracic spine'
Pressure injuries noted by WOCN ' L back unstageable pressure injury with a stage 2. L lower back with stage 2 pressure injury L lateral heel stage 2 scabbed pressure injury.
Physician documentation of the type and location of wounds is required for compliant documentation. Based on the above clinical findings and your assessment, please clarify the following in your progress note:
1. Location of the ulcer/wound, including laterality.
2. Type (etiology) of ulcer/wound:
- Diabetic ulcer
- Arterial (ischemic) ulcer
- Traumatic wound
- Venous stasis ulcer
- Pressure (decubitus) ulcer
- Non-healing surgical wound
- Other
3. If a pressure ulcer, please also clarify stage* of the ulcer:
- Stage 2 - Partial thickness loss of dermis, includes intact or open blister
- Stage 3 - Full thickness tissue not including bone, tendon or muscle
Use of terms such as suspected, likely, concern for, or probable (associated with a specific diagnosis that is being evaluated, monitored, or treated as if it exists) are acceptable and can be coded in the inpatient setting, when documented at the
time of discharge.
Thank you,
Jessica Godinez RN, BSN
CDI Specialist
tiger text
Please use your independent medical judgment in providing your response.
*Source: National Pressure Ulcer Advisory Panel (NPUAP)
--- NOTE | 2024-06-09 15:50 | PN.CDI ---
CDI
- -
CDI:
Physician Documentation Request
Admit Date: 06/07/24 12:43
Dear Doctor Deniz,
Hospitalist progress notes state 'Stage III sacral decubitus ulcer....2 more stage II ulcers noted on the thoracic spine'
Pressure injuries noted by WOCN ' L back unstageable pressure injury with a stage 2. L lower back with stage 2 pressure injury L lateral heel stage 2 scabbed pressure injury.
Physician documentation of the type and location of wounds is required for compliant documentation. Based on the above clinical findings and your assessment, please clarify the following in your progress note:
1. Location of the ulcer/wound, including laterality.
2. If a pressure ulcer, please also clarify stage* of the ulcer:
- Stage 2 - Partial thickness loss of dermis, includes intact or open blister
- Stage 3 - Full thickness tissue not including bone, tendon or muscle
Use of terms such as suspected, likely, concern for, or probable (associated with a specific diagnosis that is being evaluated, monitored, or treated as if it exists) are acceptable and can be coded in the inpatient setting, when documented at the
time of discharge.
Thank you,
Jessica Godinez RN, BSN
CDI Specialist
tiger text
Please use your independent medical judgment in providing your response.
*Source: National Pressure Ulcer Advisory Panel (NPUAP)
--- NOTE | 2024-06-09 16:04 | PTCARENOTE ---
Addendum entered by Jenniffer Cope RN 06/09/24 16:07:
[place] text sent to both Dr Mahan and Dr Guaman aware that US completed with results pending. They consulted [facility].
Original Note:
Heparin initiated in L hand/wrist IV with LR @80ml/hr and K+ rider infusing at 75ml/hr d/t patient unable to tolerated at faster rate. Heparin cosigned with Katherine Leija. US GARZA completed; pending results. Patient and daughter updated.
--- NOTE | 2024-06-09 16:11 | PTCARENOTE ---
This nurse spoke with Peg STALLWORTH in [facility]. Transport called to take patient.
--- NOTE | 2024-06-09 16:38 | WOUNDNOTE ---
[facility] RN note: Discussed case with Dr. David Mahan who was in agreement to continue patient's back wound care with Vashe moistened gauze packing and to place 'resume prior wound care as ordered by your wound vehicle care specialist and neurosurgeon' in the
discharge instructions (placed under 'additional instructions'). Kp texted Dr. Martinez who was also in agreement.
[2024-06-09 18:28] LABS: Glucose - Point of Care 137 mg/dl (70-99)
[2024-06-09] MEDS: DULCOLAX 10 MG RECTAL (18:31)
[2024-06-09] MEDS: TYLENOL 1000 MG PO (21:19)
[2024-06-09] MEDS: SENOKOT 8.6 MG PO (21:19)
[2024-06-09 22:08] LABS: APTT > 200 Sec (23.4-35.0)
[2024-06-09 23:05] LABS: Glucose - Point of Care 119 mg/dl (70-99)
[2024-06-10] VITALS (46 sets, daily range): BP systolic 87–114; BP diastolic 57–76
[2024-06-10] MEDS: MAXIPIME 1000 MG IV ×2 (00:08→05:26)
[2024-06-10] MEDS: STERILE WATER FOR INJECTION 10 ML IV ×2 (00:08→05:26)
--- NOTE | 2024-06-10 02:21 | PTCARENOTE ---
Assumed care of patient from previous RN. 2100 ptt came back as greater than 200, FISH DRESSING MACHINE FEEDER notified and gtt turned off for two hours then decreased by 3. Heparin currently running at 9.
[2024-06-10 06:17] LABS: APTT 126.4 Sec (23.4-35.0)
[2024-06-10 06:44] LABS: Vancomycin Random 17.4 ug/ml
--- NOTE | 2024-06-10 06:53 | W.PN.UPDATE ---
Update Note
Progress Note Update
late note 06/08/202299
RN addressed swelling of Right arm. right arm swelling noted, mild warmth, no redness. New PICC Right upper arm today. patient with mild tenderness with movement. Will order US Right arm.
--- NOTE | 2024-06-10 07:39 | PHA.VAN.FU ---
Vancomycin Assessment / Plan
- Assessment
Renal Function: No New Labs Today
In the past 24 hrs, patient has been: Afebrile
Concomitant Antimicrobials: Cefepime
- Assessment - Therapeutic Drug Monitoring
Random Level: R = 17.4 ~ 17hrs post Vanc 1gm
- Dosing Plan
Continue: Dose by level
Dosing by Level: Hold off on dosing today
- Monitoring Plan
Random Level: 12/8 AM
- Follow Up
Pharmacy will continue to follow.
Vancomycin Follow UP
- -
Patient Age: 78
Patient Sex: Male
Vancomycin Day #: 4
Indication: Pulmonary/Respiratory
Requesting Provider: Dr. Degroot
Pertinent Antimicrobial Allergies:
Penicillins - Unknown
Height / Weight:
Height 5 ft 8 in
Actual Weight 67.4 kg
Pertinent Past Medical History: DM; 04/26/24 ADMIT FOR ASPIRATION PNA
- Vital Signs / Lab Results
Temp Pulse Resp BP Pulse Ox
97.9 F 100 14 102/67 97
06/10/24 04:35 06/10/24 06:00 06/10/24 06:00 06/10/24 06:00 06/10/24 06:00
Lab Results - Hematology
06/07/24 06/08/24 06/09/24
09:58 01:01 03:55
WBC 15.4 H 14.0 H 9.8
Band Neutrophils 26 H
06/09/24
13:56
WBC 11.2 H
Band Neutrophils
Lab Results - Chemistry
06/07/24 06/07/24 06/08/24
09:58 10:38 01:01
BUN Cancelled 28 H 29 H
Creatinine Cancelled 1.2 0.9
Estimated Creat Clear Cancelled 47 64
Albumin Cancelled 1.9 L 1.8 L
06/08/24 06/08/24 06/09/24
01:02 13:52 03:55
BUN Cancelled 26 H 25 H
Creatinine Cancelled 0.8 0.8
Estimated Creat Clear Cancelled 73 73
Albumin Cancelled
06/07/24
10:38
Lactic Acid 2.2 H
Microbiology Results
06/07/24 10:38 Blood Culture - Preliminary
Blood/Venous No Growth in 48 hours- Final report to follow
06/07/24 10:38 Urine Culture - Final
Urine Escherichia coli - ESBL
06/07/24 15:53 MRSA Screen - Final
Nose Staph aureus MRSA
06/07/24 10:38 Legionella Urinary Antigen - Final
Urine Negative for Legionella pneumophila Serogroup 1 antigen.
A negative result does not rule out the possiblity of
Legionella infection due to other serogroups or species of
Legionella. Clinical correlation is recommended.
Streptococcus pneumoniae Antigen (M - Final
Negative for Streptococcus pneumoniae antigen.
A negative result does not exclude infection with
Streptococcus pneumoniae. Clinical correlation is
recommended.
Therapeutic Drug Monitoring
Random Vancomycin 17.4 ug/ml 06/10/24 05:24
--- NOTE | 2024-06-10 07:59 | W.PN.ID1 ---
Date of Service
Date of Service: June 10, 2024
Today's Communication
Continue antibiotics. See below�
Assessment / Plan
Leukocytosis
Suspected aspiration pneumonia
Fever
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
Hypertension
Chronic HFpEF
CKD III
Atrial Fibrillation
Paraplegia (Traumatic SCI; 2021)
DM-II
GERD
BPH
Recommendations:
MRSA screen positive. Urine culture with ESBL E. coli.
White count increased slightly today.
Continue with vancomycin. Transition to cefepime to ertapenem.
Await possible sputum culture (ordered, but not collected yet).
Follow white count and temperature curve.
Monitor pending cultures.
At present, little to do regarding the chronic back wound. The area appears clear, but clinically the hardware is infected given its exposure to the outside environment.
Would not replace VAC therapy over this area.
Follow-up with patient's neurosurgeon/spinal surgeon is imperative, but can be performed on an outpatient basis.
����������������������������������������������������������
Chief Complaint
-: Leukocytosis
Subjective / Review of Systems
Review of Systems: No Fever and No Chills
Vital Signs / Physical Exam
Vital Signs
Vital Signs
Temp Pulse Resp BP Pulse Ox
97.9 F 100 14 102/67 97
06/10/24 04:35 06/10/24 06:00 06/10/24 06:00 06/10/24 06:00 06/10/24 06:00
Physical Exam
Constitutional: No Acute Distress, Comfortable, Chronically Ill and Non-toxic
Cardiovascular: S1/S2; Negative S3/S4
Pulmonary: Clear (anteriorly) and Non Labored
Gastrointestinal: Soft and Non Tender
Extremities: Edema (RUE)
Wound: Other (Posterior thoracic spine wound dressed. No periwound erythema.)
Neurological: Awake and Alert
Psychological: Calm
Lines: PICC (RUE no erythema)
Objective Data
Lab Data
Lab Results
06/09/24 13:56
06/09/24 03:55
APTT 126.4 Sec (23.4-35.0) H 06/10/24 05:24
Estimated Creat Clear 73 ml/min 06/09/24 03:55
Lactic Acid 2.2 mmol/L (0.7-2.0) H 06/07/24 10:38
Total Bilirubin Cancelled 06/08/24 01:02
AST Cancelled 06/08/24 01:02
ALT Cancelled 06/08/24 01:02
Alkaline Phosphatase Cancelled 06/08/24 01:02
Most recent labs reviewed.
Micro Results:
06/07/24 10:38 Blood Culture - Preliminary
Blood/Venous No Growth in 48 hours- Final report to follow
06/07/24 10:38 Urine Culture - Final
Urine Escherichia coli - ESBL
06/07/24 15:53 MRSA Screen - Final
Nose Staph aureus MRSA
06/07/24 10:38 Legionella Urinary Antigen - Final
Urine Negative for Legionella pneumophila Serogroup 1 antigen.
A negative result does not rule out the possiblity of
Legionella infection due to other serogroups or species of
Legionella. Clinical correlation is recommended.
Streptococcus pneumoniae Antigen (M - Final
Negative for Streptococcus pneumoniae antigen.
A negative result does not exclude infection with
Streptococcus pneumoniae. Clinical correlation is
recommended.
Imaging:
CXR (portable): Large patchy airspace opacities in the bilateral lung bases most concerning for pneumonia. Low lung volumes are noted. No large pleural effusion or pneumothorax seen. Chronic degenerative changes of the spine are noted. Bilateral
posterior paraspinal rods and pedicle screws in the thoracic spine. Please see full dictation for additional detail. Film personally viewed.
--- NOTE | 2024-06-10 08:00 | PTCARENOTE ---
received patient at change of shift from previous RN. Pt drowsy, arouses to voice. Orientedx1- disoriented to time and place. very forgetful, needs frequent reminders. SR/ST on telemetry heart rate 90-low 100s. heparin gtt infusing per protocol.
pulses weakly palpable. right arm with +2 edema, greater than left +1. active bowel sounds, pt reports poor appetite. pt on 2L nasal cannula, sat 96%. lung sounds diminished. turner draining yellow cloudy urine. wound dressing intact. see worklist
for full nursing assessment and interventions. pt updated on plan of care.
[2024-06-10] MEDS: PLAVIX 75 MG PO (08:17)
[2024-06-10] MEDS: LIPITOR 80 MG PO (08:17)
[2024-06-10] MEDS: VITAMIN D3 (cholecalciferol) 25 MCG PO (08:17)
[2024-06-10] MEDS: NOVOLOG FLEXPEN-LOW RESISTANCE SC ×3 (08:17→16:47)
[2024-06-10] MEDS: NEURONTIN 300 MG PO ×3 (08:17→20:11)
[2024-06-10] MEDS: THERAGRAN 1 TABLET PO (08:17)
[2024-06-10] MEDS: PROTONIX 40 MG PO (08:17)
[2024-06-10] MEDS: PACERONE 200 MG PO (08:17)
[2024-06-10] MEDS: COLACE 100 MG PO ×2 (08:18→20:14)
[2024-06-10 08:27] LABS: Glucose - Point of Care 126 mg/dl (70-99)
--- NOTE | 2024-06-10 09:21 | CON.ONC ---
Impression
Impression
Septic shock/acute hypoxemic respiratory failure secondary to aspiration pneumonia
Atrial fibrillation on Eliquis as outpatient
Superficial right upper extremity thromboses, PICC associated left upper extremity DVT
Plan
Plan
I would not say this is an Eliquis failure. Patient developed DVT in the right arm in the setting of PICC line and septic shock. Superficial clots in the left arm likely also secondary to IV access, blood draws, etc.
PICC line has been removed
Would continue heparin for now
As clinical status improves, would switch back to Eliquis, with loading dose of 10 mg twice daily for 1 week, then back to Eliquis 5 mg twice daily
Hematology will sign off. Please call with any specific questions.
Patient History
History of Present Illness
Asked to see patient regarding blood clots; question Eliquis failure
This is a 78-year-old man who presented from [facility] with hypoxemia, and productive cough. He was admitted to the hospital month prior for aspiration pneumonia. Despite instructions to follow pur�ed diet, he had been [facility]. He was admitted to the hospital with septic shock and acute hypoxemic respiratory failure secondary to aspiration pneumonia; chest x-ray showed large patchy airspace opacities in the bilateral lung bases.
Medical history is noted for atrial fibrillation, maintained on Eliquis. 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 He is
bedbound.
Since admission, he was found to have superficial thrombosis in the right cephalic and right basilic vein. He was also then found to have DVT in the left brachial vein and superficial thrombus in the left basilic vein in the setting of PICC line,
which now has been removed. He is currently on heparin.
He denies bleeding. He denies any prior history of thromboses.
Past-Medical/Surgical History
Past medical and surgical history is as per the HPI, also includes hypertension, HFpEF, diabetes, BPH, peripheral neuropathy, depression
Patient Medication
�Medication �Instructions �Recorded �Confirmed �Last Taken �Type
amiodarone 200 mg tablet 200 mg PO DAILY Arrhythmia 11/08/23 06/07/24 Unknown History
atorvastatin 80 mg tablet 80 mg PO DAILY High Cholesterol 11/08/23 06/07/24 Unknown History
bisacodyl 10 mg rectal suppository 10 mg IN DAILYPRN PRN if MOM 11/08/23 06/07/24 Unknown History
ineffective
clopidogrel 75 mg tablet 75 mg PO DAILY Blood Clot 11/08/23 06/07/24 Unknown History
Prevention/Tx
doxepin 50 mg capsule 50 mg PO DAILY Mental 11/08/23 06/07/24 Unknown History
Health/Anxiety
ipratropium 0.5 mg-albuterol 3 mg 3 ml inhalation R Q4HPRN PRN sob 11/08/23 06/07/24 Unknown History
(2.5 mg base)/3 mL nebulization
soln
isosorbide mononitrate 30 mg 30 mg PO DAILY Heart 11/08/23 06/07/24 Unknown History
tablet,extended release 24 hr Disease/Condition
losartan 25 mg tablet 25 mg PO DAILY Blood Pressure 11/08/23 06/07/24 Unknown History
magnesium hydroxide 400 mg/5 mL 30 ml PO HSPRN PRN if no BM in 3 11/08/23 06/07/24 Unknown History
oral suspension (Milk of Magnesia) days
metformin 500 mg tablet 500 mg PO DAILY Diabetes 11/08/23 06/07/24 Unknown History
ondansetron HCl 4 mg tablet 4 mg PO Q6HPRN PRN nausea/vomiting 11/08/23 06/07/24 Unknown History
spironolactone 25 mg tablet 12.5 mg PO DAILY Fluid 11/08/23 06/07/24 Unknown History
Retention/Swelling
apixaban 5 mg tablet 5 mg PO BID Blood Clot 04/26/24 06/07/24 Unknown History
Prevention/Tx
cholecalciferol (vitamin D3) 25 25 mcg PO DAILY Supplement 04/26/24 06/07/24 Unknown History
mcg (1,000 unit) tablet
docusate sodium 100 mg capsule 100 mg PO BID Constipation 04/26/24 06/07/24 Unknown History
sennosides 8.6 mg tablet (senna) 8.6 mg PO HS Constipation 04/26/24 06/07/24 Unknown History
acetaminophen 500 mg tablet 1,000 mg PO HS Pain 06/07/24 06/07/24 Unknown History
gabapentin 600 mg tablet 600 mg PO TID Pain 06/07/24 06/07/24 Unknown History
therapeutic multivitamin 1 tab PO DAILY Supplement 06/07/24 06/07/24 Unknown History
carvedilol 3.125 mg tablet 3.125 mg PO BID Blood Pressure 06/08/24 06/07/24 Unknown History
Active Medications
Generic Name Dose Route Start Last Admin
Trade Name Freq PRN Reason Stop Dose Admin
Acetaminophen 1,000 mg 06/07/24 22:00 06/09/24 21:19
Acetaminophen 500 Mg Tablet PO 07/05/24 21:59 1,000 mg
HS RIVER Administration
Acetaminophen 650 mg 06/09/24 14:20
Acetaminophen 325 Mg Tablet PO 07/07/24 14:19
Q6HPRN PRN
mild pain/ fever>100.5F
Albuterol/Ipratropium 3 ml 06/07/24 15:49
Ipratropium 0.5/Albuterol 3 Mg (3 Ml Ampul) INH
R Q4HPRN PRN
sob
Protocol
Amiodarone HCl 200 mg 06/08/24 08:00 06/10/24 08:17
Amiodarone 200 Mg Tablet PO 07/06/24 07:59 200 mg
DAILY RIVER Administration
Atorvastatin Calcium 80 mg 06/08/24 08:00 06/10/24 08:17
Atorvastatin (Lipitor) 80 Mg Tablet PO 07/06/24 07:59 80 mg
DAILY RIVER Administration
Bisacodyl 10 mg 06/09/24 15:28
Bisacodyl 10 Mg Rectal Suppository RECTAL 07/07/24 15:27
[id number] PRN
constipation
Cholecalciferol 25 mcg 06/08/24 08:00 06/10/24 08:17
Cholecalciferol (Vitamin D3) 25 Mcg Tablet (1,000 Units) PO 07/06/24 07:59 25 mcg
DAILY RIVER Administration
Clopidogrel Bisulfate 75 mg 06/08/24 08:00 06/10/24 08:17
Clopidogrel 75 Mg Tablet PO 07/06/24 07:59 75 mg
DAILY RIVER Administration
Dextrose 12.5 grams 06/07/24 15:49
Dextrose 50% (0.5 Grams/Ml) 50 Ml Syringe IV 07/05/24 15:48
[id number] PRN
hypoglycemia
Protocol
Docusate Sodium 100 mg 06/07/24 20:00 06/10/24 08:18
Docusate Sodium 100 Mg Capsule PO 07/05/24 19:59 100 mg
BID RIVER Administration
Gabapentin 300 mg 06/07/24 16:30 06/10/24 08:17
Gabapentin 300 Mg Capsule PO 07/05/24 16:29 300 mg
TID RIVER Administration
Glucagon 1 mg 06/07/24 15:49
Glucagon 1 Mg Vial IM 07/05/24 15:48
PRN PRN
hypoglycemia
Protocol
Heparin Sodium 5,400 units 06/09/24 19:00
Heparin 80 Units/Kg Iv Rebolus IV 07/07/24 18:59
PRN PRN
PTT < OR = 64 seconds
Heparin Sodium 2,700 units 06/09/24 19:00
Heparin 40 Units/Kg Iv Rebolus IV 07/07/24 18:59
PRN PRN
PTT = 64.1 to 72.9 seconds
Vancomycin HCl 1 each/ Device 0 mls @ 0 mls/hr 06/08/24 12:00
IV
PER PROTOCOL RIVER
Protocol
As Directed
Heparin Sodium 25,000 units in 250 mls @ 0 mls/hr 06/09/24 12:45 06/09/24 15:09
Heparin 21766 Units/250 Ml IV 250 mls
PER PROTOCOL RIVER Administration
Protocol
Per Protocol
Ertapenem 1,000 mg/ Sodium 60 mls @ 120 mls/hr 06/10/24 10:00
Chloride IV
Q24H RIVER
Insulin Aspart 0 units 06/07/24 16:30 06/10/24 08:17
Insulin Aspart Low Resistance 300 Units/3 Ml Pen.Injctr SC 07/05/24 16:29 Not Given
AC RIVER
Protocol
Magnesium Hydroxide 30 ml 06/07/24 15:49
Milk Of Magnesia 30 Ml Cup PO 07/05/24 15:48
HSPRN PRN
if no BM in 3 days
Miconazole Nitrate 0 applic 06/08/24 10:28
Miconazole 2% (Same As Aloe [place]) Ointment Tube TOPICAL 07/06/24 10:27
BIDPRN PRN
yeasty red skin
Multivitamins Therapeutic 1 tablet 06/08/24 08:00 06/10/24 08:17
Multivitamin Tablet PO 07/06/24 07:59 1 tablet
DAILY RIVER Administration
Ondansetron HCl 4 mg 06/07/24 15:49
Ondansetron 4 Mg Tablet PO 07/05/24 15:48
Q6HPRN PRN
nausea/vomiting
Pantoprazole Sodium 40 mg 06/10/24 08:00 06/10/24 08:17
Pantoprazole 40 Mg Delayed Release Tablet PO 07/08/24 07:59 40 mg
DAILY RIVER Administration
Sennosides 8.6 mg 06/07/24 22:00 06/09/24 21:19
Sennosides (Senokot) 8.6 Mg Tablet PO 07/05/24 21:59 8.6 mg
HS RIVER Administration
Sodium Chloride 0 flush 06/07/24 17:00
Sodium Chloride 0.9% (Flush) Syringe IV 07/05/24 16:59
PER PROTOCOL RIVER
Review of Systems
-
All Other Systems: Not reviewed unless documented
Physical Exam
-
General: Conversant and Appears Chronically Ill
Pulmonary: Rhonchi
Musculoskeletal: Edema, Right Upper Extrem; Negative Edema. Left Upper Extrem
Skin: IV Access / Catheter Site (Left IJ triple-lumen catheter, left hand peripheral IV); Negative No Ecchymosis
Psych: Calm
Labs
Lab Results
WBC 11.2 10^3/uL (4.8-10.8) H 06/09/24 13:56
RBC 3.50 10^6/uL (4.70-6.10) L 06/09/24 13:56
Hgb 10.2 g/dL (13.0-18.0) L 06/09/24 13:56
Hct 30.9 % (39.0-52.0) L 06/09/24 13:56
MCV 88.3 fL (80.0-94.0) 06/09/24 13:56
MCH 29.1 pg (27.0-31.0) 06/09/24 13:56
MCHC 33.0 g/dL (33.0-37.0) 06/09/24 13:56
RDW 21.1 % (11.5-14.5) H 06/09/24 13:56
Plt Count 169 10^3/uL (130-400) 06/09/24 13:56
MPV 8.7 fL (7.4-10.4) 06/09/24 13:56
Abs Immat Gran (auto) 0.1 10^3/uL (0-0.05) H 06/09/24 03:55
Absolute Neuts (auto) 8.0 10^3/uL (1.4-6.5) H 06/09/24 03:55
Absolute Lymphs (auto) 0.7 10^3/uL (1.2-3.4) L 06/09/24 03:55
Absolute Monos (auto) 0.8 10^3/uL (0.1-0.6) H 06/09/24 03:55
Absolute Eos (auto) 0.2 10^3/uL (0-0.7) 06/09/24 03:55
Absolute Basos (auto) 0.0 10^3/uL (0-0.2) 06/09/24 03:55
Immature Gran % 0.7 % (0-0.5) H 06/09/24 03:55
Neutrophils % 82.3 % (42.2-75.2) H 06/09/24 03:55
Lymphocytes % 7.0 % (20.5-51.1) L 06/09/24 03:55
Monocytes % 8.0 % (1.7-9.3) 06/09/24 03:55
Eosinophils % 1.8 % (0-6) 06/09/24 03:55
Basophils % 0.2 % (0-2) 06/09/24 03:55
Creatinine 0.8 mg/dL (0.7-1.3) 06/09/24 03:55
Vital Signs
Vital Signs
Temp Pulse Resp BP Pulse Ox
97.9 F 105 14 109/60 97
06/10/24 04:35 06/10/24 08:17 06/10/24 06:00 06/10/24 08:17 06/10/24 06:00
[2024-06-10] MEDS: INVANZ 60 MG IV (10:09)
[2024-06-10] MEDS: TORADOL 15 MG IV (11:10)
[2024-06-10 12:20] LABS: Glucose - Point of Care 137 mg/dl (70-99)
[2024-06-10] MEDS: TYLENOL 650 MG PO (12:37)
[2024-06-10 13:01] LABS: APTT 122.8 Sec (23.4-35.0)
--- NOTE | 2024-06-10 14:09 | W.PN.HOSP.TC ---
Today's Communication/Plan
-
Assessment / Plan
Assessment / Plan
Physical Exam
NAD, resting comfortably in bed. tempora lwasting, muscle atrophy
Scleral anicteric, correective lens
Moist mucous membranes
No JVD, Left IJ CVC
CTA bilateral
Normal S1-S2 no murmurs
Soft nontender nondistended bowel sounds active
LUE swelling worse then thr RUE swelling
No peripheral pitting edema
Moves extremities spontaneously
AAO
left UE DVT +
-start hep gtt
-IR consult For Left IJ CVC
-Per hem this is not eliquis failure in 48-72hours transition back to eliquis
septic shock secondary to suspected aspiration pna
-ivf
-iv pressor support, wean as toelrated
-map >65
-iv atb - vanc. per ID change cefe to ertapenem
-sptum cx ordered not collected though
-ucx - esbl ecoli
-legionella/strep neg
-bcx ngtd
-id following
ARF-Hypoxia related to aspiration
-wean o2 as tolerated
-goal spo2 >90%
-ivatb
-sputum culture
-incentive go
superficial venuos thrombosis
-cephalic and basilic
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
Spinal hardware with retirement wound vac on for 2yr
-neurosurgeon out of [place]
-consult nsgy as this could be potential source of infection
--does not believe back wound/spinal hardware is the source of infection, continue vac and outpatient follow up with primary neurosurgeon
PAfib
-Continue amio
-Continue eliquis
HTN
-Continue antihypertensives
Anticipated Discharge: > 48 hours
Subjective/Interval History
-
Date of Service: June 10, 2024
seen and examined
no new compalits
some pain over his backside wound
-asking for pain meds
no acute ovenright events
no new complaints.
Objective Data
-
Labs:
Laboratory Results
06/10/24 06/10/24
05:24 12:22
APTT 126.4 H 122.8 H
Vital Signs:
Vital Signs
Temp Pulse Resp BP Pulse Ox
97.8 F 114 18 107/66 96
06/10/24 13:16 06/10/24 10:00 06/10/24 10:00 06/10/24 10:00 06/10/24 10:00
I&O
06/09/24 06/10/24 06/11/24
06:59 06:59 06:59
Output Total 500 / 500 450 / 450
Balance -500 / -500 -450 / -450
--- NOTE | 2024-06-10 16:15 | PTCARENOTE ---
pt with very poor appetite, not eating or drinking. pt also requesting something for back pain- notified hospitalist, no new orders at this time.
[2024-06-10 16:43] LABS: Glucose - Point of Care 121 mg/dl (70-99)
[2024-06-10] MEDS: HEPARIN 25000 UNITS/250 ML IV (18:06)
[2024-06-10] MEDS: SENOKOT 8.6 MG PO (20:10)
[2024-06-10] MEDS: TYLENOL 1000 MG PO (20:11)
[2024-06-10] MEDS: DESENEX/MITRAZOL/ZEASORB 1 APPLIC TOPICAL (20:11)
[2024-06-10 20:54] LABS: APTT 115.5 Sec (23.4-35.0)
[2024-06-10 21:41] LABS: Glucose - Point of Care 124 mg/dl (70-99)
--- NOTE | 2024-06-10 22:30 | PTCARENOTE ---
Received pt from day shift. Pt ox1 (to self). NSR on monitor. Heparin gtt running at 7 mL (see worklist). CHG cloths and hygiene completed. Pt resting in bed with call harrison in reach.
[2024-06-11] VITALS (23 sets, daily range): BP systolic 95–126; BP diastolic 56–80
[2024-06-11 04:01] LABS: Hematocrit 25.8 % (39.0-52.0); Hemoglobin 8.8 g/dL (13.0-18.0); Mean Corp Hgb Conc. 34.1 g/dL (33.0-37.0); Mean Corpuscular Hgb 29.4 pg (27.0-31.0); Mean Corpuscular Volume 86.3 fL (80.0-94.0); Mean Platelet Volume 9.2 fL (7.4-10.4); Platelet Count 172 10^3/uL (130-400); Red Blood Cell Count 2.99 10^6/uL (4.70-6.10); White Blood Cell Count 10.4 10^3/uL (4.8-10.8)
[2024-06-11 04:12] LABS: APTT 96.5 Sec (23.4-35.0)
[2024-06-11 04:27] LABS: Blood Urea Nitrogen 27 mg/dl (9-20); Calcium 7.2 mg/dl (8.4-10.2); Carbon Dioxide 17 mmol/L (22-30); Chloride 105 mmol/L (98-107); Estimated Creatinine Clearance 58 ml/min; Glucose 105 mg/dl (70-99); Potassium 3.6 mmol/L (3.5-5.1); Sodium 131 mmol/L (135-145); eGFR > 60.00
[2024-06-11 04:34] LABS: Vancomycin Random 15.3 ug/ml
--- NOTE | 2024-06-11 07:58 | PHA.VAN.FU ---
Vancomycin Assessment / Plan
- Assessment
Renal Function: SCR Increasing
WBC's are: Trending Down
In the past 24 hrs, patient has been: Afebrile
Concomitant Antimicrobials: Ertapenem
- Assessment - Therapeutic Drug Monitoring
Random Level: R = 15.3 ~ 39 hours post Vanc 1gm
- Dosing Plan
Continue: Dose by level
Dosing by Level: Hold off on dosing today
- Monitoring Plan
Random Level: 12/9 AM
- Follow Up
Pharmacy will continue to follow.
Vancomycin Follow UP
- -
Patient Age: 78
Patient Sex: Male
Vancomycin Day #: 5
Indication: Pulmonary/Respiratory
Requesting Provider: Dr. Degroot
Pertinent Antimicrobial Allergies:
Penicillins - Unknown
Height / Weight:
Height 5 ft 8 in
Actual Weight 67.4 kg
Pertinent Past Medical History: DM; 04/26/24 ADMIT FOR ASPIRATION PNA
- Vital Signs / Lab Results
Temp Pulse Resp BP Pulse Ox
97.5 F 93 15 114/74 98
06/11/24 03:21 06/11/24 07:34 06/11/24 07:34 06/11/24 07:34 06/11/24 07:34
Lab Results - Hematology
06/09/24 06/09/24 06/11/24
03:55 13:56 03:35
WBC 9.8 11.2 H 10.4
Lab Results - Chemistry
06/08/24 06/09/24 06/11/24
13:52 03:55 03:35
BUN 26 H 25 H 27 H
Creatinine 0.8 0.8 1.0
Estimated Creat Clear 73 73 58
Microbiology Results
06/10/24 12:24 Gram Stain - Preliminary
Sputum
06/07/24 10:38 Blood Culture - Preliminary
Blood/Venous No Growth in 72 hours- Final report to follow
06/07/24 10:38 Urine Culture - Final
Urine Escherichia coli - ESBL
06/07/24 15:53 MRSA Screen - Final
Nose Staph aureus MRSA
Therapeutic Drug Monitoring
Random Vancomycin 15.3 ug/ml 06/11/24 03:35
[2024-06-11 08:08] LABS: Glucose - Point of Care 97 mg/dl (70-99)
[2024-06-11] MEDS: NOVOLOG FLEXPEN-LOW RESISTANCE SC ×2 (09:22→13:19)
[2024-06-11] MEDS: PROTONIX 40 MG PO (09:23)
[2024-06-11] MEDS: PACERONE 200 MG PO (09:23)
[2024-06-11] MEDS: NEURONTIN 300 MG PO ×3 (09:23→21:17)
[2024-06-11] MEDS: LIPITOR 80 MG PO (09:23)
[2024-06-11] MEDS: PLAVIX 75 MG PO (09:23)
[2024-06-11] MEDS: THERAGRAN 1 TABLET PO (09:23)
[2024-06-11] MEDS: COLACE 100 MG PO (09:23)
[2024-06-11] MEDS: DESENEX/MITRAZOL/ZEASORB 1 APPLIC TOPICAL ×2 (09:24→21:17)
[2024-06-11] MEDS: VITAMIN D3 (cholecalciferol) 25 MCG PO (09:24)
--- NOTE | 2024-06-11 09:35 | W.PN.ID1 ---
Date of Service
Date of Service: June 11, 2024
Today's Communication
Continue antibiotics.
Assessment / Plan
Leukocytosis
Suspected aspiration pneumonia
Fever
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
Hypertension
Chronic HFpEF
CKD III
Atrial Fibrillation
Paraplegia (Traumatic SCI; 2021)
DM-II
GERD
BPH
Recommendations:
MRSA screen positive. Urine culture with ESBL E. coli.
White count improved today.
Continue with vancomycin / ertapenem.
Await sputum culture.
Follow white count and temperature curve.
Monitor pending cultures.
At present, little to do regarding the chronic back wound. The area appears clear, but clinically the hardware is infected given its exposure to the outside environment.
Would not replace VAC therapy over this area.
Follow-up with patient's neurosurgeon/spinal surgeon is imperative, but can be performed on an outpatient basis.
����������������������������������������������������������
Chief Complaint
-: Leukocytosis
Subjective / Review of Systems
Review of Systems: No Fever and No Chills
Vital Signs / Physical Exam
Vital Signs
Vital Signs
Temp Pulse Resp BP Pulse Ox
97.5 F 93 15 101/60 98
06/11/24 07:20 06/11/24 09:23 06/11/24 07:34 06/11/24 09:23 06/11/24 07:34
Physical Exam
Constitutional: Comfortable, Chronically Ill and Non-toxic
Cardiovascular: S1/S2; Negative S3/S4
Pulmonary: Clear (anteriorly) and Non Labored
Gastrointestinal: Soft and Non Tender
Extremities: Edema (RUE); Negative Cyanosis or Erythema
Wound: Other (Posterior thoracic spine wound dressed. No periwound erythema.)
Psychological: Calm
Lines: PICC (RUE no erythema)
Objective Data
Lab Data
Lab Results
06/11/24 03:35
06/11/24 03:35
APTT 96.5 Sec (23.4-35.0) H 06/11/24 03:35
Estimated Creat Clear 58 ml/min 06/11/24 03:35
Lactic Acid 2.2 mmol/L (0.7-2.0) H 06/07/24 10:38
Total Bilirubin Cancelled 06/08/24 01:02
AST Cancelled 06/08/24 01:02
ALT Cancelled 06/08/24 01:02
Alkaline Phosphatase Cancelled 06/08/24 01:02
Most recent labs reviewed.
Micro Results:
06/10/24 12:24 Respiratory Culture - Pending
Sputum Gram Stain - Preliminary
06/07/24 10:38 Blood Culture - Preliminary
Blood/Venous No Growth in 72 hours- Final report to follow
06/07/24 10:38 Urine Culture - Final
Urine Escherichia coli - ESBL
06/07/24 15:53 MRSA Screen - Final
Nose Staph aureus MRSA
06/07/24 10:38 Legionella Urinary Antigen - Final
Urine Negative for Legionella pneumophila Serogroup 1 antigen.
A negative result does not rule out the possiblity of
Legionella infection due to other serogroups or species of
Legionella. Clinical correlation is recommended.
Streptococcus pneumoniae Antigen (M - Final
Negative for Streptococcus pneumoniae antigen.
A negative result does not exclude infection with
Streptococcus pneumoniae. Clinical correlation is
recommended.
Imaging:
CXR (portable): Large patchy airspace opacities in the bilateral lung bases most concerning for pneumonia. Low lung volumes are noted. No large pleural effusion or pneumothorax seen. Chronic degenerative changes of the spine are noted. Bilateral
posterior paraspinal rods and pedicle screws in the thoracic spine. Please see full dictation for additional detail. Film personally viewed.
[2024-06-11] MEDS: INVANZ 60 MG IV (10:01)
[2024-06-11 10:42] LABS: APTT 74.1 Sec (23.4-35.0)
[2024-06-11 11:57] LABS: Glucose - Point of Care 143 mg/dl (70-99)
--- NOTE | 2024-06-11 14:30 | W.PN.HOSP.TC ---
Today's Communication/Plan
-
Assessment / Plan
Assessment / Plan
Physical Exam
NAD, resting comfortably in bed. tempora lwasting, muscle atrophy
Scleral anicteric, correective lens
Moist mucous membranes
No JVD, Left IJ CVC
CTA bilateral
Normal S1-S2 no murmurs
Soft nontender nondistended bowel sounds active
LUE swelling worse then thr RUE swelling
No peripheral pitting edema
Moves extremities spontaneously
AAO
left UE DVT +
-start hep gtt
-IR consult For Left IJ CVC
-Per hem this is not eliquis failure in 48-72hours transition back to eliquis
septic shock secondary to suspected aspiration pna
-ivf
-iv pressor support, wean as toelrated
-map >65
-iv atb - vanc. per ID change cefe to ertapenem
-sptum cx ordered not collected though
-ucx - esbl ecoli
-legionella/strep neg
-bcx ngtd
-id following
ARF-Hypoxia related to aspiration
-wean o2 as tolerated
-goal spo2 >90%
-ivatb
-sputum culture
-incentive go
superficial venuos thrombosis
-cephalic and basilic
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
Spinal hardware with shelter wound vac on for 2yr
-neurosurgeon out of [place] [facility]
-consult nsgy as this could be potential source of infection
--does not believe back wound/spinal hardware is the source of infection, continue vac and outpatient follow up with primary neurosurgeon
PAfib
-Continue amio
-Continue eliquis
HTN
-Continue antihypertensives
Anticipated Discharge: > 48 hours
Subjective/Interval History
-
Date of Service: June 11, 2024
seen an dexmained. no new complaitns. no acute ovenirhgt events
Objective Data
-
Labs:
Laboratory Results
06/11/24 06/11/24
03:35 10:00
WBC 10.4
Hgb 8.8 L
Hct 25.8 L
Plt Count 172
APTT 96.5 H 74.1 H
Sodium 131 L
Potassium 3.6
Chloride 105
Carbon Dioxide 17 L
BUN 27 H
Creatinine 1.0
Glucose 105 H
Calcium 7.2 L
Vital Signs:
Vital Signs
Temp Pulse Resp BP Pulse Ox
97.5 F 97 13 112/76 98
06/11/24 07:20 06/11/24 12:00 06/11/24 12:00 06/11/24 12:00 06/11/24 11:00
I&O
06/10/24 06/11/24 06/12/24
06:59 06:59 06:59
Intake Total 570 / 570
Output Total 450 / 450 300 / 300
Balance -450 / -450 -300 / -300 570 / 570
[2024-06-11] MEDS: DULCOLAX 10 MG RECTAL (16:46)
[2024-06-11 17:10] LABS: Glucose - Point of Care 189 mg/dl (70-99)
[2024-06-11] MEDS: NOVOLOG FLEXPEN-LOW RESISTANCE 1 UNITS SC (17:27)
--- NOTE | 2024-06-11 18:28 | PTCARENOTE ---
Assumed care of pt this am. He was complaining of severe anal pain. Pt assessed and noted to have large hard stool at rectal vault. Gentle Digital extraction and stool removed easily. Pt immediately reports relief of pain. Pt on stool softener and
given rectal Dulcolax suppository, no results yet. Pt fed by staff and ate 50-100% of meals today. He did spit out meds that were not crushable, Dr. Lamont Mahan notified. Lungs coarse throughout with occasional cough. Oxygen at 2L NC. Non productive
cough. Nayak patent for dark yellow urine. Heparin gtt therapeutic and continues at 600units /hr. Daughter conchis called and given update on plan of care and then spoke with her father. She tells me that he is more confused than usual as noted with
her conversation. Pt is interactive with staff and appropriate in conversation and then will have tangental thought about something out of context. Today he was convinced that there was a baby arriving, redirected frequently. Pt watch [employer] game
and appeared to follow and cheer appropriately/ Bilateral arm with +2 edema and weeping clear to pink drainage. Both arms cleansed with saline and dressed with ABDs and wrapped -these were changed twice today. Multiple wounds and dressing changes
completed. Mostly due to weeping and then saturation of dressings. Turned Q 2 or more frequently. Pt also wearing air boots.
--- NOTE | 2024-06-11 21:13 | PTCARENOTE ---
Received pt from day shift. Pt ox2 (not to time). Sinus tach on monitor. Heparin gtt running at 6 mL (see worklist). CHG cloths, Nayak care, and hygiene completed. Pt resting in bed with call harrison in reach.
[2024-06-11] MEDS: SENOKOT 8.6 MG PO (21:17)
[2024-06-11] MEDS: TYLENOL 1000 MG PO (21:17)
[2024-06-11 21:27] LABS: Glucose - Point of Care 127 mg/dl (70-99)
--- NOTE | 2024-06-11 22:22 | PTCARENOTE ---
Notified ADAIR Moya of Rx to remove turner and that this RN removed turner at 2200.
[2024-06-12] VITALS (24 sets, daily range): BP systolic 86–122; BP diastolic 53–80; BMI 24.1
[2024-06-12 05:41] LABS: APTT 89.2 Sec (23.4-35.0)
[2024-06-12 05:49] LABS: Blood Urea Nitrogen 28 mg/dl (9-20); Calcium 7.3 mg/dl (8.4-10.2); Carbon Dioxide 20 mmol/L (22-30); Chloride 106 mmol/L (98-107); Estimated Creatinine Clearance 48 ml/min; Glucose 124 mg/dl (70-99); Potassium 3.6 mmol/L (3.5-5.1); Sodium 131 mmol/L (135-145); eGFR > 60.00
[2024-06-12 05:58] LABS: Vancomycin Random 13.8 ug/ml
[2024-06-12 07:46] LABS: Glucose - Point of Care 119 mg/dl (70-99)
[2024-06-12] MEDS: NOVOLOG FLEXPEN-LOW RESISTANCE SC ×3 (07:47→17:05)
[2024-06-12] MEDS: PLAVIX PO (08:00)
[2024-06-12] MEDS: VITAMIN D3 (cholecalciferol) PO (08:00)
[2024-06-12] MEDS: PACERONE PO (08:00)
[2024-06-12] MEDS: PROTONIX PO (08:00)
[2024-06-12] MEDS: NEURONTIN PO (08:00)
[2024-06-12] MEDS: LIPITOR PO (08:00)
[2024-06-12] MEDS: THERAGRAN PO (08:00)
[2024-06-12] MEDS: DESENEX/MITRAZOL/ZEASORB 1 APPLIC TOPICAL ×2 (08:00→21:56)
--- NOTE | 2024-06-12 08:11 | W.PN.HOSP.TC ---
Today's Communication/Plan
-
Continue Ertapenem and vancomycin.
Obtain barium esophagogram, appreciate GI inputs.
Advance diet after obtaining barium esophagogram.
Patient gained 8 kg weight since admission. Monitor carefully for heart failure symptoms given history of chronic HFpEF
Assessment / Plan
Assessment / Plan
Assessment-
78-year-old male with PMHx significant for paroxysmal A-fib, HFpEF, aspiration pneumonia, multiple decubitus ulcers in the back, diabetes, hypertension presents to the hospital from [facility] for evaluation of hypotension. Diagnosed with
septic shock.
Plan -
Septic shock -
Fever resolved.. Off of Levophed.
Septic shock resolved.
Patient is mildly acidotic, CO2 at 20.
History of aspiration pneumonia, recent admission to the hospital in April 2024.
Patient noncompliant with pur�ed diet.
Urine sample-squamous epithelial cells greater than 30. Not consistent with UTI
Blood cultures obtained once-no growth in 48 hours.
MRSA positive.
Chest x-ray evidence for pneumonia. Urine cultures positive for ESBL E. coli.
Sputum cultures positive for gram-negative bacilli and Paulette albicans.
Neurosurgery reviewed patient's chronic spinal wound, hardware infection is less likely a source of sepsis. Can follow-up hardware open wound with primary neurosurgery.
ID on board, currently patient is on Ertapenem, and vancomycin.
COVID and influenza negative
Continue vancomycin and ertapenem
Acute hypoxic respiratory failure -
Currently weaned off of oxygen.
Secondary to aspiration pneumonia, chest x-ray showed large patchy airspace opacities in both lung bases.
Check sputum cultures.
Advised patient to be compliant with pur�ed diet.
Continue vancomycin and cefepime. Speech therapy consulted for evaluation.
Speech therapy findings-evidence for retrograde reflux while eating pur�ed food. Recommended gastroenterology evaluation. GI consulted. On board, GI is planning to get an barium esophagogram in the a.m. today. Patient is n.p.o. since yesterday.
IV fluids changed to lactated Ringer in the setting of septic shock.
Superficial thrombosis in RUE and DVT in LUE-
superficial thrombosis in the right cephalic and right basilic vein. He was also then found to have DVT in the left brachial vein and superficial thrombus in the left basilic vein in the setting of PICC line
Heme-onc saw the patient and said it is less likely Eliquis failure but more likely in the setting of PICC line and sepsis.
Heparin GTT for 48 hours and then switch to Eliquis 10 mg twice daily and then to Eliquis 5 twice daily.
Patient is past 48 hours for heparin gtt., but per GI may require procedure in the a.m. tomorrow hence continued to remain on heparin gtt.
Multiple decubitus ulcers-
Stage III sacral decubitus ulcer.
Stable thoracic spine ulcer with undermined edges and exposed hardware, stage undetermined, probe test positive up to 3.5 cm posteriorly into the thoracic spine.
2 more stage II ulcers noted on the thoracic spine
All ulcers with continues to drain, but have been stable
Per patient patient is on wound VAC for thoracic spine ulcer for questionable 2 years.
Records requested from patient's primary neurosurgeon, pending records.
Primary neurosurgeon-Dr. Jcarlos rogers, [place], phone #[phone].
Spinal cord injury with vertebral fracture-
Patient has been bedbound for 2 years.
Paroxysmal A-fib
Continue amiodarone.
[id number] score 5 points.
Continue Eliquis.
Chronic HFpEF -
Patient gained 1kg overnight.
With IV fluids for septic shock, continue to monitor I's and O's
Continue to monitor weight
Sodium and fluid restriction.
Trend renal function
Normocytic anemia-
Anemia of chronic disease, hemoglobin at 9.5.
Essential hypertension-
His spironolactone, losartan, Coreg were on hold given his hypotension secondary to septic shock
Carefully monitor patient for heart failure symptoms and wean off Levophed as soon as possible
Discontinue IV fluids once patient's blood pressure stabilizes
Will consider resuming blood pressure medications once her blood pressure stabilizes.
Type 2 diabetes mellitus-
Hold metformin
Currently on insulin sliding scale
Low insulin requirement overnight
Hyponatremia-
serum sodium at 132.
Likely hypovolemic.
Continue to monitor renal function.
Hypomagnesemia
Magnesium repleted.
Obtain repeat magnesium levels
Anxiety/depression-
Continue doxepin
Hyperlipidemia
Continue atorvastatin
Peripheral neuropathy -
Secondary to spinal injury and diabetes
Continue gabapentin.
DVT prophylaxis-on Eliquis.
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
BPH
GERD
CODE STATUS-DNR/DNI
Spoke to patient on bedside, he is currently considering and exploring hospice as a treatment option. Would want to sit with his daughter Stormy and have a conversation before he makes that decision. Asked if I could update the daughter after 4
PM so the patient can have a conversation with her.
Anticipated Discharge: > 48 hours
Subjective/Interval History
-
Date of Service: June 12, 2024
Patient denies having any complaints.
Objective Data
-
Labs:
Laboratory Results
06/12/24
05:04
APTT 89.2 H
Sodium 131 L
Potassium 3.6
Chloride 106
Carbon Dioxide 20 L
BUN 28 H
Creatinine 1.2
Glucose 124 H
Calcium 7.3 L
Vital Signs:
Vital Signs
Temp Pulse Resp BP Pulse Ox
97.8 F 90 10 97/53 99
06/12/24 03:00 06/12/24 07:00 06/12/24 07:00 06/12/24 07:00 06/12/24 07:00
I&O
06/11/24 06/12/24 06/13/24
06:59 06:59 06:59
Intake Total 690 / 690
Output Total 300 / 300 65 / 65
Balance -300 / -300 625 / 625
Review of Systems
-
History Source: Patient
Constitutional: Reports No Symptoms and Fatigue; Denies Fever, Weight Gain, No Appetite, Chills or Weakness
EENT: Reports No Symptoms Reported
Respiratory: Reports Cough; Denies Hemoptysis, Trouble Breathing or Wheezing
Cardiac: Reports No Symptoms
Abdomen/GI: Reports No Symptoms
Genitourinary: Reports No Symptoms
Musculoskeletal: Reports No Symptoms
Skin: Reports No Symptoms
Neuro: Reports No Symptoms
Endocrine: Reports No Symptoms
Hematologic / Lymphatic: Reports No Symptoms
Allergy / Immunology: Reports No Symptoms
Physical Exam
-
General: Comfortable (On 2 L low)
HEENT: Moist Mucous Membranes and PERRLA
Respiratory: Wheezes and Crackles; Negative Rales or Rhonchi
Cardiac: Regular Rhythm, S1/S2, Murmur and Other (Left IJ CVC in place, no erythema or edema at the site of insertion.); Negative Rub, JVD or Carotid Bruits
GI: Soft, Nontender, Nondistended and Normal Bowel Sounds
Genito-urinary: No Costovertebral Tender
Musculoskeletal: Other (1+ pitting edema in bilateral lower extremities, left upper extremity edema worse than the right upper extremity edema)
Neuro: Awake, Alert and No Motor Deficits
Psych: Calm
Data Reviewed
-
Medical Tests (Nuc Med, Echo etc): Image personally visualized and interpreted and Report Reviewed by me
Labs: Labs Reviewed by me and Discussed with Physician
Old Records: Reviewed
--- NOTE | 2024-06-12 08:37 | W.PN.UPDATE ---
Update Note
Progress Note Update
I saw and evaluated the patient. I reviewed the resident�s note and agree with findings and plan as documented in the resident�s note.
Denies CP/SOB/abd pain.
Gen: NAD, Awake and alert, appears chronically ill
Eyes: EOMI, PERRLA, no scleral icterus.
Neck: supple.
CV: RRR, +S1/S2, no m/r/g.
Resp: CTAB anteriorly, no rales, wheezes, or rhonchi.
Abd: +BS, soft, NT, ND
Skin: No rashes. 1+ anasarca
Neuro: CN 2-12 intact, non-focal.
Psych: Normal mood and affect.
06/10/24 12:24 Sputum Respiratory Culture - Preliminary
Gram negative bacilli
Paulette albicans
06/10/24 12:24 Sputum Gram Stain - Preliminary
06/07/24 10:38 Blood/Venous Blood Culture - Preliminary
No Growth in 4 days- Final report to follow
06/07/24 10:38 Urine Urine Culture - Final
Escherichia coli - ESBL
06/07/24 15:53 Nose MRSA Screen - Final
Staph aureus MRSA
06/07/24 10:38 Urine Legionella Urinary Antigen - Final
Negative for Legionella pneumophila Serogroup 1 antigen.
A negative result does not rule out the possiblity of
Legionella infection due to other serogroups or species of
Legionella. Clinical correlation is recommended.
06/07/24 10:38 Urine Streptococcus pneumoniae Antigen (M - Final
Negative for Streptococcus pneumoniae antigen.
A negative result does not exclude infection with
Streptococcus pneumoniae. Clinical correlation is
recommended.
Acute LUE DVT, superficial cephalic and basilic venous thrombosis:
-cont hep gtt
-per heme, not an Eliquis failure
-transition back to Eliquis on 06/13/24AM
Septic shock and acute hypoxemic respiratory failure due to likely aspiration PNA and UTI:
-s/p IVFs
-UCx with ESBL E coli
-BCx / NGTD
-legionella/strep neg
-pressors weaned to off
-cont Vanco/Invanz as per ID
Spinal hardware (exposed) with detention wound vac in place for 2yr
-neurosurgeon out of [place]
-neurosurgery saw in c/s, does not believe back wound/spinal hardware is the source of infection, continue vac and outpatient follow up with primary neurosurgeon
Other problems:
Hyponatremia, mild
PAF: cont amio/heparin gtt
Essential HTN: currently not on any antihypertensive medications in the setting of septic shock
HLD: cont statin
GERD: cont PPI
DNR/heparin gtt
Total time spent on today's encounter was 50 minutes which included time spent in counseling the patient/family regarding diagnosis and treatment plan as listed above, goals of care, and symptom management. Case was discussed with nursing staff,
specialists, and care coordinators/case management. All labs and imaging personally reviewed by me. Remainder the time spent in detailed review of previous records, lab data, imaging, and other medical provider documentation.
[2024-06-12] MEDS: INVANZ 60 MG IV (10:50)
[2024-06-12] MEDS: HEPARIN 25000 UNITS/250 ML IV (11:35)
--- NOTE | 2024-06-12 12:08 | PHA.VAN.FU ---
Vancomycin Assessment / Plan
- Assessment
Renal Function: SCR Increasing (Scr 1-->1.2 today, BUN stable)
WBC's are: WNL
In the past 24 hrs, patient has been: Afebrile
Concomitant Antimicrobials: Ertapenem 1000mg IV Q24h
- Assessment - Therapeutic Drug Monitoring
Random Level: 13.8- approx 65h after last dose of vancomycin 1000mg
Date: random level/vanc dose
06/07: none/ 2000mg
06/08: none/ 1000mg
06/09: 15.4/ 1000mg
06/10: 17.4/ none
06/11: 15.3/ none
06/12: 13.8/ none
Dates Calculated Ke/calculated T1/2
06/10 to 06/11 0.35410/ 118 hr
06/11 to 06/12 0.004/ 173hr
Of note: Pt does not follow population kinetics and clearance is much slower than expected.
- Dosing Plan
Dosing by Level: Hold off on dosing today
- Monitoring Plan
Random Level: Repeat random level 06/13 with AM labs.
- Follow Up
Pharmacy will continue to follow.
Vancomycin Follow UP
- -
Patient Age: 78
Patient Sex: Male
Vancomycin Day #: 6
Indication: Pulmonary/Respiratory
Requesting Provider: Dr. Degroot
Pertinent Antimicrobial Allergies:
Penicillins - Unknown
Height / Weight:
Height 5 ft 8 in
Actual Weight 71.9 kg
Pertinent Past Medical History: DM; 04/26/24 ADMIT FOR ASPIRATION PNA
- Vital Signs / Lab Results
Temp Pulse Resp BP Pulse Ox
97.4 F 90 10 97/53 99
06/12/24 11:21 06/12/24 07:00 06/12/24 07:00 06/12/24 07:00 06/12/24 07:00
Lab Results - Hematology
06/09/24 06/11/24
13:56 03:35
WBC 11.2 H 10.4
Lab Results - Chemistry
06/11/24 06/12/24
03:35 05:04
BUN 27 H 28 H
Creatinine 1.0 1.2
Estimated Creat Clear 58 48
Microbiology Results
06/07/24 10:38 Blood Culture - Final
Blood/Venous No Growth - Final Report
06/10/24 12:24 Respiratory Culture - Final
Sputum Escherichia coli - ESBL
Paulette albicans
Gram Stain - Final
Therapeutic Drug Monitoring
Random Vancomycin 13.8 ug/ml 06/12/24 05:04
--- NOTE | 2024-06-12 13:05 | W.PN.UPDATE ---
Update Note
Progress Note Update
request from radiology for VSE prior to esophagram will add
--- NOTE | 2024-06-12 13:16 | W.CON.PAL ---
Consultation
-
Date/Time Consultation Requested: 06/12
Date/Time Consultation Performed: 06/12
Requesting Provider: Tomer Lindo
Performing Provider: Isabelle Hall
Reason for Consult: Goals of Care Discussion
Primary Diagnosis: aspiration PNA
Reason for Admission
Illness Course/HPI
78 year old M with PMH of paroxysmal atrial fibrillation, HFpEF, aspiration pneumonia,HTN, HLD, diabetes, BPH, depression, peripheral neuropathy, spinal cord injury with vertebral fracture/thoracic spine surgery 2021 with thoracic wounds and
intermittent wound vac, hyponatremia, GERD, stage 3 sacral decubitus admitted from his nursing facility with hypoxemia. Of note, recent admission a month ago for aspiration pneumonia and was cleared for a pur�ed diet. Per report, had been refusing
pur�ed food at his skilled nursing so he was getting a regular diet.
Upon admission, xray consistent with aspiration PNA. Was hypotensive unresponsive to fluids and admitted to ICU for pressors.
ID following - concern for infected thoracic hardware as there is exposed hardware and no wound vac currently. Follows with neurosurgery and [facility] - neurosurgery consult recommended close follow up with them as an outpatient. He continues on ABX for
aspiration PNA and UTI.
Per chart review, patient has adamantly refused a PEG tube in the past. Continues to do so. Seen by speech with concern for reflux with puree foods. Seen by GI with plans for VSE and barium esophagogram study for further evaluation. Patient is
DNR/DNI. Weaned off pressors.
Attempted to see patient at bedside this PM - was off the floor at testing.
Objective Data
-
Objective Data:
Vital Signs
Temp Pulse Resp BP Pulse Ox
97.4 F 90 10 97/53 99
06/12/24 11:21 06/12/24 07:00 06/12/24 07:00 06/12/24 07:00 06/12/24 07:00
Laboratory Results
06/11/24 03:35
06/12/24 05:04
APTT 89.2 Sec (23.4-35.0) H 06/12/24 05:04
Hemoglobin A1c 6.7 % (4.0-5.6) H 06/08/24 01:01
Total Protein Cancelled 06/08/24 01:02
Albumin Cancelled 06/08/24 01:02
Urine Color Yellow 06/07/24 10:38
Urine Clarity Slightly cloudy (Clear) 06/07/24 10:38
Urine pH 6.0 (5.0-9.0) 06/07/24 10:38
Ur Specific Jackson 1.010 (<1.030) 06/07/24 10:38
Urine Ketones Negative (Negative) 06/07/24 10:38
Urine Bilirubin Negative (Negative) 06/07/24 10:38
Palliative Performance Scale
Palliative Performance Scale:
PPS Level Ambulation Activity & Evidence of Disease Self Care Intake Conscious Level
100% Full Normal Activity & Work; Full Intake Full
No Evidence of Disease
90% Full Normal Activity & Work; Full Normal Full
Some Evidence of Disease
80% Full Normal Activity with Effort Full Normal or Full
Some Evidence of Disease Reduced
70% Reduced Unable Normal Job/Work Full Normal or Full
Significant Disease Reduced
60% Reduced Unable Hobby/Housework Occasional Normal or Full or Confusion
Significant Disease Assistance Reduced
50% Mainly Sit/Lie Unable to do Any Work Considerable Normal or Full or Confusion
Extensive Disease Assistance Req'd Reduced
40% Mainly in Bed Unable to do Most Activity Mainly Assistance Normal or Full or Drowsy;
Extensive Disease Reduced +/- Confusion
30% Totally Bed Unable to do Any Activity Total Care Normal or Full or Drowsy;
Bound Extensive Disease Reduced +/- Confusion
20% Totally Bed Bound Unable to do Any Activity Total Care Minimal to Full or Drowsy;
Extensive Disease Sips +/- Confusion
10% Totally Bed Bound Unable to do Any Activity Total Care Mouth Care Drowsy or Coma;
Extensive Disease Only +/- Confusion
0%
PPS Score Level:
Assessment / Plan
-
Assessment/Plan:
78 year old M with paraplegia/SCI with thoracic wounds/wound vac, recent aspiration PNA admitted again with aspiration PNA. Declines PEG.
- not able to see today due to off the floor at testing this PM. Will await results of further testing per GI recs and will discuss goals moving forward with patient and daughter tomorrow.
Care Reviewed
Data Reviewed
Radiology procedure: Image Reviewed
Medical Tests: I reviewed
Reviewed with: Patient, Family and Physician
--- NOTE | 2024-06-12 14:43 | PTOTSP ---
Video Swallow Examination
Summary: Patient with mild-moderate oral and mild pharyngeal dysphagia. No aspiration occurred. See patient care note for details.
Recommend:
1. Regular solids (when cleared by GI), Thin Liquids
2. Medications - crushed in puree if medically cleared
3. Strategies: upright to 90 degrees, assist with feeding, small single sips/bites, slow rate, TUCK CHIN when swallowing liquids, alternate sips/bites, small frequent meals, remain upright for AT LEAST 30 minutes after intake as a reflux precaution
4. Brief dysphagia f/u x1 at the acute care level for instruction in compensations/assess carry over.
[2024-06-12 14:48] LABS: Glucose - Point of Care 126 mg/dl (70-99)
--- NOTE | 2024-06-12 15:47 | W.PN.UPDATE ---
Update Note
Progress Note Update
Pt completed VSE and Esophagram today-- no aspiration ok for thin liquids. Esophagram with some limitation with lack of mobility and hardware but no finding of obstruction or aspiration will advance to IDD5. Can advance to regular if tolerating.
Will sign off call with questions.
--- NOTE | 2024-06-12 16:20 | CM ---
Addendum entered by Maria Teresa Fishman RN 06/12/24 16:30:
Message from [facility] Nurse; No vac while here. I put 'resume prior wound care as ordered by wound care support representative' in the discharge instructions'. He is managed by another wound care center and SNF will follow their instructions. Dr. Calix is
in agreement with plan.
Original Note:
Patient from [facility] with Hx Spinal cord injury with vertebral fracture, thoracic back wound with exposed hardware, paraplegia, multiple decubitus ulcers. O2 2L. PICC line. Receiving IV Abx, Heparin gtt. VSE today - Dysphagia diet.
Seen by wound care nurse. PT Screen; No skilled PT needed.
[facility]; The phone for report [phone] B wing x [phone], fax [phone].
He is not on a bed hold however he can return without an insurance auth under Workers Comp.
Plan return to [facility] when medically ready.
[2024-06-12] MEDS: NEURONTIN 300 MG PO ×2 (16:55→21:56)
[2024-06-12] MEDS: PACERONE 200 MG PO (16:57)
[2024-06-12 17:15] LABS: Glucose - Point of Care 64 mg/dl (70-99)
[2024-06-12 17:38] LABS: Glucose - Point of Care 107 mg/dl (70-99)
--- NOTE | 2024-06-12 19:44 | PTCARENOTE ---
No urine output this shift bladder scan <400, will continue to follow protocol
[2024-06-12 20:38] LABS: Glucose - Point of Care 182 mg/dl (70-99)
[2024-06-12] MEDS: SENOKOT 8.6 MG PO (21:56)
[2024-06-12] MEDS: TYLENOL 1000 MG PO (21:56)
[2024-06-12 22:27] LABS: Glucose - Point of Care 164 mg/dl (70-99)
[2024-06-13] VITALS (26 sets, daily range): BP systolic 80–147; BP diastolic 46–94; PULSE 66; O2SAT 98
--- NOTE | 2024-06-13 02:42 | PTCARENOTE ---
assumed care of pt. aaox2 (not to time). NSR on monitor and tachy at times. 98% on 2L. Pt has not urinated this shift, all scans <400. oral care, CHG wipes, and wound care completed (see worklist). Pt resting in bed with bed alarm on and call harrison
in reach.
[2024-06-13 04:38] LABS: % Basophils 0.4 % (0-2); % Immature Granulocytes 1.1 % (0-0.5); % Lymphocytes 11.9 % (20.5-51.1); % Monocytes 9.5 % (1.7-9.3); % Neutrophils 74.1 % (42.2-75.2); Absolute Eosinophils 0.2 10^3/uL (0-0.7); Absolute Immature Granulocytes 0.1 10^3/uL (0-0.05); Absolute Lymphocytes 0.9 10^3/uL (1.2-3.4); Absolute Monocytes 0.7 10^3/uL (0.1-0.6); Absolute Neutrophils 5.4 10^3/uL (1.4-6.5); Hematocrit 23.6 % (39.0-52.0); Hemoglobin 8.2 g/dL (13.0-18.0); Mean Corp Hgb Conc. 34.7 g/dL (33.0-37.0); Mean Corpuscular Hgb 29.2 pg (27.0-31.0); Mean Platelet Volume 9.3 fL (7.4-10.4); Nucleated Red Blood Cells % 0 % (-); Platelet Count 147 10^3/uL (130-400); Red Blood Cell Count 2.81 10^6/uL (4.70-6.10); Red Cell Dist. Width 21.2 % (11.5-14.5); White Blood Cell Count 7.3 10^3/uL (4.8-10.8)
[2024-06-13 04:58] LABS: APTT 72.7 Sec (23.4-35.0)
[2024-06-13 05:10] LABS: Vancomycin Random 11.9 ug/ml
[2024-06-13 05:12] LABS: Blood Urea Nitrogen 31 mg/dl (9-20); Calcium 7.4 mg/dl (8.4-10.2); Carbon Dioxide 18 mmol/L (22-30); Chloride 106 mmol/L (98-107); Estimated Creatinine Clearance 49 ml/min; Glucose 111 mg/dl (70-99); Potassium 3.9 mmol/L (3.5-5.1); Sodium 131 mmol/L (135-145); eGFR > 60.00
[2024-06-13] MEDS: HEPARIN 2700 UNITS IV (05:35)
[2024-06-13 08:05] LABS: Glucose - Point of Care 122 mg/dl (70-99)
[2024-06-13] MEDS: NOVOLOG FLEXPEN-LOW RESISTANCE SC ×2 (08:40→13:08)
[2024-06-13] MEDS: NEURONTIN 300 MG PO ×3 (08:42→20:36)
[2024-06-13] MEDS: LIPITOR 80 MG PO (08:43)
[2024-06-13] MEDS: PROTONIX 40 MG PO (08:43)
[2024-06-13] MEDS: PLAVIX 75 MG PO (08:43)
[2024-06-13] MEDS: DESENEX/MITRAZOL/ZEASORB 1 APPLIC TOPICAL ×2 (08:44→20:35)
[2024-06-13] MEDS: VITAMIN D3 (cholecalciferol) 25 MCG PO (08:44)
[2024-06-13] MEDS: PACERONE 200 MG PO (08:44)
[2024-06-13] MEDS: THERAGRAN 1 TABLET PO (08:44)
--- NOTE | 2024-06-13 09:25 | W.PN.UPDATE ---
Update Note
Progress Note Update
I saw and evaluated the patient. I reviewed the resident�s note and agree with findings and plan as documented in the resident�s note.
Denies new complaints.
Gen: NAD, Awake and alert, appears chronically ill
Eyes: EOMI, PERRLA, no scleral icterus.
Neck: supple.
CV: Remains RRR, +S1/S2, no m/r/g.
Resp: Remains CTAB anteriorly, no rales, wheezes, or rhonchi.
Abd: +BS, soft, NT, ND
Skin: No rashes. Remains 1+ anasarca
Neuro: CN 2-12 intact, non-focal.
Psych: Normal mood and affect.
06/07/24 10:38 Blood/Venous Blood Culture - Final
No Growth - Final Report
06/10/24 12:24 Sputum Respiratory Culture - Final
Escherichia coli - ESBL
Paulette albicans
06/10/24 12:24 Sputum Gram Stain - Final
06/07/24 10:38 Urine Urine Culture - Final
Escherichia coli - ESBL
06/07/24 15:53 Nose MRSA Screen - Final
Staph aureus MRSA
06/07/24 10:38 Urine Legionella Urinary Antigen - Final
Negative for Legionella pneumophila Serogroup 1 antigen.
A negative result does not rule out the possiblity of
Legionella infection due to other serogroups or species of
Legionella. Clinical correlation is recommended.
06/07/24 10:38 Urine Streptococcus pneumoniae Antigen (M - Final
Negative for Streptococcus pneumoniae antigen.
A negative result does not exclude infection with
Streptococcus pneumoniae. Clinical correlation is
recommended.
Esophagram: Markedly limited evaluation of the esophagus due to patient debility, lack of mobility and extensive metallic hardware throughout the thoracic spine. No findings to suggest esophageal obstruction or aspiration.
Acute LUE DVT, superficial cephalic and basilic venous thrombosis:
-cont Eliquis (was on heparin gtt)
-per heme, not an Eliquis failure
Septic shock and acute hypoxemic respiratory failure due to likely aspiration PNA and UTI:
-s/p IVFs
-UCx and sputum Cx with ESBL E coli
-BCx 06/07 NGTD
-legionella/strep neg
-pressors weaned to off
-cont Vanco/Invanz as per ID
-note VSE and esophagram NEG for aspiration or esophageal obstruction. As per GI and speech pt OK for reg/thins. GI has signed off.
Spinal hardware (exposed) with fci wound vac in place for 2yr
-neurosurgeon out of [place]
-neurosurgery saw in c/s, does not believe back wound/spinal hardware is the source of infection, continue vac and outpatient follow up with primary neurosurgeon
Other problems:
Hyponatremia, mild
PAF: cont amio/eliquis
Essential HTN: currently not on any antihypertensive medications in the setting of septic shock
HLD: cont statin
GERD: cont PPI
DNR/Eliquis
Patient is hospice appropriate. Palliative care consult placed. Palliative care attempted to see the patient on 06/12/24 but he was not on the floor at that time.
Total time spent on today's encounter was 51 minutes which included time spent in counseling the patient/family regarding diagnosis and treatment plan as listed above, goals of care, and symptom management. Case was discussed with nursing staff,
specialists, and care coordinators/case management. All labs and imaging personally reviewed by me. Remainder the time spent in detailed review of previous records, lab data, imaging, and other medical provider documentation.
--- NOTE | 2024-06-13 09:42 | PHA.VAN.FU ---
Vancomycin Assessment / Plan
- Assessment
Renal Function: SCR Increasing (steadily increasing over admission)
WBC's are: WNL
In the past 24 hrs, patient has been: Afebrile
Concomitant Antimicrobials: ertapenem
- Assessment - Therapeutic Drug Monitoring
half-life from 06/12 to 06/13 = 108 h, ke = 0.0064
- Dosing Plan
Continue: to dose by level
Dosing by Level: Re-dose today (500 mg)
- Monitoring Plan
Random Level: 12/12 am
- Follow Up
Pharmacy will continue to follow.
Vancomycin Follow UP
- -
Patient Age: 78
Patient Sex: Male
Vancomycin Day #: 7
Indication: Pulmonary/Respiratory
Requesting Provider: Dr. Degroot
Pertinent Antimicrobial Allergies:
Penicillins - Unknown
Height / Weight:
Height 5 ft 8 in
Actual Weight 71.9 kg
Pertinent Past Medical History: DM; 04/26/24 ADMIT FOR ASPIRATION PNA
- Vital Signs / Lab Results
Temp Pulse Resp BP Pulse Ox
97.6 F 90 10 107/64 99
06/13/24 07:45 06/13/24 08:44 06/13/24 05:00 06/13/24 08:44 06/13/24 05:00
Lab Results - Hematology
06/11/24 06/13/24
03:35 04:12
WBC 10.4 7.3
Lab Results - Chemistry
06/11/24 06/12/24 06/13/24
03:35 05:04 04:12
BUN 27 H 28 H 31 H
Creatinine 1.0 1.2 1.2
Estimated Creat Clear 58 48 49
Microbiology Results
06/07/24 10:38 Blood Culture - Final
Blood/Venous No Growth - Final Report
06/10/24 12:24 Respiratory Culture - Final
Sputum Escherichia coli - ESBL
Paulette albicans
Gram Stain - Final
Therapeutic Drug Monitoring
Random Vancomycin 11.9 ug/ml 06/13/24 04:12
[2024-06-13] MEDS: INVANZ 60 MG IV (09:49)
[2024-06-13] MEDS: ELIQUIS 10 MG PO ×2 (09:49→20:36)
--- NOTE | 2024-06-13 09:58 | W.PN.HOSP.TC ---
Today's Communication/Plan
-
Continue IV antibiotics per ID.
Advance diet to regular.
Continue bladder scan protocol.
Soft running blood pressures, blood pressure medications on hold.
If blood pressures improve, will consider adding tamsulosin and JEFFERSON inhibitor.
Assessment / Plan
Assessment / Plan
Assessment-
78-year-old male with PMHx significant for paroxysmal A-fib, HFpEF, aspiration pneumonia, multiple decubitus ulcers in the back, diabetes, hypertension presents to the hospital from [facility] for evaluation of hypotension. Diagnosed with
septic shock.
Plan -
Septic shock -
Fever resolved.. Off of Levophed.
Septic shock resolved.
Patient is mildly acidotic, CO2 at 20.
History of aspiration pneumonia, recent admission to the hospital in April 2024.
Patient noncompliant with pur�ed diet.
Urine sample-squamous epithelial cells greater than 30. Not consistent with UTI
Blood cultures obtained once-no growth in 48 hours.
MRSA positive.
Chest x-ray evidence for pneumonia. Urine cultures positive for ESBL E. coli.
Sputum cultures positive for gram-negative bacilli and Paulette albicans.
Neurosurgery reviewed patient's chronic spinal wound, hardware infection is less likely a source of sepsis. Can follow-up hardware open wound with primary neurosurgery.
ID on board, currently patient is on Ertapenem, and vancomycin.
COVID and influenza negative
Continue vancomycin and ertapenem
Acute hypoxic respiratory failure -
Currently weaned off of oxygen.
Secondary to aspiration pneumonia, chest x-ray showed large patchy airspace opacities in both lung bases.
Check sputum cultures.
Advised patient to be compliant with pur�ed diet.
Continue vancomycin and cefepime. Speech therapy consulted for evaluation.
Speech therapy findings-evidence for retrograde reflux while eating pur�ed food. Recommended gastroenterology evaluation. GI consulted. Barium esophagogram and VRE done yesterday-no aspiration, okay for thin liquids, esophagogram showed some
limitation with lack of motility and hardware but no findings of obstruction or aspiration. GI advance diet to IDD 5, and patient tolerated it well they recommended advancing diet to regular. GI signed off. Appreciate all GI inputs.
IV fluids changed to lactated Ringer in the setting of septic shock.
Superficial thrombosis in RUE and DVT in LUE-
superficial thrombosis in the right cephalic and right basilic vein. He was also then found to have DVT in the left brachial vein and superficial thrombus in the left basilic vein in the setting of PICC line
Heme-onc saw the patient and said it is less likely Eliquis failure but more likely in the setting of PICC line and sepsis.
Heparin GTT for 48 hours and then switch to Eliquis 10 mg twice daily and then to Eliquis 5 twice daily.
Patient is past 48 hours for heparin gtt., but per GI may require procedure in the a.m. tomorrow hence continued to remain on heparin gtt.
Multiple decubitus ulcers-
Stage III sacral decubitus ulcer.
Stable thoracic spine ulcer with undermined edges and exposed hardware, stage undetermined, probe test positive up to 3.5 cm posteriorly into the thoracic spine.
2 more stage II ulcers noted on the thoracic spine
All ulcers with continues to drain, but have been stable
Per patient patient is on wound VAC for thoracic spine ulcer for questionable 2 years.
Records requested from patient's primary neurosurgeon, pending records.
Primary neurosurgeon-Dr. Jcarlos rogers, [place], phone #[phone].
Spinal cord injury with vertebral fracture-
Patient has been bedbound for 2 years.
Paroxysmal A-fib
Continue amiodarone.
[id number] score 5 points.
Continue Eliquis.
Chronic HFpEF -
Patient gained 1kg overnight.
With IV fluids for septic shock, continue to monitor I's and O's
Continue to monitor weight
Sodium and fluid restriction.
Trend renal function
Normocytic anemia-
Anemia of chronic disease, hemoglobin at 9.5.
Essential hypertension-
His spironolactone, losartan, Coreg were on hold given his hypotension secondary to septic shock
Carefully monitor patient for heart failure symptoms and wean off Levophed as soon as possible
Discontinue IV fluids once patient's blood pressure stabilizes
Will consider resuming blood pressure medications once her blood pressure stabilizes.
Type 2 diabetes mellitus-
Hold metformin
Currently on insulin sliding scale
Low insulin requirement overnight
Hyponatremia-
serum sodium at 131.
Questionable if it is hypovolemic.
If serum sodium continues to remain low will obtain serum osmolality and workup for SIADH in the a.m. tomorrow.
Continue to monitor renal function.
Hypomagnesemia
Magnesium repleted.
Obtain repeat magnesium levels
Anxiety/depression-
Continue doxepin
Hyperlipidemia
Continue atorvastatin
Urinary retention-
Currently on bladder scan protocol.
Today's retention was up to 60 cc. Did not require straight cath.
Blood pressure running soft for starting the patient on tamsulosin.
Will continue to monitor.
Peripheral neuropathy -
Secondary to spinal injury and diabetes
Continue gabapentin.
DVT prophylaxis-on Eliquis.
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
BPH
GERD
CODE STATUS-DNR/DNI
Spoke to patient on bedside, he is currently considering and exploring hospice as a treatment option. Would want to sit with his daughter Stormy and have a conversation before he makes that decision. Asked if I could update the daughter after 4
PM so the patient can have a conversation with her.
Anticipated Discharge: > 48 hours
Subjective/Interval History
-
Date of Service: June 13, 2024
Complaints overnight.
Objective Data
-
Labs:
Laboratory Results
06/13/24 06/13/24
04:12 11:45
WBC 7.3
Hgb 8.2 L
Hct 23.6 L
Plt Count 147
APTT 72.7 H Pending
Sodium 131 L
Potassium 3.9
Chloride 106
Carbon Dioxide 18 L
BUN 31 H
Creatinine 1.2
Glucose 111 H
Calcium 7.4 L
Vital Signs:
Vital Signs
Temp Pulse Resp BP Pulse Ox
97.6 F 90 10 107/64 99
06/13/24 07:45 06/13/24 08:44 06/13/24 05:00 06/13/24 08:44 06/13/24 05:00
I&O
06/12/24 06/13/24 06/14/24
06:59 06:59 06:59
Intake Total 822 / 822 372 / 372
Output Total 65 / 65
Balance 757 / 757 372 / 372
Review of Systems
-
History Source: Patient
Constitutional: Reports Fatigue; Denies Fever, Chills or Weakness
EENT: Reports No Symptoms Reported
Respiratory: Reports Cough and Trouble Breathing; Denies Wheezing or Pleurisy
Cardiac: Denies Chest Pain, Palpitations, Syncope, PND or Orthopnea
Abdomen/GI: Reports No Symptoms
Genitourinary: Reports Difficulty Voiding
Musculoskeletal: Reports No Symptoms
Skin: Reports No Symptoms
Neuro: Reports No Symptoms
Endocrine: Reports No Symptoms
Allergy / Immunology: Reports No Symptoms
Physical Exam
-
General: No Apparent Distress and Comfortable
HEENT: Moist Mucous Membranes and PERRLA
Respiratory: Wheezes and Crackles; Negative Rales or Rhonchi
Cardiac: Regular Rhythm, S1/S2 and Other (Bilateral dorsalis pedis, radial and ulnar pulses present, verified with Doppler.); Negative Murmur, Rub, JVD or Gallop
GI: Soft, Nontender, Nondistended and Normal Bowel Sounds
Genito-urinary: No Costovertebral Tender
Musculoskeletal: No Clubbing, No Cyanosis and No Edema
Skin: Warm
Neuro: Awake, Alert and No Motor Deficits
Psych: Calm
Data Reviewed
-
Diagnostic Radiology: Image personally visualized and interpreted, Report Reviewed by me and Discussed with Physician
Labs: Labs Reviewed by me and Discussed with Physician
[2024-06-13] MEDS: VANCOCIN HCL 500 MG 100 IV (10:29)
--- NOTE | 2024-06-13 11:41 | W.PN.PAL2 ---
Today's Communication
-
daughter to speak with patient about his hospice wishes later today
cleared for regular diet
Assessment / Plan
-
Assessment/Plan:
78 year old M with paraplegia 2/2 SCI with multiple wounds, recurrent aspiration PNA
- s/p VSE yesterday - no aspiration and cleared for regular diet with thins
- spoke to patient at bedside this AM - reports considering hospice as an option for future care. Tells me his daughter is aware of this and asks me to call her
- called and spoke with patients daughter - she was unaware that he was considering this and was confused as to why. Discussed rationale for hospice eligibility with her in relation to her father 2/2 paraplegia with multiple wounds, recurrent
aspirations. She plans to come in later today and talk with her dad about this. Will plan to touch base with her tomorrow to see how conversation went. She is also asking for medical update.
- discussed with primary team - will update daughter later today on medical plan.
- DNR/DNI
Pain & Symptom Assessment
[place] Symptom Scale 0=none, 10=worst
Pain: 0
Drowsy: 3
Objective Data
-
Objective Data:
Vital Signs
Temp Pulse Resp BP Pulse Ox
97.6 F 90 10 107/64 99
06/13/24 07:45 06/13/24 08:44 06/13/24 05:00 06/13/24 08:44 06/13/24 05:00
Laboratory Results
06/13/24 04:12
06/13/24 04:12
APTT 72.7 Sec (23.4-35.0) H 06/13/24 04:12
Hemoglobin A1c 6.7 % (4.0-5.6) H 06/08/24 01:01
Total Protein Cancelled 06/08/24 01:02
Albumin Cancelled 06/08/24 01:02
Urine Color Yellow 06/07/24 10:38
Urine Clarity Slightly cloudy (Clear) 06/07/24 10:38
Urine pH 6.0 (5.0-9.0) 06/07/24 10:38
Ur Specific [place] 1.010 (<1.030) 06/07/24 10:38
Urine Ketones Negative (Negative) 06/07/24 10:38
Urine Bilirubin Negative (Negative) 06/07/24 10:38
Palliative Performance Scale
Palliative Performance Scale:
PPS Level Ambulation Activity & Evidence of Disease Self Care Intake Conscious Level
100% Full Normal Activity & Work; Full Intake Full
No Evidence of Disease
90% Full Normal Activity & Work; Full Normal Full
Some Evidence of Disease
80% Full Normal Activity with Effort Full Normal or Full
Some Evidence of Disease Reduced
70% Reduced Unable Normal Job/Work Full Normal or Full
Significant Disease Reduced
60% Reduced Unable Hobby/Housework Occasional Normal or Full or Confusion
Significant Disease Assistance Reduced
50% Mainly Sit/Lie Unable to do Any Work Considerable Normal or Full or Confusion
Extensive Disease Assistance Req'd Reduced
40% Mainly in Bed Unable to do Most Activity Mainly Assistance Normal or Full or Drowsy;
Extensive Disease Reduced +/- Confusion
30% Totally Bed Unable to do Any Activity Total Care Normal or Full or Drowsy;
Bound Extensive Disease Reduced +/- Confusion
20% Totally Bed Bound Unable to do Any Activity Total Care Minimal to Full or Drowsy;
Extensive Disease Sips +/- Confusion
10% Totally Bed Bound Unable to do Any Activity Total Care Mouth Care Drowsy or Coma;
Extensive Disease Only +/- Confusion
0%
PPS Score Level:
Physical Exam
-
General: Conversant and Appears Chronically Ill
HEENT: Normocephalic
Respiratory: Rhonchi
Cardiac: Regular Rhythm
Peripheral Vascular: No Edema
GI: Soft and Normal Bowel Sounds
Musculoskeletal: Other (paraplegia )
Skin: Warm and Other (multiple wounds )
Neuro: Awake and Alert
Psych: Calm
Care Reviewed
Data Reviewed
Radiology procedure: Image Reviewed
Medical Tests: I reviewed
Reviewed with: Patient, Family and Physician
[2024-06-13 13:03] LABS: Glucose - Point of Care 139 mg/dl (70-99)
--- NOTE | 2024-06-13 14:03 | W.PN.ID1 ---
Date of Service
Date of Service: June 13, 2024
Today's Communication
Continue antibiotics.
Assessment / Plan
Leukocytosis
Suspected aspiration pneumonia
- Cultures with ESBL E. coli
Bacteriuria with ESBL E. coli
Fever
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
Hypertension
Chronic HFpEF
CKD III
Atrial Fibrillation
Paraplegia (Traumatic SCI; 2021)
DM-II
GERD
BPH
Recommendations:
MRSA screen positive. Urine culture with ESBL E. coli.
White count improved today.
MRSA screen positive.
Continue with vancomycin (d#7) / ertapenem (d#4).
Would complete a 14-day course of both antibiotics.
Follow white count and temperature curve.
Monitor pending cultures.
At present, little to do regarding the chronic back wound. The area appears clear, but clinically the hardware is infected given its exposure to the outside environment.
Would not replace VAC therapy over this area.
Follow-up with patient's neurosurgeon/spinal surgeon is imperative, but can be performed on an outpatient basis.
Chart reviewed, and patient contemplating hospice level care.
����������������������������������������������������������
Chief Complaint
-: Leukocytosis
Subjective / Review of Systems
Patient seen and examined earlier today (~9am). No acute complaints at that time
Review of Systems: No Fever, No Chills and No Chest Pain
Vital Signs / Physical Exam
Vital Signs
Vital Signs
Temp Pulse Resp BP Pulse Ox
97.9 F 88 17 96/55 97
06/13/24 11:15 06/13/24 13:00 06/13/24 13:00 06/13/24 13:00 06/13/24 13:00
Physical Exam
Constitutional: Comfortable, Chronically Ill and Non-toxic
Cardiovascular: S1/S2; Negative S3/S4
Pulmonary: Clear (anteriorly) and Non Labored
Gastrointestinal: Soft, Non Tender and Non Distended
Extremities: Edema (RUE); Negative Cyanosis or Erythema
Wound: Other (Posterior thoracic spine wound dressed.)
Neurological: Awake and Alert
Psychological: Calm
Lines: PICC (RUE no erythema)
Objective Data
Lab Data
Lab Results
06/13/24 04:12
06/13/24 04:12
APTT 72.7 Sec (23.4-35.0) H 06/13/24 04:12
Estimated Creat Clear 49 ml/min 06/13/24 04:12
Lactic Acid 2.2 mmol/L (0.7-2.0) H 06/07/24 10:38
Total Bilirubin Cancelled 06/08/24 01:02
AST Cancelled 06/08/24 01:02
ALT Cancelled 06/08/24 01:02
Alkaline Phosphatase Cancelled 06/08/24 01:02
Most recent labs reviewed.
Micro Results:
06/07/24 10:38 Blood Culture - Final
Blood/Venous No Growth - Final Report
06/10/24 12:24 Respiratory Culture - Final
Sputum Escherichia coli - ESBL
Paulette albicans
Gram Stain - Final
06/07/24 10:38 Urine Culture - Final
Urine Escherichia coli - ESBL
06/07/24 15:53 MRSA Screen - Final
Nose Staph aureus MRSA
06/07/24 10:38 Legionella Urinary Antigen - Final
Urine Negative for Legionella pneumophila Serogroup 1 antigen.
A negative result does not rule out the possiblity of
Legionella infection due to other serogroups or species of
Legionella. Clinical correlation is recommended.
Streptococcus pneumoniae Antigen (M - Final
Negative for Streptococcus pneumoniae antigen.
A negative result does not exclude infection with
Streptococcus pneumoniae. Clinical correlation is
recommended.
Imaging:
CXR (portable): Large patchy airspace opacities in the bilateral lung bases most concerning for pneumonia. Low lung volumes are noted. No large pleural effusion or pneumothorax seen. Chronic degenerative changes of the spine are noted. Bilateral
posterior paraspinal rods and pedicle screws in the thoracic spine. Please see full dictation for additional detail. Film personally viewed.
--- NOTE | 2024-06-13 14:29 | PTCARENOTE ---
Assumed care of patient at beginning of this shift from previous RN with O2 4l n/c in use; weaned to 2L n/c with POx 97%. Patient Ox2, forgetful and calls out at times. Q2h turn maintained. No urinary output reported overnight; no urinary output
today. Bladder scan this morning 223; repeat at this time 287. Dr Hawk made aware both times when up to see patient. Currently in room talking with patient, daughter and ex- about goals of care. See worklist for full assessment and
vital signs.
--- NOTE | 2024-06-13 15:47 | CM ---
Patient from [facility] with Hx Spinal cord injury with vertebral fracture, thoracic back wound with exposed hardware, paraplegia, multiple decubitus ulcers. O2 2L. Receiving IV Ertapenum, IV Vanco. Patient has IJ Central Line.
Met with patient, ex- and daughter Stormy; all agree to d/c tomorrow back to [facility] with IV Abx. IMM completed.
Script received from Dr Joseph: Ertapenum 1gm IV Q24h via Central Line, end date 06/23/24.
Spoke with Katarzyna, [facility]; they are able to accept the patient back tomorrow. The for nurse report [phone], fax [phone].
Katarzyna confirms that their nursing staff can care for this patient with an IJ Central Line. She states patient will need to have [facility] IR remove the central line after IV Abx are completed---> Dr Lindo notified and agrees.
Script for V Avx and Central Line info added to referral in [facility].
Plan [facility] tomorrow by ambulance, with IJ Central line in place for IV Abx.
--- NOTE | 2024-06-13 16:25 | PTOTSP ---
Patient is dependent care and mobility at baseline. He reports he does not sit EOB or get to bedside wheelchair on a regular basis. He states he is a drew lift to W/C on the days he does get OOB.
Patient is not appropriate for further skilled intervention at this time and will be discharged from caseload as nursing is able to use drew lift for OOB as appropriate.
[2024-06-13] MEDS: NOVOLOG FLEXPEN-LOW RESISTANCE 1 UNITS SC (16:52)
[2024-06-13 17:00] LABS: Glucose - Point of Care 179 mg/dl (70-99)
[2024-06-13] MEDS: TYLENOL 1000 MG PO (20:36)
[2024-06-13] MEDS: SENOKOT PO (20:36)
[2024-06-13 21:59] LABS: Glucose - Point of Care 136 mg/dl (70-99)
[2024-06-13] MEDS: TORADOL 15 MG IV (22:27)
[2024-06-13] MEDS: MORPHINE SULFATE 2 MG IV (23:22)
[2024-06-14] VITALS (48 sets, daily range): BP systolic 61–117; BP diastolic 21–80; BMI 24.1
--- NOTE | 2024-06-14 04:59 | PTCARENOTE ---
Patient with 8/10 pain on his sacrum r/t wounds. Tylenol given and ineffective. assembler gold frame provider made aware and ordered 1x iv toradol. Patient received IV toradol and still complained of 8/10 pain and was yelling out into the hallway. assembler gold frame
provider made aware and ordered 1x dose morphine. Morphine given and patient appeared comfortable throughout the rest of the shift.
[2024-06-14 05:15] LABS: Blood Urea Nitrogen 33 mg/dl (9-20); Calcium 7.3 mg/dl (8.4-10.2); Carbon Dioxide 18 mmol/L (22-30); Chloride 107 mmol/L (98-107); Estimated Creatinine Clearance 45 ml/min; Glucose 107 mg/dl (70-99); Potassium 3.7 mmol/L (3.5-5.1); Sodium 132 mmol/L (135-145); eGFR 56.23
--- NOTE | 2024-06-14 08:29 | W.PN.HOSP.TC ---
Today's Communication/Plan
-
Continue Ertapenem
Continue Eliquis at 10mg
Monitor BP, and urinary retention closely.
Assess for renal function.
I and Os and weight.
Assessment / Plan
Assessment / Plan
Assessment-
78-year-old male with PMHx significant for paroxysmal A-fib, HFpEF, aspiration pneumonia, multiple decubitus ulcers in the back, diabetes, hypertension presents to the hospital from [facility] for evaluation of hypotension. Diagnosed with
septic shock.
Plan -
Septic shock -
Fever resolved.. Off of Levophed.
Septic shock resolved.
Patient is mildly acidotic, CO2 at 20.
History of aspiration pneumonia, recent admission to the hospital in April 2024.
Patient noncompliant with pur�ed diet.
Urine sample-squamous epithelial cells greater than 30. Not consistent with UTI
Blood cultures obtained once-no growth in 48 hours.
MRSA positive.
Chest x-ray evidence for pneumonia. Urine cultures positive for ESBL E. coli.
Sputum cultures positive for gram-negative bacilli and Paulette albicans.
Neurosurgery reviewed patient's chronic spinal wound, hardware infection is less likely a source of sepsis. Can follow-up hardware open wound with primary neurosurgery.
ID on board, currently patient is on Ertapenem, and vancomycin.
COVID and influenza negative
Can hold vancomycin, continue ertapenem
Acute hypoxic respiratory failure -
Currently weaned off of oxygen.
Secondary to aspiration pneumonia, chest x-ray showed large patchy airspace opacities in both lung bases.
Check sputum cultures.
Advised patient to be compliant with pur�ed diet.
Continue vancomycin and cefepime. Speech therapy consulted for evaluation.
Speech therapy findings-evidence for retrograde reflux while eating pur�ed food. Recommended gastroenterology evaluation. GI consulted. Barium esophagogram and VRE done yesterday-no aspiration, okay for thin liquids, esophagogram showed some
limitation with lack of motility and hardware but no findings of obstruction or aspiration. GI advance diet to IDD 5, and patient tolerated it well they recommended advancing diet to regular. GI signed off. Appreciate all GI inputs.
IV fluids changed to lactated Ringer in the setting of septic shock.
Superficial thrombosis in RUE and DVT in LUE-
superficial thrombosis in the right cephalic and right basilic vein. He was also then found to have DVT in the left brachial vein and superficial thrombus in the left basilic vein in the setting of PICC line
Heme-onc saw the patient and said it is less likely Eliquis failure but more likely in the setting of PICC line and sepsis.
Heparin GTT for 48 hours and then switch to Eliquis 10 mg twice daily and then to Eliquis 5 twice daily.
Patient is switched to eliquis 10mg yesterday, 2 out of 14 doses given.
Multiple decubitus ulcers-
Stage III sacral decubitus ulcer.
Stable thoracic spine ulcer with undermined edges and exposed hardware, stage undetermined, probe test positive up to 3.5 cm posteriorly into the thoracic spine.
2 more stage II ulcers noted on the thoracic spine
All ulcers with continues to drain, but have been stable
Per patient patient is on wound VAC for thoracic spine ulcer for questionable 2 years.
Records requested from patient's primary neurosurgeon, pending records.
Primary neurosurgeon-Dr. Jcarlos rogers, [place], phone #[phone].
Spinal cord injury with vertebral fracture-
Patient has been bedbound for 2 years.
Paroxysmal A-fib
Continue amiodarone.
[id number] score 5 points.
Continue Eliquis.
Chronic HFpEF -
Patient gained 1kg overnight.
With IV fluids for septic shock, continue to monitor I's and O's
Continue to monitor weight
Sodium and fluid restriction.
Trend renal function
Normocytic anemia-
Anemia of chronic disease, hemoglobin at 9.5.
Essential hypertension-
His spironolactone, losartan, Coreg were on hold given his hypotension secondary to septic shock
Carefully monitor patient for heart failure symptoms and wean off Levophed as soon as possible
Discontinue IV fluids once patient's blood pressure stabilizes
Will consider resuming blood pressure medications once her blood pressure stabilizes.
Type 2 diabetes mellitus-
Hold metformin
Currently on insulin sliding scale
Low insulin requirement overnight
Hyponatremia-
serum sodium at 131.
Questionable if it is hypovolemic.
If serum sodium continues to remain low will obtain serum osmolality and workup for SIADH in the a.m. tomorrow.
Continue to monitor renal function.
Hypomagnesemia
Magnesium repleted.
Obtain repeat magnesium levels
Anxiety/depression-
Continue doxepin
Hyperlipidemia
Continue atorvastatin
Urinary retention-
Currently on bladder scan protocol.
Today's retention was up to 60 cc. Did not require straight cath.
Blood pressure running soft for starting the patient on tamsulosin.
Will continue to monitor.
Peripheral neuropathy -
Secondary to spinal injury and diabetes
Continue gabapentin.
DVT prophylaxis-on Eliquis.
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
GERD
CODE STATUS-DNR/DNI
Spoke to patient on bedside, he is currently considering and exploring hospice as a treatment option. Would want to sit with his daughter Stormy and have a conversation before he makes that decision. Asked if I could update the daughter after 4
PM so the patient can have a conversation with her.
Anticipated Discharge: 24 - 48 hours
Subjective/Interval History
-
Date of Service: June 14, 2024
Urinary retention overnight. Patient remained stable with no other complaints
Objective Data
-
Labs:
Laboratory Results
06/14/24
04:33
Sodium 132 L
Potassium 3.7
Chloride 107
Carbon Dioxide 18 L
BUN 33 H
Creatinine 1.3
Glucose 107 H
Calcium 7.3 L
Vital Signs:
Vital Signs
Temp Pulse Resp BP Pulse Ox
97.4 F 84 8 97/77 99
06/14/24 07:40 06/14/24 06:00 06/14/24 06:00 06/14/24 06:00 06/14/24 06:00
I&O
06/13/24 06/14/24 06/15/24
06:59 06:59 06:59
Intake Total 372 / 372 440 / 440
Output Total 400 / 400
Balance 372 / 372 40 / 40
Review of Systems
-
History Source: Patient
Constitutional: Reports No Symptoms
EENT: Reports No Symptoms Reported
Respiratory: Reports No Symptoms
Cardiac: Reports No Symptoms
Abdomen/GI: Reports No Symptoms
Genitourinary: Reports Difficulty Voiding
Musculoskeletal: Reports No Symptoms
Skin: Reports No Symptoms
Neuro: Reports No Symptoms
Endocrine: Reports No Symptoms
Hematologic / Lymphatic: Reports No Symptoms
Allergy / Immunology: Reports No Symptoms
Physical Exam
-
General: Comfortable
HEENT: Moist Mucous Membranes
Respiratory: Wheezes and Crackles; Negative Rales or Rhonchi
Cardiac: Regular Rhythm and S1/S2; Negative Murmur, Rub or Gallop
GI: Soft, Nontender, Nondistended and Normal Bowel Sounds
Genito-urinary: No Costovertebral Tender
Musculoskeletal: No Clubbing, No Cyanosis and Other (1+ pitting edema in bilateral lower extremities, right upper extremity more swollen than the left upper extremity, weeping arms from SVT and DVT.)
Neuro: AO x 3 and No Motor Deficits
Psych: Calm
Data Reviewed
-
Labs: Labs Reviewed by me, Discussed with Physician and Discussed with Nurse
[2024-06-14] MEDS: NOVOLOG FLEXPEN-LOW RESISTANCE SC ×3 (08:56→18:12)
[2024-06-14] MEDS: ELIQUIS 10 MG PO ×2 (09:01→19:20)
[2024-06-14] MEDS: LASIX 20 MG PO (09:01)
[2024-06-14] MEDS: LIPITOR 80 MG PO (09:02)
[2024-06-14] MEDS: DESENEX/MITRAZOL/ZEASORB 1 APPLIC TOPICAL ×2 (09:02→19:20)
[2024-06-14] MEDS: PLAVIX 75 MG PO (09:02)
[2024-06-14] MEDS: PROTONIX 40 MG PO (09:02)
[2024-06-14] MEDS: VITAMIN D3 (cholecalciferol) 25 MCG PO (09:02)
[2024-06-14] MEDS: PACERONE 200 MG PO (09:02)
[2024-06-14] MEDS: NEURONTIN 300 MG PO ×2 (09:02→19:20)
[2024-06-14] MEDS: THERAGRAN 1 TABLET PO (09:02)
[2024-06-14] MEDS: INVANZ 60 MG IV (09:03)
[2024-06-14 09:06] LABS: Glucose - Point of Care 118 mg/dl (70-99)
--- NOTE | 2024-06-14 09:32 | W.PN.ID1 ---
Date of Service
Date of Service: June 14, 2024
Today's Communication
Continue antibiotics; see below...
Assessment / Plan
Leukocytosis
Suspected aspiration pneumonia
- Cultures with ESBL E. coli
Bacteriuria with ESBL E. coli
Fever
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
Hypertension
Chronic HFpEF
CKD III
Atrial Fibrillation
Paraplegia (Traumatic SCI; 2021)
DM-II
GERD
BPH
Recommendations:
MRSA screen positive. Urine culture with ESBL E. coli.
White count improved today.
MRSA screen positive.
Vanco redosed yesterday. Patient has extended kinetics, and will likely have a level for the at least the next several days. Can discontinue further vancomycin.
Continue with ertapenem, to complete a 14-day course. IV sheet given to Case Management
Follow white count and temperature curve.
Monitor pending cultures.
At present, little to do regarding the chronic back wound. The area appears clear, but clinically the hardware is infected given its exposure to the outside environment.
Would not replace VAC therapy over this area.
Follow-up with patient's neurosurgeon/spinal surgeon is imperative, but can be performed on an outpatient basis.
Chart reviewed, and patient contemplating hospice level care.
����������������������������������������������������������
Chief Complaint
-: Leukocytosis
Subjective / Review of Systems
Review of Systems: No Fever and No Chills
Vital Signs / Physical Exam
Vital Signs
Vital Signs
Temp Pulse Resp BP Pulse Ox
97.4 F 89 8 102/57 97
06/14/24 07:40 06/14/24 09:01 06/14/24 08:00 06/14/24 09:01 06/14/24 08:00
Physical Exam
Constitutional: Comfortable, Chronically Ill and Non-toxic
Cardiovascular: Regular Rate and S1/S2
Pulmonary: Clear (anteriorly) and Non Labored
Gastrointestinal: Soft, Non Tender and Non Distended
Extremities: Edema (RUE); Negative Cyanosis or Erythema
Wound: Other (Posterior thoracic spine wound dressed.)
Neurological: Awake and Alert
Psychological: Calm
Lines: PICC (RUE no erythema)
Objective Data
Lab Data
Lab Results
06/13/24 04:12
06/14/24 04:33
APTT Cancelled 06/13/24 11:45
Estimated Creat Clear 45 ml/min 06/14/24 04:33
Lactic Acid 2.2 mmol/L (0.7-2.0) H 06/07/24 10:38
Total Bilirubin Cancelled 06/08/24 01:02
AST Cancelled 06/08/24 01:02
ALT Cancelled 06/08/24 01:02
Alkaline Phosphatase Cancelled 06/08/24 01:02
Most recent labs reviewed.
Micro Results:
06/07/24 10:38 Blood Culture - Final
Blood/Venous No Growth - Final Report
06/10/24 12:24 Respiratory Culture - Final
Sputum Escherichia coli - ESBL
Paulette albicans
Gram Stain - Final
06/07/24 10:38 Urine Culture - Final
Urine Escherichia coli - ESBL
06/07/24 15:53 MRSA Screen - Final
Nose Staph aureus MRSA
06/07/24 10:38 Legionella Urinary Antigen - Final
Urine Negative for Legionella pneumophila Serogroup 1 antigen.
A negative result does not rule out the possiblity of
Legionella infection due to other serogroups or species of
Legionella. Clinical correlation is recommended.
Streptococcus pneumoniae Antigen (M - Final
Negative for Streptococcus pneumoniae antigen.
A negative result does not exclude infection with
Streptococcus pneumoniae. Clinical correlation is
recommended.
Imaging:
CXR (portable): Large patchy airspace opacities in the bilateral lung bases most concerning for pneumonia. Low lung volumes are noted. No large pleural effusion or pneumothorax seen. Chronic degenerative changes of the spine are noted. Bilateral
posterior paraspinal rods and pedicle screws in the thoracic spine. Please see full dictation for additional detail. Film personally viewed.
--- NOTE | 2024-06-14 11:02 | W.PN.UPDATE ---
Update Note
Progress Note Update
I saw and evaluated the patient. I reviewed the resident�s note and agree with findings and plan as documented in the resident�s note.
Denies new complaints.
Gen: NAD, Awake and alert, appears chronically ill
Eyes: EOMI, PERRLA, no scleral icterus.
Neck: supple.
CV: continues to remain RRR, +S1/S2, no m/r/g.
Resp: continues to remain CTAB anteriorly, no rales, wheezes, or rhonchi.
Abd: +BS, soft, NT, ND
Skin: No rashes. 1-2+ anasarca
Neuro: CN 2-12 intact, non-focal.
Psych: Normal mood and affect.
06/07/24 10:38 Blood/Venous Blood Culture - Final
No Growth - Final Report
06/10/24 12:24 Sputum Respiratory Culture - Final
Escherichia coli - ESBL
Paulette albicans
06/10/24 12:24 Sputum Gram Stain - Final
06/07/24 10:38 Urine Urine Culture - Final
Escherichia coli - ESBL
06/07/24 15:53 Nose MRSA Screen - Final
Staph aureus MRSA
06/07/24 10:38 Urine Legionella Urinary Antigen - Final
Negative for Legionella pneumophila Serogroup 1 antigen.
A negative result does not rule out the possiblity of
Legionella infection due to other serogroups or species of
Legionella. Clinical correlation is recommended.
06/07/24 10:38 Urine Streptococcus pneumoniae Antigen (M - Final
Negative for Streptococcus pneumoniae antigen.
A negative result does not exclude infection with
Streptococcus pneumoniae. Clinical correlation is
recommended.
Esophagram: Markedly limited evaluation of the esophagus due to patient debility, lack of mobility and extensive metallic hardware throughout the thoracic spine. No findings to suggest esophageal obstruction or aspiration.
Acute LUE DVT, superficial cephalic and basilic venous thrombosis:
-cont Eliquis (was on heparin gtt)
-per heme, not an Eliquis failure
Septic shock and acute hypoxemic respiratory failure due to likely aspiration PNA and UTI:
-s/p IVFs
-UCx and sputum Cx with ESBL E coli
-BCx 12/ NGTD
-legionella/strep neg
-pressors weaned to off
-was Vanco/Invanz and will finish abx with Invanz only at this time to complete 14 days abx as per ID
-note VSE and esophagram NEG for aspiration or esophageal obstruction. As per GI and speech pt OK for reg/thins. GI has signed off.
Spinal hardware (exposed) with termite exterminator wound vac in place for 2yr
-neurosurgeon out of [place]
-neurosurgery saw in c/s, does not believe back wound/spinal hardware is the source of infection, continue vac and outpatient follow up with primary neurosurgeon
Other problems:
Hyponatremia, mild
PAF: cont amio/eliquis
Essential HTN: currently not on any antihypertensive medications in the setting of septic shock
HLD: cont statin
GERD: cont PPI
DNR/Eliquis
Patient is hospice appropriate. Palliative care consult placed. Pt no interested in hospice at this time.
Medically cleared for discharge with the knowledge that readmission within 30 days is likely 100%.
Total time spent on d/c = 40 min. This included today's physical exam, progress note, review of laboratory and diagnostic data, preparation of discharge documents and prescriptions, and discussions about the pt's hospital course and discharge plan
with the patient and other medical reimbursement specialist involved in the patient's care.
--- NOTE | 2024-06-14 11:52 | WOUNDNOTE ---
[facility] RN note: Patient for transfer to SNF today. BASIM Abad reports sacral ulcer looks worse. Sacral ulcer is more necrotic and his spine wound has more hardware showing. His bruised edematous arms are weeping copious serous drainage. Suspect he�s
having skin failure despite prevention measures in place d/t his overall medical condition and poor nutrition. Packing changed on spine. BASIM Abad changed arm dressings. Dressings maintained on sacral/buttocks. Patient turned to L semi side lying
position. Foot Waffle boots maintained. Updated Hospitalist resident Dr. Guaman re: patient's sacral ulcer worse, more necrotic; spine ulcer with more hardware exposed; resident approved updating his wound care instructions. Discharge
instructions updated. Discussed with BASIM Tate who will give wound report to SNF nurse.
--- NOTE | 2024-06-14 12:03 | W.DCSUMMARY ---
Addendum entered and electronically signed by Tomer Lindo MD 06/14/24 13:24:
Read, reviewed, and agree. See same day progress note for additional details.
Original Note:
Discharge Summary
Discharge Data
Date of Admission: 06/07/24
Date of Discharge: 06/14/24
-
Pending Results: No
Hospital Course
Assessment-
78-year-old male with PMHx significant for paroxysmal A-fib, HFpEF, aspiration pneumonia, multiple decubitus ulcers in the back, diabetes, hypertension presents to the hospital from [facility] for evaluation of hypotension. Diagnosed with
septic shock.
Hospital course-
During patient's 1 week hospital course,
He came in with septic shock, started on Levophed at 6 mcg and his requirement went higher up overnight on day 1. As he was on Levophed for more than 24 hours a PICC line was introduced into his right upper extremity, and Levophed was gradually
weaned off overnight on day 2. Patient is noticed to have aspiration pneumonia, and as a part of sepsis workup we ordered sputum cultures, checked all his decubitus ulcers and ordered urine cultures along with blood cultures. His sputum cultures
and urine cultures were positive for ESBL E. coli, we noticed the chronic open wound on his thoracic spine with exposed hardware that is being treated with wound VAC for 2 years at [facility]. Our initial concern was if his sepsis is secondary to
his exposed hardware. Hence we consulted neurosurgery as well as wound care. Neurosurgery saw the patient and advised that to continue his management with his primary neurosurgeon at [place]. ID was on board from day 1, started patient on
vancomycin and cefepime initially, when his cultures came back positive for ESBL E. coli cefepime was switched to ertapenem. On day 3 of his hospitalization, there is a swelling noticed around the PICC line and vascular ultrasound was obtained
which showed superficial venous thrombosis in his cephalic and basilic veins, extending all the way into his shoulder, and with concern to rule out deep vein thrombosis in the other extremity before introducing PICC line we obtained vascular
ultrasound on his left upper extremity which showed evidence for deep vein thrombosis. Hence interventional radiology was consulted, his PICC line was removed and IR could not visualize his right internal jugular vein to obtain access. Patient was
given a left IJ access by IR to continue his medical management. As patient was already on Eliquis and Plavix, there is a concern for Eliquis treatment failure and heme-onc was consulted. It is determined that patient clots were secondary to his
ongoing sepsis and immobility but less likely on Eliquis treatment failure. Hence patient was started on heparin gtt. for 48 hours given the close proximity of the SVT clots to his heart, and speech was consulted to evaluate his aspiration risk.
Speech therapy recommended GI consult. GI was consulted as well, GI obtained barium esophagogram with the video swallow assessment both of which were negative. GI wanted the patient to be on heparin drip while determining the necessity for an
upper GI endoscopy. Hence patient continued to remain on heparin drip for 4 days, and then switch to Eliquis 10 mg twice a day for 7 days and then to Eliquis 5 mg twice a day. Patient received 3 days course of ertapenem. Due to his septic shock
all his GDMT medications for HFpEF were on hold during this hospitalization. Patient continued to remain with soft blood pressures throughout hospitalization. Patient is also found to have MRSA colonization during this hospitalization. We
continued all other home medications for his chronic medical conditions during the hospital course. Patient also brought up the conversation of hospice at 1 point in his hospitalization course for which I consulted the hospice team. Patient and
his family made a shared decision making the day before discharge that hospice is not appropriate for them. GI recommended to advance the patient to regular diet. Patient was also advance her to regular diet the day before hospital discharge.
Given patient's heart failure, fluid overload, urinary retention, multiple open decubitus ulcers, and recurrent aspiration pneumonias we discussed the likelihood of readmission to the hospital in less than 30 days is very high-greater than 30%, we
discussed poor prognosis as well as mortality rates. However patient wanted to not pursue hospice at this point of time.
Workups-
Barium esophagogram-06/12/2024
Markedly limited evaluation of esophagus due to patient's debility, lack of motility and extensive metallic hardware throughout the thoracic spine. No findings to suggest esophageal obstruction or aspiration.
Videofluoroscopic swallow-06/12/24
No noticed risk for aspiration.
Catheter placement x-ray, vascular ultrasound-06/09/2024-
Successful left IJ access.
Peripheral vascular ultrasound 06/09/2024-
Examination positive for thrombosis involving the basilic vein in the left upper arm there is also thrombus within one of the 2 brachial arms in the left upper arm.
Peripheral vascular ultrasound 06/09/2024-
Thrombus involving the right cephalic and basilar veins.
Chest x-ray-06/08/2024-
Right PICC line catheter in the central third of the superior vena cava. No pneumothorax.
Chest x-ray on 06/27-
Pneumonia in bilateral lung bases.
Microbiology results-
Sputum culture-06/10/2024-ESBL E. coli.
-06/07/2024-MRSA positive
Urine-06/07/2024-
ESBL E. coli positive
Discharge Plan
-
Patient Disposition: Senior Care/SNF
Discharge Diagnosis/Procedures: Septic shock, secondary to aspiration pneumonia from ESBL E.coli, Urinary retention.
Condition: Fair
Diet: As tolerated, 2 Gram Sodium and Restrict fluids to 48 oz
Activity: As tolerated
Driving Restrictions: As prior to admission
Bathing Restrictions: None
Blood Work: BMP
Activity Restrictions/Additional Instructions:
Wound Care Instructions
Spine deep wound-resume prior wound care as ordered by your wound pediatric critical care nurse and neurosurgeon.
L lateral back wounds-clean with Vashe wound cleanser, honey gel prn necrotic tissue, silicone border foam, change q 3 days and prn loosened dressing.
Sacral wounds-clean with 1/4 strength Dakin's solution, zinc barrier ointment to surrounding skin (i.e. Calazime), Honey gel or Santyl ointment to necrotic tissue, alginate, silicone border foam, change bid and prn drainage.
Weeping arms, skin tears-clean with saline, Vaseline gauze or adaptic to open/weeping areas, cover with ABD pads, secure with stockinet or wrap with absorbent disposible underpad daily and prn drainage. Elevate arms with pillow,s.
R lateral ankle red jamilah-clean with saline or Vashe wound cleanser, silicone border foam, change q 3 days and prn loosened dressing.
Protective foam to heels, change q 3 days and prn loosened dressing.
Specialty mattress.
Turning schedule; use pillow and/or air chair cushions for turning.
Elevate heels off bed; soft heel relief boots as tolerated (i.e. Foot Waffle boots); use pillow and/or air chair cushion to off load heels while boots off.
Follow up with your wound care center and neurosurgeon.
Referrals:
Jessica Ramos MD [Family Provider] -
Additional Discharge Medication Instructions: Currently patient took Eliquis 10 mg twice daily for 1 day.
Continue Eliquis 10 mg twice daily for 6 days.
Continue Eliquis 5 mg twice daily from then on after 06/20/2024.
Continue Invanz per ID prescription
Added midodrine for low blood pressure. Use it as needed.
Given history of heart failure, continue patient's spironolactone 12.5 mg p.o. daily, hold spironolactone if patient has systolic less than 100, diastolic less than 60.
Continue Coreg 3.125 mg once daily with similar holding parameters
Hold losartan.
Reevaluate patient's blood pressure after complete recovery and finishing antibiotic course.
Follow-up with your primary care in 1 week and cardiology in the next 2 weeks.
Prescriptions:
New
Critic-Aid Clear AF(miconazol) 2 % Ointment
1 applic topical BIDPRN PRN (Reason: yeasty red skin) Qty: 10 0RF
pantoprazole 40 mg Tablet,Delayed Release (Dr/Ec)
40 mg PO DAILY 30 Days Qty: 30 0RF
Ertapenem [Invanz] 1000 MG
0.9% Sodium Chloride [Nss] 50 ML
120 mls/hr IV Q24H
Ordered By: Loreto Guaman MD, Resident
Last Taken: 06/14/24 09:03 60 mls
Eliquis 5 mg tablet
5 mg PO BID 30 Days Qty: 60 0RF
Rx Instructions:
Take 2 tablets twice a day for 6days, then
Take 1tablet twice a day continuously.
midodrine 5 mg tablet
5 mg PO TID 30 Days Qty: 90 1RF
Continued
metformin 500 mg Tablet
500 mg PO DAILY
doxepin 50 mg Capsule
50 mg PO DAILY
atorvastatin 80 mg Tablet
80 mg PO DAILY
ipratropium-albuterol 0.5 mg-3 mg(2.5 mg base)/3 mL Solution For Nebulization
3 ml INHALATION R Q4HPRN PRN (Reason: sob)
amiodarone 200 mg Tablet
200 mg PO DAILY
ondansetron HCl 4 mg Tablet
4 mg PO Q6HPRN PRN (Reason: nausea/vomiting)
isosorbide mononitrate 30 mg Tablet Extended Release 24 Hr
30 mg PO DAILY
clopidogrel 75 mg Tablet
75 mg PO DAILY
spironolactone 25 mg Tablet
12.5 mg PO DAILY
magnesium hydroxide [Milk of Magnesia] 400 mg/5 mL Suspension
30 ml PO HSPRN PRN (Reason: if no BM in 3 days)
bisacodyl 10 mg Suppository
10 mg AK DAILYPRN PRN (Reason: if MOM ineffective)
sennosides [senna] 8.6 mg Tablet
8.6 mg PO HS
docusate sodium 100 mg Capsule
100 mg PO BID
cholecalciferol (vitamin D3) 25 mcg (1,000 unit) Tablet
25 mcg PO DAILY
gabapentin 600 mg Tablet
600 mg PO TID
therapeutic multivitamin Tablet
1 tab PO DAILY
acetaminophen 500 mg Tablet
1,000 mg PO HS
carvedilol 3.125 mg tablet
3.125 mg PO BID
Held
losartan 25 mg Tablet
25 mg PO DAILY
Hold Instructions: Resume on 06/23/24. Resume losartan only if patient's blood pressure improves.
Discontinued
apixaban 5 mg Tablet
5 mg PO BID
Discharge Orders:
Discharge Patient (As Directed); Ordered 06/14/24
Ordered By: Loreto Guaman
Discharge Date and Time
Print Language: FRENCH
--- NOTE | 2024-06-14 12:05 | PTCARENOTE ---
Assumed care of patient at beginning of this shift from previous RN. Wound care done this morning; contacted Zuleyma Ren, [facility] RN to assess wounds as they look worse. Patient's b/l arms also weeping copious amounts of serous fluid. Arms wrapped
in covidians and secured with spandage per Zuleyma. Dr Guaman made aware of weeping arms when she was up to see patient. Also made her aware that patient still has not voided and needed to have straight cath overnight. She stated she will
update Dr Lindo. Zuleyma updated Dr Guaman via TT. Patient remains for d/c today with pickup time 15:30. See worklist for full assessment and vital signs.
[2024-06-14 12:48] LABS: Glucose - Point of Care 123 mg/dl (70-99)
--- NOTE | 2024-06-14 14:34 | PTCARENOTE ---
Report given to Graciela at [facility]. She requested a note be written by physician that states patient does not need wound vac. TT sent to Dr Guaman and Dr Lindo; received response from Dr Guaman stated that wound vac is to be decided
by his primary wound care team at [place]. Discharge instructions state for spine that patient is resume prior wound care as ordered by wound child care centre director and neurosurgeon.
[2024-06-14] MEDS: ProAmatine 5 MG PO (15:36)
[2024-06-14] MEDS: NSS 250 IV (16:31)
[2024-06-14] MEDS: NEURONTIN PO (16:34)
--- NOTE | 2024-06-14 16:38 | PTCARENOTE ---
Patient's BP low: 82/54. Both Dr Guaman and Dr iLndo made aware. Midodrine ordered and given. BP remains low: 88/38 with MAP 55, 61/30. Rechecked multiple times in b/l calves and b/l thighs. Unable to use arms d/t b/l DVTs. Dr Correa called unit
for Dr Lindo: NSS 250 bolus ordered and infusing. Dr Lindo and Dr Guaman on unit to assess patient. Another bolus of NSS 500ml ordered. Levophed also ordered and awaiting pharmacy verification. Dr Guaman and Dr Lindo attempted to reach
daughter but left vm. Discharge cancelled; transport notified by hospital unit coordinator.
--- NOTE | 2024-06-14 16:39 | W.PN.UPDATE ---
Update Note
Progress Note Update
Got a nurse call stating his MAP is at 45. We tried calling family about pressors, with no answer. patient seen on the bed side. Gave him IVF bolus, and started him on Levophed at 2mcgs. Tried to reach out the family. Was not able to reach out, and
left a voice mail. Will continue attempting to reach family. 2d echo ordered.
--- NOTE | 2024-06-14 16:44 | CM ---
Patient from [facility] with Hx Spinal cord injury with vertebral fracture, thoracic back wound with exposed hardware, paraplegia, multiple decubitus ulcers. O2 2L. Receiving IV Ertapenum, Levophed gtt, Midodrine. Patient has IJ Central
Line. Seen by wound care nurse.
Notified by nurse that patient became very hypotensive which did not resolve. Discharge was cancelled and ambulance was cancelled.
Spoke with Katarzyna, [facility]; discharge cancelled today due to hypotension/clinical status.
Plan TBD.
[2024-06-14] MEDS: LEVOPHED 250 IV (16:45)
[2024-06-14] MEDS: NSS 500 IV (16:46)
--- NOTE | 2024-06-14 17:34 | W.PN.UPDATE ---
Update Note
Progress Note Update
Pt's daughter updated over the phone at length. I explained to Stormy this afternoon/evening's events. I explained that due to the patient's overwhelming burden of pathology in the setting of clinical decline over the last many months as well as
poor functional status that the patient has reached the end of his life and that further care is very likely futile. The patient's daughter thanked me for being santiago with her. The patient will stay on Levophed tonight. Stormy will come to the
hospital tomorrow and meet with palliative care. I did explain that a hospice consult is being placed to assess whether the patient would qualify for inpatient hospice at this time.
--- NOTE | 2024-06-14 17:48 | PTCARENOTE ---
Patient's daughter called back; explained to her that Dr Lindo was trying to call her and left a vm. TT sent to Dr Lindo to make him aware and he called daughter. He entered hospice consult. BPs only checked in b/l thighs and b/l calves d/t DVTs.
Patient currently on Levo @ 6mcg/min with MAP 75.
[2024-06-14 18:21] LABS: Glucose - Point of Care 132 mg/dl (70-99)
[2024-06-14] MEDS: SENOKOT PO (19:15)
[2024-06-14] MEDS: DAKIN'S SOLUTION 0.125% 1/4 STRENGTH 473 ML TOPICAL (19:19)
[2024-06-14] MEDS: TYLENOL 1000 MG PO (19:20)
[2024-06-14] MEDS: MORPHINE SULFATE 2 MG IV (19:53)
--- NOTE | 2024-06-14 20:52 | PTCARENOTE ---
Patient crying and screaming out for best friend 'skippy.' This nurse into assess patient and he stated that he was in 10/10 pain in his sacrum. Patient currently on levo at 6mcg/min and scheduled tylenol ineffective. Call placed to daughter to
update on patients current status and daughter requesting for father to have stronger pain medication. call center nurse provider made aware and ordered one time dose of morphine 2 mg.
[2024-06-14] MEDS: SANTYL OINTMENT TOPICAL (21:25)
[2024-06-14 21:47] LABS: Glucose - Point of Care 143 mg/dl (70-99)
[2024-06-15] VITALS (36 sets, daily range): BP systolic 81–110; BP diastolic 31–76
[2024-06-15] MEDS: LEVOPHED 250 IV ×2 (02:02→15:05)
--- NOTE | 2024-06-15 05:47 | PTCARENOTE ---
Patient appeared comfortable after morphine administration. Remains on levo at 6mcg/min. Daughter stated that she planned on making father hospice today.
[2024-06-15 07:27] LABS: Glucose - Point of Care 154 mg/dl (70-99)
--- NOTE | 2024-06-15 07:45 | W.PN.UPDATE ---
Update Note
Progress Note Update
I saw and evaluated the patient. I reviewed the resident�s note and agree with findings and plan as documented in the resident�s note.
Denies new complaints. States 'I feel fine.'
Gen: remains NAD, Awake and alert, appears chronically ill
Eyes: remains EOMI, PERRLA, no scleral icterus.
Neck: supple.
CV: RRR, +S1/S2, no m/r/g.
Resp: CTAB anteriorly, no rales, wheezes, or rhonchi.
Abd: +BS, soft, NT, ND
Skin: remains No rashes. 1-2+ anasarca
Neuro: CN 2-12 intact, non-focal.
Psych: Normal mood and affect.
06/07/24 10:38 Blood/Venous Blood Culture - Final
No Growth - Final Report
06/10/24 12:24 Sputum Respiratory Culture - Final
Escherichia coli - ESBL
Paulette albicans
06/10/24 12:24 Sputum Gram Stain - Final
06/07/24 10:38 Urine Urine Culture - Final
Escherichia coli - ESBL
06/07/24 15:53 Nose MRSA Screen - Final
Staph aureus MRSA
06/07/24 10:38 Urine Legionella Urinary Antigen - Final
Negative for Legionella pneumophila Serogroup 1 antigen.
A negative result does not rule out the possibility of
Legionella infection due to other serogroups or species of
Legionella. Clinical correlation is recommended.
06/07/24 10:38 Urine Streptococcus pneumoniae Antigen (M - Final
Negative for Streptococcus pneumoniae antigen.
A negative result does not exclude infection with
Streptococcus pneumoniae. Clinical correlation is
recommended.
Esophagram: Markedly limited evaluation of the esophagus due to patient debility, lack of mobility and extensive metallic hardware throughout the thoracic spine. No findings to suggest esophageal obstruction or aspiration.
Echo 06/14/24: Normal left ventricular size and systolic function. No gross regional wall
motion abnormalities are seen. LV ejection fraction is 60-65% by visual
assessment.
Normal right ventricular size and function.
Mitral sclerosis without stenosis. Mild to moderate mitral regurgitation.
Mild aortic stenosis. Peak/mean gradients across the aortic valve are 25/14
mmHg.
Mild to moderate tricuspid regurgitation. Estimated pulmonary artery pressure
of 55-60 mmHg assuming a right atrial pressure of 3 mmHg.
Acute LUE DVT, superficial cephalic and basilic venous thrombosis:
-cont Eliquis (was on heparin gtt)
-per heme, not an Eliquis failure
Septic shock and acute hypoxemic respiratory failure due to likely aspiration PNA and UTI:
-s/p IVFs
-UCx and sputum Cx with ESBL E coli
-BCx 06/07 NGTD
-legionella/strep neg
-was Vanco/Invanz and will finish abx with Invanz only at this time to complete 14 days abx as per ID
-note VSE and esophagram NEG for aspiration or esophageal obstruction. As per GI and speech pt OK for reg/thins. GI has signed off.
-pressors were weaned to off but then Levophed restarted 06/14/24PM. Note, at that time it was unclear whether the patient's blood pressure readings were accurate as it was challenging obtaining a blood pressures in the patient's thigh. Patient
received 750 cc normal saline bolus. I Doubt that this recurrent shock was septic as pt afebrile without leukocytosis and is on appropriate antibiotic therapy. Echocardiogram above and notable for mild to moderate MR, mild , mild to moderate TR,
moderate to severe pulmonary hypertension. The patient's recurrent shock is likely a combination of distributive and cardiogenic shock.
-case discussed with patient's daughter at length 06/14/24PM. The patient will likely be transitioned to hospice today.
Spinal hardware (exposed) with intermediate wound vac in place for 2yr
-neurosurgeon out of [place]
-neurosurgery saw in c/s, does not believe back wound/spinal hardware is the source of infection, continue vac and outpatient follow up with primary neurosurgeon
Other problems:
Hyponatremia, mild
PAF: cont amio/eliquis
Essential HTN: currently not on any antihypertensive medications in the setting of septic shock
HLD: cont statin
GERD: cont PPI
DNR/Eliquis
Patient is hospice appropriate. Palliative care following. Likely will be transitioned to hospice today.
Total time spent on today's encounter was 50 minutes which included time spent in counseling the patient/family regarding diagnosis and treatment plan as listed above, goals of care, and symptom management. Case was discussed with nursing staff,
specialists, and care coordinators/case management. All labs and imaging personally reviewed by me. Remainder the time spent in detailed review of previous records, lab data, imaging, and other medical provider documentation.
--- NOTE | 2024-06-15 08:01 | W.PN.HOSP.TC ---
Today's Communication/Plan
-
Continue current management.
Reassessment for inpatient hospice pending.
Pending family decision and discussions for hospice.
Grim prognosis.
Assessment / Plan
Assessment / Plan
Assessment-
78-year-old male with PMHx significant for paroxysmal A-fib, HFpEF, aspiration pneumonia, multiple decubitus ulcers in the back, diabetes, hypertension presents to the hospital from [facility] for evaluation of hypotension. Diagnosed with
septic shock.
Plan -
Septic shock -
Fever resolved.. Off of Levophed.
Septic shock resolved.
Patient is mildly acidotic, CO2 at 20.
History of aspiration pneumonia, recent admission to the hospital in April 2024.
Patient noncompliant with pur�ed diet.
Urine sample-squamous epithelial cells greater than 30. Not consistent with UTI
Blood cultures obtained once-no growth in 48 hours.
MRSA positive.
Chest x-ray evidence for pneumonia. Urine cultures positive for ESBL E. coli.
Sputum cultures positive for gram-negative bacilli and Paulette albicans.
Neurosurgery reviewed patient's chronic spinal wound, hardware infection is less likely a source of sepsis. Can follow-up hardware open wound with primary neurosurgery.
ID on board, currently patient is on Ertapenem, and vancomycin.
COVID and influenza negative
Can hold vancomycin, continue ertapenem
# Cardiogenic/distributive shock-06/14/2024, 6 PM
Overnight patient was found to be in shock again with MAP at 45
Plan will reassess the patient patient was having third spacing.
Patient was given 750 cc of fluid bolus and an echocardiogram was obtained
Echocardiogram showed severe pulmonary hypertension, mild to moderate tricuspid regurgitation mild aortic stenosis and mild to moderate mitral regurgitation.
His EF was 50 to 55%.
Patient started on Levophed 2 mcg currently on Levophed at 6 mcg
Tried calling and updating family yesterday evening. But could not let hold of the daughter Stormy. My supervising provider Dr. Lindo had conversation with patient's daughter Stormy who is healthcare power of health care attorney.
Likely transition to hospice today.
Acute hypoxic respiratory failure -
Currently weaned off of oxygen.
Secondary to aspiration pneumonia, chest x-ray showed large patchy airspace opacities in both lung bases.
Check sputum cultures.
Advised patient to be compliant with pur�ed diet.
Continue vancomycin and cefepime. Speech therapy consulted for evaluation.
Speech therapy findings-evidence for retrograde reflux while eating pur�ed food. Recommended gastroenterology evaluation. GI consulted. Barium esophagogram and VRE done yesterday-no aspiration, okay for thin liquids, esophagogram showed some
limitation with lack of motility and hardware but no findings of obstruction or aspiration. GI advance diet to IDD 5, and patient tolerated it well they recommended advancing diet to regular. GI signed off. Appreciate all GI inputs.
IV fluids changed to lactated Ringer in the setting of septic shock.
Superficial thrombosis in RUE and DVT in LUE-
superficial thrombosis in the right cephalic and right basilic vein. He was also then found to have DVT in the left brachial vein and superficial thrombus in the left basilic vein in the setting of PICC line
Heme-onc saw the patient and said it is less likely Eliquis failure but more likely in the setting of PICC line and sepsis.
Heparin GTT for 48 hours and then switch to Eliquis 10 mg twice daily and then to Eliquis 5 twice daily.
Patient is switched to eliquis 10mg yesterday, 2 out of 14 doses given.
Multiple decubitus ulcers-
Stage III sacral decubitus ulcer.
Stable thoracic spine ulcer with undermined edges and exposed hardware, stage undetermined, probe test positive up to 3.5 cm posteriorly into the thoracic spine.
2 more stage II ulcers noted on the thoracic spine
All ulcers with continues to drain, but have been stable
Per patient patient is on wound VAC for thoracic spine ulcer for questionable 2 years.
Records requested from patient's primary neurosurgeon, pending records.
Primary neurosurgeon-Gabriel Hutchinson [facility], phone #[phone].
Spinal cord injury with vertebral fracture-
Patient has been bedbound for 2 years.
Paroxysmal A-fib
Continue amiodarone.
[id number] score 5 points.
Continue Eliquis.
Chronic HFpEF -
Patient gained 1kg overnight.
With IV fluids for septic shock, continue to monitor I's and O's
Continue to monitor weight
Sodium and fluid restriction.
Trend renal function
Normocytic anemia-
Anemia of chronic disease, hemoglobin at 9.5.
Essential hypertension-
His spironolactone, losartan, Coreg were on hold given his hypotension secondary to septic shock
Carefully monitor patient for heart failure symptoms and wean off Levophed as soon as possible
Discontinue IV fluids once patient's blood pressure stabilizes
Will consider resuming blood pressure medications once her blood pressure stabilizes.
Type 2 diabetes mellitus-
Hold metformin
Currently on insulin sliding scale
Low insulin requirement overnight
Hyponatremia-
serum sodium at 131.
Questionable if it is hypovolemic.
If serum sodium continues to remain low will obtain serum osmolality and workup for SIADH in the a.m. tomorrow.
Continue to monitor renal function.
Hypomagnesemia
Magnesium repleted.
Obtain repeat magnesium levels
Anxiety/depression-
Continue doxepin
Hyperlipidemia
Continue atorvastatin
Urinary retention-
Currently on bladder scan protocol.
Today's retention was up to 60 cc. Did not require straight cath.
Blood pressure running soft for starting the patient on tamsulosin.
Will continue to monitor.
Peripheral neuropathy -
Secondary to spinal injury and diabetes
Continue gabapentin.
DVT prophylaxis-on Eliquis.
Conditions [employer]-
BPH
GERD
CODE STATUS-DNR/DNI
Spoke to patient on bedside, he is currently considering and exploring hospice as a treatment option. Would want to sit with his daughter Stormy and have a conversation before he makes that decision. Asked if I could update the daughter after 4
PM so the patient can have a conversation with her.
Anticipated Discharge: 24 - 48 hours
Subjective/Interval History
-
Date of Service: June 15, 2024
Patient states that he is not doing good, and he does not have his voice. He is asking for help and when I offered help he said he does not know what he needs help with
Objective Data
-
Labs:
Laboratory Results
06/15/24
06:00
WBC Pending
Hgb Pending
Hct Pending
Plt Count Pending
Sodium Pending
Potassium Pending
Chloride Pending
Carbon Dioxide Pending
BUN Pending
Creatinine Pending
Glucose Pending
Calcium Pending
Vital Signs:
Vital Signs
Temp Pulse Resp BP Pulse Ox
97.7 F 89 11 102/54 100
06/15/24 04:59 06/15/24 07:00 06/15/24 07:00 06/15/24 07:00 06/15/24 07:00
I&O
06/14/24 06/15/24 06/16/24
06:59 06:59 06:59
Intake Total 440 / 440 270 / 270
Output Total 400 / 400
Balance 40 / 40 270 / 270
Review of Systems
-
History Source: Family
Constitutional: Reports Fatigue and Chills
EENT: Reports Other (Voice loss.)
Respiratory: Reports No Symptoms
Cardiac: Reports No Symptoms
Abdomen/GI: Reports No Symptoms
Genitourinary: Reports No Symptoms
Musculoskeletal: Reports No Symptoms
Skin: Reports No Symptoms
Endocrine: Reports No Symptoms
Hematologic / Lymphatic: Reports No Symptoms
Allergy / Immunology: Reports No Symptoms
Physical Exam
-
General: Comfortable
HEENT: Moist Mucous Membranes
Respiratory: Wheezes and Crackles; Negative Rales or Rhonchi
Cardiac: S1/S2, Murmur (systolic, 2/6) and JVD; Negative Rub, HJR or Gallop
GI: Soft, Nontender, Nondistended and Normal Bowel Sounds
Skin: Warm, Ulcers and Other (weeping arms from his SVT and DVT)
Neuro: Awake and No Motor Deficits
Psych: Calm
Data Reviewed
-
Labs: Labs Reviewed by me, Discussed with Physician and Discussed with Nurse
[2024-06-15] MEDS: INVANZ 60 MG IV (09:14)
[2024-06-15] MEDS: NOVOLOG FLEXPEN-LOW RESISTANCE SC ×3 (09:14→17:30)
[2024-06-15] MEDS: PACERONE PO ×2 (09:15→10:51)
[2024-06-15] MEDS: SANTYL OINTMENT 1 APPLIC TOPICAL ×2 (09:15→20:40)
[2024-06-15] MEDS: NEURONTIN 300 MG PO (09:15)
[2024-06-15] MEDS: LIPITOR PO ×2 (09:16→10:51)
[2024-06-15] MEDS: PLAVIX PO ×2 (09:16→10:51)
[2024-06-15] MEDS: ELIQUIS PO ×3 (09:16→19:43)
[2024-06-15] MEDS: TYLENOL PO ×2 (09:16→19:43)
[2024-06-15] MEDS: PROTONIX PO ×2 (09:17→10:51)
[2024-06-15] MEDS: THERAGRAN PO ×2 (09:17→10:51)
[2024-06-15] MEDS: DAKIN'S SOLUTION 0.125% 1/4 STRENGTH 473 ML TOPICAL ×2 (09:17→20:40)
[2024-06-15] MEDS: DESENEX/MITRAZOL/ZEASORB 1 APPLIC TOPICAL ×2 (09:17→20:40)
[2024-06-15] MEDS: VITAMIN D3 (cholecalciferol) PO ×2 (09:17→10:51)
[2024-06-15 09:50] LABS: Hematocrit 27.4 % (39.0-52.0); Hemoglobin 8.9 g/dL (13.0-18.0); Mean Corp Hgb Conc. 32.5 g/dL (33.0-37.0); Mean Corpuscular Hgb 29.1 pg (27.0-31.0); Mean Corpuscular Volume 89.5 fL (80.0-94.0); Mean Platelet Volume 9.1 fL (7.4-10.4); Platelet Count 233 10^3/uL (130-400); Red Blood Cell Count 3.06 10^6/uL (4.70-6.10); Red Cell Dist. Width 21.8 % (11.5-14.5); White Blood Cell Count 8.5 10^3/uL (4.8-10.8)
--- NOTE | 2024-06-15 11:13 | HOSPNOTE ---
Meet with patient and family to discuss hospice care. All are in agreement. Patient is currently on levophed at 6mcg/kg/min and weaning medication to 5 mcg/kg/min. Morphine was discontinued as blood pressure is low but patient has reported 10/10
pain in last 24 hours. Currently plan to verify insurance and hospice benefit, weaning levophed and start Morphine IV for pain control.
Patient and family understand that GIP level of care is depend on IV medication needs and could transition back to [facility] if symptoms are managed with oral medications.
[2024-06-15 11:17] LABS: ALT (SGPT) 31 U/L (0-50); AST (SGOT) 70 U/L (17-59); Albumin 1.8 g/dl (3.5-5.0); Alkaline Phosphatase 170 U/L (38-126); Blood Urea Nitrogen 35 mg/dl (9-20); Calcium 7.4 mg/dl (8.4-10.2); Carbon Dioxide 18 mmol/L (22-30); Chloride 106 mmol/L (98-107); Direct Bilirubin 0.3 mg/dl (0.0-0.4); Estimated Creatinine Clearance 37 ml/min; Glucose 148 mg/dl (70-99); Sodium 131 mmol/L (135-145); Total Bilirubin 0.4 mg/dl (0.2-1.3); Total Protein 4.8 g/dl (6.3-8.2); eGFR 43.83
--- NOTE | 2024-06-15 11:21 | W.PN.PAL2 ---
Today's Communication
-
back on pressors last night for hypotension, now starting to wean off
likely hospice transition - appears comfortable now.
Monitor for stability/pressor weaning next 24 hours
Assessment / Plan
-
Assessment/Plan:
78 year old M with SCI/paraplegia with multiple wounds admitted with aspiration PNA
- planned for DC back to [facility] with ABX yesterday. Unfortunately BP dropped and back on pressors.
- seen at bedside this AM - he is awake and alert, conversant. Appears comfortable with no pain or SOB. Nurse is weaning pressors and so far stable BP.
- spoke with daughter at bedside. Wants him to be comfortable and if BP goes down again, does not want pressors increased or put back on. Agrees to no more hospitalizations and agreeable to hospice.
- discussed right now he appears comfortable and if we can wean off pressors and he stays stable, would be more appropriate for hospice back at [facility]. If BP drops and becomes unstable, would be made comfortable here and hospice level care
could be initiated.
- recommend monitoring for next 24 hours for stability, pressor weaning. If stable and off pressors, back to [facility] with hospice referral. Did discuss that IV ABX would not continue if goes back to facility on hospice. Daughter states
understanding and will discuss this with family friend at bedside who is a physician.
- [facility] following and has been in contact with family
- can add PRN morphine, ativan for comfort
- DNR/DNI
Pain & Symptom Assessment
[place] Symptom Scale 0=none, 10=worst
Pain: 0
Nausea: 0
Shortness of Breath: 0
Objective Data
-
Objective Data:
Vital Signs
Temp Pulse Resp BP Pulse Ox
97.5 F 89 11 102/54 97
06/15/24 07:21 06/15/24 07:00 06/15/24 07:00 06/15/24 07:00 06/15/24 08:00
Laboratory Results
06/15/24 09:34
06/15/24 09:34
APTT Cancelled 06/13/24 11:45
Hemoglobin A1c 6.7 % (4.0-5.6) H 06/08/24 01:01
Total Protein 4.8 g/dl (6.3-8.2) L 06/15/24 09:34
Albumin 1.8 g/dl (3.5-5.0) L 06/15/24 09:34
Urine Color Yellow 06/07/24 10:38
Urine Clarity Slightly cloudy (Clear) 06/07/24 10:38
Urine pH 6.0 (5.0-9.0) 06/07/24 10:38
Ur Specific [place] 1.010 (<1.030) 06/07/24 10:38
Urine Ketones Negative (Negative) 06/07/24 10:38
Urine Bilirubin Negative (Negative) 06/07/24 10:38
Palliative Performance Scale
Palliative Performance Scale:
PPS Level Ambulation Activity & Evidence of Disease Self Care Intake Conscious Level
100% Full Normal Activity & Work; Full Intake Full
No Evidence of Disease
90% Full Normal Activity & Work; Full Normal Full
Some Evidence of Disease
80% Full Normal Activity with Effort Full Normal or Full
Some Evidence of Disease Reduced
70% Reduced Unable Normal Job/Work Full Normal or Full
Significant Disease Reduced
60% Reduced Unable Hobby/Housework Occasional Normal or Full or Confusion
Significant Disease Assistance Reduced
50% Mainly Sit/Lie Unable to do Any Work Considerable Normal or Full or Confusion
Extensive Disease Assistance Req'd Reduced
40% Mainly in Bed Unable to do Most Activity Mainly Assistance Normal or Full or Drowsy;
Extensive Disease Reduced +/- Confusion
30% Totally Bed Unable to do Any Activity Total Care Normal or Full or Drowsy;
Bound Extensive Disease Reduced +/- Confusion
20% Totally Bed Bound Unable to do Any Activity Total Care Minimal to Full or Drowsy;
Extensive Disease Sips +/- Confusion
10% Totally Bed Bound Unable to do Any Activity Total Care Mouth Care Drowsy or Coma;
Extensive Disease Only +/- Confusion
0%
PPS Score Level:
Physical Exam
-
General: Conversant and Appears Chronically Ill
HEENT: Normocephalic
Respiratory: Clear to Auscultation
Cardiac: Irregular Rhythm
Peripheral Vascular: No Edema
GI: Soft
Skin: Warm
Neuro: Awake and Alert
Care Reviewed
Data Reviewed
Radiology procedure: Image Reviewed
Medical Tests: I reviewed
Reviewed with: Patient, Family, Physician and Nurse
--- NOTE | 2024-06-15 11:43 | HOSPNOTE ---
POC wean Levophed and reorder Morphine for pain, start comfort care today. Then reevaluate for GIP level of care versus return to [facility] on hospice tomorrow. Dr. Loreto Guaman notified of POC.
--- NOTE | 2024-06-15 12:41 | PTCARENOTE ---
Patient resting with family at bedside. Speaking with towel folder. Weaning levo gtt. VSS, weaned to RA. Patient unable to take AM meds, spit them out. Patient drowsy, periods of alertness with conversation. Q2T. Continuing to closely monitor.
--- NOTE | 2024-06-15 13:13 | CM ---
Addendum entered by Ana Tejeda 06/15/24 14:05:
Liaison from [facility] here to see patient and family. Per Dinah Colón, workshree's comp would continue to pay for room and board at SNF if patient returns there and the hospice would have to apply to [facility] for coverage. Facility is willing to
work with [facility] for one time contract vs [facility] or another hospice they have a contract with.
Original Note:
Update provided to Diego ruiz, she will visit with family and continue to work with CM to clarify next steps. Patient family would be able to request [facility] one time contract if they wished. CM will continue to follow for discharge planning
needs.
Plan; hospice/comfort care with return to SNF pending assessment
--- NOTE | 2024-06-15 13:39 | W.PN.ID1 ---
Date of Service
Date of Service: June 15, 2024
Today's Communication
Sign off.
Assessment / Plan
Leukocytosis
Suspected aspiration pneumonia
- Cultures with ESBL E. coli
Bacteriuria with ESBL E. coli
Fever
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
Hypertension
Chronic HFpEF
CKD III
Atrial Fibrillation
Paraplegia (Traumatic SCI; 2021)
DM-II
GERD
BPH
Recommendations:
MRSA screen positive. Urine culture with ESBL E. coli.
White count improved today.
MRSA screen positive.
Family at the bedside (, daughter). They have met with hospice and palliative care. They had specific questions regarding ongoing antibiotics. They understand the current situation, and the patient will likely be transition to full hospice
soon. I noted that antibiotics at this point will not likely affect overall situation, and additionally will not provide any increase in quality of life. Given that, they would like antibiotics discontinued, which I will do.
Little more to offer from a Infectious Disease standpoint.
Will see again at your request.
����������������������������������������������������������
Chief Complaint
-: Leukocytosis
Subjective / Review of Systems
Patient seen and examined. Chart reviewed. Family at the bedside.
Review of Systems: No Fever
Vital Signs / Physical Exam
Vital Signs
Vital Signs
Temp Pulse Resp BP Pulse Ox
97.5 F 90 8 95/50 98
06/15/24 07:21 06/15/24 12:30 06/15/24 12:30 06/15/24 12:30 06/15/24 12:09
Physical Exam
Constitutional: Comfortable, Chronically Ill and Non-toxic
Cardiovascular: Regular Rate and S1/S2
Pulmonary: Clear (anteriorly) and Non Labored
Gastrointestinal: Soft, Non Tender and Non Distended
Extremities: Edema (RUE); Negative Cyanosis or Erythema
Neurological: Other (Somnolent but arousable.)
Psychological: Calm
Lines: PICC (RUE no erythema)
Objective Data
Lab Data
Lab Results
06/15/24 09:34
06/15/24 09:34
APTT Cancelled 06/13/24 11:45
Estimated Creat Clear 37 ml/min 06/15/24 09:34
Lactic Acid 2.2 mmol/L (0.7-2.0) H 06/07/24 10:38
Total Bilirubin 0.4 mg/dl (0.2-1.3) 06/15/24 09:34
AST 70 U/L (17-59) H 06/15/24 09:34
ALT 31 U/L (0-50) 06/15/24 09:34
Alkaline Phosphatase 170 U/L (38-126) H 06/15/24 09:34
Most recent labs reviewed.
Micro Results:
06/07/24 10:38 Blood Culture - Final
Blood/Venous No Growth - Final Report
06/10/24 12:24 Respiratory Culture - Final
Sputum Escherichia coli - ESBL
Paulette albicans
Gram Stain - Final
06/07/24 10:38 Urine Culture - Final
Urine Escherichia coli - ESBL
06/07/24 15:53 MRSA Screen - Final
Nose Staph aureus MRSA
06/07/24 10:38 Legionella Urinary Antigen - Final
Urine Negative for Legionella pneumophila Serogroup 1 antigen.
A negative result does not rule out the possiblity of
Legionella infection due to other serogroups or species of
Legionella. Clinical correlation is recommended.
Streptococcus pneumoniae Antigen (M - Final
Negative for Streptococcus pneumoniae antigen.
A negative result does not exclude infection with
Streptococcus pneumoniae. Clinical correlation is
recommended.
Imaging:
CXR (portable): Large patchy airspace opacities in the bilateral lung bases most concerning for pneumonia. Low lung volumes are noted. No large pleural effusion or pneumothorax seen. Chronic degenerative changes of the spine are noted. Bilateral
posterior paraspinal rods and pedicle screws in the thoracic spine. Please see full dictation for additional detail. Film personally viewed.
Care Review
Plan reviewed with: Physician (Hospitalist)
[2024-06-15] MEDS: DILAUDID 0.25 MG IV ×2 (15:28→20:39)
[2024-06-15] MEDS: NEURONTIN PO ×2 (17:29→19:43)
[2024-06-15 17:58] LABS: Glucose - Point of Care 191 mg/dl (70-99)
[2024-06-15] MEDS: SENOKOT PO (19:43)
--- NOTE | 2024-06-15 20:50 | PTCARENOTE ---
Received call from daughter who is POA. Daughter stated that she was under the impression that her father had official 'comfort orders' and levophed was to be stopped. No official comfort orders. orthopedically impaired teacher provider made aware and working on making
patient officially 'comfort.'
--- NOTE | 2024-06-15 21:03 | W.PN.UPDATE ---
Update Note
Progress Note Update
RN called this provider and explained that patient's daughter very upset that patient is still on Levophed gtt and there has been no taper done at this time. Daughter stated she had expressed her wishes previously, and as discussed today with
medical team, were to wean patient off Levophed gtt and place on comfort measures. This provider spoke to daughter. As per extensive further conversation with patient's daughter, Stormy Hart, decision made to decrease dosing of Levophed gtt at a
steady rate and place orders for comfort care only. Daughter verbalized understanding that active treatment will be stopped and only symptomatic treatment of pain, anxiety, dyspnea, secretions, urinary and fecal retention to be provided. Daughter is
aware that decreasing Levophed gtt will cause patient's blood pressure to not be supported and patient will become hypotensive and there is not definitive time frame when patient will pass away. Daughter verbalized understanding and wishes to
continue with plan. Confirmed over the phone at the time of the note, RN aware of plan to decrease Levophed gtt to off and continue comfort care measures as ordered.
[2024-06-15] MEDS: ROBINUL 0.2 MG IV (23:11)
[2024-06-15] MEDS: MORPHINE SULFATE 1 MG IV (23:12)
[2024-06-16] VITALS (11 sets, daily range): BP systolic 64–86; BP diastolic 26–55
[2024-06-16] MEDS: MORPHINE SULFATE 1 MG IV (05:17)
--- NOTE | 2024-06-16 06:05 | PTCARENOTE ---
Comfort measures initiated overnight. Patient appeared comfortable throughout the night. Levophed weaned off.
[2024-06-16] MEDS: DESENEX/MITRAZOL/ZEASORB TOPICAL (09:11)
--- NOTE | 2024-06-16 10:26 | HOSPNOTE ---
Spoke with daughter Stormy she will be arriving at 12 noon to sign consents for [facility] hospice. Contacted admissions to move to [address] [place] [address].
--- NOTE | 2024-06-16 10:40 | CM ---
Patient from [facility] with Hx Spinal cord injury with vertebral fracture, thoracic back wound with exposed hardware, paraplegia, multiple decubitus ulcers.
Message from [facility]; patient will be staying here with [facility]. Hospice nurse Karlene has contacted patient's daughter today.
Spoke with Josue Colón [facility]; provided update that patient will be staying here with [facility].
Plan [facility].
--- NOTE | 2024-06-16 10:51 | W.PN.HOSP.TC ---
Today's Communication/Plan
-
Stop all medications.
Transition to inpatient hospice.
Maintain patient's dignity.
Keep patient as comfortable as possible.
Assessment / Plan
Assessment / Plan
Assessment-
78-year-old male with PMHx significant for paroxysmal A-fib, HFpEF, aspiration pneumonia, multiple decubitus ulcers in the back, diabetes, hypertension presents to the hospital from [facility] for evaluation of hypotension. Diagnosed with
septic shock.
Plan -
Septic shock -
Fever resolved.. Off of Levophed.
Septic shock resolved.
Patient is mildly acidotic, CO2 at 20.
History of aspiration pneumonia, recent admission to the hospital in April 2024.
Patient noncompliant with pur�ed diet.
Urine sample-squamous epithelial cells greater than 30. Not consistent with UTI
Blood cultures obtained once-no growth in 48 hours.
MRSA positive.
Chest x-ray evidence for pneumonia. Urine cultures positive for ESBL E. coli.
Sputum cultures positive for gram-negative bacilli and Paulette albicans.
Neurosurgery reviewed patient's chronic spinal wound, hardware infection is less likely a source of sepsis. Can follow-up hardware open wound with primary neurosurgery.
ID on board, currently patient is on Ertapenem, and vancomycin.
COVID and influenza negative
Stop all antibiotics
# Cardiogenic/distributive shock-06/14/2024, 6 PM
Overnight patient was found to be in shock again with MAP at 45
Plan will reassess the patient patient was having third spacing.
Patient was given 750 cc of fluid bolus and an echocardiogram was obtained
Echocardiogram showed severe pulmonary hypertension, mild to moderate tricuspid regurgitation mild aortic stenosis and mild to moderate mitral regurgitation.
His EF was 50 to 55%.
Patient started on Levophed 2 mcg currently on Levophed at 6 mcg
Tried calling and updating family yesterday evening. But could not let hold of the daughter Stormy. My supervising provider Dr. Lindo had conversation with patient's daughter Stormy who is healthcare power of municipal maintenance worker.
Night team switched patient to comfort care.
Patient is switched to hospice in the a.m. today after reassessment.
Transition to hospice.
Acute hypoxic respiratory failure -
Currently weaned off of oxygen.
Secondary to aspiration pneumonia, chest x-ray showed large patchy airspace opacities in both lung bases.
Check sputum cultures.
Advised patient to be compliant with pur�ed diet.
Continue vancomycin and cefepime. Speech therapy consulted for evaluation.
Speech therapy findings-evidence for retrograde reflux while eating pur�ed food. Recommended gastroenterology evaluation. GI consulted. Barium esophagogram and VRE done yesterday-no aspiration, okay for thin liquids, esophagogram showed some
limitation with lack of motility and hardware but no findings of obstruction or aspiration. GI advance diet to IDD 5, and patient tolerated it well they recommended advancing diet to regular. GI signed off. Appreciate all GI inputs.
IV fluids changed to lactated Ringer in the setting of septic shock.
Superficial thrombosis in RUE and DVT in LUE-
superficial thrombosis in the right cephalic and right basilic vein. He was also then found to have DVT in the left brachial vein and superficial thrombus in the left basilic vein in the setting of PICC line
Heme-onc saw the patient and said it is less likely Eliquis failure but more likely in the setting of PICC line and sepsis.
Heparin GTT for 48 hours and then switch to Eliquis 10 mg twice daily and then to Eliquis 5 twice daily.
Stop all medical management at this point.
Multiple decubitus ulcers-
Stage III sacral decubitus ulcer.
Stable thoracic spine ulcer with undermined edges and exposed hardware, stage undetermined, probe test positive up to 3.5 cm posteriorly into the thoracic spine.
2 more stage II ulcers noted on the thoracic spine
All ulcers with continues to drain, but have been stable
Per patient patient is on wound VAC for thoracic spine ulcer for questionable 2 years.
Records requested from patient's primary neurosurgeon, pending records.
Primary neurosurgeon-Dr. Jcarlos rogers, [facility], phone #[phone].
Spinal cord injury with vertebral fracture-
Patient has been bedbound for 2 years.
Paroxysmal A-fib -the above medications.
Chronic HFpEF -
Patient gained 1kg overnight.
With IV fluids for septic shock, continue to monitor I's and O's
Continue to monitor weight
Sodium and fluid restriction.
Trend renal function
Normocytic anemia-
Anemia of chronic disease, hemoglobin at 9.5.
Essential hypertension-
His spironolactone, losartan, Coreg were on hold given his hypotension secondary to septic shock
Carefully monitor patient for heart failure symptoms and wean off Levophed as soon as possible
Discontinue IV fluids once patient's blood pressure stabilizes
Will consider resuming blood pressure medications once her blood pressure stabilizes.
Type 2 diabetes mellitus-
Hold metformin
Currently on insulin sliding scale
Low insulin requirement overnight
Hyponatremia-
serum sodium at 131.
Questionable if it is hypovolemic.
If serum sodium continues to remain low will obtain serum osmolality and workup for SIADH in the a.m. tomorrow.
Continue to monitor renal function.
Hypomagnesemia
Magnesium repleted.
Obtain repeat magnesium levels
Anxiety/depression-
Continue doxepin
Hyperlipidemia
Continue atorvastatin
Urinary retention-
Currently on bladder scan protocol.
Today's retention was up to 60 cc. Did not require straight cath.
Blood pressure running soft for starting the patient on tamsulosin.
Will continue to monitor.
Peripheral neuropathy -
Secondary to spinal injury and diabetes
Continue gabapentin.
DVT prophylaxis-on Eliquis.
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
BPH
GERD
CODE STATUS-DNR/DNI
Spoke to patient on bedside, he is currently considering and exploring hospice as a treatment option. Would want to sit with his daughter Stormy and have a conversation before he makes that decision. Asked if I could update the daughter after 4
PM so the patient can have a conversation with her.
Anticipated Discharge: 24 - 48 hours
Subjective/Interval History
-
Date of Service: June 16, 2024
Patient is sleeping comfortably.
Objective Data
-
Labs:
Laboratory Results
06/16/24 06/16/24
06:00 07:28
WBC Cancelled
Hgb Cancelled
Hct Cancelled
Plt Count Cancelled
Sodium Cancelled Cancelled
Potassium Cancelled Cancelled
Chloride Cancelled Cancelled
Carbon Dioxide Cancelled Cancelled
BUN Cancelled Cancelled
Creatinine Cancelled Cancelled
Glucose Cancelled Cancelled
Calcium Cancelled Cancelled
Vital Signs:
Vital Signs
Temp Pulse Resp BP Pulse Ox
98.6 F 93 10 86/52 95
06/15/24 20:06 06/16/24 05:07 06/16/24 05:07 06/16/24 05:07 06/16/24 04:36
I&O
06/15/24 06/16/24 06/17/24
06:59 06:59 06:59
Intake Total 270 / 270
Output Total 400 / 400
Balance 270 / 270 -400 / -400
Review of Systems
-
Unable to obtain full review of systems at this time due to: Patient Non-verbal
Physical Exam
-
General: Comfortable
HEENT: Moist Mucous Membranes
Respiratory: Wheezes and Crackles; Negative Clear to Auscultation, Rales or Rhonchi
Cardiac: S1/S2 and Murmur; Negative Rub or Gallop
GI: Soft, Nontender, Nondistended and Normal Bowel Sounds
Genito-urinary: No Costovertebral Tender
Musculoskeletal: No Clubbing, No Cyanosis and Other (Bilateral upper extremity edema right greater than left, bilateral 1+ pitting edema.)
Skin: Warm
Neuro: Awake and No Motor Deficits
Psych: Calm
Data Reviewed
-
Labs: Labs Reviewed by me, Discussed with Physician and Discussed with Nurse
Old Records: Reviewed
--- NOTE | 2024-06-16 10:57 | PTCARENOTE ---
Patient resting comfortably, pain controlled at this time. Spoke with daughter and provided an update. Daughter coming to visit around noon. Will closely monitor.
--- NOTE | 2024-06-16 11:14 | W.PN.UPDATE ---
Update Note
Progress Note Update
I saw and evaluated the patient. I reviewed the resident�s note and agree with findings and plan as documented in the resident�s note.
Resting comfortably
Gen: NAD, appears chronically ill
CV: remains RRR, +S1/S2, no m/r/g.
Resp: CTAB anteriorly, no rales, wheezes, or rhonchi.
Abd: +BS, soft, NT, ND
06/07/24 10:38 Blood/Venous Blood Culture - Final
No Growth - Final Report
06/10/24 12:24 Sputum Respiratory Culture - Final
Escherichia coli - ESBL
Paulette albicans
06/10/24 12:24 Sputum Gram Stain - Final
06/07/24 10:38 Urine Urine Culture - Final
Escherichia coli - ESBL
06/07/24 15:53 Nose MRSA Screen - Final
Staph aureus MRSA
06/07/24 10:38 Urine Legionella Urinary Antigen - Final
Negative for Legionella pneumophila Serogroup 1 antigen.
A negative result does not rule out the possibility of
Legionella infection due to other serogroups or species of
Legionella. Clinical correlation is recommended.
06/07/24 10:38 Urine Streptococcus pneumoniae Antigen (M - Final
Negative for Streptococcus pneumoniae antigen.
A negative result does not exclude infection with
Streptococcus pneumoniae. Clinical correlation is
recommended.
Esophagram: Markedly limited evaluation of the esophagus due to patient debility, lack of mobility and extensive metallic hardware throughout the thoracic spine. No findings to suggest esophageal obstruction or aspiration.
Echo 06/14/24: Normal left ventricular size and systolic function. No gross regional wall
motion abnormalities are seen. LV ejection fraction is 60-65% by visual
assessment.
Normal right ventricular size and function.
Mitral sclerosis without stenosis. Mild to moderate mitral regurgitation.
Mild aortic stenosis. Peak/mean gradients across the aortic valve are 25/14
mmHg.
Mild to moderate tricuspid regurgitation. Estimated pulmonary artery pressure
of 55-60 mmHg assuming a right atrial pressure of 3 mmHg.
Pt is now comfort care. Continue comfort meds, including Ativan and morphine.
From 06/15/24:
Acute LUE DVT, superficial cephalic and basilic venous thrombosis:
-cont Eliquis (was on heparin gtt)
-per heme, not an Eliquis failure
Septic shock and acute hypoxemic respiratory failure due to likely aspiration PNA and UTI:
-s/p IVFs
-UCx and sputum Cx with ESBL E coli
-BCx 06/07 NGTD
-legionella/strep neg
-was Vanco/Invanz and will finish abx with Invanz only at this time to complete 14 days abx as per ID
-note VSE and esophagram NEG for aspiration or esophageal obstruction. As per GI and speech pt OK for reg/thins. GI has signed off.
-pressors were weaned to off but then Levophed restarted 06/14/24PM. Note, at that time it was unclear whether the patient's blood pressure readings were accurate as it was challenging obtaining a blood pressures in the patient's thigh. Patient
received 750 cc normal saline bolus. I Doubt that this recurrent shock was septic as pt afebrile without leukocytosis and is on appropriate antibiotic therapy. Echocardiogram above and notable for mild to moderate MR, mild , mild to moderate TR,
moderate to severe pulmonary hypertension. The patient's recurrent shock is likely a combination of distributive and cardiogenic shock.
-case discussed with patient's daughter at length 06/14/24PM. The patient will likely be transitioned to hospice today.
Spinal hardware (exposed) with jail wound vac in place for 2yr
-neurosurgeon out of [place]
-neurosurgery saw in c/s, does not believe back wound/spinal hardware is the source of infection, continue vac and outpatient follow up with primary neurosurgeon
Other problems:
Hyponatremia, mild
PAF: cont amio/eliquis
Essential HTN: currently not on any antihypertensive medications in the setting of septic shock
HLD: cont statin
GERD: cont PPI
DNR/Eliquis
--- NOTE | 2024-06-16 11:37 | W.DCSUMMARY ---
Discharge Summary
Discharge Data
Date of Admission: 06/07/24
Date of Discharge: 06/16/24
-
Pending Results: No
Hospital Course
Impression-
78-year-old male with PMHx significant for paroxysmal A-fib, HFpEF, aspiration pneumonia, multiple decubitus ulcers in the back, diabetes, hypertension presents to the hospital from [facility] for evaluation of hypotension. Diagnosed with
septic shock.
Hospital course -
During patient's 9 day hospital course,
He came in with septic shock, started on Levophed at 6 mcg and his requirement went higher up overnight on day 1. As he was on Levophed for more than 24 hours a PICC line was introduced into his right upper extremity, and Levophed was gradually
weaned off overnight on day 2. Patient is noticed to have aspiration pneumonia, and as a part of sepsis workup we ordered sputum cultures, checked all his decubitus ulcers and ordered urine cultures along with blood cultures. His sputum cultures
and urine cultures were positive for ESBL E. coli, we noticed the chronic open wound on his thoracic spine with exposed hardware that is being treated with wound VAC for 2 years at [facility]. Our initial concern was if his sepsis is secondary to
his exposed hardware. Hence we consulted neurosurgery as well as wound care. Neurosurgery saw the patient and advised that to continue his management with his primary neurosurgeon at [place]. ID was on board from day 1, started patient on
vancomycin and cefepime initially, when his cultures came back positive for ESBL E. coli cefepime was switched to ertapenem. On day 3 of his hospitalization, there is a swelling noticed around the PICC line and vascular ultrasound was obtained
which showed superficial venous thrombosis in his cephalic and basilic veins, extending all the way into his shoulder, and with concern to rule out deep vein thrombosis in the other extremity before introducing PICC line we obtained vascular
ultrasound on his left upper extremity which showed evidence for deep vein thrombosis. Hence interventional radiology was consulted, his PICC line was removed and IR could not visualize his right internal jugular vein to obtain access. Patient was
given a left IJ access by IR to continue his medical management. As patient was already on Eliquis and Plavix, there is a concern for Eliquis treatment failure and heme-onc was consulted. It is determined that patient clots were secondary to his
ongoing sepsis and immobility but less likely on Eliquis treatment failure. Hence patient was started on heparin gtt. for 48 hours given the close proximity of the SVT clots to his heart, and speech was consulted to evaluate his aspiration risk.
Speech therapy recommended GI consult. GI was consulted as well, GI obtained barium esophagogram with the video swallow assessment both of which were negative. GI wanted the patient to be on heparin drip while determining the necessity for an
upper GI endoscopy. Hence patient continued to remain on heparin drip for 4 days, and then switch to Eliquis 10 mg twice a day for 7 days and then to Eliquis 5 mg twice a day. Patient received 3 days course of ertapenem. Due to his septic shock
all his GDMT medications for HFpEF were on hold during this hospitalization. Patient continued to remain with soft blood pressures throughout hospitalization. Patient is also found to have MRSA colonization during this hospitalization. We
continued all other home medications for his chronic medical conditions during the hospital course. Patient also brought up the conversation of hospice at 1 point in his hospitalization course for which I consulted the hospice team. Patient and
his family made a shared decision making the day before discharge that hospice is not appropriate for them. GI recommended to advance the patient to regular diet. Patient was also advance her to regular diet the day before hospital discharge.
Given patient's heart failure, fluid overload, urinary retention, multiple open decubitus ulcers, and recurrent aspiration pneumonias we discussed the likelihood of readmission to the hospital in less than 30 days is very high-greater than 30%, we
discussed poor prognosis as well as mortality rates. On the day of planned discharge on 06/14/2024, patient's blood pressure thank to a mean arterial pressure of 45 and he was again diagnosed with cardiogenic/distributive shock. An echocardiogram
was obtained which showed evidence of mitral regurgitation, aortic stenosis, and severe pulmonary hypertension.
Efforts were made to reach patient's daughter on the day-06/14/2024, and the decision was made to continue the patient on Levophed till the family arrives on 06/15/2024 and makes a decision for hospice. After extensive hospice discussions
yesterday, in the morning patient's family is agreeable to wean off Levophed gradually and then start comfort care if the patient's blood pressure is not stable. However in the night, night team documented that patient's family was upset that he is
not on comfort measures. Overnight patient care was changed to comfort care. Hospice reassessed him today and requested an inpatient hospice admission. Patient is being discharged to inpatient hospice.
Workups-
Echocardiogram-06/14/2024 -
Technically difficult study
Normal left ventricular size and systolic function. No gross regional wall
motion abnormalities are seen. LV ejection fraction is 60-65% by visual
assessment.
Normal right ventricular size and function.
Mitral sclerosis without stenosis. Mild to moderate mitral regurgitation.
Mild aortic stenosis. Peak/mean gradients across the aortic valve are 25/14
mmHg.
Mild to moderate tricuspid regurgitation. Estimated pulmonary artery pressure
of 55-60 mmHg assuming a right atrial pressure of 3 mmHg.
Barium esophagogram-06/12/2024
Markedly limited evaluation of esophagus due to patient's debility, lack of motility and extensive metallic hardware throughout the thoracic spine. No findings to suggest esophageal obstruction or aspiration.
Videofluoroscopic swallow-06/12/24
No noticed risk for aspiration.
Catheter placement x-ray, vascular ultrasound-06/09/2024-
Successful left IJ access.
Peripheral vascular ultrasound 06/09/2024-
Examination positive for thrombosis involving the basilic vein in the left upper arm there is also thrombus within one of the 2 brachial arms in the left upper arm.
Peripheral vascular ultrasound 06/09/2024-
Thrombus involving the right cephalic and basilar veins.
Chest x-ray-06/08/2024-
Right PICC line catheter in the central third of the superior vena cava. No pneumothorax.
Chest x-ray on 06/27-
Pneumonia in bilateral lung bases.
Microbiology results-
Sputum culture-06/10/2024-ESBL E. coli.
-06/07/2024-MRSA positive
Urine-06/07/2024-
ESBL E. coli positive
Discharge Plan
-
Patient Disposition: Hospice - Inpatient [facility]
Discharge Orders:
Discharge Patient (As Directed); Ordered 06/16/24
Ordered By: Loreto Guaman
Discharge Date and Time
Print Language: ROMANIAN
== END 2024-06-16 13:35 | disposition hospice, inpatient (51) | DRG 871 ==
LOC: IMU 12:43
PROVIDERS: Hospitalist; Nurse Practitioner Family; Radiology Diagnostic Radiology; Radiology Vascular & Interventional Radiology; Student in an Organized Health Care Education/Training Program; ADMITTING PHYSICIAN Hospitalist; ATTENDING PHYSICIAN Internal Medicine; EMERGENCY PHYSICIAN Student in an Organized Health Care Education/Training Program; FAMILY PHYSICIAN Family Medicine; OTHER PHYSICIAN Internal Medicine; OTHER PHYSICIAN Internal Medicine Critical Care Medicine; OTHER PHYSICIAN Internal Medicine Hematology & Oncology; OTHER PHYSICIAN Internal Medicine Infectious Disease; OTHER PHYSICIAN Neurological Surgery
PROC: 02HV33Z Insertion of Infusion Device into Superior Vena Cava, Percutaneous Approach (ICD-10-PCS; 2024-06-08)
DX: A41.51 Sepsis due to Escherichia coli [E. coli] (principal); J15.5 Pneumonia due to Escherichia coli; R65.21 Severe sepsis with septic shock; L89.153 Pressure ulcer of sacral region, stage 3; J69.0 Pneumonitis due to inhalation of food and vomit; J96.01 Acute respiratory failure with hypoxia; R57.8 Other shock; I13.0 Hypertensive heart and chronic kidney disease with heart failure and stage 1 through stage 4 chronic kidney disease, or unspecified chronic kidney disease; I50.32 Chronic diastolic (congestive) heart failure; E87.1 Hypo-osmolality and hyponatremia; N39.0 Urinary tract infection, site not specified; G82.20 Paraplegia, unspecified; T82.868A Thrombosis due to vascular prosthetic devices, implants and grafts, initial encounter; I82.611 Acute embolism and thrombosis of superficial veins of right upper extremity; I82.622 Acute embolism and thrombosis of deep veins of left upper extremity; Z66 Do not resuscitate; Z51.5 Encounter for palliative care; I48.0 Paroxysmal atrial fibrillation; N18.30 Chronic kidney disease, stage 3 unspecified; D63.1 Anemia in chronic kidney disease; K21.9 Gastro-esophageal reflux disease without esophagitis; E11.22 Type 2 diabetes mellitus with diabetic chronic kidney disease; E11.42 Type 2 diabetes mellitus with diabetic polyneuropathy; E11.65 Type 2 diabetes mellitus with hyperglycemia; E11.51 Type 2 diabetes mellitus with diabetic peripheral angiopathy without gangrene; S24.109S Unspecified injury at unspecified level of thoracic spinal cord, sequela; V89.2XXS Person injured in unspecified motor-vehicle accident, traffic, sequela; L89.102 Pressure ulcer of unspecified part of back, stage 2; E83.42 Hypomagnesemia; E78.5 Hyperlipidemia, unspecified; F32.A Depression, unspecified; F41.9 Anxiety disorder, unspecified; L89.522 Pressure ulcer of left ankle, stage 2; L89.511 Pressure ulcer of right ankle, stage 1; L89.142 Pressure ulcer of left lower back, stage 2; K22.4 Dyskinesia of esophagus; R33.8 Other retention of urine; N40.1 Benign prostatic hyperplasia with lower urinary tract symptoms; Z22.322 Carrier or suspected carrier of Methicillin resistant Staphylococcus aureus; Z98.1 Arthrodesis status; Z88.5 Allergy status to narcotic agent; Z88.0 Allergy status to penicillin; Z87.891 Personal history of nicotine dependence; Z79.01 Long term (current) use of anticoagulants; Z79.02 Long term (current) use of antithrombotics/antiplatelets; Z79.84 Long term (current) use of oral hypoglycemic drugs; Z79.899 Other long term (current) drug therapy; Z74.01 Bed confinement status; L89.622 Pressure ulcer of left heel, stage 2; Y83.1 Surgical operation with implant of artificial internal device as the cause of abnormal reaction of the patient, or of later complication, without mention of misadventure at the time of the procedure
CPT/HCPCS: 36556; 71045; 74220; 74230; 76937; 77001; 80048; 80053; 80202; 81003; 81015; 82248; 82962; 83036; 83605; 83735; 85025; 85027; 85730; 87040; 87070; 87077; 87086; 87147; 87186; 87205; 87449; 87899; 92526; 92610; 92611; 93005; 93306; 93971; 96365; 96366; 96367; 97163; 97167; 99291; J1335

== ENCOUNTER 2024-06-16 13:36 | Inpatient (IN) | payer OTHER, SELFPAY ==
[2024-06-16 14:23] VITALS: BP 84/54
--- NOTE | 2024-06-16 14:27 | PTCARENOTE ---
Patient transferred into hospice care. Patient comfortable. Daughter at bedside. Educated on the dying process. Comfort provided. Continuing to monitor.
--- NOTE | 2024-06-16 14:35 | CHAP ---
Addendum entered by Amberly Ambriz 06/16/24 16:27:
Rabbi Mccrary WAS able to come as requested.
Original Note:
request relayed to Rabbi Mccrary, who hopes to arrive this afternoon.
--- NOTE | 2024-06-16 14:40 | HOSPNOTE ---
Meet with daughter Stormy, consents signed for hospice care. BP remains in 60-70's systolic. Comfortable at present time
--- NOTE | 2024-06-16 15:32 | HPS.HSE ---
Family Physician
-
Family Physician: NOT KNOW UNKNOWN - PT DOES
Chief Complaint
-
Inpatient hospice
History of Present Illness
78-year-old male with PMHx significant for paroxysmal A-fib, HFpEF, aspiration pneumonia, multiple decubitus ulcers in the back, diabetes, hypertension presents to the hospital from [facility] for evaluation of hypotension. Diagnosed with
septic shock.
Medical History
Past Medical History
Past Medical History: Reports Other ((paroxysmal atrial fibrillation, HFpEF, aspiration pneumonia, hypertension, hyperlipidemia, diabetes, BPH, depression, peripheral neuropathy, spinal cord injury with vertebral fracture/thoracic spine surgery in
2021, hyponatremia, GERD, sacral decubitus ulcer stage III))
Past Surgical History: Reports Other ((Thoracic Spine Fusion / Stabilization (2021)))
Social History
Tobacco: Non-smoker
Alcohol: None
Drug: None
Personal: Single
Living: Alone
Employment: Not Employed
Family History
Family History: Not pertinent
Allergies / Home Medications
Allergies reflects when Allergies were last updated in [facility].
Home Medications with original date entered in [facility]
Allergy/Medication List:
Allergies
Allergy/AdvReac Type Severity Reaction Status Date / Time
JEFFERSON Inhibitors Allergy Unknown Verified 01/21/24 15:15
codeine Allergy Unknown Verified 01/21/24 15:15
diphth,pert(acell),tetan,polio Allergy Unknown Verified 01/21/24 15:15
vacc,component 1of2
[From Pentacel DTaP-IPV
Compnt (PF)]
Penicillins Allergy Unknown Verified 01/21/24 15:15
Home Medications
amiodarone 200 mg tablet 200 mg PO DAILY Arrhythmia 11/08/23
atorvastatin 80 mg tablet 80 mg PO DAILY High Cholesterol 11/08/23
bisacodyl 10 mg rectal suppository 10 mg [place] DAILYPRN PRN if MOM ineffective 11/08/23
clopidogrel 75 mg tablet 75 mg PO DAILY Blood Clot Prevention/Tx 11/08/23
doxepin 50 mg capsule 50 mg PO DAILY Mental Health/Anxiety 11/08/23
ipratropium 0.5 mg-albuterol 3 mg (2.5 mg base)/3 mL nebulization soln 3 ml inhalation R Q4HPRN PRN sob 11/08/23
isosorbide mononitrate 30 mg tablet,extended release 24 hr 30 mg PO DAILY Heart Disease/Condition 11/08/23
losartan 25 mg tablet 25 mg PO DAILY Blood Pressure 11/08/23
magnesium hydroxide 400 mg/5 mL oral suspension (Milk of Magnesia) 30 ml PO HSPRN PRN if no BM in 3 days 11/08/23
metformin 500 mg tablet 500 mg PO DAILY Diabetes 11/08/23
ondansetron HCl 4 mg tablet 4 mg PO Q6HPRN PRN nausea/vomiting 11/08/23
spironolactone 25 mg tablet 12.5 mg PO DAILY Fluid Retention/Swelling 11/08/23
cholecalciferol (vitamin D3) 25 mcg (1,000 unit) tablet 25 mcg PO DAILY Supplement 04/26/24
docusate sodium 100 mg capsule 100 mg PO BID Constipation 04/26/24
sennosides 8.6 mg tablet (senna) 8.6 mg PO HS Constipation 04/26/24
acetaminophen 500 mg tablet 1,000 mg PO HS Pain 06/07/24
gabapentin 600 mg tablet 600 mg PO TID Pain 06/07/24
therapeutic multivitamin 1 tab PO DAILY Supplement 06/07/24
carvedilol 3.125 mg tablet 3.125 mg PO BID Blood Pressure 06/08/24
Ertapenem [Invanz] 1,000 mg 120 mls/hr IV Q24H 06/14/24
apixaban 5 mg tablet (Eliquis) 5 mg PO BID 30 days #60 tabs 06/14/24
miconazole nitrate 2 % topical ointment (Critic-Aid Clear AF (miconazole)) 1 applic topical BIDPRN PRN yeasty red skin #10 grams 06/14/24
midodrine 5 mg tablet 5 mg PO TID low blood pressure 30 days #90 tabs 06/14/24
pantoprazole 40 mg tablet,delayed release 40 mg PO DAILY 30 days #30 tabs 06/14/24
Review of Systems
-
Unable to obtain full review of systems at this time due to: Patient Non-verbal
Physical Exam
Vital Signs
Vital Signs
Pulse Resp BP
91 13 84/54
06/16/24 14:24 06/16/24 14:24 06/16/24 14:23
Physical Exam
General: Comfortable and Other (Somnolent.)
HEENT: Moist mucous membranes and PERRLA
Respiratory: Wheezes and Crackles; No Clear, Rales or Rhonchi
Cardiac: S1/S2, Regular Rhythm, Murmur and JVD; No Rub or Gallop
GI: Soft, Non Tender, Non Distended and Normal Bowel Sounds
Genito-urinary: Clear Urine
Musculoskeletal: No Clubbing, No Cyanosis and Other (Edema right upper extremity greater than left upper extremity, bilateral 1+ pitting edema)
Neuro: No Motor Deficits and Other (Somnolent)
Psych: Calm
Data Reviewed
-
Old Records: Reviewed
Impression/Plan
-
During patient's 9 day hospital course,
He came in with septic shock, started on Levophed at 6 mcg and his requirement went higher up overnight on day 1. As he was on Levophed for more than 24 hours a PICC line was introduced into his right upper extremity, and Levophed was gradually
weaned off overnight on day 2. Patient is noticed to have aspiration pneumonia, and as a part of sepsis workup we ordered sputum cultures, checked all his decubitus ulcers and ordered urine cultures along with blood cultures. His sputum cultures
and urine cultures were positive for ESBL E. 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 Our initial concern was if his sepsis is secondary to
his exposed hardware. Hence we consulted neurosurgery as well as wound care. Neurosurgery saw the patient and advised that to continue his management with his primary neurosurgeon at [place]. ID was on board from day 1, started patient on
vancomycin and cefepime initially, when his cultures came back positive for ESBL E. coli cefepime was switched to ertapenem. On day 3 of his hospitalization, there is a swelling noticed around the PICC line and vascular ultrasound was obtained
which showed superficial venous thrombosis in his cephalic and basilic veins, extending all the way into his shoulder, and with concern to rule out deep vein thrombosis in the other extremity before introducing PICC line we obtained vascular
ultrasound on his left upper extremity which showed evidence for deep vein thrombosis. Hence interventional radiology was consulted, his PICC line was removed and IR could not visualize his right internal jugular vein to obtain access. Patient was
given a left IJ access by IR to continue his medical management. As patient was already on Eliquis and Plavix, there is a concern for Eliquis treatment failure and heme-onc was consulted. It is determined that patient clots were secondary to his
ongoing sepsis and immobility but less likely on Eliquis treatment failure. Hence patient was started on heparin gtt. for 48 hours given the close proximity of the SVT clots to his heart, and speech was consulted to evaluate his aspiration risk.
Speech therapy recommended GI consult. GI was consulted as well, GI obtained barium esophagogram with the video swallow assessment both of which were negative. GI wanted the patient to be on heparin drip while determining the necessity for an
upper GI endoscopy. Hence patient continued to remain on heparin drip for 4 days, and then switch to Eliquis 10 mg twice a day for 7 days and then to Eliquis 5 mg twice a day. Patient received 3 days course of ertapenem. Due to his septic shock
all his GDMT medications for HFpEF were on hold during this hospitalization. Patient continued to remain with soft blood pressures throughout hospitalization. Patient is also found to have MRSA colonization during this hospitalization. We
continued all other home medications for his chronic medical conditions during the hospital course. Patient also brought up the conversation of hospice at 1 point in his hospitalization course for which I consulted the hospice team. Patient and
his family made a shared decision making the day before discharge that hospice is not appropriate for them. GI recommended to advance the patient to regular diet. Patient was also advance her to regular diet the day before hospital discharge.
Given patient's heart failure, fluid overload, urinary retention, multiple open decubitus ulcers, and recurrent aspiration pneumonias we discussed the likelihood of readmission to the hospital in less than 30 days is very high-greater than 30%, we
discussed poor prognosis as well as mortality rates. On the day of planned discharge on 06/14/2024, patient's blood pressure thank to a mean arterial pressure of 45 and he was again diagnosed with cardiogenic/distributive shock. An echocardiogram
was obtained which showed evidence of mitral regurgitation, aortic stenosis, and severe pulmonary hypertension.
Efforts were made to reach patient's daughter on the day-06/14/2024, and the decision was made to continue the patient on Levophed till the family arrives on 06/15/2024 and makes a decision for hospice. After extensive hospice discussions
yesterday, in the morning patient's family is agreeable to wean off Levophed gradually and then start comfort care if the patient's blood pressure is not stable. However in the night, night team documented that patient's family was upset that he is
not on comfort measures. Overnight patient care was changed to comfort care. Hospice reassessed him today and requested an inpatient hospice admission. Hence patient is admitted to inpatient hospice
Workups-
Echocardiogram-06/14/2024 -
Technically difficult study
Normal left ventricular size and systolic function. No gross regional wall
motion abnormalities are seen. LV ejection fraction is 60-65% by visual
assessment.
Normal right ventricular size and function.
Mitral sclerosis without stenosis. Mild to moderate mitral regurgitation.
Mild aortic stenosis. Peak/mean gradients across the aortic valve are 25/14
mmHg.
Mild to moderate tricuspid regurgitation. Estimated pulmonary artery pressure
of 55-60 mmHg assuming a right atrial pressure of 3 mmHg.
Barium esophagogram-06/12/2024
Markedly limited evaluation of esophagus due to patient's debility, lack of motility and extensive metallic hardware throughout the thoracic spine. No findings to suggest esophageal obstruction or aspiration.
Videofluoroscopic swallow-06/12/24
No noticed risk for aspiration.
Catheter placement x-ray, vascular ultrasound-06/09/2024-
Successful left IJ access.
Peripheral vascular ultrasound 06/09/2024-
Examination positive for thrombosis involving the basilic vein in the left upper arm there is also thrombus within one of the 2 brachial arms in the left upper arm.
Peripheral vascular ultrasound 06/09/2024-
Thrombus involving the right cephalic and basilar veins.
Chest x-ray-06/08/2024-
Right PICC line catheter in the central third of the superior vena cava. No pneumothorax.
Chest x-ray on 06/27-
Pneumonia in bilateral lung bases.
Microbiology results-
Sputum culture-06/10/2024-ESBL E. coli.
-06/07/2024-MRSA positive
Urine-06/07/2024-
ESBL E. coli positive
PLAN -
Morphine as needed for pain, keep patient comfortable.
Maintain dignity of the patient.
Use glycopyrrolate and Hyson sulfate as needed for secretions
[2024-06-16 16:00] VITALS: BP 82/46
[2024-06-16 18:00] VITALS: BP 83/44
[2024-06-16 19:40] VITALS: BP 108/59
--- NOTE | 2024-06-16 23:04 | HOSPNOTE ---
Patient has been admitted inpatient hospice level of care. Patient is inpatient appropriate for the management of pain, dyspnea and anxiety that could not be managed in the outpatient setting. Patient is aaox2, forgetful and lethargic. Daughter
Stormy signed consents. Informal report with RN, CM and Attending. Hospice will visit daily. Emotional support provided.
[2024-06-17] MEDS: MORPHINE SULFATE 1 MG IV ×2 (01:57→18:02)
[2024-06-17 07:15] VITALS: BP 75/38
--- NOTE | 2024-06-17 08:13 | W.PN.UPDATE ---
Update Note
Progress Note Update
I saw and evaluated the patient. I reviewed the resident�s note and agree with findings and plan as documented in the resident�s note.
Resting comfortably.
Gen: NAD, appears chronically ill
CV: continues to remain RRR, +S1/S2, no m/r/g.
Resp: remains CTAB anteriorly, no rales, wheezes, or rhonchi.
Abd: hypoactive BS, soft, NT, ND
Pt is now comfort care. Continue comfort meds, Ativan PRN and morphine (monitor for need for morphine gtt).
--- NOTE | 2024-06-17 10:15 | W.PN.HOSP.TC ---
Today's Communication/Plan
-
Continue hospice.
Assessment / Plan
Assessment / Plan
78-year-old male with PMHx significant for paroxysmal A-fib, HFpEF, aspiration pneumonia, multiple decubitus ulcers in the back, diabetes, hypertension presents to the hospital from [facility] for evaluation of hypotension. Diagnosed with
septic shock.
Plan-
Continue hospice measures.
Offered patient die try out worker stamping and other possible hospice options for emotional support
Continue to maintain comfort and dignity of the patient.
Anticipated Discharge: 24 - 48 hours
Subjective/Interval History
-
Date of Service: June 17, 2024
Patient is sleeping comfortably, and easily arousable.
Objective Data
-
Vital Signs:
Vital Signs
Temp Pulse Resp BP Pulse Ox
97.9 F 105 16 75/38 75
06/17/24 07:15 06/17/24 07:15 06/17/24 07:15 06/17/24 07:15 06/17/24 07:15
I&O
06/16/24 06/17/24 06/18/24
06:59 06:59 06:59
Intake Total 0 / 0
Output Total 150 / 150
Balance -150 / -150
Review of Systems
-
History Source: Patient
Constitutional: Reports No Symptoms
Respiratory: Reports No Symptoms
Cardiac: Reports No Symptoms
Abdomen/GI: Reports No Symptoms
Genitourinary: Reports No Symptoms
Musculoskeletal: Reports No Symptoms
Skin: Reports No Symptoms
Neuro: Reports No Symptoms
Endocrine: Reports No Symptoms
Allergy / Immunology: Reports No Symptoms
Physical Exam
-
General: No Apparent Distress and Comfortable
HEENT: Moist Mucous Membranes and PERRLA
Respiratory: Clear to Auscultation; Negative Wheezes, Rales, Rhonchi or Crackles
Cardiac: Regular Rhythm and S1/S2; Negative Murmur, Rub or Gallop
GI: Soft, Nontender, Nondistended and Normal Bowel Sounds
Musculoskeletal: No Clubbing, No Cyanosis and Other (Edema in left upper extremity greater than right upper extremity, bilateral 1+ pitting edema)
Neuro: Awake and Other (Spontaneously moves arms. Paralyzed waist down. Bedbound)
Psych: Calm
--- NOTE | 2024-06-17 11:04 | HOSPNOTE ---
Received update from floor nurse.No Prns needed.No agitation .last PRN Morphine 1:57 am.Appears comfortable. Just provided personal care and turning prior to my arrival.Received patient in bed .Unresponsive to verbal stimuli or touch.Did not open
eyes during my visit.Flacc 0.Bilateral arm dressings/wraps dry and intact.Nayak patient for 50 cc dk yellow ua in collection bag.Unable to obtain pulse ox or BP.respiratory rate 9 and even.T- 97.2 ,HR 120.No distress noted appears comfortable and
peaceful at time of my visit .Daughter Stormy updated to todays visit.GIP remains for symptom management and Imminent state.Hours to days life expectancy.
--- NOTE | 2024-06-17 16:21 | CHAP ---
Lan was sleeping peacefully, non-responsive. No family was present. I offered quiet words of comfort and prayer at bedside.
[2024-06-17 23:10] VITALS: BP 80/39
--- NOTE | 2024-06-18 05:15 | PTCARENOTE ---
Patient with no BP/ HR/Resp. updated house provider
--- NOTE | 2024-06-18 05:18 | W.PN.DEATH ---
Pronouncement of
-
Called to see patient to pronounce.
No spontaneous heart tones or respirations noted.
Patient not responsive to verbal stimuli.
Patient is pronounced .
Time of : 05:15
Date of : 06/18/24
Cause of : urosepsis
Family Notified: Yes (Stormy Hart via phone. )
--- NOTE | 2024-06-18 05:33 | PTCARENOTE ---
[facility] notified of patient's being
--- NOTE | 2024-06-18 11:18 | W.DCSUMMARY ---
Addendum entered and electronically signed by Tomer Lindo MD 06/18/24 13:02:
Read, reviewed, and agree. See same day progress note for additional details.
Original Note:
Discharge Summary
Discharge Data
Date of Admission: 06/16/24
Date of Discharge: 06/18/24
-
Pending Results: No
Hospital Course
Impression-
78-year-old male with PMHx significant for paroxysmal A-fib, HFpEF, aspiration pneumonia, multiple decubitus ulcers in the back, diabetes, hypertension presents to the hospital from [facility] for evaluation of hypotension. Diagnosed with
septic shock.
Hospital course -
During patient's 9 day hospital course,
He came in with septic shock, started on Levophed at 6 mcg and his requirement went higher up overnight on day 1. As he was on Levophed for more than 24 hours a PICC line was introduced into his right upper extremity, and Levophed was gradually
weaned off overnight on day 2. Patient is noticed to have aspiration pneumonia, and as a part of sepsis workup we ordered sputum cultures, checked all his decubitus ulcers and ordered urine cultures along with blood cultures. His sputum cultures
and urine cultures were positive for ESBL E. 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 Our initial concern was if his sepsis is secondary to
his exposed hardware. Hence we consulted neurosurgery as well as wound care. Neurosurgery saw the patient and advised that to continue his management with his primary neurosurgeon at [place]. ID was on board from day 1, started patient on
vancomycin and cefepime initially, when his cultures came back positive for ESBL E. coli cefepime was switched to ertapenem. On day 3 of his hospitalization, there is a swelling noticed around the PICC line and vascular ultrasound was obtained
which showed superficial venous thrombosis in his cephalic and basilic veins, extending all the way into his shoulder, and with concern to rule out deep vein thrombosis in the other extremity before introducing PICC line we obtained vascular
ultrasound on his left upper extremity which showed evidence for deep vein thrombosis. Hence interventional radiology was consulted, his PICC line was removed and IR could not visualize his right internal jugular vein to obtain access. Patient was
given a left IJ access by IR to continue his medical management. As patient was already on Eliquis and Plavix, there is a concern for Eliquis treatment failure and heme-onc was consulted. It is determined that patient clots were secondary to his
ongoing sepsis and immobility but less likely on Eliquis treatment failure. Hence patient was started on heparin gtt. for 48 hours given the close proximity of the SVT clots to his heart, and speech was consulted to evaluate his aspiration risk.
Speech therapy recommended GI consult. GI was consulted as well, GI obtained barium esophagogram with the video swallow assessment both of which were negative. GI wanted the patient to be on heparin drip while determining the necessity for an
upper GI endoscopy. Hence patient continued to remain on heparin drip for 4 days, and then switch to Eliquis 10 mg twice a day for 7 days and then to Eliquis 5 mg twice a day. Patient received 3 days course of ertapenem. Due to his septic shock
all his GDMT medications for HFpEF were on hold during this hospitalization. Patient continued to remain with soft blood pressures throughout hospitalization. Patient is also found to have MRSA colonization during this hospitalization. We
continued all other home medications for his chronic medical conditions during the hospital course. Patient also brought up the conversation of hospice at 1 point in his hospitalization course for which I consulted the hospice team. Patient and
his family made a shared decision making the day before discharge that hospice is not appropriate for them. GI recommended to advance the patient to regular diet. Patient was also advance her to regular diet the day before hospital discharge.
Given patient's heart failure, fluid overload, urinary retention, multiple open decubitus ulcers, and recurrent aspiration pneumonias we discussed the likelihood of readmission to the hospital in less than 30 days is very high-greater than 30%, we
discussed poor prognosis as well as mortality rates. On the day of planned discharge on 06/14/2024, patient's blood pressure thank to a mean arterial pressure of 45 and he was again diagnosed with cardiogenic/distributive shock. An echocardiogram
was obtained which showed evidence of mitral regurgitation, aortic stenosis, and severe pulmonary hypertension.
Efforts were made to reach patient's daughter on the day-06/14/2024, and the decision was made to continue the patient on Levophed till the family arrives on 06/15/2024 and makes a decision for hospice. After extensive hospice discussions
yesterday, in the morning patient's family is agreeable to wean off Levophed gradually and then start comfort care if the patient's blood pressure is not stable. However in the night, night team documented that patient's family was upset that he is
not on comfort measures. Overnight patient care was changed to comfort care. Hospice reassessed him today and requested an inpatient hospice admission. Patient is admitted to inpatient hospice on 06/16/24, and comfortably on 06/18/24
at 5.15am
Workups-
Echocardiogram-06/14/2024 -
Technically difficult study
Normal left ventricular size and systolic function. No gross regional wall
motion abnormalities are seen. LV ejection fraction is 60-65% by visual
assessment.
Normal right ventricular size and function.
Mitral sclerosis without stenosis. Mild to moderate mitral regurgitation.
Mild aortic stenosis. Peak/mean gradients across the aortic valve are 25/14
mmHg.
Mild to moderate tricuspid regurgitation. Estimated pulmonary artery pressure
of 55-60 mmHg assuming a right atrial pressure of 3 mmHg.
Barium esophagogram-06/12/2024
Markedly limited evaluation of esophagus due to patient's debility, lack of motility and extensive metallic hardware throughout the thoracic spine. No findings to suggest esophageal obstruction or aspiration.
Videofluoroscopic swallow-06/12/24
No noticed risk for aspiration.
Catheter placement x-ray, vascular ultrasound-06/09/2024-
Successful left IJ access.
Peripheral vascular ultrasound 06/09/2024-
Examination positive for thrombosis involving the basilic vein in the left upper arm there is also thrombus within one of the 2 brachial arms in the left upper arm.
Peripheral vascular ultrasound 06/09/2024-
Thrombus involving the right cephalic and basilar veins.
Chest x-ray-06/08/2024-
Right PICC line catheter in the central third of the superior vena cava. No pneumothorax.
Chest x-ray on 06/27-
Pneumonia in bilateral lung bases.
Microbiology results-
Sputum culture-06/10/2024-ESBL E. coli.
-06/07/2024-MRSA positive
Urine-06/07/2024-
ESBL E. coli positive
Discharge Plan
-
Patient Disposition:
Date/Time
Date/Time: 06/18/24 05:15
Discharge Date and Time
Discharge Date/Time: 06/18/24 08:27
Print Language: MOSOT[place]
== END 2024-06-18 08:27 | disposition expired | DRG 951 ==
LOC: 2 NORTH 13:36
PROVIDERS: Student in an Organized Health Care Education/Training Program; ADMITTING PHYSICIAN Internal Medicine
DX: Z51.5 Encounter for palliative care (principal); A41.9 Sepsis, unspecified organism; R65.21 Severe sepsis with septic shock; J18.9 Pneumonia, unspecified organism; J69.0 Pneumonitis due to inhalation of food and vomit; I50.32 Chronic diastolic (congestive) heart failure; I48.0 Paroxysmal atrial fibrillation; N40.1 Benign prostatic hyperplasia with lower urinary tract symptoms; R33.8 Other retention of urine; I11.0 Hypertensive heart disease with heart failure; E78.5 Hyperlipidemia, unspecified; E11.42 Type 2 diabetes mellitus with diabetic polyneuropathy; L89.109 Pressure ulcer of unspecified part of back, unspecified stage; Z79.01 Long term (current) use of anticoagulants; Z98.1 Arthrodesis status; Z88.5 Allergy status to narcotic agent; Z88.0 Allergy status to penicillin; Z79.02 Long term (current) use of antithrombotics/antiplatelets; Z79.84 Long term (current) use of oral hypoglycemic drugs; Z79.899 Other long term (current) drug therapy